=== PATIENT | female | born 1990 | race Caucasian/White ===

== ENCOUNTER 2016-10-03 11:21 | Emergency (ER) | payer MEDICAID ==
[~2016-10-03] VITALS: Ht 170.2 cm; Wt 58.5 kg
[~2016-10-03 11:21] MED LIST: AMOXICOT500 M1 PO; ATIVAN GENERIC0.5 MG PO; ETODOLAC400 MG PO; HYDROCODONE-APA1 TA1 PO; INDERAL40 MG PO; LO/OVRAL-28 301 TA1 PO; LORTAB 7.5/3251 TAB PO; PERCOCET1 TAB PO; PHENERGAN25 M3 PO; TYLENOL WITH CO1 TA1 PO; ZOFRAN4 MG PO
[2016-10-03] MEDS ORDERED: RISPERIDONE3 MG PO (11:32)
[2016-10-03] MEDS ORDERED: INDERAL 40MG. T40 MG PO (11:33)
--- OUTSIDE RECORDS SUMMARY | 2016-10-03 11:52 | External Medical Summary Rpt ---
Author Author , Organization [employer] Address Unknown Phone Unavailable Care Team Providers Care Architectural Examiner Name Role Phone [employer] Unavailable Unavailable INC, [employer] Unavailable Unavailable INC, [employer] ALEXANDRU ZACK, Unavailable Unavailable ALEXANDRU ZACK ALEXANDRU ZACK, Unavailable Unavailable ALEXANDRU ZACK JR. DECKER HENRY J, Unavailable Unavailable JR. DECKER HENRY J BEINEKE, BEINEKE Unavailable Unavailable KIZZY IIISPENCERLEONA, Unavailable Unavailable KIZZY III, LEONA NAHUM ALEXIS, NAHUM ALEXIS Unavailable Unavailable IGLESIA MCGILL Unavailable Unavailable TAMMY GONZALEZ DON, CARLOS DON Unavailable [facility]available [facility], [facility], Unavailable Unavailable [facility] Unavailable Unavailable MEDICAL C, [facility] Unavailable Unavailable [facility], [facility] Unavailable Unavailable [facility] [place] [place] [facility] Unavailable Unavailable [facility]ANS, [facility] REY LE Unavailable Unavailable REY Solares, REY Martinez Unavailable Unavailable G REY HAM, REY Unavailable Unavailable JITENDRA CATIE SWAPNA, Unavailable Unavailable CATIE SWAPNA CROWDY CRI, CROWDY Unavailable Unavailable CRI BORIS MARINA, Unavailable Unavailable BORIS MARINA COLON LAR, Unavailable Unavailable COLON LAR [facility] # [id number], Unavailable Unavailable [facility] # [id number] [id number], Unavailable Unavailable [id number] DEFOOR JR ALEXIS, DEFOOR Unavailable Unavailable JR ALEXIS MELODY CEDRIC, MELODY Unavailable Unavailable CEDRIC SANTANA HOANG, Unavailable Unavailable SANTANA HOANG DARYL L, Unavailable Unavailable GERARD, DO L [facility], [facility] BETH ODOM Unavailable Unavailable OVALLES GANANGELA JITENDRA, GANIM JITENDRA Unavailable Unavailable GANSHIRT RICARDO, Unavailable Unavailable GANSHIRT RICARDO GEERS RYA, GEERS RYA Unavailable Unavailable [facility] CLARKE MD, Unavailable Unavailable NAGI MABRY MD, Unavailable Unavailable NAGI VAZQUEZ GRAVES LES, GRAVES Unavailable Unavailable LES GRAVES LES, GRAVES Unavailable Unavailable LES GREVER MAR, GREVER Unavailable Unavailable MAR GREVER MAR, GREVER Unavailable Unavailable MAR GRUNKEMEYER MAT, Unavailable Unavailable GRUNKEMEYER MAT GRUNKEMEYER, OTILIA Unavailable Unavailable S, GRUNKEMEYER, OTILIA S GULTEKIN, REILLY K, Unavailable Unavailable GULTEKIN, REILLY K J CARLOS JUDITH, J CARLOS Unavailable Unavailable JUDITH HARPEL, HARPEL Unavailable Unavailable HARPEL JESUSITA, HARPEL Unavailable Unavailable JESUSITA [facility] Unavailable Unavailable INC, [facility] Unavailable Unavailable HOSPITAL P, [facility] P CHENCHO, NELSON P, Unavailable Unavailable CHENCHO, NELSON P ARANA AND, ARANA Unavailable Unavailable [facility], Unavailable Unavailable [facility] LACHELLE WILL, Unavailable Unavailable LACHELLE WILL JILL, JONES, Unavailable Unavailable BRENDA KEAGLE RIT, KEAGLE Unavailable Unavailable RIT KEAGLE RIT, KEAGLE Unavailable Unavailable RIT MONICA SHAVER H, Unavailable Unavailable SIVAKUMAR, MONICA H [facility] Unavailable Unavailable [facility], [facility] FRAN PINEDA, Unavailable Unavailable FRAN PINEDA H KLANKE JUS, KLANKE Unavailable Unavailable JUS CHONG RONEN, CHONG RONEN Unavailable Unavailable CHONG RONEN, CHONG RONEN Unavailable Unavailable ADRIEL RENATO, ADRIEL Unavailable Unavailable TUS NOREEN DESIR KROL, Unavailable Unavailable NOREEN J [facility] Unavailable Unavailable HOLDINGS, [facility] [email or web address] [facility], Unavailable Unavailable [facility] LAMEIER DILIA, LAMEIER Unavailable Unavailable DILIA LAMEIER DILIA, LAMEIER Unavailable Unavailable DILIA LUBBERS JASS, LUBBERS Unavailable Unavailable JASS LUKING SWAPNA, LUKING Unavailable Unavailable SWAPNA LUKING SWAPNA, LUKING Unavailable Unavailable SWAPNA BERNARDINO REYES, Unavailable Unavailable BERNARDINO LAYTON EDW, CALIN Unavailable Unavailable EDW ERIK NO, Unavailable Unavailable ERIK NO, HUBERT MUNOZ Unavailable Unavailable ARETHA HARLEY, Unavailable Unavailable ARETHA HARLEY MULBERRY LEIF, Unavailable Unavailable MULBERRY LEIF MULBERRY LEIF, Unavailable Unavailable MULBERRY LEIF NEILS, MANDA W, NEILS, Unavailable Unavailable MANDA W ALCON Grant, Unavailable Unavailable ALCON R H ALCON R H, Unavailable Unavailable ALCON R H [facility] Unavailable Unavailable INC, [facility] Un[facility] Unavailable [facility], [facility] OSTERHAGE CESAR, Unavailable Unavailable [facility] CESAR OTREMBIAK, SUSIE K, Unavailable Unavailable OTREMBIAK, SUSIE K [facility] KESHAWN LIAO Unavailable Unavailable [facility], [facility], [facility] Unavailable Unavailable CENTER, [facility] Unavailable Unavailable CENTER, [facility] HEMANT II TOLU, HEMANT Unavailable Unavailable II TOLU [facility], Unavailable Unavailable [facility], Unavailable Unavailable [facility], Unavailable Unavailable [facility] Unavailable Unavailable [facility], [facility] RATTAN AMI, RATTAN Unavailable Unavailable AMI NERI KAMI, Unavailable Unavailable NERI KAMI ROEBKER JAM, ROEBKER Unavailable Unavailable JAM ROSS CATHY, ROSS CATHY Unavailable Unavailable ROSS CATHY, ROSS CATHY Unavailable Unavailable SCALF LEI, SCALF LEI Unavailable Unavailable SCALF LEI, SCALF LEI Unavailable Unavailable YUN, YUN Unavailable Unavailable YUN RONEN, YUN Unavailable Unavailable RONEN SCHULSTAD CAM, Unavailable Unavailable SCHULSTAD CAM GIANG NADINE, GIANG NADINE Unavailable Unavailable SATISH DAWSON, SATISH Unavailable Unavailable DAWSON SOTINGEANJennifer TAMMY, Unavailable Unavailable SOTINGEANU TAMMY ALLIE SHE, Unavailable Unavailable ALLIE SHE [facility], Unavailable Unavailable [facility] Unavailable Unavailable [facility] Unavailable Unavailable [facility], [facility] Unavailable Unavailable [facility], [facility] Unavailable Unavailable PHYSICIANS, [facility] Unavailable Unavailable [facility] [place] Unavailable Unavailable [facility] TAD CHACKO Unavailable Unavailable MARKO CAMEJO ALEXIS, BASHIR ALEXIS Unavailable Unavailable [facility]available , [facility]available Unavailable [facility] Unavailable YAJAIRA LAGUERRE, [facility] VON HOENE AMA, VON Unavailable Unavailable HOENE AMA LISA DEW, LISA DEW Unavailable Unavailable [id number], Unavailable Unavailable [facility] # [id number] [facility], Unavailable Unavailable [id number], Unavailable Unavailable [id number] WALKER III DUTCH, Unavailable Unavailable WALKER III DUTCH [facility], [facility] Unavailable Unavailable MERON ALEXIS, MERON ALEXIS Unavailable Unavailable DENNY, DENNY Unavailable Unavailable ZANGRANDO JASS, Unavailable Unavailable ZANGRANDO JASS Purpose Continuity of Care Document - 10-13-2006 through 2016 Problems Code Diagnosis DOS Provider Status J069 ACUTE UPPER 08-18-2016 [facility] RESPIRATORY INFECTION UNSPECIFIED L259 UNSPECIFIED 08-18-2016 [facility]CT [facility] DERMATITIS UNSPECIFIED CAUSE B90307 PAIN IN 08-18-2016 [facility] RIGHT LEG [facility] G45964 PAIN IN 08-18-2016 [facility] LEFT LEG [facility] N946 DYSMENORRHE 08-18-2016 [facility] A [facility]ATES UNSPECIFIED R300 DYSURIA 08-18-2016 [facility] [id number] CORROSION 08-18-2016 [facility] 1ST DEGREE ASSOCIATES RT UPPER ARM INITIAL ENC J40 BRONCHITIS 04-01-2016 [facility] NOT [facility]OCIATES SPECIFIED ACUTE OR CHRONIC R05 COUGH 04-01-2016 [facility] R102 PELVIC AND 03-25-2016 [facility] PERINEAL PHYSICIANS PAIN GROUP N390 URINARY 03-21-2016 [facility] TRACT PHYSICIANS INFECTION GROUP SITE NOT SPECIFIED A99932 UNSPECIFIED 03-15-2016 [facility] OVARIAN PHYSICIANS CYST RIGHT GROUP SIDE I37493 TORSION OF 03-15-2016 [facility] RIGHT OVARY PHYSICIANS AND GROUP OVARIAN PEDICLE N761 SUBACUTE 03-08-2016 [facility] AND CHRONIC PHYSICIANS VAGINITIS GROUP P90358 ENCOUNTER 03-08-2016 [facility] FOR OTHER [facility] PREPROCEDUR INC AL EXAMINATION R1031 RIGHT LOWER 02-18-2016 [facility] Z720 TOBACCO USE 02-18-2016 [facility] INC N9489 OTH COND 02-16-2016 [facility] ASS[facility] W/FE PHYSICIANS GEN ORGN & GROUP MENSTRUAL CYCL Z309 ENCOUNTER 02-16-2016 [facility] FOR PHYSICIANS CONTRACEPTI GROUP VE MANAGEMENT UNS C83824 PAIN IN 01-12-2016 [facility] RIGHT ELBOW [facility] V65978A UNSPECIFIED 12-21-2015 [facility] RT FOREARM PHYSICIANS INITIAL ENC [id number] OTHER 11-05-2015 [facility] SPR[facility] OF H RIGHT HIP ORTHOPAEDIC INITIAL CTR ENCOUNTER A712X8Q SPRAIN 11-05-2015 [facility] OTHER SPEC H PARTS RIGHT ORTHOPAEDIC KNEE CTR INITIAL ENC T05473 EFFUSION 10-24-2015 [facility] RIGHT KNEE ASSOCIATES OF NOTH Y15454 PAIN IN 10-24-2015 [facility] RIGHT KNEE ASSOCIATES OF NOT V8946OD SPRAIN 10-24-2015 [facility] UNSPECIFIED TECHNOLOGIE SITE RT S INC KNEE INITIAL ENCNTR T1490 INJURY 10-24-2015 [facility] UNSPECIFIED ASSOCIATES OF NOT K529 NONINFECTIV 10-06-2015 [facility] E PHYSICIANS GASTROENTER GROUP ITIS & COLITIS UNS R73801 UNS ACUTE 09-18-2015 [facility] NONINFECTIV ASSOCIATES E OTITIS EXTERNA LEFT EAR H6692 OTITIS 09-18-2015 [facility] MEDIA [facility] UNSPECIFIED LEFT EAR M545 LOW BACK 09-18-2015 [facility] PAIN [facility] F32355 PAIN IN 09-18-2015 [facility] RIGHT FOOT ASSOCIATES K02933 PAIN IN 09-18-2015 [facility] LEFT FOOT ASSOCIATES Z8739 PERSONAL HX 09-18-2015 [facility] OTH DZ ASSOCIATES MUSCULOSKEL SYS&CONNECT V TISS Z021 ENCOUNTER 08-12-2015 [facility] FOR ASSOCIATES PRE-EMPLOYM ENT EXAMINATION N8320 UNSPECIFIED 07-28-2015 [facility] OVARIAN PHYSICIANS CYSTS GROUP I10 ESSENTIAL 07-17-2015 [facility] HYPERTENSIO INC N N8329 OTHER 07-17-2015 [facility] O[facility]IAN PHYSICIANS, CYSTS PLLC N739 FEMALE 07-16-2015 [facility] PELVIC EMERGENCY INFLAMMATOR PHYSICIANS Y DISEASE UNSPECIFIED N938 OTHER SPEC 07-16-2015 [facility] ABNORMAL [facility] UTERINE & OF NOTH VAGINAL BLEEDING R1030 LOWER 07-16-2015 [facility] ABDOMINAL [facility]IATES PAIN OF NOTH UNSPECIFIED N920 EXCESS & 06-18-2015 [facility] Mehta FREQUENT VINCE PALMA MENSTRUATIO N W/REGULAR CYCLE H6693 OTITIS 06-04-2015 [facility] MEDIA [facility] UNSPECIFIED BILATERAL R51 HEADACHE 03-31-2015 [facility] SAULT COLLE R109 UNSPECIFIED 02-05-2015 [facility] ABDOMINAL ASSOCIATES PAIN OF NOTH H5203 HYPERMETROP 01-24-2015 [facility] DILIA IA BILATERAL 6201 CORPUS 01-01-2015 [facility] eMhta LUTEUM CYST VINCE PALMA OR HEMATOMA 6202 OTHER AND 01-01-2015 [facility] UNSPECIFIED LLC OVARIAN CYST 6205 TORSION 01-01-2015 [facility] OVARIAN INC PEDICLE OR FALLOPIAN TUBE 6238 OTHER 01-01-2015 [place] SPECIFIED [facility]ICAL NONINFLAMMA IMAGING ASS TORY DISORDER VAGINA 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 INC 6259 UNSPEC 01-01-2015 [facility] SYMPTOM VINCE PALMA ASSOC W/FEMALE GENITAL ORGANS 6262 EXCESSIVE 01-01-2015 [facility] Mehta OR FREQUENT VINCE PALMA MENSTRUATIO N 26766 ABDOMINAL 01-01-2015 [place] PA[place], LEFT MEDICAL LOWER IMAGING ASS QUADRANT V741 SCREENING 12-25-2014 [facility]AM[facility] PULMONARY TUBERCULOSI S 3829 UNSPECIFIED 11-10-2014 [facility] OTITIS ASSOCIATES MEDIA 4659 ACUTE URIS 11-10-2014 [facility] OF ASSOCIATES UNSPECIFIED SITE 12238 OTHER 09-08-2014 [facility] SPECIFIED ASSOCIATES DISORDER OF OF [facility] PERITONEUM 75295 VOMITING 09-08-2014 [facility] ALONE ASSOCIATES [facility] 16362 ABDOMINAL 09-08-2014 [facility] PAIN, ASSOCIATES UNSPECIFIED OF [facility] SITE 9989 UNSPECIFIED 09-08-2014 [facility] COMPLICATIO PHYSICIANS N OF PROCEDURE NEC 82045 CHOLECYSTIT 09-04-2014 COMMUNITY IS, ANESTH OF UNSPECIFIED THE BLUE 25338 CHRONIC 09-04-2014 [facility], CHOLECYSTIT LLC IS 5758 OTHER 09-04-2014 [facility] SPECIFIED PHYSICIANS DISORDER OF GROUP GALLBLADDER V7283 OTHER 09-02-2014 [facility] SPECIFIED [facility] PRE-OPERATI INC VE EXAMINATION 62454 NAUSEA WITH 08-20-[facility]ICAL IMAGING ASS 60509 ABDOMINAL 08-20-2014 [facility] RIGHT [facility] UPPER INC QUADRANT 7099 UNSPECIFIED 08-05-2014 [facility] DISORDER PHYSICIANS OF GROUP SKIN&SUBCUT ANEOUS TISSUE 65574 NAUSEA 07-29-2014 [place] [facility]ONE [facility] 34227 OPEN WOUND 07-29-2014 [facility]ICAL WITHOUT IMAGING ASS MENTION COMPLICATIO N 13786 OPEN WOUND 07-29-2014 [facility] P COMPLICATED 8840 MX&UNSPEC 07-29-2014 [facility] OPEN WOUND ASSOCIATES UPPER LIMB W/O MENTION COMP V9081 RETAINED 07-29-2014 [facility] P 55803 SHEFALI 07-24-2014 [facility] MIGRAINE ASSOCIATES NEC W/INTRACT W/STATUS MIGRAINOSUS 7840 HEADACHE 07-19-2014 [facility] 50122 MIGRAINE 07-06-2014 [facility] UNSP W/O EMERGENCY INTRACT W/O PHYSICIANS STATUS MIGRAINOSUS 3688 OTHER 07-06-2014 [facility] SPECIFIED ASSOCIATES VISUAL OF NOTH DISTURBANCE S 60147 UNSPECIFIED 06-26-2014 [facility] INFECTIVE ASSOCIATES OTITIS EXTERNA 4779 ALLERGIC 06-26-2014 [facility] RHINITIS ASSOCIATES CAUSE UNSPECIFIED 64428 PAIN IN 06-17-2014 [facility] JOINT, ASSOCIATES LOWER LEG 84755 CHEST PAIN 05-13-2014 [place] [facility] U[facility]PECIF[facility] V2502 GENERAL 04-21-2014 [facility] COPPOLAL VINCE PALMA INITIATION OTH CONTRACEPT MEASURES V2509 OT GENERAL 04-21-2014 [facility] CLARKE MD CNSL&ADVICE CONTRACEPT MANAGEMENT 6159 UNSPECIFIED 04-04-2014 [facility] CLARKE MD INFLAMMATOR Y DISEASE OF UTERUS V2512 ENCOUNTER 04-04-2014 [facility] Me[facility] FOR REMOVAL VINCE PALMA IU CONTRACEPT DEVICE V7231 ROUTINE 04-04-2014 [facility] GYNECOLOGIC VINCE PALMA AL EXAMINATION 6200 FOLLICULAR 04-03-2014 [place] CYST OF MEDICAL OVARY IMAGING ASS 7881 DYSURIA 03-26-2014 [facility] 21556 ACUTE 02-22-2014 ST GASTRITIS [facility] WITHOUT MED CTR MENTION OF HEMORRHAGE 38311 ABDOMINAL 02-22-2014 ST PAIN, [facility] EPIGASTRIC MED CTR 7244 THORACIC/SAKINA 02-10-2014 [facility] MBOSACRAL ASSOCIATES NEURITIS/RA DICULITIS UNSPEC 84439 PAIN IN 02-04-2014 [facility] JOINT ASSOCIATES PELVIC OF NOTH REGION AND THIGH 7242 LUMBAGO 02-04-2014 ST [facility] MED CTR 7245 UNSPECIFIED 02-04-2014 [facility] BACKACHE ASSOCIATES OF NOTH 7243 SCIATICA 01-30-2014 [facility] SWAPNA 7391 NONALLOPATH 01-30-2014 [facility] SWAPNA IC LESION OF CERVICAL REGION NEC 7392 NONALLOPATH 01-30-2014 [place] SWAPNA IC LESION OF THORACIC REGION NEC 7396 NONALLOPATH 01-30-2014 [place] SWAPNA IC LESION OF LOWER EXTREMITIES NEC 4619 ACUTE 01-16-2014 [facility] SINUSITIS, ASSOCIATES UNSPECIFIED 5990 URINARY 12-24-2013 [facility] TRACT [facility]OCIATES INFECTION SITE NOT SPECIFIED 0549 HERPES 11-29-2013 [facility] L[facility] SIMPLEX WITHOUT MENTION OF COMPLICATIO N 6982 PRURIGO 11-29-2013 [facility] L[facility] 7061 OTHER ACNE 11-29-2013 [facility] V5869 LONG-TERM 11-29-2013 [facility] USE OF OTHER MEDICATIONS 460 ACUTE 09-25-2013 MAVIS SPENCE NASOPHARYNG ITIS 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 86193 DYSPLASIA 09-19-2013 GASPAR TAMMY OF CERVIX UNSPECIFIED 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 LES V643 PROCEDURE 09-02-2013 ST NOT CARRIED [facility] OUT FOR MED CTR VISUAL MERCHANDISING SPECIALIST OTHER ST REASONS 6953 ROSACEA 08-27-2013 [facility] LES 6989 UNSPECIFIED 08-27-2013 G[facility] LES PRURITIC DISORDER 4618 OTHER ACUTE 06-16-2013 GREVER MAR SINUSITIS 6250 DYSPAREUNIA 05-16-2013 ROSS CATHY 6253 DYSMENORRHE 05-16-2013 ROSS CATHY A 27309 UNSPEC 05-16-2013 [facility] HARDWICK CONGN ANOMALY CERV VAGINA&EXT FE GENIT V1329 PERSONAL HX 05-16-2013 CHONG HARDWICK OT GENITAL SYSTEM&OBST ETRIC D/O 0780 MOLLUSCUM 05-02-2013 SCALF LEI CONTAGIOSUM 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 7282 MUSCULAR 03-12-2013 ALEXANDRU WASTING AND ZACK DISUSE ATROPHY NEC 8471 THORACIC 03-12-2013 ALEXANDRU SPRAIN AND ZACK STRAIN V242 ROUTINE 01-20-2013 [facility] FOLLOW-UP [facility] 03572 TRANSIENT 01-16-2013 ST HYPERTENSIO [facility] N OF PHYSICIANS ANTEPARTUM 650 NORMAL 01-16-2013 DELIVERY [facility] PHYSICIANS 2859 UNSPECIFIED 01-15-2013 ST ANEMIA [facility] MED CTR VISUAL MERCHANDISING [facility] ST [address]45 TRANSIENT 01-15-2013 ST HYPERTENSIO [facility] N OF MED CTR VISUAL MERCHANDISING SPECIALIST ST W/DELIVERY 86046 MATERNAL 01-15-2013 ST ANEMIA, [facility] WITH MED CTR VISUAL MERCHANDISING SPECIALIST DELIVERY ST [address]321 OTH CURRENT 01-15-2013 MATERNAL [facility] CCE MED CTR VISUAL MERCHANDISING SPECIALIST W/DELIVERY ST V270 OUTCOME OF 01-15-2013 ST DELIVERY [facility] SINGLE MED CTR VISUAL MERCHANDISING [place] [address] UNS 01-10-2013 [facility] ABNORM MGMT MATERNAL MOTH AND ANTPRTM COND/COMP V239 UNSPECIFIED 01-10-2013 [facility] HIGH-RISK MATERNAL AND 92852 OTHER 01-07-2013 THREATENED [facility] LABOR PHYSICIANS UNSPEC EPISODE CARE 89276 OTHER 01-07-2013 SPECIFED [facility] COMPLICATIO MED CTR VISUAL MERCHANDISING SPECIALIST N ST ANTEPARTUM 7962 ELEVATED BP 01-07-2013 READING [facility] WITHOUT DX MED CTR VISUAL MERCHANDISING SPECIALIST HYPERTENSIO ST N V1582 PERS HX 01-07-2013 TOBACCO USE [facility] PRESENTING MED CTR VISUAL MERCHANDISING SPECIALIST HAZARDS ST [facility] V169 FAMILY 01-07-2013 HISTORY OF [facility] UNSPECIFIED MED CTR VISUAL MERCHANDISING SPECIALIST MALIGNANT ST NEOPLASM V220 SUPERVISION 12-31-2012 OF NORMAL [facility] 6984 DERMATITIS 12-28-2012 GRAVES LES FACTITIA 7019 UNSPECIFIED 12-28-2012 GRA[facility]ES LES HYPERTROPHI C&ATROPHIC CONDITION SKIN V6540 COUNSELING 12-28-2012 GRAVES LES NOS 57537 THREATENED 12-24-2012 PREMATURE [facility] LABOR MEDICAL ANTEPARTUM CENTER 72022 SWELLING OF 12-24-2012 [facility] 7820 DISTURBANCE 12-24-[address] SKIN [facility] 22320 OT CURRENT 12-19-2012 PADMAJA [facility] CLASSIFIABL E ELSW ANTPRTM 42075 OT 12-19-2012 KNOWN/SUSPE [facility] CTED MEDICAL ABNORMALITY CENTER -NEC-APC/C V283 ENCOUNTER 12-19-2012 ROUTINE [facility] SCREEN MEDICAL MALFORMATIO CENTER N ULTRASONIC 29722 DECR 12-15-2012 MOVMNTS [facility] MGMT MOTH MEDICAL ANTPRTM CENTER COND/COMP 44124 DECREASED 12-13-2012 CH[facility] RONEN MOVEMENTS UNSPEC EPISODE CARE 6235 LEUKORRHEA 11-09-2012 NOT [facility] MEDICAL CENTER INFECTIVE 49116 POLYDACTYLY 11-02-2012 ST. , [facility] UNSPECIFIED LANE DIGITS 63047 PAP SMER 11-02-2012 ST. CERV W/LW [facility] GRADE LANE SQUAMOUS INTRAEPITH LES 44257 LIVER 11-02-2012 ST. INJURY W/O [facility] MENTION OPN LANE WND IN CAV UNS LAC 6929 CONTACT 10-29-2012 [facility] DERMATITIS& H OTHER ECZEMA DUE UNSPEC CAUSE V222 10-29-2012 [facility] STATE, H INCIDENTAL 24464 OTHER 10-17-2012 ST SPECIFIED [facility] DISORDER OF MEDICAL KIDNEY AND CENTER URETER V141 PERSONAL 09-23-2012 ST HISTORY [facility] ALLERGY MEDICAL OTHER CENTER ANTIBIOTIC AGENT 74701 HORDEOLUM 08-24-2012 [facility] EXTERNUM LEIF 9953 ALLERGY 08-24-2012 [facility] UNSPECIFIED LEIF NOT ELSEWHERE CLASSIFIED V7242 06-12-2012 [facility] EXAM[facility] OR TEST CENTER POSITIVE RESULT 82888 SPASM OF 06-11-2009 [facility] 27835 ABDOMINAL 03-25-2009 [facility] OTHER [facility]OSPITAL SPECIFIED EAST SITE 59531 POST-TRAUMA 01-19-2009 [facility]OS[facility] MED HEADACHE CTR UNSPECIFIED 60282 CONCUSSION 01-19-2009 CHILDRENS WITH LOC OF HOSP MED 30 MINUTES CTR OR LESS 39123 INJURY OF 01-09-2009 [facility] FACE AND PEDIATRIC NECK OTHER AND UNSPECIFIED V0481 NEED 01-09-2009 [facility] PROPHYLACTI PEDIATRIC C VACCINATION &INOCULATIO N FLU V6759 OTHER 01-09-2009 [facility] FOLLOW-UP PEDIATRIC EXAMINATION OTHER 81332 OTHER CHEST 12-20-2008 [facility] 9598 INJURY 12-20-2008 [facility] OTH&UNSPEC ASSOCIATES OTH SPEC PSC SITES INCL MULTIPLE 9599 INJURY 12-20-2008 [facility] OTHER AND ASSOCIATES UNSPECIFIED PSC UNSPECIFIED SITE 98323 GENERALIZED 11-26-2008 [facility] [place] ANXIETY MH MR BD DISORDER INC 7231 CERVICALGIA 11-13-2008 [facility] V2541 SURVEILLANC 10-16-2008 ST E PREV [facility] PRESCRIBED MED CTR CONTRACEPT PILL V762 SCREENING 10-16-2008 ST FOR [facility] NEOPLASM OF ER THE CERVIX 486 PNEUMONIA, 08-22-2008 [facility] ORGANISM PEDIATRIC UNSPECIFIED 7862 COUGH 08-22-2008 [facility] PSC 53945 CHRONIC 05-06-2008 INDEPENDENT TONSILLITIS ANESTHESIOL OGIST 34780 HYPERTROPHY 05-06-2008 HEAD & NECK OF TONSIL SURGERY WITH ASSOC ADENOIDS 21558 CLOSED 05-01-2008 [facility] FRACTURE H DISTAL [facility]THOPAEDIC PHALANX OR CTR PSC PHALANGES HAND 462 ACUTE 04-22-2008 [facility] PHARYNGITIS PEDIATRIC 463 ACUTE 04-22-2008 [facility] TONSILLITIS PEDIATRIC 44470 CLOSED 04-07-2008 [facility] FRACTURE ASSOCIATES UNSPEC PSC PHALANX/PHA LANGES HAND 16312 MODERATE 03-20-2008 [facility]YSICIANS FOR WOMEN 91470 PAP SMER 03-20-2008 [facility] INC W/ATYPICAL SQUAMOUS CELLS UNDET 85656 ABNORMAL 12-28-2007 [facility] SMEAR OF FOR WOMEN CERVIX 0340 STREPTOCOCC 12-21-2007 [facility] AL SORE PEDIATRIC THROAT 68429 INSOMNIA 11-08-2007 [facility] UNSPECIFIED PEDIATRIC 7806 FEVER & OTH 08-17-2007 [facility] PEDIATRIC PHYSIOLOGIC DISTURBANCE S TEMP REG 2893 LYMPHADENIT 07-19-2007 [facility] IS PEDIATRIC UNSPECIFIED EXCEPT MESENTERIC 4871 INFLUENZA 07-06-2007 [facility] WITH OTHER PEDIATRIC RESPIRATORY MANIFESTATI ONS 59700 UNSPECIFIED 06-15-2007 [facility] VAGINITIS PEDIATRIC AND VULVOVAGINI TIS 0091 COLITIS 04-26-2007 [facility] ENTERIT&GAS PEDIATRIC TROENTERIT INF ORIGIN 38378 URINARY 10-13-2006 [facility] MEDICAL C Medications Na ND Rx Da Fi Fi Am Da Di Ph RX Ph St me C No te ll ll ou ys ag ar # ys at rm s nt no ma ic us Or Da si cy ia de te s n re d LO 00 05 06 40 13 00 TO RA 59 -1 -0 .0 00 TA ti ZE 10 - 9- 00 00 L ve PA 24 20 20 95 CA M 00 17 17 01 RE 0. 5 81 5 PH MG AR MA TA CY BL ET #5 OR 00 05 06 45 30 00 TO OP 37 -1 -0 .0 00 TA ti RA 80 1- 9- 00 00 L ve NO 18 20 20 95 CA LO 40 17 17 01 RE L 1 82 40 PH AR MG MA CY TA BL #5 ET RI 27 05 06 60 30 00 TO SP 24 -1 -0 .0 00 TA ti ER 10 1- 9- 00 00 L ve ID 00 20 20 95 CA ON 50 17 17 01 RE E 6 83 3 PH MG AR MA TA CY BL ET #5 AM 16 05 06 20 10 00 TO OX 71 -0 -0 .0 00 TA ti -C 40 4- 2- 00 00 L ve LA 47 20 20 94 CA V 80 17 17 95 RE 87 2 81 5- PH 12 AR 5 MA MG CY TA #5 BL ET ER 00 04 05 46 30 00 TO YT 78 -2 -1 .6 00 TA ti HR 17 4- 9- 00 00 L ve OM 09 20 20 94 CA YC 45 17 17 17 RE IN 9 54 -B PH EN AR ZO MA YL CY GE #5 L OR 00 04 05 45 30 00 TO OP 37 -1 -1 .0 00 TA ti RA 80 3- 2- 00 00 L ve NO 18 20 20 94 CA LO 40 17 17 17 RE L 1 50 40 PH AR MG MA CY TA BL #5 ET RI 27 04 05 60 30 00 TO SP 24 -1 -1 .0 00 TA ti ER 10 3- 2- 00 00 L ve ID 00 20 20 94 CA ON 50 17 17 17 RE E 6 53 3 PH MG AR MA TA CY BL ET #5 LO 00 04 05 40 13 00 TO RA 59 -1 -1 .0 00 TA ti ZE 10 3- 2- 00 00 L ve PA 24 20 20 94 CA M 00 17 17 17 RE 0. 5 55 5 PH MG AR MA TA CY BL ET #5 DI 00 04 05 60 30 00 TO CL 22 -1 -1 .0 00 TA ti OF 82 3- 2- 00 00 L ve EN 55 20 20 94 CA AC 19 17 17 47 RE 6 82 SO PH D AR EC MA CY 75 #5 MG TA B OR 00 03 04 45 30 00 TO OP 37 -1 -1 .0 00 TA ti RA 80 6- 4- 00 00 L ve NO 18 20 20 94 CA LO 40 17 17 17 RE L 1 50 40 PH AR MG MA CY TA BL #5 ET RI 27 03 04 60 30 00 TO SP 24 -1 -1 .0 00 TA ti ER 10 6- 4- 00 00 L ve ID 00 20 20 94 CA ON 50 17 17 17 RE E 6 53 3 PH MG AR MA TA CY BL ET #5 ER 00 03 04 46 30 00 TO YT 78 -1 -1 .6 00 TA ti HR 17 6- 4- 00 00 L ve OM 09 20 20 94 CA YC 45 17 17 17 RE IN 9 54 -B PH EN AR ZO MA YL CY GE #5 L LO 00 03 04 40 13 00 TO RA 59 -1 -1 .0 00 TA ti ZE 10 6- 4- 00 00 L ve PA 24 20 20 94 CA M 00 17 17 17 RE 0. 5 55 5 PH MG AR MA TA CY BL ET #5 DI 00 03 04 60 30 00 TO CL 22 -1 -1 .0 00 TA ti OF 82 6- 4- 00 00 L ve EN 55 20 20 94 CA AC 19 17 17 47 RE 6 82 SO PH D AR EC MA CY 75 #5 MG TA B OR 00 02 03 45 30 00 TO OP 37 -1 -1 .0 00 TA ti RA 80 6- 7- 00 00 L ve NO 18 20 20 94 CA LO 40 17 17 17 RE L 1 50 40 PH AR MG MA CY TA BL #5 ET ER 00 02 03 46 30 00 TO YT 78 -1 -1 .6 00 TA ti HR 17 6- 7- 00 00 L ve OM 09 20 20 94 CA YC 45 17 17 17 RE IN 9 54 -B PH EN AR ZO MA YL CY GE #5 L DI 00 02 03 60 30 00 TO CL 22 -1 -1 .0 00 TA ti OF 82 6- 7- 00 00 L ve EN 55 20 20 94 CA AC 19 17 17 17 RE 6 51 SO PH D AR EC MA CY 75 #5 MG TA B AM 00 02 03 22 30 00 TO MO 90 -1 -1 6. 00 TA ti NI 45 6- 7- 00 00 L ve UM 98 20 20 0 94 CA 42 17 17 17 RE LA [address] PH AT AR E MA 12 CY % LO #5 TI ON RI 27 02 03 60 30 00 TO SP 24 -1 -1 .0 00 TA ti ER 10 6- 7- 00 00 L ve ID 00 20 20 94 CA ON 50 17 17 17 RE E 6 53 3 PH MG AR MA TA CY BL ET #5 LO 00 02 03 40 13 00 TO RA 59 -1 -1 .0 00 TA ti ZE 10 6- 7- 00 00 L ve PA 24 20 20 94 CA M 00 17 17 17 RE 0. 5 55 5 PH MG AR MA TA CY BL ET #5 OR 00 12 01 24 12 00 TO OM 60 -1 -2 0. 00 TA ti ET 31 6- 0- 00 00 L ve NIETO 58 20 20 0 93 CA ZI 65 16 17 58 RE NE 8 74 -D PH M AR SY MA RU CY P #5 AZ 50 12 01 6. 5 00 TO IT 11 -1 -2 00 00 TA ti HR 10 6- 0- 0 00 L ve OM 78 20 20 93 CA YC 75 16 17 58 RE IN 1 77 PH 25 AR 0 MA MG CY TA #5 BL ET ME 00 12 01 21 6 00 TO TH 78 -1 -2 .0 00 TA ti YL 15 6- 0- 00 00 L ve OR 02 20 20 93 CA ED 20 16 17 58 RE NI 7 78 SO PH LO AR NE MA 4 CY MG #5 DO SE PK OR 00 12 01 45 30 00 TO OP 37 -0 -1 .0 00 TA ti RA 80 8- 3- 00 00 L ve NO 18 20 20 92 CA LO 40 16 17 84 RE L 1 98 40 PH AR MG MA CY TA BL #5 ET LO 00 12 01 40 13 00 TO RA 59 -0 -1 .0 00 TA ti ZE 10 8- 3- 00 00 L ve PA 24 20 20 92 CA M 00 16 17 84 RE 0. 5 97 5 PH MG AR MA TA CY BL ET #5 HY 00 12 01 30 [address] [facility] [address] 40 -0 -1 .0 00 L- ti OC 60 8- 3- 00 02 MA ve OD 12 20 20 23 RT ON 40 16 17 81 -A 1 60 PH CE AR TA MA TN CY NO PH #5 91 7. 5- 32 5 OR 00 12 01 10 3 00 TO OM 60 -0 -1 .0 00 TA ti ET 35 9- 3- 00 00 L ve NIETO 43 20 20 93 CA ZI 83 16 17 51 RE NE 2 01 PH 25 AR MA MG CY TA #5 BL ET ON 65 12 01 30 7 00 TO DA 86 -1 -1 .0 00 TA ti NS 20 3- 3- 00 00 L ve ET 18 20 20 93 CA RO 73 16 17 45 RE N 0 43 HC PH L AR 4 MA MG CY TA #5 BL ET HY 00 12 01 30 [address] [facility] [address] 40 -0 -0 .0 00 L- ti OC 60 1- 9- 00 02 MA ve OD 12 20 20 23 RT ON 40 16 17 81 -A 1 06 PH CE AR TA MA TN CY NO PH #5 91 7. 5- 32 5 NI 47 12 01 20 10 00 [facility] TR 78 -0 -0 .0 00 L- ti OF 10 5- 9- 00 07 MA ve UR 30 20 20 45 RT AN 30 16 17 64 TO 1 53 PH IN AR MA MO CY NO -M #5 CR 91 10 0 MG ON 57 12 01 30 8 00 WA Ac DA 23 -0 -0 .0 00 L- ti NS 70 6 00 07 MA ve ET 07 20 20 45 RT RO 53 16 17 64 N 0 64 PH HC AR L MA 4 CY MG #5 TA 91 BL ET FE 00 10 03 12 28 28 CV 50 CROW Ac MC 43 -0 -0 .0 S 86 NE ti ON 00 PH 43 S ve 48 20 20 AR JI FE 21 09 10 MA LL 4 CY S TA # BL ET 05 43 7 FE 00 10 02 05 28 28 CV 50 CROW Ac MC 43 -0 -2 .0 S 86 NE ti ON 00 PH 43 S ve 48 20 20 AR JI FE 21 09 10 MA LL 4 CY S TA BL #5 ET 43 7 00 12 02 01 30 15 CV 51 Ac 09 -2 -1 .0 S 64 LT ti 51 PH 55 EK ve 20 20 20 AR IN 00 09 10 MA 6 CY EB RU #5 K 43 7 CL 00 09 02 02 30 30 CV 50 Ac ON 37 -2 -1 .0 S 69 LT ti ID 80 5 PH 31 EK ve IN 18 20 20 AR IN E 60 09 10 MA HC 1 CY EB L RU 0. #5 K 2 43 MG 7 TA BL ET FE 00 10 02 04 28 28 CV 50 CROW Ac MC 43 -0 -1 .0 S 86 NE ti ON 00 PH 43 S ve 48 20 20 AR JI FE 21 09 10 MA LL 4 CY S TA BL #5 ET 43 7 RA 68 02 02 00 60 30 CV 52 Ac NI 46 -0 -1 .0 S 07 LT ti TI 20 2- 1- 00 PH 37 EK ve DI 24 20 20 AR IN NE 80 10 10 MA 5 CY EB 15 RU 0 #5 K MG 43 7 TA BL ET AC 00 02 02 00 12 3 CV 52 OT Ac ET 09 -0 -1 .0 S 04 RE ti AM 30 PH 60 MB ve IN 15 20 20 AR IA OP 01 10 10 MA K HE 0 CY JA N- ME CO #5 S D 43 J #3 7 TA BL ET FE 00 10 01 03 28 28 CV 50 CROW Ac MC 43 -0 -1 .0 S 86 NE ti ON 00 9 00 PH 43 S ve 48 20 20 AR JI FE 21 09 10 MA LL 4 CY S TA BL #5 ET 43 7 CL 59 01 01 00 28 7 CV 51 CROW Ac IN 76 -0 -1 .0 S 78 NE ti DA 25 6- 4- 00 PH 48 S ve MY 01 20 20 AR JI CI 00 10 10 MA LL N 2 CY S HC L #5 30 43 0 7 MG CA PS UL E 00 12 12 00 30 15 CV 51 Ac 09 -2 -3 .0 S 64 LT ti 51 1 PH 55 EK ve 20 20 20 AR IN 00 09 09 MA 6 CY EB RU #5 K 43 7 AM 00 12 12 00 20 10 CV 51 Ac OX 09 -2 -3 .0 S 64 LT ti -C 32 1 PH 57 EK ve LA 27 20 20 AR IN V 43 09 09 MA 50 4 CY EB 0- RU 12 #5 K 5 43 MG 7 TA BL ET CL 00 09 12 01 30 30 CV 50 Ac ON 37 -2 -1 .0 S 69 LT ti ID 80 5- 7- 00 PH 31 EK ve IN 18 20 20 AR IN E 60 09 09 MA HC 1 CY EB L RU 0. #5 K 2 43 MG 7 TA BL ET AC 00 12 12 00 12 2 WA 11 OT Ac ET 09 -0 -1 .0 LG 34 RE ti AM 30 7- 00 RE 27 MB ve IN 15 20 20 EN IA OP 01 09 09 S K HE 0 #1 JA N- 14 ME CO 95 S D J #3 TA BL ET AZ 00 12 12 00 2. 1 WA 11 OT Ac IT 09 -0 -1 00 LG 34 RE ti HR 37 9- 7- 0 RE 28 MB ve OM 16 20 20 EN IA YC 95 09 09 S K IN 6 #1 JA 14 ME 50 95 S 0 J MG TA BL ET CI 16 12 12 00 1. 1 WA 11 OT Ac OR 25 -0 -1 00 LG 34 RE ti OF 20 9- 7- 0 RE 29 MB ve LO 51 20 20 EN IA XA 50 09 09 S K CI 1 #1 JA N 14 ME HC 95 S L J 50 0 MG TA B FE 00 10 12 02 28 28 CV 50 CROW Ac MC 43 -0 -1 .0 S 86 NE ti ON 00 00 PH 43 S ve 48 20 20 AR JI FE 21 09 09 MA LL 4 CY S TA BL #5 ET 43 7 RA 68 09 12 01 60 28 CV 50 Ac NI 46 -2 -1 .0 S 69 LT ti TI 20 5- 7- 00 PH 32 EK ve DI 24 20 20 AR IN NE 80 09 09 MA 5 CY EB 15 RU 0 #5 K MG 43 7 TA BL ET ON 68 12 12 00 6. 15 WA 11 OT Ac DA 46 -0 -1 00 LG 34 RE ti NS 20 9- 7- 0 RE 33 MB ve ET 15 20 20 EN IA RO 71 09 09 S K N 3 #1 JA OD 14 ME T 95 S 4 J MG TA BL ET FL 00 12 12 00 1. 1 WA 11 OT Ac UC 17 -0 -1 00 LG 34 RE ti ON 25 9- 7- 0 RE 32 MB ve AZ 41 20 20 EN IA OL 21 09 09 S K E 1 #1 JA 15 14 ME 0 95 S MG J TA BL ET 00 12 12 00 4. 1 WA 11 OT Ac 59 -0 -1 00 LG 34 RE ti 13 9- 7- 0 RE 30 MB ve 97 20 20 EN IA 00 09 09 S K 5 #1 JA 14 ME 95 S J FE 00 10 11 01 28 28 CV 50 CROW Ac MC 43 -0 -1 .0 S 86 NE ti ON 00 PH 43 S ve 48 20 20 AR JI FE 21 09 09 MA LL 4 CY S TA BL #5 ET 43 7 FE 00 10 10 00 28 28 CV 50 No Ac MC 43 -1 -2 .0 S 91 t ti ON 00 00 PH 90 Av ve 48 20 20 AR ai FE 21 09 09 MA la 4 CY bl TA e BL #5 ET 43 7 AZ 59 10 10 00 4. 1 CV 50 WA Ac IT 76 -1 -2 00 S 93 LK ti HR 23 6- 2- 0 PH 40 ER ve OM 06 20 20 AR YC 00 09 09 MA II IN 2 CY I RO 25 #5 OS 0 43 EV MG 7 EL T TA BL ET PH 65 09 10 00 14 7 WA 10 Ac EN 16 -2 -0 .0 LG 35 LT ti AZ 20 9- 8- 00 RE 66 EK ve OP 51 20 20 EN IN YR 71 09 09 S ID 0 #1 EB IN 14 RU E 95 K 10 0 MG TA B PAUL 53 09 10 00 20 10 WA 10 Ac LF 74 -2 -0 .0 LG 35 LT ti AM 60 9- 8- 00 RE 65 EK ve ET 27 20 20 EN IN HO 20 09 09 S XA 5 #1 EB ZO 14 RU LE 95 K -T MP DS TA BL ET CL 00 09 10 00 30 30 CV 50 Ac ON 37 -2 -0 .0 S 69 LT ti ID 80 5- 8- 00 PH 31 EK ve IN 18 20 20 AR IN E 60 09 09 MA HC 1 CY EB L RU 0. #5 K 2 43 MG 7 TA BL ET CL 00 09 10 00 80 30 CV 50 No Ac ON 09 -2 -0 .0 S 62 t ti AZ 30 0- 8- 00 PH 96 Av ve EP 83 20 20 AR ai AM 30 09 09 MA la 1 1 CY bl e MG #5 43 TA 7 BL ET RA 68 09 10 00 60 28 CV 50 Ac NI 46 -2 -0 .0 S 69 LT ti TI 20 5- 8- 00 PH 32 EK ve DI 24 20 20 AR IN NE 80 09 09 MA 5 CY EB 15 RU 0 #5 K MG 43 7 TA BL ET DI 00 09 09 00 20 7 CV 50 OT Ac CY 37 -1 -2 .0 S 60 RE ti CL 81 6- 4- 00 PH 13 MB ve OM 62 20 20 AR IA IN 00 09 09 MA K E 1 CY JA 20 ME #5 S MG 43 J 7 TA BL ET FE 00 07 09 03 28 28 CV 49 No Ac MC 43 -0 -2 .0 S 91 t ti ON 00 2- 4- 00 PH 89 Av ve 48 20 20 AR ai FE 21 09 09 MA la 4 CY bl TA e BL #5 ET 43 7 AM 00 09 09 00 20 10 WA 10 OT Ac OX 78 -1 -2 .0 LG 05 RE ti -C 11 0- 4- 00 RE 81 MB ve LA 83 20 20 EN IA V 12 09 09 S K 50 0 #1 JA 0- 14 ME 12 95 S 5 J MG TA BL ET AC 00 09 09 00 20 3 WA 10 OT Ac ET 09 -1 -2 .0 LG 05 RE ti AM 30 0- 4- 00 RE 82 MB ve IN 15 20 20 EN IA OP 01 09 09 S K HE 0 #1 JA N- 14 ME CO 95 S D J #3 TA BL ET 00 09 09 00 12 1 WA 28 EM Ac 60 -0 -2 .0 LG 87 ER ti 35 5- 4- 00 RE 78 Y ve 46 20 20 EN 0 DA 72 09 09 # RY 8 L 07 L 34 6 PE 00 09 09 00 21 7 WA 28 EM Ac NI 09 -0 -2 .0 LG 87 ER ti CI 31 5- 4- 00 RE 78 Y ve LL 17 20 20 EN 6 DA IN 41 09 09 # RY 0 L VK 07 L 34 50 6 0 MG TA BL ET FE 00 07 09 02 28 28 CV 49 No Ac MC 43 -0 -1 .0 S 91 t ti ON 00 2- 0- 00 PH 89 Av ve 48 20 20 AR ai FE 21 09 09 MA la 4 CY bl TA e BL #5 ET 43 7 CL 00 07 09 01 80 30 CV 50 No Ac ON -2 -1 .0 S 14 t ti AZ 30 0- 0- 00 PH 32 Av ve EP 83 20 20 AR ai AM 30 09 09 MA la 1 1 CY bl e MG #5 43 TA 7 BL ET OR 00 08 08 00 20 3 WA 97 No Ac OM 78 -1 -2 .0 LG 23 t ti ET 11 8- 7- 00 RE 0 Av ve NIETO 83 20 20 EN ai ZI 00 09 09 S la NE 1 #1 bl 14 e 25 95 MG TA BL ET FE 00 07 08 01 28 28 CV 49 No Ac MC 43 -0 -1 .0 S 91 t ti ON 00 2- 3- 00 PH 89 Av ve 48 20 20 AR ai FE 21 09 09 MA la 4 CY bl TA e BL #5 ET 43 7 CL 00 07 08 00 80 30 CV 50 No Ac ON 09 -2 -1 .0 S 14 t ti AZ 30 0- 3- 00 PH 32 Av ve EP 83 20 20 AR ai AM 30 09 09 MA la 1 1 CY bl e MG #5 43 TA 7 BL ET OR 00 07 07 00 15 5 CV 50 Ac OM 78 -2 -3 .0 S 02 LT ti ET 11 0- 0- 00 PH 50 EK ve NIETO 83 20 20 AR IN ZI 00 09 09 MA NE 1 CY EB RU 25 #5 K 43 MG 7 TA BL ET SE 00 03 07 01 60 30 CV 48 No Ac RO 31 -1 -1 .0 S 96 t ti QU 00 6- 6- 00 PH 01 Av ve EL 27 20 20 AR ai 21 09 09 MA la 20 0 CY bl 0 e MG #5 43 TA 7 BL ET CL 00 06 07 01 80 28 CV 49 No Ac ON 09 -1 -1 .0 S 69 t ti AZ 30 4- 6- 00 PH 27 Av ve EP 83 20 20 AR ai AM 30 09 09 MA la 1 1 CY bl e MG #5 43 TA 7 BL ET FE 00 07 07 00 28 28 CV 49 SHANIQUE Ac MC 43 -0 -1 .0 S 91 HM ti ON 00 6 PH 89 E ve 48 20 20 AR CA FE 21 09 09 MA RO 4 CY LI TA NE BL #5 J ET 43 7 CL 00 06 07 00 80 27 CV 49 No Ac ON 09 -1 -0 .0 S 69 t ti AZ 30 4- 2- 00 PH 27 Av ve EP 83 20 20 AR ai AM 30 09 09 MA la 1 1 CY bl e MG #5 43 TA 7 BL ET OR 00 07 00 12 3 CV 49 EM Ac OM 78 -1 -0 .0 S 69 ER ti ET 11 4- 2- 00 PH 28 Y ve NIETO 83 20 20 AR DA ZI 00 09 09 MA RY NE 1 CY L L 25 #5 43 MG 7 TA BL ET FE 00 09 20 00 28 28 CV 49 SHANIQUE Ac MC 43 -0 -1 .0 S 64 HM ti ON 00 PH 53 E ve 48 20 20 AR CA FE 21 09 09 MA RO 4 CY LI TA NE BL #5 J ET 43 7 00 05 06 00 12 3 CV 49 SH Ac 59 -2 -0 .0 S 47 AR ti 10 4- 4- 00 PH 61 P ve 34 20 20 AR DA 90 09 09 MA 5 CY D P #5 43 7 PH 65 05 06 00 6. 2 CV 49 SH Ac EN 16 -2 -0 00 S 47 AR ti AZ 20 4- 4- 0 PH 62 P ve OP 52 20 20 AR DA YR 01 09 09 MA ID 0 CY D IN P E #5 20 43 0 7 MG TA B AZ 59 05 05 00 6. 5 CV 49 Ac IT 76 -0 -2 00 S 32 LT ti HR 23 8- 1- 0 PH 11 EK ve OM 06 20 20 AR IN YC 00 09 09 MA IN 1 CY EB RU 25 #5 K 0 43 MG 7 TA BL ET 00 05 05 00 18 5 CV 49 Ac 47 -0 -2 0. S 32 LT ti 21 8- 1- 00 PH 12 EK ve 62 20 20 0 AR IN 81 09 09 MA 6 CY EB RU #5 K 43 7 OR 00 05 05 00 10 3 CV 49 OT Ac OM 78 -0 -2 .0 S 25 RE ti ET 11 2- 1- 00 PH 62 MB ve NIETO 83 20 20 AR IA ZI 00 09 09 MA K NE 1 CY JA ME 25 #5 S 43 J MG 7 TA BL ET FE 00 12 05 02 28 28 CV 48 CROW Ac MC 43 -0 -2 .0 S 37 NE ti ON 00 4- 1- 00 PH 46 S ve 48 20 20 AR JI FE 21 08 09 MA LL 4 CY S TA BL #5 ET 43 7 CL 00 04 05 01 80 27 CV 49 No Ac ON 09 -2 -2 .0 S 13 t ti AZ 30 0- 1- 00 PH 03 Av ve EP 83 20 20 AR ai AM 20 09 09 MA la 1 CY bl 0. e 5 #5 MG 43 7 TA BL ET CL 00 04 05 00 80 27 CV 49 No Ac ON 09 -2 -0 .0 S 13 t ti AZ 30 0- 7- 00 PH 03 Av ve EP 83 20 20 AR ai AM 20 09 09 MA la 1 CY bl 0. e 5 #5 MG 43 7 TA BL ET FE 00 12 04 01 28 28 CV 48 CROW Ac MC 43 -0 -2 .0 S 37 NE ti ON 00 4- 3 PH 46 S ve 48 20 20 AR JI FE 21 08 09 MA LL 4 CY S TA BL #5 ET 43 7 SE 00 03 04 00 60 30 CV 48 No Ac RO 31 -1 -2 .0 S 96 t ti QU 00 6- 3- 00 PH 01 Av ve EL 27 20 20 AR ai 21 09 09 MA la 20 0 CY bl 0 e MG #5 43 TA 7 BL ET CL 00 04 04 00 30 15 CV 48 No Ac ON 09 -0 -0 .0 S 93 t ti AZ 30 2- 9- 00 PH 52 Av ve EP 83 20 20 AR ai AM 20 09 09 MA la 1 CY bl 0. e 5 #5 MG 43 7 TA BL ET CI 13 01 03 01 15 30 CV 48 No Ac TA 66 -1 -1 .0 S 15 t ti LO 80 9- 2- 00 PH 73 Av ve OR 01 20 20 AR ai AM 00 09 09 MA la 5 CY bl HB e R #5 20 43 7 MG TA BL ET AC 00 03 03 00 12 3 CV 48 OT Ac ET 09 -0 -1 .0 S 62 RE ti AM 30 5- 2- 00 PH 43 MB ve IN 15 20 20 AR IA OP 01 09 09 MA K HE 0 CY JA N- ME CO #5 S D 43 J #3 7 TA BL ET AM 00 03 03 00 20 10 CV 48 OT Ac OX 09 -0 -1 .0 S 62 RE ti -C 32 5- 2- 00 PH 42 MB ve LA 27 20 20 AR IA V 43 09 09 MA K 50 4 CY JA 0- ME 12 #5 S 5 43 J MG 7 TA BL ET OR 00 03 03 00 21 7 CV 48 OT Ac OM 78 -0 -1 .0 S 61 RE ti ET 11 5- 2- 00 PH 45 MB ve NIETO 83 20 20 AR IA ZI 00 09 09 MA K NE 1 CY JA ME 25 #5 S 43 J MG 7 TA BL ET SE 00 01 03 01 30 30 CV 48 No Ac RO 31 -1 -1 .0 S 15 t ti QU 00 9- 2- 00 PH 72 Av ve EL 27 20 20 AR ai 11 09 09 MA la 10 0 CY bl 0 e MG #5 43 TA 7 BL ET 00 02 02 00 18 6 CV 48 Ac 47 -2 -2 0. S 46 LT ti 21 0- 6- 00 PH 50 EK ve 62 20 20 0 AR IN 81 09 09 MA 6 CY EB RU #5 K 43 7 FE 00 12 02 00 28 28 CV 48 CROW Ac MC 43 -0 -2 .0 S 37 NE ti ON 00 4- 6- 00 PH 46 S ve 48 20 20 AR JI FE 21 08 09 MA LL 4 CY S TA BL #5 ET 43 7 AZ 59 02 02 00 6. 5 CV 48 Ac IT 76 -2 -2 00 S 46 LT ti HR 23 0- 6- 0 PH 51 EK ve OM 06 20 20 AR IN YC 00 09 09 MA IN 1 CY EB RU 25 #5 K 0 43 MG 7 TA BL ET OR 45 01 02 00 8. 2 CV 48 TN Ac OM 80 -2 -1 00 S 21 LL ti ET 20 5- 2- 0 PH 28 ER ve NIETO 75 20 20 AR ZI 93 09 09 MA TH NE 0 CY EO DO 25 #5 RE 43 H MG 7 PAUL PP OS IT OR Y 00 01 02 01 48 7 CV 48 KR Ac 60 -2 -1 0. S 16 OL ti 31 0- 2- 00 PH 84 ve 29 20 20 0 AR BR 55 09 09 MA YA 8 CY N J #5 43 7 CI 13 01 01 00 15 30 CV 48 No Ac TA 66 -1 -3 .0 S 15 t ti LO 80 9- 0- 00 PH 73 Av ve OR 01 20 20 AR ai AM 00 09 09 MA la 5 CY bl HB e R #5 20 43 7 MG TA BL ET OR 45 01 01 00 4. 2 CV 48 KR Ac OM 80 -2 -3 00 S 16 OL ti ET 20 0- 0- 0 PH 81 ve NIETO 75 20 20 AR BR ZI 93 09 09 MA YA NE 0 CY N J 25 #5 43 MG 7 PAUL PP OS IT OR Y AZ 59 01 01 00 45 6 CV 48 KR Ac IT 76 -2 -3 .0 S 16 OL ti HR 23 0- 0- 00 PH 86 ve OM 13 20 20 AR BR YC 00 09 09 MA YA IN 1 CY N J 20 #5 0 43 MG 7 /5 ML PAUL SP 00 01 01 00 48 15 CV 48 KR Ac 60 -2 -3 0. S 16 OL ti 31 0- 0- 00 PH 84 ve 29 20 20 0 AR BR 55 09 09 MA YA 8 CY N J #5 43 7 SE 00 01 01 00 30 30 CV 48 No Ac RO 31 -1 -3 .0 S 15 t ti QU 00 9- 0- 00 PH 72 Av ve EL 27 20 20 AR ai 11 09 09 MA la 10 0 CY bl 0 e MG #5 43 TA 7 BL ET 50 01 01 00 18 8 CV 48 Ac 38 -0 -1 0. S 02 LT ti 30 6- 5- 00 PH 23 EK ve 87 20 20 0 AR IN 21 09 09 MA 6 CY EB RU #5 K 43 7 AZ 59 01 01 00 6. 5 CV 48 Ac IT 76 -0 -1 00 S 02 LT ti HR 23 6- 5- 0 PH 22 EK ve OM 06 20 20 AR IN YC 00 09 09 MA IN 1 CY EB RU 25 #5 K 0 43 MG 7 TA BL ET SE 00 11 01 01 30 30 CV 47 No Ac RO 31 -1 -0 .0 S 53 t ti QU 00 7- 1- 00 PH 95 Av ve EL 27 20 20 AR ai 11 08 09 MA la 10 0 CY bl 0 e MG #5 43 TA 7 BL ET CI 13 11 01 01 15 30 CV 47 No Ac TA 66 -1 -0 .0 S 53 t ti LO 80 7- 1- 00 PH 93 Av ve OR 01 20 20 AR ai AM 00 08 09 MA la 5 CY bl HB e R #5 20 43 7 MG TA BL ET 00 12 01 00 15 3 WA 27 No Ac 59 -2 -0 .0 LG 65 t ti 10 2- 1- 00 RE 67 Av ve 38 20 20 EN 1 ai 70 08 09 # la 5 bl 07 e 34 6 00 12 12 00 30 30 CV 47 OT Ac 09 -0 -1 .0 S 69 RE ti 51 3- 8- 00 PH 60 MB ve 29 20 20 AR IA 00 08 08 MA K 6 CY JA ME #5 S 43 J 7 AZ 59 11 12 00 6. 5 CV 47 OT Ac IT 76 -2 -1 00 S 65 RE ti HR 23 9- 8- 0 PH 64 MB ve OM 06 20 20 AR IA YC 00 08 08 MA K IN 1 CY JA ME 25 #5 S 0 43 J MG 7 TA BL ET AM 00 12 12 00 20 10 CV 47 OT Ac OX 09 -0 -1 .0 S 69 RE ti -C 32 3- 8- 00 PH 61 MB ve LA 27 20 20 AR IA V 43 08 08 MA K 50 4 CY JA 0- ME 12 #5 S 5 43 J MG 7 TA BL ET CI 13 11 12 00 15 30 CV 47 No Ac TA 66 -1 -0 .0 S 53 t ti LO 80 7- 4- 00 PH 93 Av ve OR 01 20 20 AR ai AM 00 08 08 MA la 5 CY bl HB e R #5 20 43 7 MG TA BL ET SE 00 11 12 00 30 30 CV 47 No Ac RO 31 -1 -0 .0 S 53 t ti QU 00 7- 4- 00 PH 95 Av ve EL 27 20 20 AR ai 11 08 08 MA la 10 0 CY bl 0 e MG #5 43 TA 7 BL ET SE 00 10 11 00 60 30 CV 47 No Ac RO 31 -2 -0 .0 S 25 t ti QU 00 0- 7- 00 PH 10 Av ve EL 27 20 20 AR ai 81 08 08 MA la 50 0 CY bl e MG #5 43 TA 7 BL ET CI 13 10 11 00 15 30 CV 47 No Ac TA 66 -2 -0 .0 S 25 t ti LO 80 0- 7- 00 PH 09 Av ve OR 01 20 20 AR ai AM 10 08 08 MA la 5 CY bl HB e R #5 40 43 7 MG TA BL ET CL 64 07 08 00 5. 1 CV 46 CROW Ac IN 01 -3 -1 79 S 45 NE ti DE 10 0- 4- 9 PH 70 S ve SS 12 20 20 AR JI E 40 08 08 MA LL 2% 8 CY S VA #5 GI 43 NA 7 L CR EA M 00 12 08 06 28 28 CV 44 CROW Ac 43 -2 -0 .0 S 57 NE ti 00 0- 1- 00 PH 51 S ve 53 20 20 AR JI 01 07 08 MA LL 4 CY S #5 43 7 00 12 07 05 28 28 CV 44 CROW Ac 43 -2 -0 .0 S 57 NE ti 00 0- 3- 00 PH 51 S ve 53 20 20 AR JI 01 07 08 MA LL 4 CY S #5 43 7 AM 00 05 06 00 20 10 CV 45 Ac OX 09 -2 -0 0. S 86 LT ti IC 34 3- 5- 00 PH 39 EK ve IL 16 20 20 0 AR IN LI 17 08 08 MA N 3 CY EB 40 RU 0 #5 K MG 43 /5 7 ML PAUL SP 00 12 05 04 28 28 CV 44 CROW Ac 43 -2 -2 .0 S 57 NE ti 00 0- 2- 00 PH 51 S ve 53 20 20 AR JI 01 07 08 MA LL 4 CY S #5 43 7 OR 37 08 05 03 28 28 CV 43 Ac IL 00 -1 -2 .0 S 01 LT ti OS 00 1- 2- 00 PH 62 EK ve EC 35 20 20 AR IN 90 07 08 MA OT 6 CY EB C RU 20 #5 K .6 43 7 MG TA BL ET AM 00 05 05 00 20 10 CV 45 No Ac OX 09 -0 -0 0. S 66 t ti IC 34 2- 8- 00 PH 11 Av ve IL 16 20 20 0 AR ai LI 17 08 08 MA la N 3 CY bl 40 e 0 #5 MG 43 /5 7 ML PAUL SP 00 05 05 00 18 6 CV 45 No Ac 47 -0 -0 0. S 66 t ti 21 2- 8- 00 PH 12 Av ve 62 20 20 0 AR ai 91 08 08 MA la 6 CY bl e #5 43 7 00 12 04 03 28 28 CV 44 No Ac 43 -2 -2 .0 S 57 t ti 00 0- 4- 00 PH 51 Av ve 53 20 20 AR ai 01 07 08 MA la 4 CY bl e #5 43 7 50 04 04 00 2. 1 WA 13 No Ac 11 -0 -2 00 LG 12 t ti 10 7- 4- 0 RE 55 Av ve 94 20 20 EN 7 ai 64 08 08 la 3 #4 bl 28 e 4 00 03 04 00 12 5 CV 45 No Ac 47 -2 -1 0. S 23 t ti 21 1- 7- 00 PH 39 Av ve 62 20 20 0 AR ai 91 08 08 MA la 6 CY bl e #5 43 7 00 12 04 02 28 28 CV 44 No Ac 43 -2 -1 .0 S 57 t ti 00 0- 7- 00 PH 51 Av ve 53 20 20 AR ai 01 07 08 MA la 4 CY bl e #5 43 7 TA 00 03 04 00 10 5 CV 45 No Ac TN 00 -2 -1 .0 S 23 t ti FL 40 1- 7- 00 PH 38 Av ve U 80 20 20 AR ai 75 08 08 08 MA la 5 CY bl MG e #5 CA 43 PS 7 UL E OR 50 04 04 00 90 18 CV 45 No Ac OM 38 -0 -1 .0 S 37 t ti ET 30 3- 0- 00 PH 51 Av ve NIETO 80 20 20 AR ai ZI 41 08 08 MA la NE 6 CY bl -C e OD #5 EI 43 NE 7 SY RU P CE 00 04 04 00 20 10 CV 45 No Ac PH 09 -0 -1 .0 S 37 t ti AL 33 3- 0- 00 PH 52 Av ve EX 14 20 20 AR ai IN 70 08 08 MA la 1 CY bl 50 e 0 #5 MG 43 7 CA PS UL E 50 04 04 00 18 3 CV 45 No Ac 38 -0 -1 0. S 37 t ti 30 3- 0- 00 PH 53 Av ve 59 20 20 0 AR ai 31 08 08 MA la 6 CY bl e #5 43 7 PAUL 53 02 04 00 20 10 CV 45 No Ac LF 74 -2 -0 .0 S 01 t ti AM 60 9- 7- 00 PH 91 Av ve ET 27 20 20 AR ai HO 20 08 08 MA la XA 5 CY bl ZO e LE #5 -T 43 MP 7 DS TA BL ET NY 00 02 04 00 30 7 CV [address] 47 -2 -0 .0 S 01 t ti AT 20 9- 7- 00 PH 90 Av ve IN 16 20 20 AR ai 33 08 08 MA la 10 0 CY bl 0, e 00 #5 0 43 UN 7 IT /G M CR EA M 00 12 03 01 28 28 CV 44 No Ac 43 -2 -2 .0 S 57 t ti 00 0- 6- 00 PH 51 Av ve 53 20 20 AR ai 01 07 08 MA la 4 CY bl e #5 43 7 OR 37 08 03 02 28 28 CV 43 No Ac IL 00 -1 -2 .0 S 01 t ti OS 00 1- 5- 00 PH 62 Av ve EC 35 20 20 AR ai 90 07 08 MA la OT 6 CY bl C e 20 #5 .6 43 7 MG TA BL ET DE 00 06 03 06 30 30 CV 42 No Ac TR 00 -2 -2 .0 S 63 t ti OL 95 9- 5- 00 PH 40 Av ve 19 20 20 AR ai LA 10 07 08 MA la 4 1 CY bl e MG #5 43 CA 7 PS UL E 00 12 03 00 28 28 CV 44 No Ac 43 -2 -2 .0 S 57 t ti 00 0- 5- 00 PH 51 Av ve 53 20 20 AR ai 01 07 08 MA la 4 CY bl e #5 43 7 00 01 03 00 20 10 PH 63 No Ac 52 -0 -2 .0 AR 52 t ti 71 7- 4- 00 MC 08 Av ve 44 20 20 AR ai 30 08 08 E la 5 PH bl AR e MA CY OR 50 01 03 00 12 6 CV 44 No Ac OM 38 -1 -2 0. S 49 t ti ET 30 0- 4- 00 PH 67 Av ve NIETO 80 20 20 0 AR ai ZI 41 08 08 MA la NE 6 CY bl -C e OD #5 EI 43 NE 7 SY RU P OR 10 01 03 00 8. 3 PH 63 No Ac OM 70 -0 -2 00 AR 52 t ti ET 20 7- 4- 0 MC 04 Av ve NIETO 00 20 20 AR ai ZI 31 08 08 E la NE 0 PH bl AR e 25 MA CY MG TA BL ET Procedures Procedure DOS Code Location Performer Comment [facility] DIP 32438 [facility]ILY [place] 7 CARE STICK/TAB ASSOCIATE LET RGNT S NON-AUTO W/O MICRSCP BLOOD 99026 [facility]ILY FAMILY COUNT 7 CARE CARE COMPLETE ASSOCIATE ASSOCIATE AUTO&AUTO S S DIFRNTL WBC BLOOD 00190 FAMILY REY COUNT 6 CARE COMPLETE ASSOCIATE AUTO&AUTO S DIFRNTL WBC COLLECTIO 57242 FAMILY REY N 6 CARE CAPILLARY ASSOCIATE BLOOD S SPECIMEN URINLS 59832 [facility] DIP 6 PHYSICIAN STICK/TAB S GROUP LET REAGNT NON-AUTO MICRSCPY URINLS 43630 [facility] DIP 6 PHYSICIAN JESUSITA STICK/TAB S GROUP LET REAGNT NON-AUTO MICRSCPY ANESTHESI 25536 [facility] 6 ANESTH INTRAPERI OF THE TONEAL BLUE LOWER ABD W/LAPS NOS REPOSITIO [id number] [facility] N RIGHT 6 [facility] INC OPEN REPAIR [id number] [facility] RIGHT 6 [facility] OV[facility] INC OPEN OVARIAN 91482 [facility] CYSTECTOM 6 PHYSICIAN Y UNI/BI S GROUP URNLS DIP 29891 [facility] STICK/TAB INC INC LET REAGENT AUTO MICROSCOP Y GONADOTRO 87352 [facility] PIN 6 [facility] CHORIONIC INC INC QUALITATI VE BLOOD 29065 [facility] COUNT 6 [facility] COMPLETE INC INC AUTO&AUTO DIFRNTL WBC SMR PRIM 13486 [facility] SRC WET 6 PHYSICIAN JESUSITA MOUNT S GROUP NFCT AGT COLLECTIO 78890 [facility] N VENOUS 6 [facility] BLOOD INC INC VENIPUNCT URE CULTURE 27633 [facility] BACTERIAL 6 [facility] INC INC QUANTTATI VE COLONY COUNT URINE URNLS DIP 35401 [facility] STICK/TAB INC [place] [address] [facility] TRANSVAGI 6 [place] [address] [facility] [place] TRAN[facility] 6 MEDICAL NAL IMAGING [place] ANY 53417 RADIOLOGY PAULETTE SCO JT UPPER 6 EXTREMITY ASSOCIATE W/O S OF NOT CONTRAST MATRL KNEE [id number] [facility] OR[facility]OSIS 6 LTH ER MAT ELASTIC ORTHOPAED JOINTS IC CTR PREFAB CUSTOM FIT RADEX HIP 84941 [facility] 6 LTH ER MAT UNILATERA ORTHOPAED L WITH IC CTR PELVIS 2-3 VIEWS CRTCHS E0114 [facility]ED UNDARM 6 TECHNOLOG TECHNOLOG OTH THAN IES INC IES INC WOOD PAIR PAD TIP&HNDGR IP RADIOLOGI 44129 RADIOLOGY RATTAN C EXAM 6 AMI KNEE ASSOCIATE COMPLETE S OF NOTH 4/MORE VIEWS COLLECTIO 06711 FAMILY REY N 6 CARE JITENDRA CAPILLARY ASSOCIATE BLOOD S SPECIMEN BLOOD 39279 FAMILY REY COUNT 6 CARE JITENDRA COMPLETE ASSOCIATE AUTO&AUTO S DIFRNTL WBC BLOOD 38556 [facility] COUNT 6 [facility] HEMOGLOBI INC INC N ANESTHESI 86749 COMMUNITY TAD A 6 ANESTH MARKO INTRAPERI OF THE TONEAL BLUE LOWER ABD W/LAPS NOS INJECTION J2405 [facility] ONDANSETR INC INC ON HCL PER 1 MG COLLECTIO 37614 [facility] N VENOUS 6 [facility] BLOOD INC INC VENIPUNCT URE BLOOD 29195 [facility] COUNT 6 [facility] HEMATOCRI INC INC T LAPS SURG 32628 [facility] W/ASPIR 6 PHYSICIAN JESUSITA CAVITY/CY S GROUP ST SINGLE/MU LTIPLE INJECTION J2710 [facility] NEOSTIGMI INC INC NE METHYLSUL FATE UP TO 0.5 MG UNCLASSIF J3490 [facility] IED DRUGS 6 [facility] INC INC SMR PRIM 77187 [facility] WET 6 VINCE PALMA JESUSITA MOUNT NFCT AGT COLLECTIO 60463 [facility] N VENOUS 6 [facility] BLOOD INC INC VENIPUNCT URE IMMUNOASS 78062 [facility] AY TUMOR 6 [facility] ANTIGEN INC INC QUANTITAT SARA URNLS DIP 42444 [facility] STICK/TAB INC INC LET REAGENT AUTO MICROSCOP Y GONADOTRO 78471 [facility] PIN 6 [facility] CHORIONIC INC INC QUALITATI VE BLOOD 99443 [facility] COUNT 6 [facility] COMPLETE INC INC AUTO&[place] [address] YAJAIRA ESCALANTE TRANSVAGI 6 MEDICAL MARINA NAL IMAGING ASS URINE 15764 [facility] [facility] TEST INC INC VISUAL COLOR CMPRSN METHS URNLS DIP 30027 [facility] 6 [facility] STICK/TAB INC [place] [address] RADIOLOGY NERI TRANSVAGI 6 KAMI NAL ASSOCIATE S OF [facility] US PELVIC 34321 RADIOLOGY NERI 6 KAMI NONOBSTET ASSOCIATE OSCAR S OF [facility] [place] [address] ARMOND LEAHY TRANSVAGI 6 [facility] NAL INC INC THERAPEUT 37626 [facility] IC 6 VINCE MC PROPHYLAC TIC/DX INJECTION SUBQ/IM INJECTION J2675 [facility]KE 6 VINCE MC PROGESTER ONE [place] 50 [place] [address] ARMOND LEAHY TRANSVAGI 6 [place] [address] RADIOLOGY LUBBERS ABDOMEN & 5 JASS PELVIS ASSOCIATE W/CONTRAS S OF [facility] T MATERIAL OPHTH 37163 [facility] 5 DILIA DILIA XM&EVAL COMPRE NEW PT 1/> [facility] G0378 ARMOND LEAHY OBSERVATI 5 [facility] ON INC INC SERVICE PER HOUR ANESTHESI 44292 COMMUNITY TAD A 5 ANESTH MARKO INTRAPERI OF THE TONEAL BLUE LOWER ABD W/LAPS NOS COLLECTIO 15863 ARMOND LEAHY N VENOUS 5 [facility] BLOOD INC INC VENIPUNCT URE BLOOD 68470 ARMOND LEAHY COUNT 5 [facility] HEMATOCRI INC INC T LAPAROSCO 58291 ARMOND LEAHY PY W/RMVL 5 [facility] ADNEXAL INC INC STRUCTURE S [facility] G0378 ARMOND LEAHY OBSERVATI 5 [facility] [place] [address] [facility] ERIC PATHOLOGY GROSS&CATHY ROSCOPIC EXAM BLOOD 74999 ARMOND LEAHY COUNT 5 [facility] HEMOGLOBI INC INC N BLOOD 53387 AR[facility] LEAHY COUNT 5 [facility] COMPLETE INC INC AUTO&AUTO DIFRNTL WBC GONADOTRO 89225 AR[facility] LEAH[facility] PIN 5 [facility] [place] [address] ARMON[facility] LEAHY TRANSVAGI 5 [facility] NAL INC INC HGB 40810 PARISH LUGO R QUANTITAT 5 VINCE CLARKE MD SARA TRANSCUTA NEOUS INJECTION J2710 [facility] 5 [facility] NEOSTIGMI INC INC NE METHYLSUL FATE UP TO 0.5 MG SKIN TEST 20610 PENDELETO PENDELETO 5 N CO N CO [facility] CENTER INTRADERM AL RADIOLOGI 36842 RADIOLOGY ROEBKER C EXAM 5 JAM CHEST 2 ASSOCIATE VIEWS S OF [facility] FRONTAL&[place] [address] RADIOLOGY ROEBKER ABDOMEN & 5 JAM PELVIS ASSOCIATE W/CONTRAS S OF [facility] T MATERIAL LAPAROSCO 70185 [facility] PY SURG 5 PHYSICIAN CAM CHOLECYST S GROUP ECTOMY ANES 75166 [facility] INTRAPERI 5 ANESTH SHE TONEAL OF THE UPPER BLUE ABDOMEN W/LAPS NOS LEVEL III 66714 [facility] ERIC PATHOLOGY GROSS&CATHY ROSCOPIC EXAM INJECTION J2710 [facility] NEOSTIGMI INC INC NE METHYLSUL FATE UP TO 0.5 MG BASIC 17659 ARMOND LEAHY METABOLIC 5 [facility] PANEL INC INC CALCIUM TOTAL GONADOTRO 66841 ARMOND LEAHY PIN 5 [facility] CHORIONIC INC INC QUALITATI VE BLOOD 40714 [facility] COUNT 5 [facility] COMPLETE INC INC AUTO&AUTO DIFRNTL WBC COLLECTIO 55841 [facility] LEAH[facility] N VENOUS 5 [facility] BLOOD INC INC VENIPUNCT URE HEPATOBIL 18261 [place] ALEXIS SYST 5 MEDICAL IMAG INC IMAGING GB ASS W/PHARMA INTERVENJ TECHNETIU A9537 ARMOND LEAHY M TC-99M 5 [facility] MEBROFENI INC INC N DX UP TO 15 MCI INJECTION J2805 [facility] 5 [facility] SINCALIDE INC INC 5 MICROGRAM S RADEX 88346 ARMOND LEAHY FOREARM 2 5 [facility] [place] [place] [address] ARMOND LEAHY ABDOMINAL 5 [facility] REAL INC INC TIME W/IMAGE LIMITED SMPL 77981 FAMILY REY REPAIR 5 CARE JITENDRA SCALP/NEC ASSOCIATE K/AX/NIRU S T/TRUNK 2.6-7.5CM BLOOD 63446 FAMILY FAMILY COUNT 5 CARE CARE COMPLETE ASSOCIATE ASSOCIATE AUTO&[place] [address] RADIOLOGY [facility] HEAD/BRAI 5 N W/O ASSOCIATE CONTRAST S OF NOTH MATERIAL ECHO 30724 [place] SATISH TTHRC R-T 5 MEDICAL DAWSON 2D SERV W/WOM-MOD FOUNDATIO E COMPL N SPEC&COLR D ETONOGEST J7307 [facility] REL 5 VINCE MC CNTRACPT IMPL SYS INCL IMPL & SPL INSJ 45184 [facility] NON-BIODE 5 VINCE MC GRADABLE DRUG DELIVERY IMPLANT URINE 29429 [facility]KE 5 VINCE MC TEST VISUAL COLOR CMPRSN METHS IADNA 68449 [facility] HERPES 4 VINCE MC SIMPLX VIRUS DIRECT PROBE TQ CULTURE 51365 [facility]KE CHLAMYDIA 4 VINCE MC ANY SOURCE REMOVAL 55372 [facility] INTRAUTER 4 VINCE MC INE DEVICE IUD IAADIADOO 22002 [facility] MD TRICHOMON VAGINALIS IADNA 66345 [facility] NEISSERIA 4 VINCE PALMA JESUSITA GONORRHOE AE DIRECT PROBE TQ URINE 98128 [facility] CLARKE 4 VINCE PALMA JESUSITA TEST VISUAL COLOR CMPRSN METHS URINLS 60576 PARISH MOTTL DIP 4 VINCE PALMA JESUSITA STICK/TAB [place] [address] [place] TRANSVAGI 4 MEDICAL MARINA NAL IMAGING ASS RADEX HIP 37178 RADIOLOGY CATIE 4 SWAPNA UNILATERA ASSOCIATE L S OF NOTH COMPLETE MINIMUM 2 VIEWS CHIROPRAC 39773 LUKING LUKING TIC 4 SWAPNA SWAPNA MANIPLTV TX EXTRASPIN AL 1/> REGION RADEX 37255 RADIOLOGY ADRIEL SPINE 4 TUS LUMBOSACR ASSOCIATE AL 2/3 S OF NOTH VIEWS CHIROPRAC 46067 LUKING LUKING TIC 4 SWAPNA SWAPNA MANIPULAT [place] SPINAL 3-4 [place] [address] LUKING LUKING 1/> AREAS 4 SWAPNA SWAPNA EACH 15 MINUTES MASSAGE CHIROPRAC 02507 LUKING LUKING TIC 4 SWAPNA SWAPNA MANIPULAT [place] SPINAL 3-4 [place] [address] LUKING LUKING 1/> AREAS 4 SWAPNA SWAPNA EACH 15 MINUTES MASSAGE THERAPEUT 73242 LUKING LUKING IC PX 1/> 4 SWAPNA SWAPNA AREAS EACH 15 MIN EXERCISES APPL 71991 LUKING LUKING MODALITY 4 SWAPNA SWAPNA 1/> AREAS ELEC STIMJ UNATTENDE D THERAPEUT 95066 LUKING LUKING IC PX 1/> 4 SWAPNA SWAPNA AREAS EACH 15 MIN EXERCISES CHIROPRAC 74293 LUKING LUKING TIC 4 SWAPNA SWAPNA MANIPULAT [place] SPINAL 3-[place] [address] LUKING LUKING 1/> AREAS 4 SWAPNA SWAPNA EACH 15 MINUTES MASSAGE CHIROPRAC 20382 LUKING LUKING TIC 4 SWAPNA SWAPNA MANIPLTV TX EXTRASPIN AL 1/> REGION SELF-CARE 62278 LUKING LUKING /HOME 4 SWAPNA SWAPNA MGMT TRAINING EACH 15 MINUTES CHIROPRAC 22250 LUKING LUKING TIC 4 SWAPNA SWAPNA MANIPULAT [place] SPINAL 3-4 [place] [address] LUKING LUKING 1/> AREAS 4 SWAPNA SWAPNA EACH 15 MINUTES MASSAGE THERAPEUT 77651 LUKING LUKING IC PX 1/> 4 SWAPNA SWAPNA AREAS EACH 15 MIN EXERCISES CHIROPRAC 61655 LUKING LUKING TIC 4 SWAPNA SWAPNA MANIPLTV TX EXTRASPIN AL 1/> REGION BLOOD 36248 FAMILY FAMILY COUNT 4 CARE CARE COMPLETE ASSOCIATE ASSOCIATE AUTO&AUTO S S DIFRNTL WBC CREATININ 78737 QUEST QUEST E BLOOD 4 [place] [address] QUEST QUEST UREA 4 DIAGNOSTI DIAGNOSTI NITROGEN CS CS QUANTITAT SARA BLOOD 39653 [place] COUNT 4 RIT RIT COMPLETE AUTO&AUTO DIFRNTL WBC CONIZATIO 32162 CHONG HARDWICK N CERVIX 4 W/WO D&C RPR ELTRD EXC ANESTHESI 02557 NURYS NUNO A VAGINAL 4 JUS JUS PROCEDURE W/[place] [address] SURG 4 [facility] PATHOLOGY MED CTR MED CTR VISUAL MERCHANDISING SPECIALIST ST VISUAL MERCHANDISING SPECIALIST ST GROSS&C[place] 218[address] OSTERHAGE OSTERHAGE SURG 4 CESAR CESAR PATHOLOGY GROSS EXAMINATI ON ONLY COLPOSCOP 18224 CHONG HARDWICK Y CERVIX 4 BX CERVIX & ENDOCRV CURRETAGE URINE 68950 CHONG HARDWICK 4 TEST VISUAL COLOR CMPRSN METHS CYTP 09244 GONZALEZ DON GONZALEZ DON CERVICAL/ 4 VAGINAL REQ INTERP PHYSICIAN CYTP C/V [address] AUTO THIN 4 [facility] LYR MED CTR MED CTR PREPJ SCR VISUAL MERCHANDISING SPECIALIST ST VISUAL MERCHANDISING SPECIALIST ST MNL RESCR PHYS IADNA [address] NEISSERIA 4 [facility] CTR MED CTR GONORRHOE VISUAL MERCHANDISING SPECIALIST ST VISUAL MERCHANDISING SPECIALIST ST AE AMPLIFIED PROBE TQ IADNA [address] [facility]IA 4 [facility] TRACHOMAT VISUAL MERCHANDISING SPECIALIST ST VISUAL MERCHANDISING SPECIALIST ST IS AMPLIFIED PROBE TQ BLOOD 40537 KE[place] KEAGLE COUNT 4 RIT RIT COMPLETE AUTO&AUTO DIFRNTL WBC LEVONORGE J7302 CHONG HARDWICK STREL-RLS 4 E INTRAUTER N CNTRACPT 52 MG INSERTION 15153 CHONG RONEN MARIAN 4 INTRAUTER INE DEVICE IUD PRTL 45777 CHONG HARDWICK HYMENECTO 4 MY/REVJ HYMENAL RING ANESTHESI 13269 ZANGRANDO ZANGRANDO A VAGINAL 4 JASS JASS PROCEDURE W/BIOPSY NOS LEVEL III 80224 [facility] ROSS CATHY SURG 4 PATHOLOGY GROSS&[place] [address] SCALF LEI SCALF LEI SURG 4 PATHOLOGY GROSS&CATHY ROSCOPIC EXAM BX SKIN 78420 GRAVES GRAVES SUBCUTANE 4 LES LES OUS&/MUCO US MEMBRANE 1 LESION APPL 14874 ALEXANDRU HORVATH MODALITY 3 ZACK ZACK 1/> AREAS ELEC STIMJ UNATTENDE D APPLICATI 52547 ALEXANDRU HORVATH ON 3 ZACK ZACK MODALITY 1/> AREAS HOT/COLD PACKS APPL 00367 ALEXANDRU HORVATH MODALITY 3 AZCK ZACK 1/> AREAS ULTRASOUN D [place] 15 [place] [address] ALEXANDRU HORVATH 1/> AREAS 3 ZACK ZACK EACH 15 MINUTES MASSAGE CHIROPRAC 99111 ALEXANDRU HORVATH TIC 3 ZACK ZACK MANIPULAT [place] SPINAL 3-4 REGIONS THERAPEUT 85830 ALEXANDRU HORVATH IC PX 1/> 3 ZACK ZACK AREAS EACH 15 MIN EXERCISES THERAPEUT 42057 ALEXANDRU HORVATH IC PX 1/> 3 ZACK ZACK AREAS EACH 15 MIN EXERCISES APPLICATI 10722 ALEXANDRU HORVATH ON 3 ZACK ZACK MODALITY 1/> AREAS HOT/[place] [address] ALEXANDRU HORVATH 1/> AREAS 3 ZACK ZACK EACH 15 MINUTES MASSAGE CHIROPRAC 67599 ALEXANDRU HORVATH TIC 3 ZACK ZACK MANIPULAT [place] SPINAL 3-4 REGIONS APPL 75042 ALEXANDRU HORVATH MODALITY 3 ZACK ZACK 1/> AREAS ELEC STIMJ UNATTENDE D APPL 51834 ALEXANDRU HORVATH MODALITY 3 ZACK ZACK 1/> AREAS TRACTION MECHANICA L BLOOD 37568 FAMILY FAMILY COUNT 3 CARE CARE COMPLETE ASSOCIATE ASSOCIATE AUTO&AUTO S S DIFRNTL WBC APPL 58989 ALEXANDRU HORVATH MODALITY 3 ZACK ZACK 1/> AREAS ELEC STIMJ UNATTENDE D APPL 40494 ALEXANDRU HORVATH MODALITY 3 ZACK ZACK 1/> [place] [address] ALEXANDRU HORVATH 1/> AREAS 3 ZACK ZACK EACH 15 MINUTES MASSAGE APPLICATI 51155 ALEXANDRU ALEXANDRU ON 3 ZACK ZACK MODALITY 1/> AREAS HOT/COLD PACKS CHIROPRAC 95175 ALEXANDRU HORVATH TIC 3 ZACK ZACK MANIPULAT SARA TX SPINAL 3-4 REGIONS THERAPEUT 97136 ALEXANDRU ALEXANDRU IC PX 1/> 3 ZACK ZACK AREAS EACH 15 MIN EXERCISES CULTURE 60035 LAB RUPESH LAB RUPESH BACTERIAL 3 [facility] [employer] QUANTTATI VE COLONY COUNT URINE URNLS DIP 45479 FAMILY ALCON 3 CARE R H STICK/TAB ASSOCIATE LET RGNT S NON-AUTO W/O MICRSCP VAGINAL 26476 ST GANSHIRT DELIVERY 3 ILANA LOW W/POSTPAR PHYSICIAN RICA CARE S OTHER [address] MANUALLY 3 ILANA PRECIADO ASSISTED MED CTR MED CTR DELIVERY VISUAL MERCHANDISING SPECIALIST ST VISUAL MERCHANDISING SPECIALIST ST EPISIOTOM [address] Y 3 ILANA PRECIADO MED CTR MED CTR VISUAL MERCHANDISING SPECIALIST ST VISUAL MERCHANDISING SPECIALIST ST NEURAXIAL 33349 J CARLOS J CARLOS LABOR 3 JUDITH JUDITH ANALG/ANE S PLND VAGINAL DELIVERY OTHER [address] GENITOURI 3 ILANA PRECIADO NARY MED CTR MED CTR INSTILLAT VISUAL MERCHANDISING SPECIALIST ST VISUAL [place] [address] [facility] ALEX[facility] UTERUS 3 MATERNAL REAL TIME AND F/U TRNSABDL PER FETUS BASIC [address] METABOLIC 3 ILANA ILANA PANEL MED CTR MED CTR CALCIUM VISUAL MERCHANDISING SPECIALIST ST VISUAL MERCHANDISING SPECIALIST ST TOTAL PROTEIN [address] TOTAL 3 ILANA ILANA XCPT MED CTR MED CTR REFRACTOM VISUAL MERCHANDISING SPECIALIST ST VISUAL MERCHANDISING [place] [address] BLOOD/URI 3 ILANA ILANA C ACID MED CTR MED CTR VISUAL MERCHANDISING SPECIALIST ST VISUAL MERCHANDISING SPECIALIST ST BLOOD [address] COUNT 3 ILANA ILANA PLATELET MED CTR MED CTR AUTOMATED VISUAL MERCHANDISING SPECIALIST ST VISUAL MERCHANDISING SPECIALIST ST PROTHROMB [address] IN TIME 3 ILANA ILANA MED CTR MED CTR VISUAL MERCHANDISING SPECIALIST ST VISUAL MERCHANDISING SPECIALIST ST HEPATIC [address] FUNCTION 3 ILANA ILANA PANEL MED CTR MED CTR VISUAL MERCHANDISING SPECIALIST ST VISUAL MERCHANDISING SPECIALIST ST BLOOD [address] COUNT 3 ILANA ILANA COMPLETE MED CTR MED CTR AUTO&AUTO VISUAL MERCHANDISING SPECIALIST ST VISUAL MERCHANDISING SPECIALIST ST DIFRNTL WBC THROMBOPL [address] ASTIN 3 ILANA ILANA TIME MED CTR MED CTR PARTIAL VISUAL MERCHANDISING SPECIALIST ST VISUAL MERCHANDISING SPECIALIST ST PLASMA/WH OLE BLOOD 18058 HEMANT II HEMANT II NONSTRESS 3 TOLU TOLU TEST HEPATIC [address] FUNCTION 3 ILANA ILANA PANEL MED CTR MED CTR VISUAL MERCHANDISING SPECIALIST ST VISUAL MERCHANDISING SPECIALIST [facility] G[address] [facility] OBSERVATI 3 ILANA ILANA ON MED CTR MED CTR SERVICE VISUAL MERCHANDISING SPECIALIST ST VISUAL MERCHANDISING SPECIALIST ST PER HOUR 44318 VON ELENA VON [place]INA[place] NONSTRESS 3 AMA AMA TEST INITIAL 99914 [facility] 3 AMA AMA CARE/DAY [address] [place] [address] INFUSION 3 ILANA ILANA HYDRATION MED CTR MED CTR EACH VISUAL MERCHANDISING SPECIALIST ST VISUAL MERCHANDISING SPECIALIST ST ADDITIONA L HOUR INJECTION J2405 ST ST 3 ILANA ILANA ONDANSETR MED CTR MED CTR ON HCL VISUAL MERCHANDISING SPECIALIST ST VISUAL MERCHANDISING SPECIALIST ST PER [address] D[address] 3 ILANA ILANA STICK/TAB MED CTR MED CTR LET RGNT VISUAL MERCHANDISING SPECIALIST ST VISUAL MERCHANDISING SPECIALIST ST AUTO W/O MICROSCOP Y THROMBOPL [address] ASTIN 3 ILANA ILANA TIME MED CTR MED CTR PARTIAL VISUAL MERCHANDISING SPECIALIST ST VISUAL MERCHANDISING SPECIALIST ST PLASMA/WH OLE BLOOD BLOOD [address] COUNT 3 ILANA ILANA COMPLETE MED CTR MED CTR AUTOMATED VISUAL MERCHANDISING SPECIALIST ST VISUAL MERCHANDISING SPECIALIST ST THER [address] PROPH/DX 3 ILANA ILANA NJX IV MED CTR MED CTR PUSH VISUAL MERCHANDISING SPECIALIST ST VISUAL MERCHANDISING SPECIALIST ST SINGLE/1S T SBST/DRUG PROTHROMB [address] IN TIME 3 ILANA ILANA MED CTR MED CTR VISUAL MERCHANDISING SPECIALIST ST VISUAL [place] [address] BLOOD/URI 3 ILANA ILANA C ACID MED CTR MED CTR VISUAL MERCHANDISING SPECIALIST ST VISUAL MERCHANDISING SPECIALIST ST BASIC [address] METABOLIC 3 ILANA ILANA PANEL MED CTR MED CTR CALCIUM VISUAL MERCHANDISING SPECIALIST ST VISUAL MERCHANDISING SPECIALIST ST TOTAL THER [address] PROPH/DX 3 ILANA ILANA NJX EA MED CTR MED CTR SEQL IV VISUAL MERCHANDISING SPECIALIST ST VISUAL MERCHANDISING SPECIALIST ST PUSH SBST/DRUG FAC URNLS DIP [address] 3 ILANA ILANA STICK/TAB MED CTR MED CTR LET RGNT VISUAL MERCHANDISING SPECIALIST ST VISUAL MERCHANDISING SPECIALIST ST AUTO W/O MICROSCOP Y [address] NONSTRESS 3 ILANA ILANA TEST PHYSICIAN PHYSICIAN S S IADNA [address] CHLAMYDIA 3 [facility] TRACHOMAT CENTER CENTER IS AMPLIFIED PROBE TQ IADNA [address] NEISSERIA 3 [facility] GONORRHOE CENTER CENTER AE AMPLIFIED PROBE TQ IADNA [address] STREPTOCO 3 [facility] B C[facility] CENTER AMPLIFIED PROBE TQ INITIAL 78915 BASHIR ALEXIS BASHIR ALEXIS OBSERVATI 3 ON CARE/DAY 30 MINUTES 46896 BASHIR ALEXIS BASHIR ALEXIS NONSTRESS 3 [address] URNLS DIP [address] 3 [facility] STICK/TAB MEDICAL MEDICAL [facility] REAGENT AUTO MICROSCOP Y INJECTION J3105 ST ST 3 [facility] SULFATE UP TO 1 [place] [address] UTERUS 3 [facility] REAL TIME MEDICAL MEDICAL F/U [facility] TRNSABDL PER FETUS 19143 [facility] NONSTRESS 3 [facility] MEDICAL MEDICAL [facility] 91678 CHONG RONEN CHONG RONEN NONSTRESS 3 TEST OBSERVATI 53973 HEMANT II HEMANT II ON/INPATI 3 [facility] 40 MINUTES URNLS DIP 01663 HEMANT II HEMANT II 3 TOLU TOLU STICK/TAB LET RGNT NON-AUTO W/O MICRSCP COLLECTIO [address] N VENOUS 3 [facility] BLOOD L[address] LANE VENIPUNCT URE BLOOD [address] COUNT [address] [place] L[address] LANE AUTO&AUTO DIFRNTL WBC GLUCOSE [address] [facility] [facility] [address] [facility] [place] [address] ARANA ARANA UTERUS 3 AND AND REAL TIME F/U TRNSABDL PER FETUS URNLS DIP 93932 HEMANT II HEMANT II 3 [facility] STICK/TAB LET RGNT NON-[place] [address] [place] ABDOMINAL 3 [facility] REAL [facility] MEDICAL TIME [facility] W/IMAGE LIMITED URNLS DIP 31294 BASHIR ALEXIS BASHIR ALEXIS 3 STICK/TAB LET RGNT NON-AUTO W/O MICRSCP OBSERVATI 73609 WALKER WALKER ON/INPATI 3 III DUTCH III [facility] C[facility] 40 [address] URNLS DIP [address] 3 [facility] STICK/TAB MEDICAL [facility] REAGENT AUTO MICROSCOP Y CULTURE [address] TYPING 3 [facility] IMMUNOLOG [facility] MEDICAL IC CENTER CENTER OTH/THN IMMUNOFLU ORES CULTURE [address] BCT 3 [facility] ISOL&[facility] PTV ID CENTER CENTER ISOLATE EA URINE CULTURE [address] BACTERIAL 3 [facility] QUANTTATI [facility] [place] 44078 LISA DEW LISA DEW UTERUS 3 W/DETAIL [place] 1ST [place] [address] ESTRIOL 3 [facility] [place] [address] [facility] G[facility]OT[facility] [address] PIN 3 ILANA ILANA [facility] QUANTITAT SARA ALPHA-FET [address] OPROTEIN 3 ONAGA ILANA SERUM [facility] COLLECTIO [address] N VENOUS 3 ILANA ILANA BLOOD [facility] VENIPUNCT URE BLOOD 87992 MULBERRY MULBERRY COUNT 3 LEIF LEIF COMPLETE AUTO&AUTO DIFRNTL WBC URNLS DIP 28296 ST BASHIR ALEXIS 3 ILANA STICK/TAB LET RGNT PHYSICIAN NON-AUTO S W/O MICRSCP COLPOSCOP 63169 ST BASHIR ALEXIS Y CERVIX 3 ILANA UPPER/ADJ ACENT PHYSICIAN VAGINA S COLPOSCOP [address]8847 ST BASHIR ALEXIS Y VULVA 3 ILANA PHYSICIAN S INSJ 74066 ST BASHIR ALEXIS NON-NDWEL 3 ILANA LG BLADDER PHYSICIAN CATHETER S CULTURE [address] BACTERIAL 3 [facility] QUANTTATI [facility] VE COLONY COUNT URINE IADNA [address] CHLAMYDIA 3 [facility] TRACHOMAT CENTER CENTER IS AMPLIFIED PROBE TQ CULTURE [address] BCT 3 [facility] ISOL&[facility] PTV ID CENTER CENTER ISOLATE EA URINE CULTURE [address] ST ST BACTERIAL 3 [facility] QUANTTATI CENTER CENTER VE COLONY COUNT URINE URINE 77110 BASHIR ALEXIS 3 ONAGA TEST VISUAL PHYSICIAN COLOR S CMPRSN METHS IADNA [address] NEISSERIA 3 [facility] GONORRHOE CENTER CENTER AE AMPLIFIED PROBE TQ CYTP C/V [address] AUTO THIN 3 [facility] LYR [facility] PREPJ SCR CENTER CENTER MNL RESCR PHYS CYTP 82651 [facility] CATHY CERVICAL/ 3 ONAGA VAGINAL REQ PHYSICIAN INTERP S PHYSICIAN BLOOD 14592 ALCON ALCON COUNT 3 R H R H COMPLETE AUTO&AUTO DIFRNTL WBC BLOOD 31935 ALCON ALCON COUNT 3 R H R H COMPLETE AUTO&AUTO DIFRNTL WBC URINE 56913 PENDELETO PENDELETO 3 N CO N CO TEST [facility] VISUAL CENTER CENTER COLOR CMPRSN METHS APPL 08231 SMITHA PAIZ, MODALITY 0 CHIROPRAC NELSON P 1/> AREAS TIC CENTER ULTRASOUN D [place] 15 [place] [address] SMITHA PAIZ, 1/> AREAS 0 CHIROPRAC NELSON P EACH 15 TIC MINUTES CENTER MASSAGE THERAPEUT 17891 SMITHA PAIZ, IC PX 1/> 0 CHIROPRAC NELSON P AREAS TIC EACH 15 CENTER MIN EXERCISES APPLICATI 20597 SMITHA PAIZ, ON 0 CHIROPRAC NELSON P MODALITY TIC 1/> AREAS CENTER HOT/COLD PACKS CHIROPRAC 03359 SMITHA PAIZ, TIC 0 CHIROPRAC NELSON P MANIPULAT TIC [place] CENTER SPINAL 3-4 REGIONS APPL 54524 SMITHA PAIZ, MODALITY 0 CHIROPRAC NELSON P 1/> AREAS TIC TRACTION CENTER MECHANICA L APPL 35716 SMITHA PAIZ, MODALITY 0 CHIROPRAC NELSON P 1/> AREAS TIC ELEC CENTER STIMJ UNATTENDE D APPL 07744 SMITHA PAIZ, MODALITY 0 CHIROPRAC NELSON P 1/> AREAS TIC TRACTION CENTER MECHANICA L APPL 00071 SMITHA PAIZ, MODALITY 0 CHIROPRAC NELSON P 1/> AREAS TIC CENTER ULTRASOUN D EA 15 MIN APPLICATI 19965 SMITHA PAIZ, ON 0 CHIROPRAC NELSON P MODALITY TIC 1/> AREAS CENTER HOT/COLD PACKS CHIROPRAC 05913 SMITHA PAIZ, TIC 0 CHIROPRAC NELSON P MANIPULAT TIC [place] CENTER SPINAL 3-[place] [address] SMITHA PAIZ, 1/> AREAS 0 CHIROPRAC NELSON P EACH 15 TIC MINUTES CENTER MASSAGE THERAPEUT 01262 SMITHA PAIZ, IC PX 1/> 0 CHIROPRAC NELSON P AREAS TIC EACH 15 CENTER MIN EXERCISES APPL 36348 SMITHA PAIZ, MODALITY 0 CHIROPRAC NELSON P 1/> AREAS TIC ELEC [place] [address] SMITHA PAIZ, 1/> AREAS 0 CHIROPRAC NELSON P EACH 15 TIC MINUTES CENTER MASSAGE APPL 20368 SMITHA PAIZ, MODALITY 0 CHIROPRAC NELSON P 1/> AREAS TIC CENTER ULTRASOUN D EA 15 MIN CHIROPRAC 03563 SMITHA PAIZ, TIC 0 CHIROPRAC NELSON P MANIPULAT TIC [place] CENTER SPINAL 3-4 REGIONS APPLICATI 15633 SMITHA PAIZ, ON 0 CHIROPRAC NELSON P MODALITY TIC 1/> AREAS CENTER HOT/COLD PACKS THERAPEUT 43403 SMITHA PAIZ, IC PX 1/> 0 CHIROPRAC NELSON P AREAS TIC EACH 15 CENTER MIN EXERCISES APPL 95662 SMITHA PAIZ, MODALITY 0 CHIROPRAC NELSON P 1/> AREAS TIC ELEC CENTER STIMJ UNATTENDE D IADNA [address] BILLIE 9 ILANA ILANA SPECIES DIRECT MEDICALCE MEDICALCE PROBE TQ NTER NTER IADNA 21749 [facility] NEISSERIA 9 ILANA ILANA GONORRHOE MEDICALCE MEDICALCE AE NTER NTER AMPLIFIED PROBE TQ IADNA 64658 [facility] TRICHOMON 9 ILANA ILANA VAGINALIS MEDICALCE MEDICALCE DIRECT NTER NTER PROBE TQ IADNA 88390 [facility]LAMYDIA [facility] IS NTER NTER AMPLIFIED PROBE TQ IADNA 51863 [facility] STREPTOCO 9 [facility] B MEDICALCE MEDICALCE AMPLIFIED NTER NTER PROBE TQ IADNA 71868 [facility] GARDNEREL 9 ILANA ILANA LA VAGINALIS MEDICALCE MEDICALCE DIRECT NTER NTER PROBE TQ SMR PRIM 04040 [facility] SRC 9 ILANA ILANA GRAM/GIEM SA STAIN MEDICALCE MEDICALCE BCT NTER NTER FUNGI/CUATE L RENAL 32563 [facility] FUNCTION 9 [facility] NTER NTER CUL BACT 83554 [facility] XCPT 9 [facility] URINE BLOOD/STO MEDICALCE MEDICALCE OL NTER NTER AEROBIC ISOL RADEX 08983 RADIOLOGY EISEMAN, ABDOMEN 9 [facility] ASSOCIATE W/DCBTS&/ S PSC ERC VIEWS URINE 66045 RIVER OTREMBIAK 9 SUSIE BARRERA K TEST PEDIATRIC VISUAL COLOR CMPRSN METHS CYTP C/V 22087 [facility] AUTO THIN 9 [facility] LYR PREPJ SCR MEDICALCE MEDICALCE MNL NTER NTER RESCR PHYS IADNA 82573 [facility] CHLAMYDIA 9 [facility] TR[facility] MEDICALCE MEDICALCE IS NTER NTER AMPLIFIED PROBE TQ IADNA 16631 [facility] NEISSERIA 9 [facility] GONORRHOE [facility]ICALCE MEDICALCE AE NTER NTER AMPLIFIED PROBE TQ URNLS DIP 31858 [facility] GULTEK[place], 9 AMLIN REILLY K STICK/TAB PEDIATRIC LET RGNT NON-AUTO W/O MICRSCP CT PELVIS 80494 RADI[facility] KIZZY 9 III, W/CONTRAS [place] [address] [facility] CERVICAL 9 III, SPINE W/O [place]OCI[place] [address] [facility] ABDOMEN 9 III, W/CONTRAS [place] [address] [facility] HEAD/BRAI 9 III, N W/O ASSOCIATE [place]ONA CONTRAST S PSC MATERIAL AMBULANCE A0429 [facility] SERVICE 9 KAILASH KAILASH BLS [facility] TRANSPORT RADIOLOGI 08560 RADIOLOGY NEILS, C EXAM 9 MANDA W CHEST 2 ASSOCIATE VIEWS S PSC FRONTAL&L ATERAL GROUND A0425 [facility] MILEAGE 9 KAILASH KAILASH PER FIRE [facility] MILE PHARMACOL 97286 [facility] OGIC MGMT 9 [place] MIN BD INC BD INC MEDICAL PSYCHOTHE RAPY INDIV 68283 [facility] PSYCTX 9 [place] OFFICE/OU BD INC BD INC TPATIENT 20-30 MIN INDIV 39406 [facility] PSYCTX 9 [place] OFFICE/OU BD INC BD INC TPATIENT 20-[place] [address] SMITHA PAIZ, 1/> AREAS 9 [facility]EL[facility] P EACH 15 TIC MINUTES CENTER MASSAGE THERAPEUT 47219 [place]UTH CHENCHO, IC PX 1/> 9 [facility] NELSON P AREAS TIC EACH 15 CENTER MIN EXERCISES CHIROPRAC 75520 [place], TIC 9 [facility] N[place] P MANIPULAT TIC [place] [facility] SPINAL 3-4 REGIONS THERAPEUT 84925 GAELUTH CHENCHO, IC PX 1/> 9 [facility] NELSON P AREAS TIC EACH 15 CENTER MIN EXERCISES CHIROPRAC 01154 [facility] CHENCHO, TIC 9 [facility]IR[facility] NELSON P MANIPULAT TIC [facility] [place] [facility] SPINAL 3-[place] [address] SMITHA PAIZ, 1/> AREAS 9 CHIROPRAC NELSON P EACH 15 TIC MINUTES CENTER [facility] 71739 [facility]GIC MGMT 9 [place] MH MR BUCK MH MR MIN BD INC BD INC MEDICAL PSYCHOTHE RAPY INDIV 56581 [facility] PSYCTX 9 [place] MH MR BUCK MH MR OFFICE/OU BD INC BD INC TPATIENT 20-30 MIN INDIV 35483 [facility] PS[facility]CTX 9 [place] MH MR BUCK MH MR OFFICE/OU BD INC BD INC TPATIENT 20-30 MIN CYTP C/V [address] AUTO THIN 9 ILANA ILANA LYR PREPJ SCR MEDICALCE MEDICALCE MNL NTER NTER RESCR STRUCTURES ENGINEER 23082 [facility] PROPH/DX [address] [place] [address] NJX IV [facility] PUSH SINGLE/1S T SBST/DRUG PHARMACOL 13090 [facility] MGMT 9 [place] MH MR BUCK MH MR MIN BD INC BD INC MEDICAL PSYCHOTHE RAPY URNLS DIP [address] [facility] [address] STICK/TAB [facility] LET RGNT AUTO W/O MICROSCOP Y BILIRUBIN 36977 [facility] DIRECT [address] [place] [address] [place] [address] [facility] LIPASE [address] [place] [address] COMPREHEN 86070 [facility] SIVE [address] [place] [address] METABOLIC [facility] PANEL GONADOTRO 95328 [facility] PIN [address] [place] [address] CHORIONIC [facility] QUALITATI VE BLOOD 78959 [facility] COUNT [address] [place] [address] COMPLETE [facility] AUTO&[place] [address] [facility] INFUSION [address] [place] [address] HYDRATION [facility] [place] [address] [facility] AMYLASE [address] [place] [address] INDIV 03314 [facility] PSYCTX 9 [place] MH MR BUCK LIZ MR OFFICE/OU BD INC BD INC TPATIENT 20-30 MIN RADIOLOGI 12027 [facility] C EXAM 9 HOSPITAL HOSPITAL CHEST 2 EAST EAST VIEWS FRONTAL&L ATERAL PHARMACOL 09682 [facility] MGMT 9 [place] MH MR BUCK LIZ MR MIN BD INC BD INC MEDICAL PSYCHOTHE RAPY INTERPJ/E 07682 [facility] XPLNAJ 9 [place] MH MR BUCK LIZ MR RESULTS BD INC BD INC PSYCHIATR IC EXAM FAMILY FAMILY 28853 [facility] PSYCHOTHE 9 [place] MH MR BUCK MH MR WELLS BD INC BD INC W/PATIENT PRESENT 50 MINS INTERPJ/E 83389 [facility] XPLNAJ 9 [place] MH MR JANE MH MR RESULTS BD INC BD INC PSYCHIATR IC EXAM FAMILY PHARMACOL 15463 [facility] MGMT 9 [place] MH MR BUCK LIZ MR MIN BD INC BD INC MEDICAL PSYCHOTHE RAPY INDIV 02721 [facility] PS[facility]CTX 9 [place] MH MR BUCK LIZ MR OFFICE/OU BD INC BD INC TPATIENT 20-30 MIN URINLS 23068 [place], DIP 9 [place] REILLY K STICK/TAB PEDIATRIC LET REAGNT NON-AUTO MICRSCPY INDIV 04175 [facility] 9 [place] MH MR BUCK LIZ MR OFFICE/OU BD INC BD INC TPATIENT 20-30 MIN FAMILY 29216 [facility] PSYCHOTHE 9 [place] MH MR BUCK WELLS BD INC BD INC W/PATIENT PRESENT 50 MINS ANESTHESI 25436 Marjan FERRIS 9 NT ARETHA M INTRAORAL ANESTHESI WITH OLOGIST BIOPSY NOS ADENOIDEC 17829 HEAD & THANG, YESY 9 NECK NOREEN J PRIMARY SURGERY AGE 12/> ASSOC TONS[place]C 30800 CENTER CENTER YESY & 9 FOR FOR ADENOIDEC SURGICAL SURGICAL YESY AGE CARE CARE 12/> PHARMACOL 34088 [facility] MGMT 9 [place] MH MR BUCK LIZ MR MIN BD INC BD INC MEDICAL PSYCHOTHE RAPY RADEX 23983 [facility] GRUNKEMEY FINGR 9 LTH ER, MINIMUM 2 ORTHOPAED OTILIA S VIEWS IC CTR PSC IAADIADOO 67973 [place], 9 [place] REILLY K [facility] A CLTX DSTL 12-26-200 29676 MANUEL DASH PHLNGL 8 LTH ER, FX ORTHOPAED OTILIA S FNGR/THMB IC CTR W/O MANJ PSC EA RADEX 77293 RADIOLOGY MIRIAMAMANDAR 8 FRAN H MINIMUM 2 ASSOCIATE VIEWS S PSC APPLICATI 9354 [facility] ON OF [address] [place] [address] CYTP C/V 21912 [facility] AUTO THIN 8 [place] INC [facility]IO INC LYR PREPJ SCR MNL RESCR PHYS IMMUNOASS 47066 [facility] AY NFCT 8 HOLLY SUSIE Bellamy AGT ANTB PEDIATRIC QUAL/SEMI DEISY 1 STEP PHARMACOL 11370 [facility] MGMT 8 [place] MR BUCK LIZ MR MIN BD INC BD INC MEDICAL PSYCHOTHE RAPY INDIV 85893 [facility] PSYCTX 8 [place] MR BUCK LIZ MR OFFICE/OU BD INC BD INC TPATIENT 20-30 MIN INDIV 53635 [facility] 8 [place] MH MR BUCK MH MR OFFICE/OU BD INC BD INC TPATIENT 20-30 MIN INDIV 54320 [facility] PS[facility] 8 [place] MH MR BUCK MH MR OFFICE/OU BD INC BD INC TPATIENT 20-30 MIN PHARMACOL 89614 [facility] MGMT 8 [place] MH MR BUCK MH MR MIN BD INC BD INC MEDICAL PSYCHOTHE RAPY FAMILY 13656 [facility] PSYCHOTHE 8 [place] MH MR BUCK MH MR RAPY BD INC BD INC W/PATIENT PRESENT 50 MINS PSYCHIATR 45272 [facility] IC 8 [place] MH MR BUCK MH MR DIAGNOSTI BD INC BD INC C INTERVIEW EXAMINATI ON INDIV 96702 [facility] 8 [place] MH MR BUCK MH MR OFFICE/OU BD INC BD INC TPATIENT 20-30 MIN FAMILY 22008 [facility] PSYCHOTHE 8 [place] MR BUCK MH MR WELLS BD INC BD INC W/PATIENT PRESENT 50 MINS COLPOSCOP 97752 [facility] DUMONT, Y CERVIX 8 [facility] BX CERVIX & PHYSICIAN ENDOCRV S FOR CURRETAGE WOMEN IAADIADOO 18594 [place], 8 AMLIN REILLY K [facility] A BUPRENORP J0570 [place], MUSA [address] [place] [address] REILLY K IMPLANT [place]ATR[place] 74.[address] [place] [address] [place] [address] RADIOLOGY Keagan SHAVER NONOBSTET ASSOCIATE H OSCAR S PSC REAL-TIME IMAGE COMPLETE CYTP C/V 90694 [facility] AUTO THIN 8 [facility] LYR PREPJ SCR MNL RESCR PHYS IADNA 63059 [facility] PAPILLOMA 8 [facility] VIRUS HUMAN AMPLIFIED PROBE TQ IADNA 04078 [facility] BILLIE 8 [facility] SPECIES DIRECT PROBE TQ IADNA 77162 [facility] TRICHOMON 8 [facility] VAGINALIS DIRECT PROBE TQ CYTP 36659 NO, NO, CERVICAL/ 8 ERIK Sundeep Urbano VAGINAL REQ INTERP PHYSICIAN IADNA 70229 [facility] NEISSERIA 8 [facility] GONORRHOE AE AMPLIFIED PROBE TQ IADNA 52208 [facility] GARDNEREL 8 [facility] LA VAGINALIS DIRECT PROBE TQ CUL BACT 40596 [facility] XCPT 8 [facility] URINE BLOOD/STO OL AEROBIC ISOL IADNA 69011 [facility] CHLAMYDIA 8 [facility] TRACHOMAT IS AMPLIFIED PROBE TQ CULTURE 91654 [facility] TYPING 8 [facility] IMMUNOLOG IC OTH/THN IMMUNOFLU ORES IAADIADOO 14046 [place], 8 AMLIN REILLY K [facility] A BUPRENORP J0570 [place], MUSA 8 AMLIN REILLY K IMPLANT PEDIATRIC 74.[address] [place] [address] [facility] [address] [place] [address] CUL BACT 19583 [facility] XCPT [address] [place] [address] URINE BLOOD/STO OL AEROBIC ISOL BLOOD 63447 [facility] COUNT [address] [place] [address] COMPLETE AUTO&AUTO DIFRNTL WBC IAADIADOO 99748 [place] [facility] SUSIE BARRERA [facility] RADIOLOGI 17665 [facility] JERONIMO, C EXAM 8 HOSP MED JR., CHEST 2 CTR BRISA J VIEWS FRONTAL&L ATERAL FLUORESCE 58467 [facility] NT [address] [place] [address] NONNFCT AGT ANTB TITER EA ANTIBODY COMPREHEN 54767 [facility] SIVE [address] [place] [address] METABOLIC PANEL COLLECTIO 50527 [facility] N VENOUS [address] [place] [address] BLOOD VENIPUNCT URE ANTIBODY 61811 [facility] RICHARD-B [address] [place] [address] ARR EB VIRUS NUCLEAR AG EBNA ANTIBODY 83288 [facility] RICHARD-B [address] [place] [address] ARR [place] [address] [facility] GLUTAMYLT [address] [place] [address] RASE GAMMA BILIRUBIN 22030 [facility] DIRECT [address] [place] [address] [place] [address] [facility] PHOSPHORU [address] [place] [address] S INORGANIC IAADIADOO 66573 [facility] [address] [place] [address] REILLY K [facility] A GONADOTRO 85672 [facility] PIN [address] [place] [address] SUSIE CHORIONIC PEDIATRIC QUALITATI VE RADEX 19441 [facility] DEFOOR JR ABDOMEN [address] [place] [address] ANTEROPOS C TERIOR VIEW Encounters Encounter Start End Date Code Location Performer Type Date OFFICE 53572 FAMILY DENNY OUTPATIEN 7 7 CARE T VISIT ASSOCIATE 25 S MINUTES OFFICE 88944 FAMILY REY OUTPATIEN 6 6 CARE T VISIT ASSOCIATE 15 S MINUTES OFFICE 72070 [facility] OUTPATI[facility] 6 6 PHYSICIAN T VISIT S GROUP 25 MINUTES OFFICE 91452 [facility] OUTPATIEN 6 6 PHYSICIAN JESUSITA T VISIT S GROUP 15 MINUTES [facility] INPATIENT [facility] 6 6 [facility] OUTPATIEN INC T OFFICE 98757 [facility] OUTPATI[facility] 6 6 PHYSICIAN JESUSITA T VISIT S GROUP 15 MINUTES OFFICE 19715 [facility] OUTPATIEN 6 6 PHYSICIAN JESUSITA T VISIT S GROUP 10 MINUTES EMERGENCY 40561 [facility] 6 6 [facility] DEPARTMEN INC T VISIT HIGH/URGE NT SEVERITY [facility] - 6 6 [facility] OUTPATIEN [facility] T OFFICE 18795 [facility] OUTPATIEN 6 6 PHYSICIAN JESUSITA T VISIT S GROUP 15 MINUTES [facility]OSP[facility] - 6 6 [facility] OUTPATIEN [facility] T EMERGENCY 10190 [facility] YUN 6 6 EMERGENCY DEPARTMEN T VISIT PHYSICIAN MODERATE S SEVERITY OFFICE 66935 [facility] OUTPATIEN 6 6 [facility] ER MAT T NEW 30 ORTHOPAED MINUTES [facility] EMERGENCY 95632 [facility] GEERS RYA 6 6 EMERGENCY DEPARTMEN T VISIT PHYSICIAN HIGH/URGE S NT SEVERITY OFFICE 62413 [facility] OUTPATIEN 6 6 PHYSICIAN JESUSITA T VISIT S GROUP 15 MINUTES OFFICE 99135 FAMILY REY OUTPATIEN 6 6 CARE JITENDRA T VISIT ASSOCIATE 25 S MINUTES PERIODIC 42085 FAMILY REY PREVENTIV 6 6 CARE JITENDRA E MED EST ASSOCIATE PATIENT S 18-39 YRS HOSPITAL [facility] - 6 6 [facility]PATIEN [facility] - 6 6 [facility] OUTPATIEN [facility] T OFFICE 94463 [facility] OUTPATIEN 6 6 VINCE PALMA JESUSITA T VISIT 15 MINUTES [facility]OSP[facility] - 6 6 [facility] OUTPATIEN INC T EMERGENCY 43373 MEVLIN BONNER 6 6 PHYSICIAN U TAMMY [facility]MEN [facility], [facility] MODERATE SEVERITY EMERGENCY 54880 [facility] 6 6 [facility] DEPARTMEN INC T VISIT LOW/MODER SEVERITY EMERGENCY 59380 [facility] GANIM JITENDRA 6 6 EMERGENCY DEPARTMEN T VISIT PHYSICIAN HIGH/URGE S NT SEVERITY [facility]OS[facility] 6 6 [facility] OUTPATIEN INC T OFFICE 73898 [facility] VINCE OUTPATIEN 6 6 PHYSICIAN JESUSITA T VISIT S GROUP 15 MINUTES OFFICE 01457 [facility] MCGOVERNPATIEN 6 6 VINCE MC T VISIT 25 MINUTES [facility] - 6 6 [facility] OUTPATIEN INC T OFFICE 54683 [facility] OUTPATIEN 6 6 VINCE MC T VISIT 25 MINUTES OFFICE 62542 FAMILY CROWDY OUTPATIEN 6 6 CARE CRI T VISIT ASSOCIATE 15 S MINUTES OFFICE 34123 [facility] OUTPATIEN 5 5 Y OF M LAR T [address] EMERGENCY [address] GÓMEZ YUN 5 5 EMERGENCY RONEN DEPARTMEN T VISIT PHYSICIAN HIGH/URGE S NT SEVERITY [facility] - 5 5 [facility] OUTPATIEN INC T OFFICE 71312 [facility] PENDELETO OUTPATIEN 5 5 N CO N CO T VISIT 5 [facility] OFFICE 02914 [facility] PENDE[facility]TO OUTPATIEN 5 5 [place] T VISIT [address] MINUTES OFFICE 55993 FAMILY KEAGLE OUTPATIEN 5 5 CARE RIT T VISIT ASSOCIATE 15 S MINUTES EMERGENCY 16370 [facility] GREVER DEPT 5 5 EMERGENCY MAR VISIT HIGH PHYSICIAN SEVERITY& S THREAT [facility] - 5 5 [facility] OUTPATIEN INC [facility] 5 5 [facility] OUTPATIEN INC [facility] 5 5 [facility] OUTPATIEN INC T OFFICE 34704 [facility] SCHULSTAD OUTPATIEN 5 5 PHYSICIAN CAM T NEW 30 S GROUP MINUTES EMERGENCY 29889 [facility] 5 5 [facility] T VISIT MODERATE SEVERITY EMERGENCY 46696 [facility] CAMPOS 5 5 [facility] T VISIT P LOW/MODER SEVERITY [facility]OSPITAL [facility] - 5 5 [facility] OUTPATIEN [facility] OFFICE 41800 FAMILY KEAGLE OUTPATIEN 5 5 CARE RIT T VISIT ASSOCIATE 15 S MINUTES EMERGENCY 12973 [facility] YUN 5 5 EMERGENCY RONEN [facility] T VISIT PHYSICIAN HIGH/URGE S NT SEVERITY EMERGENCY 54633 [facility] CALIN DEPT 5 5 EMERGENCY EDW VISIT HIGH PHYSICIAN SEVERITY& S THREAT [facility] OFFICE 95466 FAMILY KEAGLE OUTPATIEN 5 5 CARE RIT T VISIT ASSOCIATE 15 S MINUTES OFFICE 29950 [facility] OUTPATIEN 5 5 CARE RIT T VISIT ASSOCIATE 15 S MINUTES [facility]OSP[facility] - 5 5 [facility] OUTPATIEN INC T INITIAL 11476 [facility] PREVENTIV 4 4 VINCE [facility] NEW PT AGE 18-39YRS [facility] - 4 4 [facility] OUTPATIEN INC T OFFICE 07391 FAMILY KEAGLE OUTPATIEN 4 4 CARE RIT T VISIT ASSOCIATE 25 S MINUTES EMERGENCY 61663 [facility] 4 4 ILANA TAMMY [facility] MED CTR T VISIT HIGH/URGE NT SEVERITY OFFICE 54763 FAMILY ALCON OUTPATIEN 4 4 CARE R H T VISIT ASSOCIATE 15 S MINUTES EMERGENCY 25249 [facility] RY 4 4 ILANA [facility] MED CTR T VISIT HIGH/URGE NT SEVERITY OFFICE 45656 [facility] OUT[facility]IEN 4 4 SWAPNA SWAPNA T VISIT 10 MINUTES OFFICE 56915 FAMILY KE[facility] OUTPATIEN 4 4 CARE RIT T VISIT ASSOCIATE 15 S MINUTES OFFICE 12786 FAMILY OUTPATIEN 4 4 CARE T VISIT ASSOCIATE 15 S MINUTES OFFICE 41820 [facility] OUTPATIEN 4 4 LES LES T VISIT 25 MINUTES OFFICE 91653 [facility] KE[facility]LE OUTPATIEN 4 4 RIT RIT T VISIT [address] - 4 4 ILANA OUTPATIEN MED CTR T VISUAL [facility]CHAND[facility] SPECIALIST ST OFFICE 34163 [facility] OUTPATIEN 4 4 LES LES T VISIT [address] - 4 4 ILANA OUTPATIEN MED CTR T VISUAL MERCHAND[facility] SPECIAL[facility] ST OFFICE 48037 [facility] KEAGLE OUTPATIEN 4 4 RIT RIT T VISIT 15 MINUTES EMERGENCY 71072 CARLO MATOS 4 4 MAR MAR DEPARTMEN T VISIT MODERATE SEVERITY OFFICE 53422 REY LE J OUTPATIEN 4 4 G G T VISIT 15 MINUTES OFFICE 09054 GRAVES GRAVES OUTPATIEN 4 4 LES LES T VISIT 25 MINUTES OFFICE 28915 [facility] H[facility]WICK OUTPATIEN 3 3 T VISIT 15 MINUTES OFFICE 76963 FAMILY ALCON OUTPATIEN 3 3 CARE R H T VISIT ASSOCIATE 15 S MINUTES OFFICE 71425 ALEXANDRU HORVATH OUTPATIEN 3 3 ZACK ZACK T NEW 30 MINUTES OFFICE 71074 FAMILY ALCON OUTPATIEN 3 3 CARE R H T VISIT ASSOCIATE 15 S MINUTES OFFICE 59774 FAMILY ALCON OUTPATIEN 3 3 CARE R H T VISIT ASSOCIATE [address] OUTPATIEN 3 3 ILANA T VISIT [address] [facility] [address] - 3 [facility] ILANA INPATIENT MED CTR VISUAL MERCHANDISING SPECIALIST OFFICE 76185 ST OUTPATIEN 3 3 ILANA T VISIT MED CTR [address] [facility] [address] - 3 3 [facility] - 3 3 [facility] 40907 MELODY MELODY OUTPATIEN 3 3 CEDRIC CEDRIC T VISIT 15 MINUTES OFFICE 88685 GRAVES GRAVES CONSULTAT 3 3 LES LES ION NEW/ESTAB PATIENT [address] OUTPATIEN 3 3 ILANA T VISIT MEDICAL [address] [place] [address] ST - 3 3 [facility] ST - 3 [facility] 3 [facility] OFFICE 26118 CHONG HARDWICK OUTPATIEN 3 3 T VISIT 15 MINUTES OFFICE 64838 HEMANT II HEMANT II OUTPATIEN 3 3 [place] T VISIT [address] - 3 3 [facility] T CENTER OFFICE [address] ST OUTPATIEN 3 3 ILANA T VISIT MEDICAL [address] [place] [address] MINUTES OFFICE 20000 HEMANT II HEMANT II OUTPATIEN 3 3 [place] [place] T VISIT [address] - 3 3 [facility] 84981 ALCON ALCON OUTPATIEN 3 3 R H R H T VISIT 15 MINUTES OFFICE 20783 ARANA ARANA CONSULTAT 3 3 AND AND ION NEW/ESTAB PATIENT [address] - 3 3 [facility] OFFICE 38317 HEMANT II HEMANT II OUTPATIEN 3 3 [place] T VISIT [address] - 3 [facility] 27254 [facility] 3 3 T VISIT [address] - 3 3 [facility] ST - 3 3 [facility] ST. - 3 3 [facility] OFF[facility] 17193 MULBERRY MULBERRY [facility] 3 3 LEIF LEIF T VISIT [address] - 3 3 [facility] ST - 3 3 [facility] OFFICE [address] [facility] OUTPATIEN 3 3 ILANA T VISIT 15 PHYSICIAN MINUTES S OFFICE [address] [facility] 3 3 ILANA T NEW 45 MINUTES PHYSICIAN S OFFICE 40897 ALCON ALCON OUTPATIEN 3 3 R H R H T VISIT 15 MINUTES OFFICE 31061 ALCON ALCON OUTPATIEN 3 3 R H R H T VISIT 15 MINUTES OFFICE 23878 PENDELETO PENDELETO OUTPATIEN 3 3 N CO N CO T VISIT [facility] CENTER CENTER MINUTES OFFICE 30474 [facility] 0 0 [facility] NELSON P T VISIT TIC 15 CENTER MINUTES PERIODIC 48017 [place], PREVENTIV 9 9 AMLIN REILLY Bellamy E MED EST PEDIATRIC PATIENT 18-[address] 9 9 [facility] OFFICE 11341 [facility] 9 9 SUSIE BARRERA VISIT PEDIATRIC 25 MINUTES HOSPITAL [facility] - 9 9 [facility] PERIODIC 12902 [facility] PREVENTIV 9 9 SUSIE BARRERA E MED EST PEDIATRIC PATIENT 18-39 YRS HOSPITAL [facility] 9 9 [facility] CHILDRENS 9 9 [facility] OFFICE 59926 CHILDRENS [facility] 9 9 [facility] NEW 20 CTR MINUTES PERIODIC 04361 [facility] PREVENTIV 9 9 SUSIE BARRERA E MED EST PEDIATRIC PATIENT 18-39 YRS PERIODIC 93228 [facility] PREVENTIV 9 9 SUSIE BARRERA E MED EST PEDIATRIC PATIENT 18-39 YRS OFFICE 04979 [facility] 9 [facility]OP[facility] NELSON P T NEW 30 TIC MINUTES CENTER OFFICE 52673 [facility] 9 9 [facility] VISIT MED CTR 15 MINUTES HOSPITAL - 9 9 [facility] [place] [address] 9 [facility] EMERGENCY 95637 EMERGENCY EMERY, 9 9 [facility] VISIT [facility] HIGH/URGE [place] NT [facility] [place] [address] 9 [facility] PERIODIC 56644 [place], PREVENTIV 9 9 AMLIN REILLY K E MED EST PEDIATRIC PATIENT 12-17YRS PERIODIC 07578 [facility] PREVENTIV 9 9 SUSIE BARRERA E MED EST PEDIATRIC PATIENT 12-17YRS PERIODIC 13669 [place], PREVENTIV 9 9 AMLIN REILLY K E MED EST PEDIATRIC PATIENT 12-17YRS OFFICE 00922 HEAD & THANG, CONSULTAT 9 9 NECK NOREEN J ION SURGERY NEW/ESTAB ASSOC PATIENT 60 MIN PERIODIC 70982 [place], PREVENTIV 9 9 AMLIN REILLY K E MED EST PEDIATRIC PATIENT 12-17YRS EMERGENCY [address] VISIT MODERATE SEVERITY [facility] 8 8 [facility] OFFICE [address] VISIT 10 PHYSICIAN MINUTES S FOR WOMEN PERIODIC 30249 [facility] PREVENTIV 8 8 SUSIE BARRERA E MED EST PEDIATRIC PATIENT 12-17YRS PERIODIC 72366 [facility] PREVENTIV 8 8 SUSIE BARRERA E MED EST PEDIATRIC PATIENT 12-17YRS PERIODIC 24098 [place], PREVENTIV 8 8 AMLIN REILLY K E MED EST PEDIATRIC PATIENT 12-17YRS OFFICE 71051 [facility] 8 8 [facility] VISIT 15 PHYSICIAN MINUTES S [facility] 8 8 [facility] OFF[facility] 85306 [facility] 8 8 [facility] VISIT 15 PHYSICIAN MINUTES S FOR WOMEN PERIODIC 12735 [facility] PREVENTIV 8 8 AMLIN SUSIE E MED EST PEDIATRIC PATIENT 12-17YRS PERIODIC 88631 [facility], PREVENTIV 8 8 AMLIN REILLY Bellamy E MED EST PEDIATRIC PATIENT 12-17YRS HOSPITAL [place] [address] 8 [facility] OFFICE 89331 [facility] 8 8 SUSIE BARRERA VISIT PEDIATRIC 15 MINUTES PERIODIC 37138 [facility] PREVENTIV 8 8 SUSIE [place] MED EST PEDIATRIC PATIENT 12-17YRS PERIODIC 74266 [facility] [place], PREVENTIV 8 8 AMLIN REILLY Bellamy E MED EST PEDIATRIC PATIENT 12-17YRS PERIODIC 02760 [facility] [place], PREVENTIV 8 8 AMLIN REILLY Bellamy E MED EST PEDIATRIC PATIENT 12-17YRS OFFICE 90318 [facility] 8 8 SUSIE [place] VISIT PEDIATRIC 15 MINUTES PERIODIC [id number] [facility] PREVENTIV 8 8 SUSIE [place]ERA E MED EST PEDIATRIC PATIENT 12-17YRS OFFICE [id number] [facility] 7 7 [facility] VISIT MEDICAL 15 C MINUTES
--- OUTSIDE RECORDS SUMMARY | 2016-10-03 11:52 | External Medical Summary Rpt ---
Author Author , Organization [employer] Address Unknown Phone Unavailable Care Team Providers Care Mainframe Software Developer Name Role Phone [employer] Unavailable Unavailable [...] Unavailable Unavailable CARE, [facility], Unavailable Unavailable [facility] Unavailable Unavailable MEDICAL C, [facility] Unavailable Unavailable [facility], [facility] OF Unavailable Unavailable [facility], [facility] Unavailable Unavailable PHYSICIANS, [facility] REY LE Unavailable Unavailable REY Solares, REY Martinez Unavailable Unavailable G REY HAM, REY Unavailable Unavailable JITENDRA CATIE SWAPNA, Unavailable Unavailable CATIE SWAPNA CROWDY CRI, CROWDY Unavailable Unavailable CRI BORIS MARINA, Unavailable Unavailable BORIS MARINA COLON LAR, Unavailable Unavailable COLON LAR [facility] # [id number], Unavailable Unavailable [facility] # [id number] [id number], Unavailable Unavailable [facility][id number] DEFOOR JR ALEXIS, DEFOOR Unavailable [...] Unavailable HARPEL JESUSITA, HARPEL Unavailable Unavailable JESUSITA [facility] Unavailable Unavailable INC, [facility] Unavailable Unavailable HOSPITAL P, [facility] CHENCHO, NELSON P, Unavailable Unavailable CHENCHO, NELSON P ARANA AND, ARANA Unavailable Unavailable [facility], Unavailable Unavailable [facility] LACHELLE WILL, Unavailable Unavailable LACHELLE WILL JILL, JONES, Unavailable Unavailable BRENDA KEAGLE RIT, KEAGLE Unavailable Unavailable RIT KEAGLE RIT, KEAGLE Unavailable Unavailable RIT MONICA SHAVER H, Unavailable Unavailable SIVAKUMAR, MONICA H [facility] Unavailable Unavailable [facility], [facility] FRAN PINEDA, Unavailable Unavailable FRAN PINEDA H KLANKE JUS, KLANKE Unavailable Unavailable JUS CHONG RONEN, CHONG RONEN Unavailable Unavailable CHONG RONEN, CHONG RONEN Unavailable Unavailable ADRIEL RENATO, ADRIEL Unavailable Unavailable TUS NOREEN DESIR KROL, Unavailable Unavailable NOREEN J [facility] Un[facility], [facility] Unavailable Unavailable HOLDINGS, [facility], Unavailable Unavailable [facility] LAMEIER DILIA, LAMEIER Unavailable Unavailable DILIA [...] R H, Unavailable Unavailable ALCON R H [facility] MH MR BD Unavailable Unavailable INC, [facility] MH MR BD INC [facility] KAILASH Unavailable [facility]available [facility] OSTERHAGE CESAR, Unavailable Unavailable [facility] [...] [facility] Unavailable Unavailable OF [facility], [facility] RATTAN AMI, RATTAN Unavailable Unavailable AMI [...] TAMMY ALLIE SHE, Unavailable Unavailable ALLIE SHE [facility], Unavailable Unavailable [facility]available Unavailable [facility] Unavailable Unavailable MONUMENT, [facility] Unavailable [facility]available [facility], [facility] Unavailable Unavailable PHYSICIANS, [facility] Unavailable Unavailable [facility] Unavailable Unavailable [facility] Unavailable Unavailable MARKO CAMEJO LAEXIS, BASHIR ALEXIS Unavailable Unavailable [facility] Un[facility] Unavailable , [facility] Unavailable Unavailable [facility] Unavailable YAJAIRA LAGUERRE, [facility] CARLOTTA VON HOENE AMA, VON Unavailable Unavailable HOENE AMA LISA DEW, LISA DEW Unavailable [facility]available [facility] [id number], Unavailable Unavailable [facility] # [id number] [id number], Unavailable Unavailable [id number], Unavailable Unavailable [facility][id number] WALKER III DUTCH, Unavailable Unavailable WALKER III [...] [facility] CONTACT [facility] DERMATITIS UNSPECIFIED CAUSE [id number] PAIN IN 08-18-2016 [facility] RIGHT LEG ASSOCIATES Q23279 PAIN IN 08-18-2016 [facility] LEFT LEG [facility] N946 DYSMENORRHE 08-18-2016 [facility] A ASSOCIATES UNSPECIFIED R300 DYSURIA 08-18-2016 [facility] [id number] CORROSION 08-18-2016 [facility] 1ST DEGREE ASSOCIATES RT UPPER ARM INITIAL ENC J40 BRONCHITIS 04-01-2016 [facility] NOT ASSOCIATES SPECIFIED ACUTE OR CHRONIC R05 COUGH 04-01-2016 [facility] R102 PELVIC AND 03-25-2016 [facility] PERINEAL PHYSICIANS PAIN GROUP N390 URINARY 03-21-2016 [facility] TRACT PHYSICIANS INFECTION GROUP SITE NOT SPECIFIED H74695 UNSPECIFIED 03-15-2016 [facility] OVARIAN PHYSICIANS CYST RIGHT GROUP SIDE E31826 TORSION OF 03-15-2016 [facility] RIGHT OVARY PHYSICIANS AND GROUP OVARIAN PEDICLE N761 SUBACUTE 03-08-2016 [facility] AND CHRONIC PHYSICIANS VAGINITIS GROUP Y16779 ENCOUNTER 03-08-2016 [facility] FOR OTHER [facility] PREPROCEDUR INC AL EXAMINATION R1031 RIGHT LOWER 02-18-2016 [place] [facility] Z720 TOBACCO USE 02-18-2016 [facility] INC N9489 OTH COND 02-16-2016 [facility] ASSOC W/FE PHYSICIANS GEN ORGN & GROUP MENSTRUAL CYCL Z309 ENCOUNTER 02-16-2016 [facility] FOR PHYSICIANS CONTRACEPTI GROUP VE MANAGEMENT UNS R58672 PAIN IN 01-12-2016 [facility] RIGHT ELBOW ASSOCIATES OF [facility] [id number] UNSPECIFIED 12-21-2015 [facility] RT FOREARM PHYSICIANS INITIAL ENC P09755P OTHER 11-05-2015 [facility] SPR[facility] OF H RIGHT HIP ORTHOPAEDIC INITIAL CTR ENCOUNTER [id number] SPRAIN 11-05-2015 [facility] OTHER SPEC H PARTS RIGHT ORTHOPAEDIC KNEE CTR INITIAL ENC T52994 EFFUSION 10-24-2015 [facility] RIGHT KNEE ASSOCIATES OF NOTH T11640 PAIN IN 10-24-2015 [facility] RIGHT KNEE ASSOCIATES OF NOT I0385SH SPRAIN 10-24-2015 [facility] UNSPECIFIED TECHNOLOGIE SITE RT S INC KNEE INITIAL ENCNTR T1490 INJURY 10-24-2015 [facility] UNSPECIFIED ASSOCIATES OF NOT K529 NONINFECTIV 10-06-2015 [facility] E PHYSICIANS GASTROENTER GROUP ITIS & COLITIS UNS R08713 UNS ACUTE 09-18-2015 [facility] NONINFECTIV ASSOCIATES E OTITIS EXTERNA LEFT EAR H6692 OTITIS 09-18-2015 [facility] MEDIA ASSOCIATES UNSPECIFIED LEFT EAR M545 LOW BACK 09-18-2015 [facility] PAIN ASSOCIATES X28232 PAIN IN 09-18-2015 [facility] RIGHT FOOT ASSOCIATES E48264 PAIN IN 09-18-2015 [facility] LEFT FOOT ASSOCIATES Z8739 PERSONAL HX 09-18-2015 [facility] OTH DZ ASSOCIATES MUSCULOSKEL SYS&CONNECT V TISS Z021 ENCOUNTER 08-12-2015 [facility] FOR ASSOCIATES PRE-EMPLOYM ENT EXAMINATION N8320 UNSPECIFIED 07-28-2015 [facility] OVARIAN PHYSICIANS CYSTS GROUP I10 ESSENTIAL 07-17-2015 [facility] HYPERTENSIO INC N N8329 [...] ASSOCIATES UNSPECIFIED BILATERAL R51 HEADACHE 03-31-2015 [facility] COLLE R109 UNSPECIFIED 02-05-2015 [facility] ABDOMINAL ASSOCIATES PAIN OF NOTH H5203 HYPERMETROP 01-24-2015 [facility] DILIA IA BILATERAL 6201 CORPUS 01-01-2015 [facility] LUTEUM CYST VINCE [facility] OR HEMATOMA 6202 OTHER AND 01-01-2015 [facility] UNSPECIFIED LLC OVARIAN CYST 6205 TORSION 01-01-2015 [facility] OVARY [facility] OVARIAN INC PEDICLE OR FALLOPIAN TUBE 6238 OTHER 01-01-2015 [place] SPECIFIED MEDICAL NONINFLAMMA IMAGING ASS TORY DISORDER VAGINA 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 INC 6259 UNSPEC 01-01-2015 [facility] SYMPTOM VINCE [facility] ASSOC W/FEMALE GENITAL ORGANS 6262 EXCESSIVE 01-01-2015 [facility] OR FREQUENT VINCE PALMA MENSTRUATIO N 67220 ABDOMINAL 01-01-2015 [place] PA[place], LEFT MEDICAL LOWER IMAGING ASS QUADRANT V741 SCREENING 12-25-2014 [facility] EXAM[facility] PULMONARY TUBERCULOSI S 3829 UNSPECIFIED 11-10-2014 [facility] OTITIS ASSOCIATES MEDIA 4659 ACUTE URIS 11-10-2014 [facility] OF ASSOCIATES UNSPECIFIED SITE 85834 OTHER 09-08-2014 [facility] SPECIFIED ASSOCIATES DISORDER OF OF [facility] PERITONEUM 61143 VOMITING 09-08-2014 [facility] ALONE ASSOCIATES OF [facility] 70814 ABDOMINAL 09-08-2014 [facility] PAIN, ASSOCIATES UNSPECIFIED OF [facility] SITE 9989 UNSPECIFIED 09-08-2014 [facility] COMPLICATIO PHYSICIANS N OF PROCEDURE NEC 49305 CHOLECYSTIT 09-04-2014 COMMUNITY IS, ANESTH OF UNSPECIFIED THE BLUE 26129 CHRONIC 09-04-2014 [facility], CHOLECYSTIT LLC IS 5758 OTHER 09-04-2014 [facility] SPECIFIED PHYSICIANS DISORDER OF GROUP GALLBLADDER V7283 OTHER 09-02-2014 [facility] SPECIFIED [facility] PRE-OPERATI INC VE EXAMINATION 73783 NAUSEA WITH 08-20-2014[facility] VOMITING MEDICAL IMAGING ASS 70590 ABDOMINAL 08-20-2014 [facility] PAIN RIGHT [facility] UPPER INC QUADRANT 7099 UNSPECIFIED 08-05-2014 [facility] DISORDER PHYSICIANS OF GROUP SKIN&SUBCUT ANEOUS TISSUE 26221 NAUSEA 07-29-2014 [place] [facility]ONE [facility] 74408 OPEN WOUND 07-29-2014 [place] [facility]ICAL WITHOUT IMAGING ASS MENTION COMPLICATIO N 73572 OPEN WOUND 07-29-2014 [facility] P COMPLICATED 8840 MX&UNSPEC 07-29-2014 [facility] OPEN WOUND ASSOCIATES UPPER LIMB W/O MENTION COMP V9081 RETAINED 07-29-2014 [facility] P 28206 SHEFALI 07-24-2014 [facility] MIGRAINE ASSOCIATES NEC W/INTRACT W/STATUS MIGRAINOSUS 7840 HEADACHE 07-19-2014 [facility] 70086 MIGRAINE 07-06-2014 [facility] UNSP W/O EMERGENCY INTRACT W/O PHYSICIANS STATUS MIGRAINOSUS 3688 OTHER 07-06-2014 [facility] SPECIFIED ASSOCIATES VISUAL OF NOTH DISTURBANCE S 06523 UNSPECIFIED 06-26-2014 [facility] INFECTIVE ASSOCIATES OTITIS EXTERNA 4779 ALLERGIC 06-26-2014 [facility] RHINITIS ASSOCIATES CAUSE UNSPECIFIED 70360 PAIN IN 06-17-2014 [facility] JOINT, ASSOCIATES LOWER LEG 03467 CHEST PAIN 05-13-2014 [place] [facility] UNSPECIFIED SERV [...] VINCE PAL[place] AL EXAMINATION 6200 FOLLICULAR 04-03-2014 [place] CYST OF MEDICAL OVARY IMAGING ASS 7881 DYSURIA 03-26-2014 [facility] 36092 ACUTE 02-22-2014 ST GASTRITIS [facility] WITHOUT MED CTR MENTION OF HEMORRHAGE 07119 ABDOMINAL 02-22-2014 ST PAIN, [facility] EPIGASTRIC MED CTR 7244 THORACIC/SAKINA 02-10-2014 [facility] MBOSACRAL ASSOCIATES NEURITIS/RA DICULITIS UNSPEC 84010 PAIN IN 02-04-2014 [facility] JOINT ASSOCIATES PELVIC [...] CHONG HARDWICK IN SITU OF CERVIX UTERI 78941 DYSPLASIA 09-19-2013 GASPAR TAMMY OF CERVIX UNSPECIFIED 02391 PAP SMER 09-02-2013 [facility]ONG HARDWICK CERV W/HI GRADE SQUAMOUS INTRAEPITH LES V643 PROCEDURE 09-02-2013 ST NOT CARRIED [facility] OUT FOR MED CTR HEATER INSTALLER OTHER ST REASONS 6953 ROSACEA 08-27-2013 [facility] 6989 UNSPECIFIED 08-27-2013 [facility] PRURITIC DISORDER 4618 OTHER ACUTE 06-16-2013 [facility] MAR SINUSITIS 6250 DYSPAREUNIA 05-16-2013 ROSS CATHY 6253 DYSMENORRHE 05-16-2013 ROS[place] CATH[place] A 81845 UNSPEC 05-16-2013 HCONG HARDWICK CONGN ANOMALY CERV VAGINA&EXT FE GENIT V1329 PERSONAL HX 05-16-2013 CHONG HARDWICK OT GENITAL SYSTEM&OBST ETRIC D/O 0780 MOLLUSCUM 05-02-2013 SCALF LEI CONTAGIOSUM 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 7282 MUSCULAR 03-12-2013 A[facility] WASTING AND ZACK DISUSE ATROPHY NEC 8471 THORACIC 03-12-2013 ALEX[facility]U SPRAIN AND ZACK STRAIN V242 ROUTINE 01-20-2013 [place] FOLLOW-UP [facility] 08591 TRANSIENT 01-16-2013 ST HYPERTENSIO [facility] N OF PHYSICIANS ANTEPARTUM 650 NORMAL 01-16-2013 DELIVERY [facility] PHYSICIANS 2859 UNSPECIFIED 01-15-2013 ST ANEMIA [facility] MED CTR HEATER [facility] 64098 TRANSIENT 01-15-2013 ST HYPERTENSIO [facility] N OF MED CTR HEATER INSTALLER ST W/DELIVERY 76621 MATERNAL 01-15-2013 ST ANEMIA, [facility] WITH MED CTR HEATER INSTALLER DELIVERY [address] [address] OTH CURRENT 01-15-2013 MATERNAL [facility] CCE MED CTR HEATER INSTALLER W/DELIVERY ST V270 OUTCOME OF 01-15-2013 ST DELIVERY [facility] SINGLE MED CTR HEATER INSTALLER [place] [address] [address]269 UNS 01-10-2013 [facility] ABNORM MGMT MATERNAL MOTH AND ANTPRTM COND/COMP V239 UNSPECIFIED 01-10-2013 [facility] HIGH-RISK MATERNAL AND 69929 OTHER 01-07-2013 THREATENED [place] LABOR PHYSICIANS UNSPEC EPISODE CARE 34053 OTHER 01-07-2013 SPECIFED [facility] COMPLICATIO MED CTR HEATER INSTALLER N ST ANTEPARTUM 7962 ELEVATED BP 01-07-2013 READING [facility] WITHOUT DX MED CTR HEATER INSTALLER HYPERTENSIO ST N V1582 PERS HX 01-07-2013 TOBACCO USE [place] PRESENTING MED CTR HEATER INSTALLER HAZARDS ST [facility] V169 FAMILY 01-07-2013 HISTORY OF [facility] UNSPECIFIED MED CTR HEATER INSTALLER MALIGNANT ST NEOPLASM V220 SUPERVISION 12-31-2012 OF NORMAL [facility] CENTER 6984 DERMATITIS 12-28-2012 [facility] FACTITIA 7019 UNSPECIFIED 12-28-2012 [facility] HYPERTROPHI C&ATROPHIC CONDITION SKIN V6540 COUNSELING 12-28-2012 [facility] [place] NOS 51254 THREATENED 12-24-2012 PREMATURE [place] LABOR MEDICAL ANTEPARTUM CENTER 81529 SWELLING OF 12-24-2012 [facility] 7820 DISTURBANCE 12-24-2012 [facility] SKIN [facility] 70004 OT CURRENT 12-19-2012 P[facility] [place] CLASSIFIABL E ELSW ANTPRTM 17154 OT 12-19-2012 KNOWN/SUSPE [facility] CTED MEDICAL ABNORMALITY CENTER -NEC-APC/C V283 ENCOUNTER 12-19-2012 ROUTINE [place] SCREEN MEDICAL MALFORMATIO CENTER N ULTRASONIC 75511 DECR 12-15-2012 MOVMNTS [facility] MGMT MOTH MEDICAL ANTPRTM CENTER COND/COMP 56971 DECREASED 12-13-2012 [facility] RONEN MOVEMENTS UNSPEC EPISODE CARE 6235 LEUKORRHEA 11-09-2012 NOT [facility] MED[facility] CENTER INFECTIVE 17301 POLYDACTYLY 11-02-2012 ST. , [facility] UNSPECIFIED LANE DIGITS 56527 PAP SMER 11-02-2012 ST. CERV W/LW [facility] GRADE LANE SQUAMOUS INTRAEPITH LES 06377 LIVER 11-02-2012 ST. INJURY W/O [facility] MENTION OPN LANE WND IN CAV UNS LAC 6929 CONTACT 10-29-2012 [facility] DERMATITIS& H OTHER ECZEMA DUE UNSPEC CAUSE V222 10-29-2012 [facility] STATE, H INCIDENTAL 41290 OTHER 10-17-2012 ST SPECIFIED [facility] DISORDER OF MEDICAL KIDNEY AND CENTER URETER V141 PERSONAL 09-23-2012 ST HISTORY [facility] ALLERGY MEDICAL OTHER CENTER ANTIBIOTIC AGENT 90442 HORDEOLUM 08-24-2012 [facility] EXTERNUM LEIF 9953 ALLERGY 08-24-2012 [place] UNSPECIFIED LEIF NOT ELSEWHERE CLASSIFIED V7242 06-12-2012 [facility] EXAMIN[facility] OR TEST CENTER POSITIVE RESULT 99509 SPASM OF 06-11-2009 [facility] 65403 ABDOMINAL 03-25-2009 [facility] OTHER HOSPITAL SPECIFIED EAST SITE 17997 POST-TRAUMA 01-19-2009 [facility] MED HEADACHE CTR UNSPECIFIED 06606 CONCUSSION 01-19-2009 [facility] WITH LOC OF HOSP MED 30 MINUTES CTR OR LESS 50276 INJURY OF 01-09-2009 [facility] FACE AND PEDIATRIC NECK OTHER AND UNSPECIFIED V0481 NEED 01-09-2009 [facility] PROPHYLACTI PEDIATRIC C VACCINATION &INOCULATIO N FLU V6759 OTHER 01-09-2009 [facility] FOLLOW-UP PEDIATRIC EXAMINATION OTHER 96531 OTHER CHEST 12-20-2008 [facility] 9598 INJURY 12-20-2008 [facility] OTH&UNSPEC ASSOCIATES OTH SPEC PSC SITES INCL MULTIPLE 9599 INJURY 12-20-2008 [facility] OTHER AND ASSOCIATES UNSPECIFIED PSC UNSPECIFIED SITE 78692 GENERALIZED 11-26-2008 [facility] [place] ANXIETY MH MR BD DISORDER INC 7231 CERVICALGIA 11-13-2008 [facility] V2541 SURVEILLANC 10-16-2008 ST E PREV [facility] PRESCRIBED MED CTR CONTRACEPT PILL V762 SCREENING 10-16-2008 ST FOR [facility] MALIGNANT MEDICALCENT NEOPLASM OF ER THE CERVIX 486 PNEUMONIA, 08-22-2008 [facility] ORGANISM PEDIATRIC UNSPECIFIED 7862 COUGH 08-22-2008 [facility] PSC 07122 CHRONIC 05-06-2008 INDEPENDENT TONSILLITIS ANESTHESIOL OGIST 97600 HYPERTROPHY 05-06-2008 HEAD & NECK OF TONSIL SURGERY WITH ASSOC ADENOIDS 16797 CLOSED 05-01-2008 [facility] FRACTURE H DISTAL ORTHOPAEDIC PHALANX OR CTR PSC PHALANGES HAND 462 ACUTE 04-22-2008 [facility] PHARYNGITIS PEDIATRIC 463 ACUTE 04-22-2008 [facility] TONSILLITIS PEDIATRIC 60437 CLOSED 04-07-2008 [facility] FRACTURE ASSOCIATES UNSPEC PSC PHALANX/PHA LANGES HAND 24877 MODERATE 03-20-2008 [facility] PHYSICIANS FOR WOMEN 29356 PAP SMER 03-20-2008 [facility] INC W/ATYPICAL SQUAMOUS CELLS UNDET 98127 ABNORMAL 12-28-2007 [facility]IC[facility] U SMEAR OF FOR WOMEN CERVIX 0340 STREPTOCOCC 12-21-2007 [facility] AL SORE PEDIATRIC THROAT 33749 INSOMNIA 11-08-2007 [facility] UNSPECIFIED PEDIATRIC 7806 FEVER & OTH 08-17-2007 [facility] PEDIATRIC PHYSIOLOGIC DISTURBANCE S TEMP REG 2893 LYMPHADENIT 07-19-2007 [facility] IS PEDIATRIC UNSPECIFIED EXCEPT MESENTERIC 4871 INFLUENZA 07-06-2007 [facility] WITH OTHER PEDIATRIC RESPIRATORY MANIFESTATI ONS 07041 UNSPECIFIED 06-15-2007 [facility] VAGINITIS PEDIATRIC AND VULVOVAGINI TIS 0091 COLITIS 04-26-2007 [facility] ENTERIT&GAS PEDIATRIC TROENTERIT INF ORIGIN 55775 URINARY 10-13-2006 [facility] MEDICAL C Medications Na ND Rx Da [...] AR MA TA CY BL ET #5 WI 00 05 06 45 30 00 TO [...] ZO MA YL CY GE #5 L WI 00 04 05 45 30 00 TO [...] MA CY 75 #5 MG TA B WI 00 03 04 45 30 00 TO [...] MA CY 75 #5 MG TA B WI 00 02 03 45 30 00 TO [...] AR MA TA CY BL ET #5 WI 00 12 01 24 12 00 TO [...] 15 6- 0- 00 00 L ve WI 02 20 20 93 CA ED 20 16 17 58 RE NI 7 78 SO PH LO AR NE MA 4 CY MG #5 DO SE PK WI 00 12 01 45 30 00 TO [...] HY 00 12 01 [address] 40 -0 -1 .0 00 L- ti OC 60 8- 3- 00 02 MA ve OD 12 20 20 23 RT ON 40 16 17 81 -A 1 60 PH CE AR TA MA ND CY NO PH #5 91 7. 5- 32 5 WI 00 12 01 10 3 00 TO [...] HY 00 12 01 [address] 40 -0 -0 .0 00 L- ti OC 60 1- 9- 00 02 MA ve OD 12 20 20 23 RT ON 40 16 17 81 -A 1 06 PH CE AR TA MA ND CY NO PH #5 91 7. 5- 32 5 NI 47 12 01 20 10 00 [employer] TR 78 -0 -0 .0 00 L- [...] 00 1. 1 WA 11 OT Ac WI 25 -0 -1 00 LG 34 RE [...] MG #5 43 TA 7 BL ET WI 00 08 08 00 20 3 WA [...] MG #5 43 TA 7 BL ET WI 00 07 07 00 15 5 CV [...] MG #5 43 TA 7 BL ET WI 00 07 00 12 3 CV 49 [...] CY EB RU #5 K 43 7 WI 00 05 05 00 10 3 CV [...] 9- 2- 00 PH 73 Av ve WI 01 20 20 AR ai AM 00 [...] 43 J MG 7 TA BL ET WI 00 03 03 00 21 7 CV [...] 0 43 MG 7 TA BL ET WI 45 01 02 00 8. 2 CV 48 ND Ac OM 80 -2 -1 00 S [...] 9- 0- 00 PH 73 Av ve WI 01 20 20 AR ai AM 00 09 09 MA la 5 CY bl HB e R #5 20 43 7 MG TA BL ET WI 45 01 01 00 4. 2 CV [...] 7- 1- 00 PH 93 Av ve WI 01 20 20 AR ai AM 00 [...] 7- 4- 00 PH 93 Av ve WI 01 20 20 AR ai AM 00 [...] 0- 7- 00 PH 09 Av ve WI 01 20 20 AR ai AM 10 [...] LL 4 CY S #5 43 7 WI 37 08 05 03 28 28 CV [...] 00 10 5 CV 45 No Ac ND 00 -2 -1 .0 S 23 t ti FL 40 1- 7- 00 PH 38 Av ve U 80 20 20 AR ai 75 08 08 08 MA la 5 CY bl MG e #5 CA 43 PS 7 UL E WI 50 04 04 00 90 18 CV [...] 4 CY bl e #5 43 7 WI 37 08 03 02 28 28 CV [...] 5 PH bl AR e MA CY WI 50 01 03 00 12 6 CV 44 No Ac OM 38 -1 -2 0. S 49 t ti ET 30 0- 4- 00 PH 67 Av ve NIETO 80 20 20 0 AR ai ZI 41 08 08 MA la NE 6 CY bl -C e OD #5 EI 43 NE 7 SY RU P WI 10 01 03 00 8. 3 PH 63 No Ac OM 70 -0 -2 00 AR 52 t ti ET 20 7- 4- 0 MC 04 Av ve NIETO 00 20 20 AR ai ZI 31 08 08 E la NE 0 PH bl AR e 25 MA CY MG TA BL ET Procedures Procedure DOS Code Location Performer Comment [facility] DIP 74107 FAMILY [place] 7 CARE STICK/TAB ASSOCIATE LET RGNT S NON-AUTO W/O MICRSCP BLOOD 03808 FAMILY FAMILY COUNT 7 CARE CARE COMPLETE ASSOCIATE ASSOCIATE AUTO&AUTO S S DIFRNTL WBC BLOOD 06723 FAMILY REY COUNT 6 CARE COMPLETE ASSOCIATE AUTO&AUTO S DIFRNTL WBC COLLECTIO 07161 FAMILY REY N 6 CARE CAPILLARY ASSOCIATE BLOOD S SPECIMEN URINLS 68481 [facility] DIP 6 PHYSICIAN STICK/TAB S GROUP LET REAGNT NON-AUTO MICRSCPY URINLS 13862 [facility] DIP 6 PHYSICIAN JESUSITA STICK/TAB S GROUP LET REAGNT NON-AUTO MICRSCPY ANESTHESI 87530 [facility] 6 ANESTH INTRAPERI OF THE TONEAL BLUE LOWER ABD W/LAPS NOS REPOSITIO [id number] [facility] N RIGHT 6 MEM HOS[facility]OS[facility] OVARY INC INC OPEN REPAIR [id number] [facility] RIGHT 6 [facility]OS[facility] OVARY INC INC OPEN OVARIAN 98379 [facility] CYSTECTOM 6 PHYSICIAN Y UNI/BI S GROUP URNLS DIP 13567 [facility]Y 6 [facility]OS[facility]OS[facility] STICK/TAB INC INC LET REAGENT AUTO MICROSCOP Y GONADOTRO 20518 [facility] PIN 6 [facility]OS[facility] CHORIONIC INC INC QUALITATI VE BLOOD 58133 [facility] COUNT 6 [facility] MEM [facility]OS[facility] COMPLETE INC INC AUTO&AUTO DIFRNTL WBC SMR PRIM 48714 [facility] SRC WET 6 PHYSICIAN JESUSITA [place] S GROUP NFCT AGT COLLECTIO 20569 [facility] N VENOUS 6 MEM HOSP MEM [facility]OS[facility] BLOOD INC INC VENIPUNCT URE CULTURE 23298 [facility] BACTERIAL 6 [facility]OS[facility]OS[facility] INC INC QUANTTATI VE COLONY COUNT URINE URNLS DIP 59680 [facility] 6 [facility] STICK/TAB INC [place] [address] [facility] TRANSVAGI 6 [place] [address] Y[facility]JA[facility] TRANSVAGI 6 MEDICAL NAL IMAGING [place] ANY [address] RADIOLOGY PAULETTE SCO JT UPPER 6 EXTREMITY ASSOCIATE W/O S OF NOT CONTRAST MATRL KNEE L1810 [facility] ORTHOSIS 6 LTH ER MAT ELASTIC ORTHOPAED JOINTS IC CTR PREFAB CUSTOM FIT RADEX HIP 70217 [facility] 6 LTH ER MAT UNILATERA ORTHOPAED L WITH IC CTR PELVIS 2-3 VIEWS CRTCHS E0114 ADV[facility]ED ADVANCED UNDARM 6 TECHNOLOG TECHNOLOG OTH THAN IES INC IES INC WOOD PAIR PAD TIP&HNDGR IP RADIOLOGI 78495 RADIOLOGY RATTAN C EXAM 6 AMI KNEE ASSOCIATE COMPLETE S OF NOTH 4/MORE VIEWS COLLECTIO 47464 FAMILY REY N 6 CARE JITENDRA CAPILLARY ASSOCIATE BLOOD S SPECIMEN BLOOD 73869 FAMILY REY COUNT 6 CARE JITENDRA COMPLETE ASSOCIATE AUTO&AUTO S DIFRNTL WBC BLOOD 06426 [facility] COUNT 6 [facility] HEMOGLOBI INC INC N ANESTHESI 25628 COMMUNITY TAD A 6 ANESTH MARKO INTRAPERI OF THE TONEAL BLUE LOWER ABD W/LAPS NOS INJECTION J2405 [facility] ONDANSETR INC INC ON HCL PER 1 MG COLLECTIO 18104 [facility] N VENOUS 6 [facility] BLOOD INC INC VENIPUNCT URE BLOOD 98315 [facility] COUNT 6 [facility] HEMATOCRI INC INC T LAPS SURG 97032 [facility] W/ASPIR 6 PHYSICIAN JESUSITA CAVITY/CY S GROUP ST SINGLE/MU LTIPLE INJECTION J2710 [facility] NEOSTIGMI INC INC NE METHYLSUL FATE UP TO 0.5 MG UNCLASSIF J3490 [facility] IED DRUGS 6 [facility] INC INC SMR PRIM 74805 [facility] WET 6 VINCE PALMA JESUSITA MOUNT NFCT AGT COLLECTIO 99613 [facility] N VENOUS 6 [facility] BLOOD INC INC VENIPUNCT URE IMMUNOASS 66542 [facility] AY TUMOR 6 [facility] ANTIGEN INC INC QUANTITAT SARA URNLS DIP 31082 [facility] STICK/TAB INC INC LET REAGENT AUTO MICROSCOP Y GONADOTRO 52310 [facility] PIN 6 [facility] CHORIONIC INC INC QUALITATI VE BLOOD 74570 [facility] COUNT 6 [facility] COMPLETE INC INC AUTO&[place] [address] YAJAIRA ESCALANTE TRANSVAGI 6 MEDICAL MARINA NAL IMAGING ASS URINE 99707 [facility] TEST INC INC VISUAL COLOR CMPRSN METHS URNLS DIP 23223 [facility] STICK/TAB INC [place] [address] RADIOLOGY NERI TRANSVAGI 6 KAMI NAL ASSOCIATE S OF [facility] US PELVIC 36498 RADIOLOGY NERI 6 KAMI NONOBSTET ASSOCIATE OSCAR S OF [facility] [place] [address] [facility] TRANSVAGI 6 [facility] NAL INC INC THERAPEUT 45229 [facility] IC 6 VINCE MC PROPHYLAC TIC/DX INJECTION SUBQ/IM INJECTION J2675 [facility] 6 VINCE MC PROGESTER ONE [place] 50 [place] [address] [facility] TRANSVAGI 6 [place] [address] RADIOLOGY LUBBERS ABDOMEN & 5 JASS PELVIS ASSOCIATE W/CONTRAS S OF [facility] T MATERIAL OPHTH 12935 [facility] 5 DILIA DILIA XM&EVAL COMPRE NEW PT 1/> [facility] G0378 [facility] OBSERVATI 5 [facility] ON INC INC SERVICE PER HOUR ANESTHESI 28373 COMMUNITY TAD A 5 ANESTH MARKO INTRAPERI OF THE TONEAL BLUE LOWER ABD W/LAPS NOS COLLECTIO 40049 [facility] N VENOUS 5 [facility] BLOOD INC INC VENIPUNCT URE BLOOD 89959 [facility] COUNT 5 [facility] HEMATOCRI INC INC T LAPAROSCO 62129 [facility] PY W/RMVL 5 [facility] ADNEXAL INC INC STRUCTURE S [facility] G0378 [facility] OBSERVATI 5 [facility] [place] [address] [facility] ERIC PATHOLOGY GROSS&CATHY ROSCOPIC EXAM BLOOD 46923 [facility] COUNT 5 [facility] HEMOGLOBI INC INC N BLOOD 06579 [facility] COUNT 5 [facility] COMPLETE INC INC AUTO&AUTO DIFRNTL WBC GONADOTRO 89524 [facility] PIN 5 [facility] [place] [address] [facility] TRANSVAGI 5 [facility] NAL INC INC HGB 07772 PARISH LUGO R QUANTITAT 5 VINCE CLARKE MD SARA TRANSCUTA NEOUS INJECTION J2710 [facility] 5 [facility] NEOSTIGMI INC INC NE METHYLSUL FATE UP TO 0.5 MG SKIN TEST 48568 PENDELETO PENDELETO 5 N CO N CO [facility] SIS CENTER CENTER INTRADERM AL RADIOLOGI 77268 RADIOLOGY ROEBKER C EXAM 5 JAM CHEST 2 ASSOCIATE VIEWS S OF [facility] FRONTAL&[place] [address] RADIOLOGY ROEBKER ABDOMEN & 5 JAM PELVIS ASSOCIATE W/CONTRAS S OF [facility] T MATERIAL LAPAROSCO 30296 [facility] 5 PHYSICIAN CAM CHOLECYST S GROUP ECTOMY ANES 75236 [facility] INTRAPERI 5 ANESTH SHE TONEAL OF THE UPPER BLUE ABDOMEN W/LAPS NOS LEVEL III 72569 [facility] EIRC PATHOLOGY GROSS&CATHY ROSCOPIC EXAM INJECTION J2710 [facility] 5 [facility] NEOSTIGMI INC INC NE METHYLSUL FATE UP TO 0.5 MG BASIC 13473 [facility] METABOLIC 5 [facility] PANEL INC INC CALCIUM TOTAL GONADOTRO 67377 [facility] PIN 5 [facility] CHORIONIC INC INC QUALITATI VE BLOOD 98882 [facility] COUNT 5 [facility] COMPLETE INC INC AUTO&AUTO DIFRNTL WBC COLLECTIO 35919 [facility] N VENOUS 5 [facility] BLOOD INC INC VENIPUNCT URE HEPATOBIL 41170 [place] ALEXIS SYST 5 MEDICAL IMAG INC IMAGING GB ASS W/PHARMA INTERVENJ TECHNETIU A9537 [facility] M TC-99M 5 [facility] MEBROFENI INC INC N DX UP TO 15 MCI INJECTION J2805 [facility] 5 [facility] SINCALIDE INC INC 5 MICROGRAM S RADEX 96793 [facility] FOREARM 2 5 [place] [address] [facility] ABDOMINAL 5 [facility] REAL INC INC TIME W/IMAGE LIMITED SMPL 87400 FAMILY REY REPAIR 5 CARE JITENDRA SCALP/NEC ASSOCIATE K/AX/NIRU S T/TRUNK 2.6-7.5CM BLOOD 95408 FAMILY FAMILY COUNT 5 CARE CARE COMPLETE ASSOCIATE ASSOCIATE AUTO&[place] [address] RADIOLOGY [facility] HEAD/BRAI 5 N W/O ASSOCIATE CONTRAST S OF NOTH MATERIAL ECHO 97229 [place] TTHRC R-T 5 MEDICAL DAWSON 2D SERV W/WOM-MOD FOUNDATIO E COMPL N SPEC&COLR D ETONOGEST J7307 [facility] REL 5 VINCE MC CNTRACPT IMPL SYS INCL IMPL & SPL INSJ 95063 [facility] NON-BIODE 5 VINCE MC GRADABLE DRUG DELIVERY IMPLANT URINE 01207 [facility] 5 VINCE MC TEST VISUAL COLOR CMPRSN METHS IADNA 75513 [facility] HERPES 4 VINCE MC SIMPLX VIRUS DIRECT PROBE TQ CULTURE 12248 [facility]KE CHLAMYDIA 4 VINCE MC ANY SOURCE REMOVAL 59958 [facility] INTRAUTER 4 VINCE MC INE DEVICE IUD IAADIADOO 40869 [facility] MD TRICHOMON VAGINALIS IADNA 17985 [facility] NEISSERIA 4 VINCE PALMA JESUSITA GONORRHOE AE DIRECT PROBE TQ URINE 40459 [facility] CL[facility]KE 4 VINCE PALMA JESUSITA TEST VISUAL COLOR CMPRSN METHS URINLS 90726 PARISH MOTTL DIP 4 VINCE PALMA JESUSITA STICK/TAB [place] [address] [place] TRANSVAGI 4 MEDICAL MARINA NAL IMAGING ASS RADEX HIP 99956 RADIOLOGY CATIE 4 SWAPNA UNILATERA ASSOCIATE L S OF NOTH COMPLETE MINIMUM 2 VIEWS CHIROPRAC 35624 LUKING LUKING TIC 4 SWAPNA SWAPNA MANIPLTV TX EXTRASPIN AL 1/> REGION RADEX 99469 RADIOLOGY ADRIEL SPINE 4 TUS LUMBOSACR ASSOCIATE AL 2/3 S OF NOTH VIEWS CHIROPRAC 34516 LUKING LUKING TIC 4 SWAPNA SWAPNA MANIPULAT [place] SPINAL 3-4 [place] [address] LUKING LUKING 1/> AREAS 4 SWAPNA SWAPNA EACH 15 MINUTES MASSAGE CHIROPRAC 42697 LUKING LUKING TIC 4 SWAPNA SWAPNA MANIPULAT [place] SPINAL 3-4 [place] [address] LUKING LUKING 1/> AREAS 4 SWAPNA SWAPNA EACH 15 MINUTES MASSAGE THERAPEUT 04042 LUKING LUKING IC PX 1/> 4 SWAPNA SWAPNA AREAS EACH 15 MIN EXERCISES APPL 48012 LUKING LUKING MODALITY 4 SWAPNA SWAPNA 1/> AREAS ELEC STIMJ UNATTENDE D THERAPEUT 14923 LUKING LUKING IC PX 1/> 4 SWAPNA SWAPNA AREAS EACH 15 MIN EXERCISES CHIROPRAC 83961 LUKING LUKING TIC 4 SWAPNA SWAPNA MANIPULAT [place] SPINAL 3-[place] [address] LUKING LUKING 1/> AREAS 4 SWAPNA SWAPNA EACH 15 MINUTES MASSAGE CHIROPRAC 43271 LUKING LUKING TIC 4 SWAPNA SWAPNA MANIPLTV TX EXTRASPIN AL 1/> REGION SELF-CARE 05119 LUKING LUKING /HOME 4 SWAPNA SWAPNA MGMT TRAINING EACH 15 MINUTES CHIROPRAC 84886 LUKING LUKING TIC 4 SWAPNA SWAPNA MANIPULAT [place] SPINAL 3-4 [place] [address] LUKING LUKING 1/> AREAS 4 SWAPNA SWAPNA EACH 15 MINUTES MASSAGE THERAPEUT 79355 LUKING LUKING IC PX 1/> 4 SWAPNA SWAPNA AREAS EACH 15 MIN EXERCISES CHIROPRAC 70775 LUKING LUKING TIC 4 SWAPNA SWAPNA MANIPLTV TX EXTRASPIN AL 1/> REGION BLOOD 91346 FAMILY FAMILY COUNT 4 CARE CARE COMPLETE ASSOCIATE ASSOCIATE AUTO&AUTO S S DIFRNTL WBC CREATININ 54758 [facility] QUEST E BLOOD 4 [place] [address] QUEST QUEST UREA 4 DIAGNOSTI DIAGNOSTI NITROGEN CS CS QUANTITAT SARA BLOOD 92721 [place] COUNT 4 RIT RIT COMPLETE AUTO&AUTO DIFRNTL WBC CONIZATIO 99324 CHONG HARDWICK N CERVIX 4 W/WO D&C RPR ELTRD EXC ANESTHESI 64459 NURYS NUNO A VAGINAL 4 JUS JUS PROCEDURE W/[place] [address] SURG 4 [facility] PATHOLOGY MED CTR MED CTR HEATER INSTALLER ST HEATER INSTALLER ST GROSS&[place] L[place] [address] OSTERHAGE OSTERHAGE SURG 4 CESAR CESAR PATHOLOGY GROSS EXAMINATI ON ONLY COLPOSCOP 67499 CHONG HARDWICK Y CERVIX 4 BX CERVIX & ENDOCRV CURRETAGE URINE 25600 CHONG HARDWICK 4 TEST VISUAL COLOR CMPRSN METHS CYTP 24931 GONZALEZ DON GONZALEZ DON CERVICAL/ 4 VAGINAL REQ INTERP PHYSICIAN CYTP C/V [address] AUTO THIN 4 [facility] LYR MED CTR MED CTR PREPJ SCR HEATER INSTALLER ST HEATER INSTALLER ST MNL RESCR PHYS IADNA [address] NEISSERIA 4 [facility] CTR MED CTR GONORRHOE HEATER INSTALLER ST HEATER INSTALLER ST AE AMPLIFIED PROBE TQ IADNA [address] [facility] [address] [facility] 4 [facility] TRACHOMAT HEATER INSTALLER ST HEATER INSTALLER ST IS AMPLIFIED PROBE TQ BLOOD 34161 KEAGLE KEAGLE COUNT 4 RIT RIT COMPLETE AUTO&AUTO DIFRNTL WBC LEVONORGE J7302 CHONG HARDWICK STREL-RLS 4 E INTRAUTER N CNTRACPT 52 MG INSERTION 44926 CHONG RONEN MARIAN 4 INTRAUTER INE DEVICE IUD PRTL 60582 CHONG HARDWICK HYMENECTO 4 MY/REVJ HYMENAL RING ANESTHESI 62515 ZANGRANDO ZANGRANDO A VAGINAL 4 JASS JASS PROCEDURE W/BIOPSY NOS LEVEL III 90673 [facility] ROSS CATHY SURG 4 PATHOLOGY GROSS&[place] [address] SCALF LEI SCALF LEI SURG 4 PATHOLOGY GROSS&CATHY ROSCOPIC EXAM BX SKIN 98204 GRAVES GRAVES SUBCUTANE 4 LES LES OUS&/MUCO US MEMBRANE 1 LESION APPL 95908 ALEXANDRU HORVATH MODALITY 3 ZACK ZACK 1/> AREAS ELEC STIMJ UNATTENDE D APPLICATI 91734 ALEXANDRU HORVATH ON 3 ZACK ZACK MODALITY 1/> AREAS HOT/COLD PACKS APPL 78694 ALEXANDRU HORVATH MODALITY 3 ZACK ZACK 1/> AREAS ULTRASOUN D [place] 15 [place] [address] ALEXANDRU HORVATH 1/> AREAS 3 ZACK ZACK EACH 15 MINUTES MASSAGE CHIROPRAC 29760 ALEXANDRU HORVATH TIC 3 ZACK ZACK MANIPULAT [place] SPINAL 3-4 REGIONS THERAPEUT 18565 ALEXANDRU HORVATH IC PX 1/> 3 ZACK ZACK AREAS EACH 15 MIN EXERCISES THERAPEUT 02682 ALEXANDRU HORVATH IC PX 1/> 3 AZCK ZACK AREAS EACH 15 MIN EXERCISES APPLICATI 68804 ALEXANDRU HORVATH ON 3 ZACK ZACK MODALITY 1/> AREAS HOT/[place] [address] ALEXANDRU HORVATH 1/> AREAS 3 ZACK AZCK EACH 15 MINUTES MASSAGE CHIROPRAC 29343 ALEXANDRU HORVATH TIC 3 ZACK ZACK MANIPULAT [place]ARA [place] SPINAL 3-4 REGIONS APPL 82409 ALEXANDRU HORVATH MODALITY 3 ZACK ZACK 1/> AREAS ELEC STIMJ UNATTENDE D APPL 51922 ALEXANDRU HORVATH MODALITY 3 ZACK ZACK 1/> AREAS TRACTION MECHANICA L BLOOD 76412 FAMILY FAMILY COUNT 3 CARE CARE COMPLETE ASSOCIATE ASSOCIATE AUTO&AUTO S S DIFRNTL WBC APPL 89341 ALEXANDRU HORVATH MODALITY 3 ZACK ZACK 1/> AREAS ELEC STIMJ UNATTENDE D APPL 62317 ALEXANDRU HORVATH MODALITY 3 ZACK ZACK 1/> [place] [address] ALEXANDRU HORVATH 1/> AREAS 3 ZACK ZACK EACH 15 MINUTES MASSAGE APPLICATI 48621 ALEXANDRU ALEXANDRU ON 3 ZACK ZACK MODALITY 1/> AREAS HOT/COLD PACKS CHIROPRAC 61625 ALEXANDRU HORVATH TIC 3 ZACK ZACK MANIPULAT [place] SPINAL 3-4 REGIONS THERAPEUT 95739 ALEXANDRU ALEXANDRU IC PX 1/> 3 ZACK ZACK AREAS EACH 15 MIN EXERCISES CULTURE 29787 LAB RUPESH LAB RUPESH BACTERIAL 3 MARTHA [facility] [employer] QUANTTATI VE COLONY COUNT URINE URNLS DIP 98202 FAMILY ALCON 3 CARE R H STICK/TAB ASSOCIATE LET RGNT S NON-AUTO W/O MICRSCP VAGINAL 19581 ST GANSHIRT DELIVERY 3 ILANA LOW W/POSTPAR PHYSICIAN RICA CARE S OTHER [address] MANUALLY 3 ILANA PRECIADO ASSISTED MED CTR MED CTR DELIVERY HEATER INSTALLER ST HEATER INSTALLER ST EPISIOTOM [address] Y 3 ILANA PRECIADO MED CTR MED CTR HEATER INSTALLER ST HEATER INSTALLER ST NEURAXIAL 48090 J CARLOS J CARLOS LABOR 3 JUDITH JUDITH ANALG/ANE S PLND VAGINAL DELIVERY OTHER [address] GENITOURI 3 ILANA PRECIADO NARY MED CTR MED CTR INSTILLAT HEATER INSTALLER ST HEATER INSTALLER ST ION US PREG 15425 [facility] ALEXIS UTERUS 3 MATERNAL REAL TIME AND F/U TRNSABDL PER FETUS BASIC [address] METABOLIC 3 ILANA ILANA PANEL MED CTR MED CTR CALCIUM HEATER INSTALLER ST HEATER INSTALLER ST TOTAL PROTEIN [address] TOTAL 3 ILANA ILANA XCPT MED CTR MED CTR REFRACTOM HEATER INSTALLER ST HE[place] [address] BLOOD/URI 3 ILANA ILANA C ACID MED CTR MED CTR HEATER INSTALLER ST HEATER INSTALLER ST BLO[address] COUNT 3 ILANA ILANA PLATELET MED CTR MED CTR AUTOMATED HEATER INSTALLER ST HEATER INSTALLER ST PROTHROMB [address] IN TIME 3 ILANA ILANA MED CTR MED CTR HEATER INSTALLER ST HEATER INSTALLER ST HEPATIC [address] FUNCTION 3 ILANA ILANA PANEL MED CTR MED CTR HEATER INSTALLER ST HEATER INSTALLER ST BLOOD [address] COUNT 3 ILANA ILANA COMPLETE MED CTR MED CTR AUTO&AUTO HEATER INSTALLER ST HEATER INSTALLER ST DIFRNTL WBC THROMBOPL [address] ASTIN 3 ILANA ILANA TIME MED CTR MED CTR PARTIAL HEATER INSTALLER ST HEATER INSTALLER ST PLASMA/WH OLE BLOOD 98592 HEMANT II HEMANT II NONSTRESS 3 TOLU TOLU TEST HEPATIC [address] FUNCTION 3 ILANA ILANA PANEL MED CTR MED CTR HEATER INSTALLER ST [facility] G[facility] ST ST OBSERVATI 3 ILANA ILANA ON MED CTR MED CTR SERVICE HEATER INSTALLER ST HEATER INSTALLER ST PER HOUR 63743 VON ELENA VON BINAENE NONSTRESS 3 AMA AMA TEST INITIAL 85940 [facility] 3 AMA AMA CARE/DAY [address] [place] [address] INFUSION 3 ILANA ILANA HYDRATION MED CTR MED CTR EACH HEATER INSTALLER ST HEATER INSTALLER ST ADDITIONA L HOUR INJECTION J2405 ST ST 3 ILANA ILANA ONDANSETR MED CTR MED CTR ON HCL HEATER INSTALLER ST HEATER INSTALLER ST PER [address] D[address] 3 ILANA ILANA STICK/TAB MED CTR MED CTR LET RGNT HEATER INSTALLER ST HEATER INSTALLER ST AUTO W/O MICROSCOP Y THROMBOPL [address] ASTIN 3 ILANA ILANA TIME MED CTR MED CTR PARTIAL HEATER INSTALLER ST HEATER INSTALLER ST PLASMA/WH OLE BLOOD BLOOD [address] COUNT 3 ILANA ILANA COMPLETE MED CTR MED CTR AUTOMATED HEATER INSTALLER ST HEATER INSTALLER ST THER [address] PROPH/DX 3 ILANA ILANA NJX IV MED CTR MED CTR PUSH HEATER INSTALLER ST HEATER INSTALLER ST SINGLE/1S T SBST/DRUG PROTHROMB [address] IN TIME 3 ILANA ILANA MED CTR MED CTR HEATER INSTALLER [place] [address] BLOOD/URI 3 ILANA ILANA C ACID MED CTR MED CTR HEATER INSTALLER ST HEATER INSTALLER ST BASIC [address] METABOLIC 3 ILANA ILANA PANEL MED CTR MED CTR CALCIUM HEATER INSTALLER ST HEATER INSTALLER ST TOTAL THER [address] PROPH/DX 3 ILANA ILANA NJX EA MED CTR MED CTR SEQL IV HEATER INSTALLER ST HEATER INSTALLER ST PUSH SBST/DRUG FAC URNLS DIP [address] 3 ILANA ILANA STICK/TAB MED CTR MED CTR LET RGNT HEATER INSTALLER ST HEATER INSTALLER ST AUTO W/O MICROSCOP Y [address] NONSTRESS 3 ILANA ILANA TEST PHYSICIAN PHYSICIAN S S IADNA [address] CHLAMYDIA 3 [facility] TRACHOMAT CENTER CENTER IS AMPLIFIED PROBE TQ IADNA [address] NEISSERIA 3 [facility] GONORRHOE CENTER CENTER AE AMPLIFIED PROBE TQ IADNA [address] STREPTOCO 3 [facility] B CENTER CENTER AMPLIFIED PROBE TQ INITIAL 86038 BASHIR ALEXIS BASHIR ALEXIS OBSERVATI 3 ON CARE/DAY 30 MINUTES 13545 BASHIR ALEXIS BASHIR ALEXIS NONSTRESS [address] URNLS DIP [address] 3 [facility] STICK/TAB MEDICAL [facility] REAGENT AUTO MICROSCOP Y INJECTION J3105 ST ST [address] [facility] NE MONUMENT CENTER SULFATE UP TO 1 [place] [address] UTERUS 3 [facility] REAL TIME MEDICAL MEDICAL F/U [facility] TRNSABDL PER FETUS 37589 [facility] NONSTRESS [address] [facility] MEDICAL MEDICAL MONUMENT CENTER 85030 CHONG RONEN CHONG RONEN NONSTRESS 3 TEST OBSERVATI 51082 HEMANT II HEMANT II ON/INPATI 3 [facility] 40 MINUTES URNLS DIP 53126 HEMANT II HEMANT II 3 [facility] STICK/TAB LET RGNT NON-AUTO W/O MICRSCP COLLECTIO [address] N VENOUS [address] [facility] BLOOD L[address] LANE VENIPUNCT URE BLOOD [address] COUNT [address] [place] [address]PLETE L[address] LANE AUTO&AUTO DIFRNTL WBC GLUCOSE [address] [facility] [place] 96787 ARANA ARANA UTERUS 3 AND AND REAL TIME F/U TRNSABDL PER FETUS URNLS DIP 08429 HEMANT II HEMANT II 3 [facility] STICK/TAB LET RG[place] [address] ABDOMINAL 3 [facility] REAL [facility] MEDICAL TIME MONUMENT CENTER W/IMAGE LIMITED URNLS DIP 67701 BASHIR ALEXIS BASHIR ALEXIS 3 STICK/TAB LET RGNT NON-AUTO W/O MICRSCP OBSERVATI 43494 WALKER WALKER ON/INPATI 3 III DUTCH III [facility] C[facility] 40 [address]RNLS DIP [address]354 [address] 3 [facility] STICK/TAB MEDICAL [facility] REAGENT AUTO MICROSCOP Y CULTURE [address] TYPING 3 [facility] IMMUNOLOG [facility] MEDICAL IC CENTER CENTER OTH/THN IMMUNOFLU ORES CULTURE [address] BCT 3 [facility] ISOL&[facility] PTV ID CENTER CENTER ISOLATE EA URINE CULTURE [address] BACTERIAL 3 [facility] QUANTTATI [facility] VE COLONY [place]INE [place] PREG 98793 LISA DEW LISA DEW UTERUS 3 W/DETAIL [place] 1ST [place] [address] ESTRI[place] 3 [facility] [place] [place] [address] 3 [facility] GONADOTRO [address] PIN 3 ILANA ILANA CHORIONIC [facility] QUANTITAT SARA ALPHA-FET [address] OPROTEIN 3 [place] ILANA SERUM [facility] COLLECTIO [address] N VENOUS 3 ILANA ILANA BLOOD [facility] VENIPUNCT URE BLOOD 33221 MULBERRY MULBERRY COUNT 3 LEIF LEIF COMPLETE AUTO&AUTO DIFRNTL WBC URNLS DIP 52523 ST BASHIR ALEXIS 3 ILANA STICK/TAB LET RGNT PHYSICIAN NON-AUTO S W/O MICRSCP COLPOSCOP 84721 ST BASHIR ALEXIS Y CERVIX 3 ILANA UPPER/ADJ ACENT PHYSICIAN VAGINA S COLPOSCOP [address]8731 ST BASHIR ALEXIS Y VULVA 3 ILANA PHYSICIAN S INSJ [address]8876 ST BASHIR ALEXIS NON-NDWEL 3 ILANA LG BLADDER PHYSICIAN CATHETER S CULTURE [address] BACTERIAL 3 [facility] QUANTTATI [facility] VE COLONY COUNT URINE IADNA [address] CHLAMYDIA 3 [facility] TRACHOMAT CENTER CENTER IS AMPLIFIED PROBE TQ CULTURE [address] BCT 3 [facility] ISOL&[facility] PTV ID CENTER CENTER ISOLATE EA URINE CULTURE [address] BACTERIAL 3 [facility] QUANTTATI CENTER CENTER VE COLONY COUNT URINE URINE 80149 BASHIR ALEXIS 3 [place] TEST VISUAL PHYSICIAN COLOR S CMPRSN METHS IADNA [address] NEISSERIA 3 [facility] GONORRHOE CENTER CENTER AE AMPLIFIED PROBE TQ CYTP C/V [address] AUTO THIN 3 [facility] LYR [facility] PREPJ SCR CENTER CENTER MNL RESCR PHYS CYTP [address] [facility] CATHY CERVICAL/ 3 [place] VAGINAL REQ PHYSICIAN INTERP S PHYSICIAN BLOOD 35466 ALCON ALCON COUNT 3 R H R H COMPLETE AUTO&AUTO DIFRNTL WBC BLOOD 77663 ALCON ALCON COUNT 3 R H R H COMPLETE AUTO&AUTO DIFRNTL WBC URINE 62206 PENDELETO PENDELETO 3 N CO N CO TEST [facility]UAL CENTER CENTER COLOR CMPRSN METHS APPL 07923 SMITHA PAIZ, MODALITY 0 CHIROPRAC NELSON P 1/> AREAS TIC CENTER ULTRASOUN D [place] 15 [place] [address] SMITHA PAIZ, 1/> AREAS 0 CHIROPRAC NELSON P EACH 15 TIC MINUTES CENTER MASSAGE THERAPEUT 60110 SMITHA PAIZ, IC PX 1/> 0 CHIROPRAC NELSON P AREAS TIC EACH 15 CENTER MIN EXERCISES APPLICATI 89360 SMITHA PAIZ, ON 0 CHIROPRAC NELSON P MODALITY TIC 1/> AREAS CENTER HOT/COLD PACKS CHIROPRAC 94478 SMITHA PAIZ, TIC 0 CHIROPRAC NELSON P MANIPULAT TIC [place] CENTER SPINAL 3-4 REGIONS APPL 36014 SMITHA PAIZ, MODALITY 0 CHIROPRAC NELSON P 1/> AREAS TIC TRACTION CENTER MECHANICA L APPL 43482 SMITHA PAIZ, MODALITY 0 CHIROPRAC NELSON P 1/> AREAS TIC ELEC CENTER STIMJ UNATTENDE D APPL 44674 SMITHA PAIZ, MODALITY 0 CHIROPRAC NELSON P 1/> AREAS TIC TRACTION CENTER MECHANICA L APPL 14626 SMITHA PAIZ, MODALITY 0 CHIROPRAC NELSON P 1/> AREAS TIC CENTER ULTRASOUN D EA 15 MIN APPLICATI 73950 SMITHA PAIZ, ON 0 CHIROPRAC NELSON P MODALITY TIC 1/> AREAS CENTER HOT/COLD PACKS CHIROPRAC 10251 SMITHA PAIZ, TIC 0 CHIROPRAC NELSON P MANIPULAT TIC [place] CENTER SPINAL 3-4 [place] [address] SMITHA PAIZ, 1/> AREAS 0 CHIROPRAC NELSON P EACH 15 TIC MINUTES CENTER MASSAGE THERAPEUT 50166 SMITHA PAIZ, IC PX 1/> 0 CHIROPRAC NELSON P AREAS TIC EACH 15 CENTER MIN EXERCISES APPL 37468 SMITHA PAIZ, MODALITY 0 CHIROPRAC NELSON P 1/> AREAS TIC ELEC [place] [address] SMITHA PAIZ, 1/> AREAS 0 CHIROPRAC NELSON P EACH 15 TIC MINUTES CENTER MASSAGE APPL 04760 SMITHA PAIZ, MODALITY 0 CHIROPRAC NELSON P 1/> AREAS TIC CENTER ULTRASOUN D EA 15 MIN CHIROPRAC 64116 SMITHA PAIZ, TIC 0 CHIROPRAC NELSON P MANIPULAT TIC [place] CENTER SPINAL 3-4 REGIONS APPLICATI 56040 SMITHA PAIZ, ON 0 CHIROPRAC NELSON P MODALITY TIC 1/> AREAS CENTER HOT/COLD PACKS THERAPEUT 21281 SMITHA PAIZ, IC PX 1/> 0 CHIROPRAC NELSON P AREAS TIC EACH 15 CENTER MIN EXERCISES APPL 62141 SMITHA PAIZ, MODALITY 0 CHIROPRAC NELSON P 1/> AREAS TIC ELEC CENTER STIMJ UNATTENDE D IADNA [address] BILLIE 9 [place] ILANA SPECIES DIRECT MEDICALCE MEDICALCE PROBE TQ NTER NTER IADNA 37673 [facility] NEISSERIA 9 IL[place] ILANA GONORRHOE MEDICALCE MEDICALCE AE NTER NTER AMPLIFIED PROBE TQ IADNA 62173 [facility] TRICHOMON 9 [place] ILANA VAGINALIS MEDICALCE MEDICALCE DIRECT NTER NTER PROBE TQ IADNA 72459 [facility] CHLAMYDIA 9 [facility] TRACHOMAT MEDICALCE MEDICALCE IS NTER NTER AMPLIFIED PROBE TQ IADNA 03512 [facility] STREPTOCO 9 [facility] CCUS GROUP B MEDICALCE MEDICALCE AMPLIFIED NTER NTER PROBE TQ IADNA 42960 [facility] GARDNEREL 9 ILANA ILANA LA VAGINALIS MEDICALCE MEDICALCE DIRECT NTER NTER PROBE TQ SMR PRIM 30531 [facility] SRC 9 ILANA ILANA GRAM/GIEM SA STAIN MEDICALCE MEDICALCE BCT NTER NTER FUNGI/CUATE L RENAL 31974 [facility] FUNCTION 9 [facility] PANEL MEDICALCE MEDICALCE NTER NTER CUL BACT 11387 [facility] XCPT 9 [facility] URINE BLOOD/STO MEDICALCE MEDICALCE OL NTER NTER AEROBIC ISOL RADEX 84702 RADIOLOG[facility] EISEMAN, ABDOMEN 9 [facility] ASSOCIATE W/DCBTS&/ S PSC ERC VIEWS URINE 27375 [facility] OTREMBIAK 9 SUSIE [place] K TEST PEDIATRIC VISUAL COLOR CMPRSN METHS CYTP C/V 82979 [facility] AUTO THIN 9 [facility] LYR PREPJ SCR MEDICALCE MEDICALCE MNL NTER NTER RESCR PHYS IADNA 04319 [facility] CHLAMYDIA 9 [facility] TRACH[facility]AT MEDICALCE MEDICALCE IS NTER NTER AMPLIFIED PROBE TQ IADNA 01660 [facility] NEISSERIA 9 [facility] GONORRHOE MEDICALCE MEDICALCE AE NTER NTER AMPLIFIED PROBE TQ URNLS DIP 86737 [place], 9 [place] K STICK/TAB PEDIATRIC LET RGNT NON-AUTO W/O MICRSCP CT PELVIS 55310 RAD[facility] KIZZY 9 III, W/CONTRAS [place] [address] [facility] CERVICAL 9 III, SPINE W/O ASSOCIATE [place] [address] [facility] ABDOMEN 9 III, W/CONTRAS [place] [address] [facility] HEAD/BRAI 9 III, N W/O ASSOCIATE [place] CONTRAST S PSC MATERIAL AMBULANCE A0429 [facility] SERVICE 9 KAILASH KAILASH BLS [facility] TRANSPORT RADIOLOGI 96891 RADIOLOGY NEILS, C EXAM 9 MANDA W CHEST 2 ASSOCIATE VIEWS S PSC FRONTAL&L ATERAL GROUND A0425 [facility] MILEAGE 9 KAILASH KAILASH PER FIRE [facility] MILE PHARMACOL 42792 [facility] OGIC MGMT 9 [place] MR [place] MR MIN BD INC BD INC MEDICAL PSYCHOTHE RAPY INDIV 19447 [facility] PSYCTX 9 [place] MR [place] MR OFFICE/OU BD INC BD INC TPATIENT 20-30 MIN INDIV 69572 [facility] PSYCTX 9 [place] MH MR [place] MH MR OFFICE/OU BD INC BD [place] TPATIENT 20-30 [place] [address] SMITHA PAIZ, 1/> AREAS 9 [facility] NELSON P EACH 15 TIC MINUTES CENTER MASSAGE THERAPEUT 30926 [place] CHENCHO, IC PX 1/> 9 [facility] [place]ELSON P AREAS TIC EACH 15 CENTER MIN EXERCISES CHIROPRAC 89845 [place], TIC 9 [facility] [place] P MANIPULAT TIC [place] SPINAL 3-4 REGIONS THERAPEUT 12437 GAELUTH CHENCHO, IC PX 1/> 9 [facility] [place]ELSON P AREAS TIC EACH 15 CENTER MIN EXERCISES CHIROPRAC 49212 [place], TIC 9 [facility] [place] P MANIPULAT TIC [place] SPINAL 3-[place] [address] SMITHA PAIZ, 1/> AREAS 9 [facility] [place]ELSON P EACH 15 TIC MINUTES CENTER MASSAGE PHARMACOL 17028 [facility] OGIC MGMT 9 [place] MH MR BUCK MH MR MIN BD INC BD INC MEDICAL PSYCHOTHE RAPY INDIV 32361 [facility] PSYCTX 9 [place] MH MR BUCK MH MR OFFICE/OU BD INC BD INC TPATIENT 20-30 MIN INDIV 92271 [facility] PSYCTX 9 [place] MH MR BUCK MH MR OFFICE/OU BD INC BD INC TPATIENT 20-30 MIN CYTP C/V [address] AUTO THIN 9 ILANA ILANA LYR PREPJ SCR MEDICALCE MEDICALCE MNL NTER NTER RESCR APPLICATION TECHNICAL DESIGNER 64411 [facility] PROPH/DX [address] [place] [address] NJX IV [facility] PUSH SINGLE/1S T SBST/DRUG PHARMACOL 32484 [facility] OGIC MGMT 9 [place] MH MR BUCK MH MR MIN BD INC BD INC MEDICAL PSYCHOTHE RAPY URNLS DIP 45179 [facility] ST [address] STICK/TAB [facility] LET RGNT AUTO W/O MICROSCOP Y BILIRUBIN 29097 [facility] DIRECT [address] [place] [address] [place] [address] [facility] LIPASE [address] [place] [address] COMPREHEN 87655 [facility] SIVE [address] [place] [place] [address] [facility] PANEL GONADOTRO 62350 [facility] PIN [address] [place] [address] [facility] QUALITATI VE BLOOD 33043 [facility] COUNT [address] [place] [address] [facility] AUTO&[place] [address] [facility] INFUSION [address] [place] [address] [facility] [place] [address] [facility] AMYLASE [address] [place] [address] INDIV 11086 [facility] PSYCTX 9 [place] MH MR BUCK LIZ MR OFFICE/OU BD INC BD INC TPATIENT 20-30 MIN RADIOLOGI 17273 [facility] C EXAM 9 HOSPITAL HOSPITAL CHEST 2 EAST EAST VIEWS FRONTAL&L ATERAL PHARMACOL 76791 [facility] OGIC MGMT 9 [place] MH MR BUCK LIZ MR MIN BD INC BD INC MEDICAL PSYCHOTHE RAPY INTERPJ/E 80365 [facility] XPLNAJ 9 [place] MH MR BUCK LIZ MR RESULTS BD INC BD INC PSYCHIATR IC EXAM FAMILY FAMILY 09204 [facility] PSYCHOTHE 9 [place] MH MR BUCK MH MR WELLS BD INC BD INC W/PATIENT PRESENT 50 MINS INTERPJ/E 76491 [facility] XPLNAJ 9 [place] MH MR JANE MH MR RESULTS BD INC BD INC PSYCHIATR IC EXAM FAMILY PHARMACOL 89786 [facility] OGIC MGMT 9 [place] MH MR BUKC LIZ MR MIN BD INC BD INC MEDICAL PSYCHOTHE RAPY INDIV 17692 [facility] PSYCTX 9 [place] MH MR BUCK LIZ MR OFFICE/OU BD INC BD INC TPATIENT 20-30 MIN URINLS 70149 [place], DIP 9 [place] RE[place]Y K STICK/TAB PEDIATRIC LET REAGNT NON-AUTO MICRSCPY INDIV 61091 [facility] PSYCTX 9 [place] MH MR BUCK LIZ MR OFFICE/OU BD INC BD INC TPATIENT 20-30 MIN FAMILY 25212 [facility] PSYCHOTHE 9 [place] MH MR BUCK WELLS BD INC BD INC W/PATIENT PRESENT 50 MINS ANESTHESI 33526 Marjan FERRIS 9 NT ARETHA M INTRAORAL ANESTHESI WITH OLOGIST BIOPSY NOS ADENOIDEC 18313 HEAD & THANG, YESY 9 NECK NOREEN J PRIMARY SURGERY AGE 12/> ASSOC [place] [address] CENTER CENTER YESY & 9 FOR FOR ADENOIDEC SURGICAL SURGICAL YESY AGE CARE CARE 12/> PHARMACOL 44796 [facility] MGMT 9 [place] MH MR BUCK LIZ MR MIN BD INC BD INC MEDICAL PSYCHOTHE RAPY RADEX 22881 [facility] GRUNKEMEY FINGR 9 LTH ER, MINIMUM 2 ORTHOPAED OTILIA S VIEWS IC CTR PSC IAADIADOO 80576 [place], 9 [place] RE[place] K [facility] A CLTX DSTL 12-26-200 53359 MANUEL DASH PHLNGL 8 LTH ER, FX ORTHOPAED OTILIA S FNGR/THMB IC CTR W/O MANJ PSC EA RADEX 93544 RADIOLOGY MIRIAMAMANDAR 8 FRAN H MINIMUM 2 ASSOCIATE VIEWS S PSC APPLICATI 9354 [facility] ON OF [address] [place] [address] CYTP C/V 87806 [facility] AUTO THIN 8 [place]IO INC OHIO INC LYR PREPJ SCR MNL RESCR PHYS IMMUNOASS 26785 [facility] AY NFCT 8 HOLLY SUSIE Bellamy AGT ANTB PEDIATRIC QUAL/SEMI DEISY 1 STEP PHARMACOL 60246 [facility] MGMT 8 [place] MR BUCK LIZ MR MIN BD INC BD INC MEDICAL PSYCHOTHE RAPY INDIV 85291 [facility] PSYCTX 8 [place] MR BUCK LIZ MR OFFICE/OU BD INC BD INC TPATIENT 20-30 MIN INDIV 94950 [facility] 8 [place] MH MR BUCK MH MR OFFICE/OU BD INC BD INC TPATIENT 20-30 MIN INDIV 55457 [facility] PS[facility] 8 [place] MH MR BUCK MH MR OFFICE/OU BD INC BD INC TPATIENT 20-30 MIN PHARMACOL 23597 [facility] MGMT 8 [place] MH MR BUCK MH MR MIN BD INC BD INC MEDICAL PSYCHOTHE RAPY FAMILY 94677 [facility] PSYCHOTHE 8 [place] MH MR BUCK MH MR RAPY BD INC BD INC W/PATIENT PRESENT 50 MINS PSYCHIATR 92077 [facility] IC 8 [place] MH MR BUCK MH MR DIAGNOSTI BD INC BD INC C INTERVIEW EXAMINATI ON INDIV 54632 [facility] PSYCTX 8 [place] MH MR BUCK MH MR OFFICE/OU BD INC BD INC TPATIENT 20-30 MIN FAMILY 68825 [facility] PSYCHOTHE 8 [place] MR BUCK MH MR WELLS BD INC BD INC W/PATIENT PRESENT [address] [facility] DUMONT, Y CERVIX 8 [facility] BX CERVIX & PHYSICIAN ENDOCRV S FOR CURRETAGE WOMEN IAADIADOO 29114 [place], 8 [place] REILLY K [facility] A BUPRENORP J0570 [place], MUSA [address] [place] [address] REILLY K IMPLANT [place]ATR[place] 74.[address] [place] [address] [place] [address] RADIOLOGY Keagan SHAVER NONOBSTET ASSOCIATE H OSCAR S PSC REAL-TIME IMAGE COMPLETE CYTP C/V 42479 [facility] AUTO THIN 8 [facility] LYR PREPJ SCR MNL RESCR PHYS IADNA 75483 [facility] [place] 8 [facility] VIRUS HUMAN AMPLIFIED PROBE TQ IADNA 28492 [facility] BILL[place] 8 [facility] SPECIES DIRECT PROBE TQ IADNA 30595 [facility] [place] 8 [facility] VAGINALIS DIRECT PROBE TQ CYTP 98282 NO, NO, CERVICAL/ 8 ERIK Sundeep Urbano VAGINAL REQ INTERP PHYSICIAN IADNA 55134 [facility] [place] 8 [facility] GONORRHOE AE AMPLIFIED PROBE TQ IADNA 18469 [facility] GARDNEREL 8 [facility] LA VAGINALIS DIRECT PROBE TQ CUL BACT 31776 [facility] XCPT 8 [facility] URINE BLOOD/STO OL AEROBIC ISOL IADNA 50288 [facility] CHLAMYDIA 8 [facility] TRACHOMAT IS AMPLIFIED PROBE TQ CULTURE 31593 [facility] TYPING 8 [facility] IMMUNOLOG IC OTH/THN IMMUNOFLU ORES IAADIADOO 74258 [place], 8 [place] REILLY K [facility] A BUPRENORP J0570 [place], MUSA 8 [place] REILLY K IMPLANT PEDIATRIC 74.2 MG HETEROPHI [address] [place] [address] [facility] MAGNESIUM [address] [place] [address] CUL BACT 45987 [facility] XCPT [address] [place] [address] URINE BLOOD/STO OL AEROBIC ISOL BLOOD 66344 [facility] COUNT [address] [place] [address] COMPLETE AUTO&AUTO DIFRNTL WBC IAADIADOO 55308 [facility] SUSIE BARRERA [facility] A RADIOLOGI 80016 CHILDRENS JERONIMO, C EXAM 8 HOSP MED JR., CHEST 2 CTR BRISA J VIEWS FRONTAL&L ATERAL FLUORESCE 46632 [facility] NT [address] [place] [address] NONNFCT AGT ANTB TITER EA ANTIBODY COMPREHEN 46769 [facility] SIVE [address] [place] [address] METABOLIC PANEL COLLECTIO 17856 [facility] N VENOUS [address] [place] [address] BLOOD VENIPUNCT URE ANTIBODY 54706 [facility] RICHARD-B [address] [place] [address] ARR EB VIRUS NUCLEAR AG EBNA ANTIBODY 43279 [facility] RICHARD-B [address] [place] [address] ARR [place] [address] [facility] GLUTAMYLT [address] [place] [address] RASE GAMMA BILIRUBIN 73057 [facility] [address] [place] [address] [place] [address] [facility] PHOSPHORU [address] [place] [address] S INORGANIC IAADIADOO 05416 [facility] [address] [place] [address] REILLY K [facility] A GONADOTRO 24255 [facility] PIN [address] [place] [address] SUSIE [facility] QUALITATI VE RADEX 38919 CHILDRENS DEFOOR JR ABDOMEN [address] [place] [address] ANTEROPOS C TERIOR VIEW Encounters Encounter Start End Date Code Location Performer Type Date OFFICE 29386 FAMILY DENNY OUTPATIEN 7 7 CARE T VISIT ASSOCIATE 25 S MINUTES OFFICE 83540 FAMILY REY OUTPATIEN 6 6 CARE T VISIT ASSOCIATE 15 S MINUTES OFFICE 39588 [facility] OUTPATIEN 6 6 PHYSICIAN T VISIT S GROUP 25 MINUTES OFFICE 63471 [facility] OUTPATIEN 6 6 PHYSICIAN JESUSITA T VISIT S GROUP 15 MINUTES [facility] 6 6 [facility] INPATIENT [facility] - 6 6 [facility] OUTPATIEN INC T OFFICE 68311 [facility] OUTPATIEN 6 6 PHYSICIAN JESUSITA T VISIT S GROUP 15 MINUTES OFFICE 34032 [facility] OUTPATIEN 6 6 PHYSICIAN JESUSITA T VISIT S GROUP 10 MINUTES EMERGENCY 87702 [facility] 6 6 [facility] DEPARTMEN INC T VISIT HIGH/URGE NT SEVERITY [facility] - 6 6 [facility] OUT[facility]IEN [facility] T OFFICE 22061 [facility] OUTPATIEN 6 6 PHYSICIAN JESUSITA T VISIT S GROUP 15 MINUTES HOSP[facility] - 6 6 [facility] OUTPATIEN [facility] T EMERGENCY 32403 [facility] YUN 6 6 EMERGENCY DEPARTMEN T VISIT PHYSICIAN MODERATE S SEVERITY OFFICE 74058 [facility] GRUNK[facility] OUTPATIEN 6 6 [facility] ER MAT T NEW 30 ORTHOPAED MINUTES [facility] EM[facility] 26547 [facility] GEERS RYA 6 6 EMERGENCY DEPARTMEN T VISIT PHYSICIAN HIGH/URGE S NT SEVERITY OFFICE 25879 [facility] OUTPATIEN 6 6 PHYSICIAN JESUSITA T VISIT S GROUP 15 MINUTES OFFICE 53701 FAMILY REY OUTPATIEN 6 6 CARE JITENDRA T VISIT ASSOCIATE 25 S MINUTES PERIODIC 33527 FAMILY REY PREVENTIV 6 6 CARE JITENDRA E MED EST ASSOCIATE PATIENT S 18-39 YRS HOSPITAL [facility] - 6 6 [facility] H[facility]PITAL [facility] - 6 6 [facility] OUTPATIEN [facility] T OFFICE 32470 [facility] OUTPATIEN 6 6 VINCE PALMA JESUSITA T VISIT 15 MINUTES HOSPITAL [facility] - 6 6 [facility] OUTPATIEN INC T EMERGENCY 96485 MELVIN BONNER 6 6 PHYSICIAN U TAMMY DEPARTMEN S, [facility] T VISIT MODERATE SEVERITY EMERGENCY 66160 [facility] 6 6 [facility] DEPARTMEN INC T VISIT LOW/MODER SEVERITY EMERGENCY 51473 [facility] GANIM JITENDRA 6 6 EMERGENCY DEPARTMEN T VISIT PHYSICIAN HIGH/URGE S NT SEVERITY [facility]OS[facility] - 6 6 [facility] OUTPATIEN INC T OFFICE 66924 [facility] VINCE OUTPATIEN 6 6 PHYSICIAN JESUSITA T VISIT S GROUP 15 MINUTES OFFICE 36091 [facility] MCGOVERNPATIEN 6 6 VINCE MC T VISIT 25 MINUTES [facility]OSPITAL [facility] - 6 6 [facility] OUTPATIEN INC T OFFICE 99465 [facility] OUTPATIEN 6 6 VINCE MC T VISIT 25 MINUTES OFFICE 01880 FAMILY CROWDY OUTPATIEN 6 6 CARE CRI T VISIT ASSOCIATE 15 S MINUTES OFFICE 13020 [facility] OUTPATIEN 5 5 Y OF M LAR T [address] EMERGENCY 37838 GÓMEZ YUN 5 5 EMERGENCY RONEN DEPARTMEN T VISIT PHYSICIAN HIGH/URGE S NT SEVERITY [facility]OSP[facility] - 5 5 [facility] OUTPATIEN INC T OFFICE 92748 PENDELETO PENDELETO OUTPATIEN 5 5 N CO N CO T VISIT 5 [facility] OFFICE 87704 PENDELETO PENDELETO OUTPATIEN 5 5 N [place] N [place] T VISIT [address] MINUTES OFFICE 36985 FAMILY KEAGLE OUTPATIEN 5 5 CARE RIT T VISIT ASSOCIATE 15 S MINUTES EMERGENCY 03387 [facility] GREVER DEPT 5 5 EMERGENCY MAR VISIT HIGH PHYSICIAN SEVERITY& S THREAT [facility] - 5 5 [facility] OUTPATIEN INC [facility] - 5 5 [facility] OUTPATIEN INC [facility] - 5 5 [facility] OUTPATIEN INC T OFFICE 27898 [facility] SCHULSTAD OUTPATIEN 5 5 PHYSICIAN CAM T NEW 30 S GROUP MINUTES EMERGENCY 43856 [facility] 5 5 [facility] T VISIT MODERATE SEVERITY EMERGENCY 87725 [facility] CAMPOS 5 5 [facility] T VISIT P LOW/MODER SEVERITY [facility]PITAL [facility] - 5 5 [facility] OUTPATIEN [facility] OFFICE 13061 FAMILY KEAGLE OUTPATIEN 5 5 CARE RIT T VISIT ASSOCIATE 15 S MINUTES EMERGENCY 36212 [facility] YUN 5 5 EMERGENCY [facility]ONEN [facility] T VISIT PHYSICIAN HIGH/URGE S NT SEVERITY EMERGENCY 16708 [facility] CALIN DEPT 5 5 EMERGENCY EDW VISIT HIGH PHYSICIAN SEVERITY& S THREAT [facility] OFFICE 58449 FAMILY KEAGLE OUTPATIEN 5 5 CARE RIT T VISIT ASSOCIATE 15 S MINUTES OFFICE 25583 FAMILY KEAGLE OUTPATIEN 5 5 CARE RIT T VISIT ASSOCIATE 15 S MINUTES [facility]OSP[facility] - 5 5 [facility] OUTPATIEN INC T INITIAL 53310 [facility] PREVENTIV 4 4 VINCE PALMA [facility] NEW PT AGE 18-39YRS [facility]D - 4 4 [facility] OUTPATIEN INC T OFFICE 29033 FAMILY KEAGLE OUTPATIEN 4 4 CARE RIT T VISIT ASSOCIATE 25 S MINUTES EMERGENCY 54554 [facility] 4 4 ILANA TAMMY [facility] MED CTR T VISIT HIGH/URGE NT SEVERITY OFFICE 99633 FAMILY ALCON OUTPATIEN 4 4 CARE R H T VISIT ASSOCIATE 15 S MINUTES EMERGENCY 69587 [facility] RY 4 4 ILANA [facility] MED CTR T VISIT HIGH/URGE NT SEVERITY OFFICE 11773 [facility] OUTPATIEN 4 4 SWAPNA SWAPNA T VISIT 10 MINUTES OFFICE 60393 FAMILY KEAGLE OUTPATIEN 4 4 CARE RIT T VISIT ASSOCIATE 15 S MINUTES OFFICE 10663 FAMILY OUTPATIEN 4 4 CARE T VISIT ASSOCIATE 15 S MINUTES OFFICE 56026 GRAVES GRAVES OUTPATIEN 4 4 LES LES T VISIT 25 MINUTES OFFICE 40520 KEAGLE KEAGLE OUTPATIEN 4 4 RIT RIT T VISIT [address] - 4 4 ILANA OUTPATIEN MED CTR T HE[facility] IN[facility] ST OFFICE 39939 GRAVES GRAVES OUTPATIEN 4 4 LES LES T VISIT [address] - 4 4 ILANA OUTPATIEN MED CTR T [facility] OFFICE 63096 KEAGLE KEAGLE OUTPATIEN 4 4 RIT RIT T VISIT 15 MINUTES EMERGENCY 44280 CARLO MATOS 4 4 MAR MAR DEPARTMEN T VISIT MODERATE SEVERITY OFFICE 20387 REY LE J OUTPATIEN 4 4 G G T VISIT 15 MINUTES OFFICE 34505 GRAVES GRAVES OUTPATIEN 4 4 LES LES T VISIT 25 MINUTES OFFICE 20662 CHONG HARDWICK OUTPATIEN 3 3 T VISIT 15 MINUTES OFFICE 39778 FAMILY ALCON OUTPATIEN 3 3 CARE R H T VISIT ASSOCIATE 15 S MINUTES OFFICE 31032 ALEXANDRU HORVATH OUTPATIEN 3 3 ZACK ZACK T NEW 30 MINUTES OFFICE 33877 FAMILY ALCON OUTPATIEN 3 3 CARE R H T VISIT ASSOCIATE 15 S MINUTES OFFICE 13772 FAMILY ALCON OUTPATIEN 3 3 CARE R H T VISIT ASSOCIATE 15 S [address]ES OFF[address] OUTPATIEN 3 3 ILANA T VISIT 5 MEDICAL [facility] ST - 3 [facility] 3 3 ILANA INPATIENT MED CTR HE[facility] INSTALLER OFFICE [address]406 ST OUTPATIEN 3 3 ILANA T VISIT MED CTR 40 [facility] ST - 3 3 [facility] ST - 3 3 [facility] 07116 MELODY MELODY OUTPATIEN 3 3 CEDRIC CEDRIC T VISIT 15 MINUTES OFFICE 43921 GRAVES GRAVES CONSULTAT 3 3 LES LES ION NEW/ESTAB PATIENT [address] OUTPATIEN 3 3 ILANA T VISIT MEDICAL [address] [place] [address] ST - 3 3 [facility] ST - 3 3 [facility] - 3 3 [facility] OFFICE 80862 CHONG HARDWICK OUTPATIEN 3 3 T VISIT 15 MINUTES OFFICE 93829 HEMANT II HEMANT II OUTPATIEN 3 3 [place] T VISIT [address] - 3 3 [facility] T CENTER OFFICE [address] OUTPATIEN 3 3 ILANA T VISIT MEDICAL [address] [place] [address] MINUTES OFFICE 15890 HEMANT II HEMANT II OUTPATIEN 3 3 [place] T VISIT [address] - 3 3 [facility] OFF[facility] 72666 ALCON ALCON OUTPATIEN 3 3 R H R H T VISIT 15 MINUTES OFFICE 55044 ARANA ARANA CONSULTAT 3 3 AND AND ION NEW/ESTAB PATIENT [address] - 3 3 [facility] CENTER OFFICE 78929 HEMANT II HEMANT II OUTPATIEN 3 3 [place] T VISIT [address] - [facility] 16824 [facility] 3 T VISIT [address] - 3 3 [facility] ST - 3 3 [facility] ST. - 3 3 [facility] T OFFICE 36908 [facility] 3 3 LEIF LEIF T VISIT [address] - 3 3 [facility] ST - 3 3 [facility] CENTER OFFICE [address] [facility] 3 3 ILANA T VISIT 15 PHYSICIAN MINUTES S OFFICE [address] [facility] 3 ILANA T NEW 45 MINUTES PHYSICIAN S OFFICE 45040 ALCON ALCON OUTPATIEN 3 3 R H R H T VISIT 15 MINUTES OFFICE 64090 ALCON ALCON OUTPATIEN 3 3 R H R H T VISIT 15 MINUTES OFFICE 53930 PENDELETO PENDELETO OUTPATIEN 3 3 N CO N CO T VISIT [facility] 10 CENTER CENTER MINUTES OFFICE 36829 [facility] 0 CHIROPRAC NELSON P T VISIT TIC 15 CENTER MINUTES PERIODIC 29338 [place], PREVENTIV 9 9 [place] RE[place] Bellamy E MED EST PEDIATRIC PATIENT 18-[address] 9 9 [facility] OFFICE 31793 [facility] 9 9 SUSIE BARRERA VISIT PEDIATRIC [address] [facility] - [address] [facility] PERIODIC 98975 [facility] PREVENTIV 9 9 SUSIE BARRERA E MED EST PEDIATRIC PATIENT 18-39 YRS HOSPITAL [facility] 9 9 [facility] CHILDRENS 9 9 [facility] OFFICE 22700 [facility]DRENS [facility] 9 9 HOSP [facility] NEW 20 CTR MINUTES PERIODIC 08666 [facility] PREVENTIV 9 9 SUSIE BARRERA E MED EST PEDIATRIC PATIENT 18-39 YRS PERIODIC 76181 [facility] PREVENTIV 9 9 SUSIE BARRERA E MED EST PEDIATRIC PATIENT 18-39 YRS OFFICE 75747 [facility]TA [facility] 9 9 CHIROPRAC NELSON P T NEW 30 TIC MINUTES CENTER OFFICE 78054 [facility] 9 9 [facility] VISIT MED CTR 15 MINUTES HOSPITAL - 9 9 [facility] [place] [address] [facility] EMERGENCY 77594 EMERGENCY EMERY, 9 9 [facility] VISIT [facility] H[place]/URGE [place] NT [facility] [place] [address] [facility] PERIODIC 30851 [place], PREVENTIV 9 9 [place] RE[place] K E MED EST PEDIATRIC PATIENT 12-17YRS PERIODIC 71741 [facility] PREVENTIV 9 9 SUSIE BARRERA E MED EST PEDIATRIC PATIENT 12-17YRS PERIODIC 06526 [place], PREVENTIV 9 9 [place] RE[place] K E MED EST PEDIATRIC PATIENT 12-17YRS OFFICE 92275 HEAD & THANG, CONSULTAT 9 9 NECK NOREEN J ION SURGERY NEW/ESTAB ASSOC PATIENT 60 MIN PERIODIC 67368 [place], PREVENTIV 9 9 [place] RE[place] K E MED EST PEDIATRIC PATIENT 12-17YRS EMERGENCY [address] VISIT MODERATE SEVERITY [facility] [address] [facility] OFFICE [address] VISIT 10 PHYSICIAN MINUTES S FOR WOMEN PERIODIC 99742 [facility] PREVENTIV 8 8 SUSIE BARRERA E MED EST PEDIATRIC PATIENT 12-17YRS PERIODIC 79569 [facility] PREVENTIV 8 8 SUSIE BARRERA E MED EST PEDIATRIC PATIENT 12-17YRS PERIODIC 80252 [place], PREVENTIV 8 8 [place] K E MED EST PEDIATRIC PATIENT 12-[address] [facility] 8 8 [facility] VISIT 15 PHYSICIAN MINUTES S [facility] [address] [facility] OFFICE [address] [facility] 8 8 [facility] VISIT 15 PHYSICIAN MINUTES S FOR WOMEN PERIODIC 71505 [facility] PREVENTIV 8 8 [place] SUSIE E MED EST PEDIATRIC PATIENT 12-17YRS PERIODIC 39957 [place], PREVENTIV 8 8 [place] Bellamy E MED EST PEDIATRIC PATIENT 12-17YRS HOSPITAL [place] [address] 8 [facility] OFFICE 65062 [facility] 8 8 SUSIE BARRERA VISIT PEDIATRIC 15 MINUTES PERIODIC 38800 [facility] PREVENTIV 8 8 SUSIE BARRERA MED EST PEDIATRIC PATIENT 12-17YRS PERIODIC 01579 [place], PREVENTIV 8 8 [place] Bellamy E MED EST PEDIATRIC PATIENT 12-17YRS PERIODIC 26088 [place], PREVENTIV 8 8 [place] Bellamy E MED EST PEDIATRIC PATIENT 12-17YRS OFFICE 75289 [facility] 8 8 SUSIE BARRERA VISIT PEDIATRIC 15 MINUTES PERIODIC 61016 [facility] PREVENTIV 8 8 SUSIE BARRERA E MED EST PEDIATRIC PATIENT 12-17YRS OFFICE 45479 [facility] 7 7 [facility] VISIT MEDICAL 15 C MINUTES
[2016-10-03 11:54] LABS: LYMPH % 27.3 % (10-50.0)
[2016-10-03 11:59] LABS: HEMOGLOBIN 14.4 g/dL (12.2-16.2)
--- OUTSIDE RECORDS SUMMARY | 2016-10-03 12:05 | External Medical Summary Rpt ---
Author Author , Organization [employer] Address Unknown Phone Unavailable Care Team Providers Care Director Clinical Applications Name Role Phone [employer] Unavailable Unavailable INC, [employer] Unavailable Unavailable INC, [employer] ALEXANDRU ZACK, Unavailable Unavailable ALEXANDRU ZACK ALEXANDRU ZACK, Unavailable Unavailable ALEXANDRU ZACK JR. DECKER HENRY J, Unavailable Unavailable JR. DECKER HENRY J BEINEKE, BEINEKE Unavailable Unavailable BEINEKE TAMMY BEARTI Unavailable Unavailable TAMMY DURAND IIILEONA, Unavailable Unavailable KIZZY IIILEONA NAHUM ALEXIS, NAHUM ESPINOZA Unavailable Unavailable IGLESIA MCGILL Unavailable Unavailable TAMMY GONZALEZ DON, GONZALEZ DON Unavailable [facility]available [facility], Unavailable Unavailable [facility] Unavailable Unavailable MEDICAL C, [facility] Unavailable Unavailable [facility], [facility] Unavailable Unavailable [facility], [facility] Unavailable Unavailable PHYSICIANS, [facility] REY LE Unavailable Unavailable REY Solares, REY Martinez Unavailable Unavailable G REY JACKSON Unavailable Unavailable JITENDRA CATIE SWAPNA, Unavailable Unavailable CATIE SWAPNA CROWDY CRI, CROWDY Unavailable Unavailable CRI BORIS, BORIS Unavailable Unavailable BORIS MARINA, Unavailable Unavailable BORIS MARINA COLON LAR, Unavailable Unavailable COLON LAR [id number], Unavailable Unavailable [id number], Unavailable Unavailable [id number] DEFOOR JR ALEXIS, DEFOOR Unavailable Unavailable JR ALEXIS DESCH TAMMY, DESCH TAMMY Unavailable Unavailable MELODY CEDRIC, MELODY Unavailable Unavailable [facility] Unavailable [facility]available [facility], [facility] FAUGHN OVALLES, FAUGHN Unavailable Unavailable OVALLES GANIM JITENDRA, GANIM JITENDRA Unavailable Unavailable GANSHIRT RICARDO, [...] REILLY K, Unavailable Unavailable GULTEKIN, REILLY K HARPEL, HARPEL Unavailable Unavailable HARPEL JESUSITA, HARPEL Unavailable Unavailable JESUSITA [facility] Unavailable Unavailable INC, [facility] Unavailable Unavailable HOSPITAL P, [facility] P CHENCHO, NELSON P, Unavailable Unavailable CHENCHO, NELSON P ARANA AND, ARANA Unavailable Unavailable AND [facility], Unavailable Unavailable [facility] LACHELLE WILL R, Unavailable Unavailable LACHELLE WILL R BRENDA DUMONT JONES, Unavailable Unavailable BRENDA KEAGLE RIT, KEAGLE Unavailable Unavailable RIT KEAGLE RIT, KEAGLE Unavailable Unavailable RIT MONICA SHAVER, Unavailable Unavailable SIVAKUMAR, MONICA H [facility] Unavailable Unavailable IM[facility]ING [facility], [facility] FRAN PINEDA, Unavailable Unavailable FRAN PINEDA KLANKE JUS, KLANKE Unavailable Unavailable JUS CHONG RONEN, CHONG RONEN Unavailable Unavailable CHONG RONEN, CHONG RONEN Unavailable Unavailable ADRIEL TUS, ADRIEL Unavailable Unavailable TUS THANG, NOREEN J, THANG, Unavailable Unavailable NOREEN J [facility], [facility] Unavailable Unavailable HOLDINGS, [facility] [employer] [facility], Unavailable Unavailable [facility] [employer] [facility] LAMEIER DILIA, LAMEIER Unavailable Unavailable DILIA LAMEIER DILIA, LAMEIER Unavailable Unavailable DILIA LUBBERS JASS, LUBBERS Unavailable Unavailable JASS LUKING SWAPNA, LUKING Unavailable Unavailable SWAPNA LUKING SWAPNA, LUKING Unavailable Unavailable SAWPNA BERNARDINO ERIC, Unavailable Unavailable BERNARDINO ERIC MASROOR ALA, MASROOR Unavailable Unavailable ALA CALIN EDW, CALIN Unavailable Unavailable EDW JEWELL GINA, JEWELL Unavailable Unavailable BRA ERIK NO, Unavailable Unavailable ERIK NO, HUBERT MUNOZ Unavailable Unavailable ARETHA HARLEY, Unavailable Unavailable ARETHA HARLEY MULBERRY LEIF, Unavailable Unavailable MULBERRY LEIF MULBERRY LEIF, Unavailable Unavailable MULBERRY LEIF NEILS, MANDA W, NEILS, Unavailable Unavailable MANDA W ALCON Grant, Unavailable Unavailable ALCON R H [facility], Unavailable Unavailable [facility] R H [facility] Unavailable Unavailable INC, [facility] KAILASH Unavailable Unavailable [facility], [facility] KAILASH [facility] OSTERHAGE CESAR, Unavailable Unavailable [facility] CESAR [...] [facility] Unavailable Unavailable [facility], [facility] RATTAN AMI, RATTAN Unavailable [...] CAM GIANG NADINE, GIANG NADINE Unavailable Unavailable GIANG NADINE, GIANG NADINE Unavailable Unavailable SATISH DAWSON, SATISH Unavailable Unavailable DAWSON SOTINGEANU TAMMY, Unavailable Unavailable SOTINGEANU TAMMY ALLIE SHE, Unavailable Unavailable ALLIE SHE [facility], Unavailable Unavailable [facility] Unavailable Unavailable FOOD AND BEVERAGE DIRECTOR , [facility] Unavailable Unavailable [place], [facility] Unavailable [facility] Unavailable Unavailable PHYSICIANS, [facility]available Unavailable [facility] Unavailable Unavailable LANE, [facility] TAD CHACKO Unavailable Unavailable MARKO BASHIR ALEXIS, BASHIR ALEXIS Unavailable Unavailable [facility] Unavailable , [facility], [facility] Unavailable Unavailable [facility] Unavailable [place], [facility] [place] VON HOENE AMA, VON Unavailable Unavailable HOENE AMA [facility] [id number], Unavailable Unavailable [facility] # [id number] [id number], Unavailable Unavailable [id number], Unavailable Unavailable [id number] WALKER III DUTCH, Unavailable Unavailable WALKER III DUTCH WELLS SEA, WELLS SEA Unavailable Unavailable MERON ALEXIS, MERON ALEXIS Unavailable Unavailable DENNY, DENNY Unavailable Unavailable Purpose Continuity of Care Document - 10-13-2006 through 2016 Problems Code Diagnosis DOS Provider Status J069 ACUTE UPPER 08-18-2016 [facility] RESPIRATORY INFECTION UNSPECIFIED L259 UNSPECIFIED 08-18-2016 [facility]CT [facility] DERMATITIS UNSPECIFIED CAUSE B20968 PAIN IN 08-18-2016 [facility] RIGHT LEG [facility] [id number] PAIN IN 08-18-2016 [facility] LEFT LEG [facility] N946 DYSMENORRHE 08-18-2016 [facility] A [facility] UNSPECIFIED R300 DYSURIA 08-18-2016 [facility] [id number] CORROSION 08-18-2016 [facility] 1ST DEGREE ASSOCIATES RT UPPER ARM INITIAL ENC J40 BRONCHITIS 04-01-2016 [facility] NOT [facility]OCIATES SPECIFIED ACUTE OR CHRONIC R05 COUGH 04-01-2016 [facility] R102 PELVIC AND 03-25-2016 [facility] PERINEAL PHYSICIANS PAIN GROUP N390 URINARY 03-21-2016 [facility] TRACT PHYSICIANS INFECTION GROUP SITE NOT SPECIFIED H95190 UNSPECIFIED 03-15-2016 [facility] OVARIAN PHYSICIANS CYST RIGHT GROUP SIDE N32804 TORSION OF 03-15-2016 [facility] RIGHT OVARY PHYSICIANS AND GROUP OVARIAN PEDICLE N761 SUBACUTE 03-08-2016 [facility] AND CHRONIC PHYSICIANS VAGINITIS GROUP A06271 ENCOUNTER 03-08-2016 [facility] OTHER [facility] PREPROCEDUR INC AL EXAMINATION R1031 RIGHT LOWER 02-18-2016 [place] [facility] Z720 TOBACCO USE 02-18-2016 [facility] INC N9489 OTH COND 02-16-2016 [facility] ASSOC W/FE PHYSICIANS GEN ORGN & GROUP MENSTRUAL CYCL Z309 ENCOUNTER 02-16-2016 [facility] FOR PHYSICIANS CONTRACEPTI GROUP VE MANAGEMENT UNS M82657 PAIN IN 01-12-2016 [facility] RIGHT ELBOW [facility] [id number] UNSPECIFIED 12-21-2015 [facility] RT FOREARM PHYSICIANS INITIAL ENC [id number] OTHER 11-05-2015 [facility] OF H RIGHT HIP [facility]THOPAEDIC INITIAL CTR ENCOUNTER [id number] SPRAIN 11-05-2015 [facility] OTHER SPEC H PARTS RIGHT ORTHOPAEDIC KNEE CTR INITIAL ENC O69102 EFFUSION 10-24-2015 [facility] RIGHT KNEE ASSOCIATES OF NOT U22208 PAIN IN 10-24-2015 [facility] RIGHT KNEE ASSOCIATES [facility] X5015YP SPRAIN 10-24-2015 [facility] UNSPECIFIED TECHNOLOGIE SITE RT S INC KNEE INITIAL ENCNTR T1490 INJURY 10-24-2015 [facility] UNSPECIFIED ASSOCIATES OF NOT K529 NONINFECTIV 10-06-2015 [facility] E PHYSICIANS GASTROENTER GROUP ITIS & COLITIS UNS F88437 UNS ACUTE 09-18-2015 [facility] NONINFECTIV ASSOCIATES E OTITIS EXTERNA LEFT EAR H6692 OTITIS 09-18-2015 [facility] MEDIA [facility] UNSPECIFIED LEFT EAR M545 LOW BACK 09-18-2015 [facility] PAIN [facility] J19022 PAIN IN 09-18-2015 [facility] RIGHT FOOT ASSOC[facility]ATES Z41898 PAIN IN 09-18-2015 [facility] LEFT FOOT ASSOCIATES Z8739 PERSONAL HX 09-18-2015 [facility] OTH DZ ASSOCIATES MUSCULOSKEL SYS&CONNECT V TISS Z021 ENCOUNTER 08-12-2015 [facility] FOR [facility]IATES PRE-EMPLOYM ENT EXAMINATION N8320 UNSPECIFIED 07-28-2015 [facility] OVARIAN PHYSICIANS CYSTS GROUP I10 ESSENTIAL 07-17-2015 [facility] HYPERTENSIO INC N N8329 [...] MEDIA ASSOCIATES UNSPECIFIED BILATERAL R51 HEADACHE 03-31-2015 [facility] COLLE R109 UNSPECIFIED 02-05-2015 [facility] ABDOMINAL ASSOCIATES PAIN OF NOTH H5203 HYPERMETROP 01-24-2015 [place] DILIA IA BILATERAL 6201 CORPUS 01-01-2015 [facility] LUTEUM CYST VINCE PALMA OR HEMATOMA 6202 OTHER AND 01-01-2015 [facility] UNSPECIFIED [facility] OVARIAN CYST 6205 TORSION 01-01-2015 [facility]ARY [facility] OVARIAN INC PEDICLE OR FALLOPIAN TUBE 6238 OTHER 01-01-2015 [facility] SPECIF[facility] MEDICAL NONINFLAMMA IMAGING ASS TORY DISORDER VAGINA 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 INC 6259 UNSPEC 01-01-2015 [facility] MD ASSOC W/FEMALE GENITAL ORGANS 6262 EXCESSIVE 01-01-2015 [facility] OR FREQUENT VINCE PALMA MENSTRUATIO N 53182 ABDOMINAL 01-01-2015 [place], LEFT MEDICAL LOWER IMAGING ASS QUADRANT V741 SCREENING 12-25-[address] [facility] PULMONARY TUBERCULOSI S 3829 UNSPECIFIED 11-10-2014 [facility] OTITIS [facility]OCIATES MEDIA 4659 ACUTE URIS 11-10-2014 [facility] OF ASSOCIATES UNSPECIFIED SITE 19664 OTHER 09-08-2014 [facility] SPECIFIED ASSOCIATES DISORDER OF OF [facility] PERITONEUM 22182 VOMITING 09-08-2014 [facility] ALONE ASSOCIATES [facility] 54540 ABDOMINAL 09-08-2014 [facility] PAIN, ASSOCIATES UNSPECIFIED OF [facility] SITE 9989 UNSPECIFIED 09-08-2014 [facility] COMPLICATIO PHYSICIANS N OF PROCEDURE NEC 40143 CHOLECYSTIT 09-04-2014 COMMUNITY IS, ANESTH OF UNSPECIFIED THE BLUE 45629 CHRONIC 09-04-2014 [facility], CHOLECYSTIT LLC IS 5758 OTHER 09-04-2014 [facility] SPECIFIED PHYSICIANS DISORDER OF GROUP GALLBLADDER V7283 OTHER 09-02-2014 [facility] SPECIFIED [facility] PRE-OPERATI INC VE EXAMINATION 35743 NAUSEA WITH 08-20-2014 [facility] 93297 ABDOMINAL 08-20-2014 [facility] RIGHT [facility] UPPER INC QUADRANT 7099 UNSPECIFIED 08-05-2014 [facility] DISORDER PHYSICIANS OF GROUP SKIN&SUBCUT ANEOUS TISSUE 73510 NAUSEA 07-29-2014 [place] [facility]ONE [facility] 00886 OPEN WOUND 07-29-2014 [place] [facility] MEDICAL WITHOUT IMAGING ASS MENTION COMPLICATIO N 27741 OPEN WOUND 07-29-2014 [facility] P COMPLICATED 8840 MX&UNSPEC 07-29-2014 [facility] OPEN WOUND ASSOCIATES UPPER LIMB W/O MENTION COMP V9081 RETAINED 07-29-2014 [facility] P 80654 SHEFALI 07-24-2014 [facility] MIGRAINE [facility]ATES NEC W/INTRACT W/STATUS MIGRAINOSUS 7840 HEADACHE 07-19-2014 [facility] 52770 MIGRAINE 07-06-2014 [facility] UNSP W/O EMERGENCY INTRACT W/O PHYSICIANS STATUS MIGRAINOSUS 3688 OTHER 07-06-2014 [facility] SPECIFIED ASSOCIATES VISUAL OF NOT DISTURBANCE S 81100 UNSPECIFIED 06-26-2014 [facility] INFECTIVE [facility]IATES OTITIS EXTERNA 4779 ALLERGIC 06-26-2014 [facility] RHINITIS ASSOCIATES CAUSE UNSPECIFIED 09403 PAIN IN 06-17-2014 [facility] JOINT, ASSOCIATES LOWER LEG 41145 CHEST PAIN 05-13-2014 [place] [facility] U[facility]PECIFIED [facility] V2502 GENERAL 04-21-2014 [facility] MD INITIATION OTH CONTRACEPT MEASURES V2509 OT GENERAL 04-21-2014 [facility] MD CNSL&ADVICE CONTRACEPT MANAGEMENT 6159 UNSPECIFIED 04-04-2014 [facility] MD INFLAMMATOR Y DISEASE OF UTERUS V2512 ENCOUNTER 04-04-2014 [facility] FOR REMOVAL VINCE PALMA IU CONTRACEPT DEVICE V7231 ROUTINE 04-04-2014 [facility] GYNECOLOGIC VINCE PALMA AL EXAMINATION 6200 FOLLICULAR 04-03-2014 [place] [facility]ST OF MEDICAL OVARY IMAGING ASS 7881 DYSURIA 03-26-2014 [facility] 47340 ACUTE 02-22-2014 ST GASTRITIS [facility] WITHOUT MED CTR MENTION OF HEMORRHAGE 99039 ABDOMINAL 02-22-2014 ST PAIN, [facility] EPIGASTRIC MED CTR 7244 THORACIC/SAKINA 02-10-2014 [facility] MBOSACRAL ASSOCIATES NEURITIS/RA DICULITIS UNSPEC 15681 PAIN IN 02-04-2014 [facility] JOINT ASSOCIATES PELVIC OF NOT REGION AND THIGH 7242 LUMBAGO 02-04-2014 ST [...] CHONG HARDWICK IN SITU OF CERVIX UTERI 75533 DYSPLASIA 09-19-2013 HUBERT MUNOZ OF CERVIX UNSPECIFIED 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 V643 PROCEDURE 09-02-2013 ST NOT CARRIED [facility] OUT FOR MED CTR FOOD AND BEVERAGE DIRECTOR OTHER ST REASONS 6953 ROSACEA 08-27-2013 [facility] 6989 UNSPECIFIED 08-27-2013 [facility] PRURITIC DISORDER 4618 OTHER ACUTE 06-16-2013 [facility] SINUSITIS 6250 DYSPAREUNIA 05-16-2013 ROSS CATHY 6253 DYSMENORRHE 05-16-2013 ROSS CATHY A 95123 UNSPEC 05-16-2013 [facility] HARDWICK CONGN ANOMALY CERV VAGINA&EXT FE GENIT V1329 PERSONAL HX 05-16-2013 [facility] HARDWICK OT GENITAL SYSTEM&OBST ETRIC D/O 0780 MOLLUSCUM 05-02-2013 SCAL[facility] LEI CONTAGIOSUM 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 7282 MUSCULAR 03-12-2013 A[facility] WASTING AND ZACK DISUSE ATROPHY NEC 8471 THORACIC 03-12-2013 ALEXANDRU SPRAIN AND ZACK STRAIN V242 ROUTINE 01-20-2013 [place] FOLLOW-UP [facility] 08739 TRANSIENT 01-16-2013 ST HYPERTENSIO [facility] N OF PHYSICIANS ANTEPARTUM 650 NORMAL 01-16-2013 DELIV[facility] PHYSICIANS 2859 UNSPECIFIED 01-15-2013 ST ANEMIA [facility] MED CTR FOOD AND BEVERAGE DIRECTOR ST 41326 TRANSIENT 01-15-2013 ST HYPERTENSIO [facility] N OF MED CTR FOOD AND BEVERAGE DIRECTOR ST W/DELIVERY 96162 MATERNAL 01-15-2013 ST ANEMIA, [facility] WITH MED CTR FOOD AND BEVERAGE DIRECTOR DELIVERY ST [address] OT CURRENT 01-15-2013 ST MATERNAL [facility] CCE MED CTR FOOD AND BEVERAGE DIRECTOR W/DELIVERY ST V270 OUTCOME OF 01-15-2013 [facility] SINGLE MED CTR FOOD AND BEVERAGE DIRECTOR [place] [address] [address]696 UNS 01-10-2013 [facility] ABNORM MGMT MATERNAL MOTH AND ANTPRTM COND/COMP V239 UNSPECIFIED 01-10-2013 [facility] HIGH-RISK MATERNAL AND 71007 OTHER 01-07-2013 THRE[facility]ED [facility] LABOR PHYSICIANS UNSPEC EPISODE CARE 24323 OTHER 01-07-2013 SPECIFED [facility] COMPLICATIO MED CTR FOOD AND BEVERAGE DIRECTOR N ST ANTEPARTUM 7962 ELEVATED BP 01-07-2013 ST READING [facility] WITHOUT DX MED CTR FOOD AND BEVERAGE DIRECTOR HYPERTENSIO ST N V1582 PERS HX 01-07-2013 TOBACCO USE [facility] PRESENTING MED CTR FOOD AND BEVERAGE DIRECTOR HAZARDS ST [facility] V169 FAMILY 01-07-2013 HISTORY OF [facility] UNSPECIFIED MED CTR FOOD AND BEVERAGE DIRECTOR MALIGNANT ST NEOPLASM V220 SUPERVISION 12-31-2012 [facility] 6984 DERMATITIS 12-28-2012 [facility] FACTITIA 7019 UNSPECIFIED 12-28-2012 [facility] HYPERTROPHI C&ATROPHIC CONDITION SKIN V6540 COUNSELING 12-28-2012 [facility] NOS 28812 THREATENED 12-24-2012 PREMATURE [facility] LABOR MEDICAL ANTEPARTUM CENTER 40477 SWELLING OF 12-24-2012 [facility] 7820 DISTURBANCE 12-24-2012 OF SKIN [facility] 76208 OT CURRENT 12-19-2012 PADMAJA MANCILLA CONDSalvador CLASSIFIABL E ELSW ANTPRTM 21822 OT 12-19-2012 KNOWN/SUSPE [facility] CTED MEDICAL ABNORMALITY CENTER -NEC-APC/C V283 ENCOUNTER 12-19-2012 ROUTINE [facility] SCREEN MEDICAL MALFORMATIO CENTER N ULTRASONIC 78281 DECR 12-15-2012 MOVMNTS [facility] MGMT MOTH MEDICAL ANTPRTM CENTER COND/COMP 76396 DECREASED 12-13-2012 [facility] RONEN MOVEMENTS UNSPEC EPISODE CARE 6235 LEUKORRHEA 11-09-2012 NOT [facility] [place] SPECIFIED MEDICAL CENTER INFECTIVE 79344 POLYDACTYLY 11-02-2012 ST. , [facility] UNSPECIFIED LANE DIGITS 29856 PAP SMER 11-02-2012 ST. CERV W/LW [facility] GRADE LANE SQUAMOUS INTRAEPITH LES 65892 LIVER 11-02-2012 ST. INJURY W/O [facility] MENTION OPN LANE WND IN CAV UNS LAC 6929 CONTACT 10-29-2012 [facility] DERMATITIS& H OTHER ECZEMA DUE UNSPEC CAUSE V222 10-29-2012 [facility] STATE, H INCIDENTAL 42932 OTHER 10-17-2012 SPECIFIED [facility] DISORDER OF MEDICAL KIDNEY AND CENTER URETER V141 PERSONAL 09-23-2012 ST HISTORY [facility] ALLERGY MEDICAL OTHER CENTER ANTIBIOTIC AGENT 80459 HORDEOLUM 08-24-2012 [facility] EXTERNUM LEIF 9953 ALLERGY 08-24-2012 [facility] UNSPECIFIED LEIF NOT ELSEWHERE CLASSIFIED V7242 06-12-2012 [facility]AM[facility] OR TEST CENTER POSITIVE RESULT 90439 SPASM OF 06-11-2009 [facility] 94324 ABDOMINAL 03-25-2009 [facility] OTHER [facility]OSPITAL SPECIFIED EAST SITE 14592 POST-TRAUMA 01-19-2009 [facility] MED HEADACHE CTR UNSPECIFIED 28686 CONCUSSION 01-19-2009 [facility] WITH LOC OF HOSP MED 30 MINUTES CTR OR LESS 14870 INJURY OF 01-09-2009 [facility] FACE AND PEDIATRIC NECK OTHER AND UNSPECIFIED V0481 NEED 01-09-2009 [facility] PROPHYLACTI PEDIATRIC C VACCINATION &INOCULATIO N FLU V6759 OTHER 01-09-2009 [facility] FOLLOW-UP PEDIATRIC EXAMINATION OTHER 20071 OTHER CHEST 12-20-2008 [facility] 9598 INJURY 12-20-2008 [facility] OTH&UNSPEC ASSOCIATES OTH SPEC PSC SITES INCL MULTIPLE 9599 INJURY 12-20-2008 [facility] OTHER AND ASSOCIATES UNSPECIFIED PSC UNSPECIFIED SITE 17695 GENERALIZED 11-26-2008 [facility] [place] ANXIETY MH MR BD DISORDER INC 7231 CERVICALGIA 11-13-2008 [facility] V2541 SURVEILLANC 10-16-2008 ST E PREV [facility] PRESCRIBED MED CTR CONTRACEPT PILL V762 SCREENING 10-16-2008 ST FOR [facility] MALIGNANT MEDICALCENT NEOPLASM OF ER THE CERVIX 486 PNEUMONIA, 08-22-2008 [facility] ORGANISM PEDIATRIC UNSPECIFIED 7862 COUGH 08-22-2008 [facility] PSC 91434 CHRONIC 05-06-2008 INDEPENDENT TONSILLITIS ANESTHESIOL OGIST 45903 HYPERTROPHY 05-06-2008 HEAD & NECK OF TONSIL SURGERY WITH ASSOC ADENOIDS 43381 CLOSED 05-01-2008 [facility] FRACTURE H DISTAL ORTHOPAEDIC PHALANX OR CTR PSC PHALANGES HAND 462 ACUTE 04-22-2008 [facility] PHARYNGITIS PEDIATRIC 463 ACUTE 04-22-2008 [facility] TONSILLITIS PEDIATRIC 23897 CLOSED 04-07-2008 [facility] FRACTURE ASSOCIATES UNSPEC PSC PHALANX/PHA LANGES HAND 50074 MODERATE 03-20-2008 [facility] PHYSICIANS FOR WOMEN 93577 PAP SMER 03-20-2008 [facility] INC W/ATYPICAL SQUAMOUS CELLS UNDET 13785 ABNORMAL 12-28-2007 [facility] U SMEAR OF FOR WOMEN CERVIX 0340 STREPTOCOCC 12-21-2007 [facility] AL SORE PEDIATRIC THROAT 68240 INSOMNIA 11-08-2007 [facility] UNSPECIFIED PEDIATRIC 7806 FEVER & OTH 08-17-2007 [facility] PEDIATRIC PHYSIOLOGIC DISTURBANCE S TEMP REG 2893 LYMPHADENIT 07-19-2007 [facility] IS PEDIATRIC UNSPECIFIED EXCEPT MESENTERIC 4871 INFLUENZA 07-06-2007 [facility] WITH OTHER PEDIATRIC RESPIRATORY MANIFESTATI ONS 88437 UNSPECIFIED 06-15-2007 [facility] VAGINITIS PEDIATRIC AND VULVOVAGINI TIS 0091 COLITIS 04-26-2007 [facility] ENTERIT&GAS PEDIATRIC TROENTERIT INF ORIGIN 35705 URINARY 10-13-2006 [facility] MEDICAL C Medications Na ND [...] -0 .0 00 TA ti ZE 10 1- 9- 00 00 L ve PA 24 20 20 95 CA M 00 17 17 01 RE 0. 5 81 5 PH MG AR MA TA CY BL ET #5 AZ 00 05 06 45 30 00 TO [...] ZO MA YL CY GE #5 L AZ 00 04 05 45 30 00 TO [...] MA CY 75 #5 MG TA B AZ 00 03 04 45 30 00 TO [...] MA CY 75 #5 MG TA B AZ 00 02 03 45 30 00 TO [...] AR MA TA CY BL ET #5 AZ 00 12 01 24 12 00 TO [...] 15 6- 0- 00 00 L ve AZ 02 20 20 93 CA ED 20 16 17 58 RE NI 7 78 SO PH LO AR NE MA 4 CY MG #5 DO SE PK HY 00 12 01 [address] 40 -0 -1 .0 00 L- ti OC 60 8- 3- 00 02 MA ve OD 12 20 20 23 RT ON 40 16 17 81 -A 1 60 PH CE AR TA MA IL CY NO PH #5 91 7. 5- 32 5 AZ 00 12 01 10 3 00 TO [...] MA MG CY TA #5 BL ET LO 00 12 01 40 13 00 TO RA 59 -0 -1 .0 00 TA ti ZE 10 8- 3- 00 00 L ve PA 24 20 20 92 CA M 00 16 17 84 RE 0. 5 97 5 PH MG AR MA TA CY BL ET #5 AZ 00 12 01 45 30 00 TO OP 37 -0 -1 .0 00 TA ti RA 80 8- 3- 00 00 L ve NO 18 20 20 92 CA LO 40 16 17 84 RE L 1 98 40 PH AR MG MA CY TA BL #5 ET HY 00 12 01 30 8 [address] [facility] DR 40 -0 -0 .0 00 L- ti OC 60 1- 9- 00 02 MA ve OD 12 20 20 23 RT ON 40 16 17 81 -A 1 06 PH CE AR TA MA IL CY NO PH #5 91 7. 5- 32 5 NI 47 12 01 20 10 00 [facility] TR 78 -0 -0 .0 00 L- ti OF 10 5- 9- 00 07 MA ve UR 30 20 20 45 RT AN 30 16 17 64 TO 1 53 PH IN AR MA MO CY NO -M #5 CR 91 10 0 MG ON 57 12 01 30 8 00 WA Ac DA 23 -0 -0 .0 00 L- ti NS 70 07 MA ve ET 07 20 20 [...] CY EB RU #5 K 43 7 RA 68 02 02 00 60 30 CV 52 Ac NI 46 -0 -1 .0 S 07 LT ti TI 20 2 PH 37 EK ve DI 24 20 20 AR IN NE 80 10 10 MA 5 CY EB 15 RU 0 #5 K MG 43 7 TA BL ET CL 00 09 02 02 30 30 CV 50 Ac ON 37 -2 -1 .0 S 69 LT ti ID 80 5- PH 31 EK ve IN 18 20 20 AR IN E 60 09 10 MA HC 1 CY EB L RU 0. #5 K 2 43 MG 7 TA BL ET AC 00 02 [...] 0 7 MG CA PS UL E FE 00 10 01 03 28 28 CV 50 CROW Ac MC 43 -0 -1 .0 S 86 NE ti ON 00 00 PH 43 S ve 48 20 20 AR JI FE 21 09 10 MA LL 4 CY S TA BL #5 ET 43 7 AM 00 12 12 00 20 10 CV 51 Ac OX 09 -2 -3 .0 S 64 LT ti -C 32 1- - PH 57 EK ve LA 27 20 20 AR IN V 43 09 09 MA 50 4 CY EB 0- RU 12 #5 K 5 43 MG 7 TA BL ET 00 12 12 00 30 15 CV 51 Ac 09 -2 -3 .0 S 64 LT ti 51 1- - PH 55 EK ve 20 20 20 AR IN 00 09 09 MA 6 CY EB RU #5 K 43 7 FE 00 10 12 02 28 28 CV 50 CROW Ac MC 43 -0 -1 .0 S 86 NE ti ON 00 PH 43 S ve 48 20 20 AR JI FE 21 09 09 MA LL 4 CY S TA BL #5 ET 43 7 00 12 12 00 4. 1 WA 11 OT Ac 59 -0 -1 00 LG 34 RE ti 13 9- 7- 0 RE 30 MB ve 97 20 20 EN IA 00 09 09 S K 5 #1 JA 14 ME 95 S J RA 68 09 12 01 60 28 CV 50 Ac NI 46 -2 -1 .0 S 69 LT ti TI 20 5- 7- 00 PH 32 EK ve DI 24 20 20 AR IN NE 80 09 09 MA 5 CY EB 15 RU 0 #5 K MG 43 7 TA BL ET FL 00 12 12 00 1. 1 WA 11 OT Ac UC 17 -0 -1 00 LG 34 RE ti ON 25 9- 7- 0 RE 32 MB ve AZ 41 20 20 EN IA OL 21 09 09 S K E 1 #1 JA 15 14 ME 0 95 S MG J TA BL ET ON 68 12 12 00 6. 15 WA 11 OT Ac DA 46 -0 -1 00 LG 34 RE ti NS 20 9- 7- 0 RE 33 MB ve ET 15 20 20 EN IA RO 71 09 09 S K N 3 #1 JA OD 14 ME T 95 S 4 J MG TA BL ET CL 00 09 12 [...] .0 LG 34 RE ti AM 30 9- 7- 00 RE 27 MB ve IN [...] 00 1. 1 WA 11 OT Ac AZ 25 -0 -1 00 LG 34 RE ti OF 20 9- 7- 0 RE 29 MB ve LO 51 20 20 EN IA XA 50 09 09 S K CI 1 #1 JA N 14 ME HC 95 S L J 50 0 MG TA B FE 00 10 11 01 28 28 [...] .0 S 91 t ti ON 00 5- 2- 00 PH 90 Av ve 48 20 [...] 95 K 10 0 MG TA B CL 00 09 10 00 80 30 [...] K MG 43 7 TA BL ET PAUL 53 09 10 00 20 10 [...] 2 43 MG 7 TA BL ET PE 00 09 09 00 21 7 WA 28 EM Ac NI 09 -0 -2 .0 LG 87 ER ti CI 31 5- 4- 00 RE 78 Y ve LL 17 20 20 EN 6 DA IN 41 09 09 # RY 0 L VK 07 L 34 50 6 0 MG TA BL ET DI 00 09 09 00 20 7 CV 50 OT Ac CY 37 -1 -2 .0 S 60 RE ti CL 81 6- 4- 00 PH 13 MB ve OM 62 20 20 AR IA IN 00 09 09 MA K E 1 CY JA 20 ME #5 S MG 43 J 7 TA BL ET AC 00 09 09 00 20 3 WA 10 OT Ac ET 09 -1 -2 .0 LG 05 RE ti AM 30 0- 4- 00 RE 82 MB ve IN 15 20 20 EN IA OP 01 09 09 S K HE 0 #1 JA N- 14 ME CO 95 S D J #3 TA BL ET FE 00 07 09 03 28 28 CV 49 No Ac MC 43 -0 -2 .0 S 91 t ti ON 00 2- 4- 00 PH 89 Av ve 48 20 20 AR ai FE 21 09 09 MA la 4 CY bl TA e BL #5 ET 43 7 00 09 09 00 12 1 WA 28 EM Ac 60 -0 -2 .0 LG 87 ER ti 35 5- 4- 00 RE 78 Y ve 46 20 20 EN 0 DA 72 09 09 # RY 8 L 07 L 34 6 AM 00 09 09 00 20 10 WA 10 OT Ac OX 78 -1 -2 .0 LG 05 RE ti -C 11 0- 4- 00 RE 81 MB ve LA 83 20 20 EN IA V 12 09 09 S K 50 0 #1 JA 0- 14 ME 12 95 S 5 J MG TA BL ET FE 00 07 [...] 80 30 CV 50 No Ac ON 2 -1 .0 S 14 t ti AZ 30 0- 0- 00 PH 32 Av ve EP 83 20 20 AR ai AM 30 09 09 MA la 1 1 CY bl e MG #5 43 TA 7 BL ET AZ 00 08 08 00 20 3 WA [...] 91 t ti ON 00 2- 3- PH 89 Av ve 48 20 20 [...] MG #5 43 TA 7 BL ET AZ 00 07 07 00 15 5 CV [...] .0 S 69 t ti AZ 30 4 6 PH 27 Av ve EP 83 20 [...] 69 t ti AZ 30 4- 2- PH 27 Av ve EP 83 20 20 AR ai AM 30 09 09 MA la 1 1 CY bl e MG #5 43 TA 7 BL ET AZ 00 07 00 12 3 CV 49 EM Ac OM 78 -1 -0 .0 S 69 ER ti ET 11 PH 28 Y ve NIETO 83 20 [...] NE BL #5 J ET 43 7 PH 65 05 06 00 6. 2 CV 49 SH Ac EN 16 -2 -0 00 S 47 AR ti AZ 20 4- 4- 0 PH 62 P ve OP 52 20 20 AR DA YR 01 09 09 MA ID 0 CY D IN P E #5 20 43 0 7 MG TA B 00 06 00 12 3 CV 49 SH Ac 59 -2 -0 .0 S 47 AR ti 10 4- PH 61 P ve 34 20 20 AR DA 90 09 09 MA 5 CY D P #5 43 7 00 05 05 00 18 5 CV 49 Ac 47 -0 -2 0. S 32 LT ti 21 8- PH 12 EK ve 62 20 20 0 AR IN 81 09 09 MA 6 CY EB RU #5 K 43 7 FE 00 12 05 02 28 28 CV 48 CROW Ac MC 43 -0 -2 .0 S 37 NE ti ON 00 PH 46 S ve 48 20 20 AR JI FE 21 08 09 MA LL 4 CY S TA BL #5 ET 43 7 AZ 59 05 05 00 6. 5 CV 49 Ac IT 76 -0 -2 00 S 32 LT ti HR 23 8- 1- 0 PH 11 EK ve OM 06 20 20 AR IN YC 00 09 09 MA IN 1 CY EB RU 25 #5 K 0 43 MG 7 TA BL ET AZ 00 05 05 00 10 3 CV 49 OT Ac OM 78 -0 -2 .0 S 25 RE ti ET 11 2- 1- 00 PH 62 MB ve NIETO 83 20 20 AR IA ZI 00 09 09 MA K NE 1 CY JA ME 25 #5 S 43 J MG 7 TA BL ET CL 00 04 05 01 80 27 [...] S 37 NE ti ON 00 4- 3- 00 PH 46 S ve 48 20 [...] #5 MG 43 7 TA BL ET SE 00 01 03 01 30 30 CV 48 No Ac RO 31 -1 -1 .0 S 15 t ti QU 00 9- 2- 00 PH 72 Av ve EL 27 20 20 AR ai 11 09 09 MA la 10 0 CY bl 0 e MG #5 43 TA 7 BL ET AZ 00 03 03 00 21 7 CV 48 OT Ac OM 78 -0 -1 .0 S 61 RE ti ET 11 5- 2- 00 PH 45 MB ve NIETO 83 20 20 AR IA ZI 00 09 09 MA K NE 1 CY JA ME 25 #5 S 43 J MG 7 TA BL ET AM 00 03 [...] MG 7 TA BL ET CI 13 01 03 01 15 30 CV 48 No Ac TA 66 -1 -1 .0 S 15 t ti LO 80 9- 2- 00 PH 73 Av ve AZ 01 20 20 AR ai AM 00 [...] 43 J #3 7 TA BL ET 00 02 02 00 18 [...] 0 43 MG 7 TA BL ET AZ 45 01 02 00 8. 2 CV 48 IL Ac OM 80 -2 -1 00 S [...] 43 TA 7 BL ET CI 13 01 01 00 15 30 CV 48 No Ac TA 66 -1 -3 .0 S 15 t ti LO 80 9- 0- 00 PH 73 Av ve AZ 01 20 20 AR ai AM 00 09 09 MA la 5 CY bl HB e R #5 20 43 7 MG TA BL ET AZ 45 01 01 00 4. 2 CV [...] 8 CY N J #5 43 7 AZ 59 01 01 00 6. 5 CV 48 Ac IT 76 -0 -1 00 S 02 LT ti HR 23 6- 5- 0 PH 22 EK ve OM 06 20 20 AR IN YC 00 09 09 MA IN 1 CY EB RU 25 #5 K 0 43 MG 7 TA BL ET 50 01 01 00 18 8 CV 48 Ac 38 -0 -1 0. S 02 LT ti 30 6- 5- 00 PH 23 EK ve 87 20 20 0 AR IN 21 09 09 MA 6 CY EB RU #5 K 43 7 SE 00 11 01 01 30 30 CV 47 No Ac RO 31 -1 -0 .0 S 53 t ti QU 00 7- 1- 00 PH 95 Av ve EL 27 20 20 AR ai 11 08 09 MA la 10 0 CY bl 0 e MG #5 43 TA 7 BL ET 00 12 01 00 15 3 WA 27 No Ac 59 -2 -0 .0 LG 65 t ti 10 2- 1- 00 RE 67 Av ve 38 20 20 EN 1 ai 70 08 09 # la 5 bl 07 e 34 6 CI 13 11 01 01 15 30 CV 47 No Ac TA 66 -1 -0 .0 S 53 t ti LO 80 7- 1- 00 PH 93 Av ve AZ 01 20 20 AR ai AM 00 08 09 MA la 5 CY bl HB e R #5 20 43 7 MG TA BL ET AM 00 12 12 00 20 10 CV 47 OT Ac OX 09 -0 -1 .0 S 69 RE ti -C 32 3- 8- 00 PH 61 MB ve LA 27 20 20 AR IA V 43 08 08 MA K 50 4 CY JA 0- ME 12 #5 S 5 43 J MG 7 TA BL ET AZ 59 11 12 00 6. 5 CV 47 OT Ac IT 76 -2 -1 00 S 65 RE ti HR 23 9- 8- 0 PH 64 MB ve OM 06 20 20 AR IA YC 00 08 08 MA K IN 1 CY JA ME 25 #5 S 0 43 J MG 7 TA BL ET 00 12 12 00 30 30 CV 47 OT Ac 09 -0 -1 .0 S 69 RE ti 51 3- 8- 00 PH 60 MB ve 29 20 20 AR IA 00 08 08 MA K 6 CY JA ME #5 S 43 J 7 CI 13 11 12 00 15 30 CV 47 No Ac TA 66 -1 -0 .0 S 53 t ti LO 80 7- 4- 00 PH 93 Av ve AZ 01 20 20 AR ai AM 00 [...] 0- 7- 00 PH 09 Av ve AZ 01 20 20 AR ai AM 10 [...] MG 43 /5 7 ML PAUL SP AZ 37 08 05 03 28 28 CV 43 Ac IL 00 -1 -2 .0 S 01 LT ti OS 00 1- 2- 00 PH 62 EK ve EC 35 20 20 AR IN 90 07 08 MA OT 6 CY EB C RU 20 #5 K .6 43 7 MG TA BL ET 00 12 05 04 28 28 CV 44 CROW Ac 43 -2 -2 .0 S 57 NE ti 00 0- 2- 00 PH 51 S ve 53 20 20 AR JI 01 07 08 MA LL 4 CY S #5 43 7 AM 00 05 05 00 20 10 [...] la 3 #4 bl 28 e 4 TA 00 03 04 00 10 5 CV 45 No Ac IL 00 -2 -1 .0 S 23 t ti FL 40 1- 7- 00 PH 38 Av ve U 80 20 20 AR ai 75 08 08 08 MA la 5 CY bl MG e #5 CA 43 PS 7 UL E 00 03 04 00 12 5 CV [...] 4 CY bl e #5 43 7 AZ 50 04 04 00 90 18 CV 45 No Ac OM 38 -0 -1 .0 S 37 t ti ET 30 3- 0- 00 PH 51 Av ve NIETO 80 20 20 AR ai ZI 41 08 08 MA la NE 6 CY bl -C e OD #5 EI 43 NE 7 SY RU P 50 04 04 00 18 3 CV 45 No Ac 38 -0 -1 0. S 37 t ti 30 3- 0- 00 PH 53 Av ve 59 20 20 0 AR ai 31 08 08 MA la 6 CY bl e #5 43 7 CE 00 04 04 00 20 10 CV 45 No Ac PH 09 -0 -1 .0 S 37 t ti AL 33 3- 0- 00 PH 52 Av ve EX 14 20 20 AR ai IN 70 08 08 MA la 1 CY bl 50 e 0 #5 MG 43 7 CA PS UL E PAUL 53 02 04 00 20 10 [...] 4 CY bl e #5 43 7 AZ 37 08 03 02 28 28 CV [...] 4 CY bl e #5 43 7 AZ 50 01 03 00 12 6 CV 44 No Ac OM 38 -1 -2 0. S 49 t ti ET 30 0- 4- 00 PH 67 Av ve NIETO 80 20 20 0 AR ai ZI 41 08 08 MA la NE 6 CY bl -C e OD #5 EI 43 NE 7 SY RU P 00 01 03 00 20 10 PH 63 No Ac 52 -0 -2 .0 AR 52 t ti 71 7- 4- 00 MC 08 Av ve 44 20 20 AR ai 30 08 08 E la 5 PH bl AR e MA CY AZ 10 01 03 00 8. 3 PH 63 No Ac OM 70 -0 -2 00 AR 52 t ti ET 20 7- 4- 0 MC 04 Av ve NIETO 00 20 20 AR ai ZI 31 08 08 E la NE 0 PH bl AR e 25 MA CY MG TA BL ET Procedures Procedure DOS Code Location Performer Comment URNLS DIP 29403 FAMILY DENNY 7 CARE STICK/TAB ASSOCIATE LET RGNT S NON-AUTO W/O MICRSCP BLOOD 26401 FAMILY FAMILY COUNT 7 CARE CARE COMPLETE ASSOCIATE ASSOCIATE AUTO&AUTO S S DIFRNTL WBC BLOOD 83902 FAMILY REY COUNT 6 CARE COMPLETE ASSOCIATE AUTO&AUTO S DIFRNTL WBC COLLECTIO 89232 FAMILY REY N 6 CARE CAPILLARY ASSOCIATE BLOOD S SPECIMEN URINLS 68100 [facility] DIP 6 PHYSICIAN STICK/TAB S GROUP LET REAGNT NON-AUTO MICRSCPY URINLS 59599 [facility] DIP 6 PHYSICIAN JESUSITA STICK/TAB S GROUP LET REAGNT NON-AUTO MICRSCPY ANESTHESI 97189 [facility] 6 ANESTH INTRAPERI OF THE TONEAL BLUE LOWER ABD W/LAPS NOS REPOSITIO [id number] [facility] N RIGHT 6 [facility] OVARY INC INC OPEN REPAIR [id number] [facility] RIGHT 6 [facility] OVARY INC INC OPEN OVARIAN 03193 [facility] CYSTECTOM 6 PHYSICIAN Y UNI/BI S GROUP COLLECTIO 26755 [facility] N VENOUS 6 [facility] BLOOD INC INC VENIPUNCT URE URNLS DIP 02150 [facility] 6 [facility] STICK/TAB INC INC LET REAGENT AUTO MICROSCOP Y GONADOTRO 24264 [facility] PIN 6 [facility] CHORIONIC INC INC QUALITATI VE BLOOD 87649 [facility] COUNT 6 [facility] COMPLETE INC INC AUTO&AUTO DIFRNTL WBC SMR PRIM 75028 [facility] W[facility] 6 PHYSICIAN JESUSITA [facility]OUNT S GROUP NFCT AGT CULTURE 53324 [facility] BACTERIAL 6 [facility] INC INC QUANTTATI VE COLONY COUNT URINE URNLS DIP 58143 [facility] 6 [facility] STICK/TAB INC [place] [address] [facility]JA[facility] TRANSVAGI 6 [place] [address] [facility] [place] TRANSVAG[facility] 6 MEDICAL NAL IMAGING ASS MRI ANY 37369 RADIOLOGY PAULETTE SCO JT UPPER 6 EXTREMITY ASSOCIATE W/O S OF NOTH CONTRAST MATRL KNEE L1810 [facility] ORTHOSIS 6 LTH ER MAT ELASTIC ORTHOPAED JOINTS IC CTR PREFAB CUSTOM FIT RADEX HIP 19590 [facility] 6 LTH ER MAT UNILATERA ORTHOPAED L WITH IC CTR PELVIS 2-3 VIEWS CRTCHS E0114 [facility] UNDARM 6 TECHNOLOG TECHNOLOG OTH THAN IES INC IES INC WOOD PAIR PAD TIP&HNDGR IP RADIOLOGI 92192 RADIOLOGY RATTAN C EXAM 6 AMI KNEE ASSOCIATE COMPLETE S OF NOTH 4/MORE VIEWS COLLECTIO 07376 FAMILY REY N 6 CARE [facility] CAPILLARY ASSOCIATE BLOOD S SPECIMEN BLOOD 91815 FAMILY REY COUNT 6 [facility] COMPLETE ASSOCIATE AUTO&AUTO S DIFRNTL WBC BLOOD 65385 [facility] COUNT 6 [facility] HEMOGLOBI INC INC N BLOOD 08284 [facility] COUNT 6 [facility] HEMATOCRI INC INC T LAPS SURG 11990 [facility] W/ASPIR 6 [facility] CAVITY/CY INC INC ST SINGLE/MU LTIPLE INJECTION J2405 [facility] 6 [facility] ONDANSETR INC INC ON HCL PER 1 MG COLLECTIO 23475 [facility] N VENOUS 6 [facility] BLOOD INC INC VENIPUNCT URE ANESTHESI 52711 COUNT INCLUDES THE [facility] TAD A 6 ANESTH MARKO INTRAPERI OF THE TONEAL BLUE LOWER ABD W/LAPS NOS INJECTION J2710 [facility] 6 [facility] NEOSTIGMI INC INC NE METHYLSUL FATE UP TO 0.5 MG UNCLASSIF J3490 [facility] IED DRUGS 6 [facility] INC INC COLLECTIO 71576 [facility] N VENOUS 6 [facility] BLOOD INC INC VENIPUNCT URE IMMUNOASS 18880 [facility] AY TUMOR 6 [facility] ANTIGEN INC INC QUANTITAT SARA URNLS DIP 38887 [facility] 6 [facility] STICK/TAB INC INC LET REAGENT AUTO MICROSCOP Y GONADOTRO 16515 [facility] PIN 6 [facility] CHORIONIC INC INC QUALITATI VE BLOOD 98747 [facility] COUNT 6 [facility] COMPLETE INC INC AUTO&AUTO DIFRNTL WBC SMR PRIM 27210 [facility] SRC WET 6 VINCE MC MOUNT NFCT AGT URINE 75080 [facility] 6 [facility] TEST INC INC VISUAL COLOR CMPRSN PEREZS URNLS DIP 99357 [facility] 6 [facility] STICK/TAB INC [place] [address] YAJAIRA [facility] TRANSVAGI 6 [place] [address] RADIOLOGY NERI TRANSVAGI 6 KAMI NAL ASSOCIATE S OF [facility] US PELVIC 40879 RADIOLOGY NERI 6 KAMI NONOBSTET ASSOCIATE OSCAR S OF [facility] [place] [address] [facility] TRANSVAGI 6 [facility] NAL INC INC THERAPEUT 79114 [facility] IC 6 VINCE MC PROPHYLAC TIC/DX INJECTION SUBQ/IM INJECTION J2675 [facility] 6 VINCE MC PROGESTER ONE [place] 50 [place] [address] [facility] TRANSVAGI 6 [facility] [place] [address] RADIOLOGY LUBBERS ABDOMEN & 5 JASS PELVIS ASSOCIATE W/CONTRAS S OF [facility] T MATERIAL OPHTH 12484 [facility] 5 DILIA DLIIA XM&EVAL COMPRE NEW PT 1/> [facility] G0378 [facility] OBSERVATI 5 [facility] ON INC INC SERVICE PER HOUR BLOOD 41408 [facility] COUNT 5 [facility] HEMOGLOBI INC INC N BLOOD 74328 [facility] COUNT 5 [facility] COMPLETE INC INC AUTO&[place] [address] [facility] 5 [facility] ERIC PATHOLOGY GROSS&CATHY ROSCOPIC EXAM ANESTHESI 97311 COUNT INCLUDES THE [facility] TAD Phillip 5 ANESTH MARKO INTRAPERI OF THE TONEAL BLUE LOWER ABD W/LAPS NOS COLLECTIO 39549 [facility] N VENOUS 5 [facility] BLOOD INC INC VENIPUNCT URE BLOOD 29397 [facility] COUNT 5 [facility] HEMATOCRI INC INC T LAPAROSCO 78317 [facility] PY W/RMVL 5 [facility] ADNEXAL INC INC [facility] G0378 [facility] OBSERVATI 5 [facility] ON INC INC SERVICE PER HOUR HGB 13776 [facility] LUGO R QUANTITAT 5 VINCE CLAR[facility] MD SARA TRANSCUTA NEOUS INJECTION J2710 [facility]D 5 [facility] NEOSTIGMI INC INC NE METHYLSUL FATE UP TO 0.5 MG GONADOTRO 38961 [facility] PIN 5 [facility] [place] [address] [facility] TRANSVAGI 5 [facility] NAL INC INC SKIN TEST 42097 PENDELETO PENDELETO 5 N [facility] N [facility] INTRADER[facility] AL RADIOLOGI 93979 RADIOLOGY ROEBKER C EXAM 5 JAM CHEST 2 ASSOCIATE VIEWS S OF [facility] FRONTAL&[place] [address] RADIOLOGY ROEBKER ABDOMEN & 5 JAM PELVIS ASSOCIATE W/CONTRAS S OF [facility] T MATERIAL LAPAROSCO 87175 [facility] PY SURG 5 [facility] CHOLECYST INC INC ECTOMY ANES 43933 [facility] INTRAPERI 5 ANESTH SHE TONEAL OF THE UPPER BLUE ABDOMEN W/LAPS NOS LEVEL III 43146 [facility] SURG [address] [facility] ERIC PATHOLOGY GROSS&CATHY ROSCOPIC EXAM INJECTION J2710 [facility] 5 [facility] NEOSTIGMI INC INC NE METHYLSUL FATE UP TO 0.5 MG BASIC 66211 [facility] METABOLIC 5 [facility] PANEL INC INC CALCIUM TOTAL COLLECTIO 10297 [facility] N VENOUS 5 [facility] BLOOD INC INC VENIPUNCT URE GONADOTRO 21601 [facility] PIN 5 [facility] CHORIONIC INC INC QUALITATI VE BLOOD 71837 [facility] COUNT 5 [facility] COMPLETE INC INC AUTO&AUTO DIFRNTL WBC TECHNETIU A9537 [facility] M TC-99M 5 [facility] MEBROFENI INC INC N DX UP TO 15 MCI INJECTION J2805 [facility] 5 [facility] SINCALIDE INC INC 5 MICROGRAM S HEPATOBIL 41713 [place] ALEXIS SYST 5 MEDICAL IMAG INC IMAGING [place] [address] [place] ABDOMINAL 5 MEDICAL TAMMY REAL IMAGING TIME ASS W/IMAGE LIMITED RADEX 59612 [place] FOREARM 2 5 MEDICAL MARINA VIEWS IMAGING ASS SMPL 45220 FAMILY REY REPAIR 5 CARE JITENDRA SCALP/NEC ASSOCIATE K/AX/NIRU S T/TRUNK 2.6-7.5CM BLOOD 55714 FAMILY FAMILY COUNT 5 CARE CARE COMPLETE ASSOCIATE ASSOCIATE AUTO&[place] [address] RADIOLOGY [facility] HEAD/BRAI 5 N W/O ASSOCIATE CONTRAST S OF NOTH MATERIAL ECHO 00141 [place] TTHRC R-T 5 MEDICAL DAWSON 2D SERV W/WOM-MOD FOUNDATIO E COMPL N SPEC&COLR D ETONOGEST J7307 [facility] REL 5 VINCE MC CNTRACPT IMPL SYS INCL IMPL & SPL INSJ 85490 [facility] NON-BIODE 5 VINCE MC GRADABLE DRUG DELIVERY IMPLANT URINE 37155 [facility] 5 VINCE MC TEST VISUAL COLOR CMPRSN METHS URINLS 89926 [facility] DIP 4 VINCE MC STICK/TAB LET REAGNT NON-AUTO MICRSCPY IADNA 18313 [facility] HERPES 4 VINCE MC SIMPLX VIRUS DIRECT PROBE TQ REMOVAL 22714 [facility] INTRAUTER 4 VINCE MC INE DEVICE IUD IAADIADOO 75311 [facility] MD TRICHOMON VAGINALIS URINE 21909 [facility] 4 VINCE PALMA JESUSITA TEST VISUAL COLOR CMPRSN METHS CULTURE 16864 [facility] CHLAMYDIA 4 VINCE PALMA JESUSITA ANY SOURCE IADNA 46419 [facility] NEISSERIA 4 VINCE [place] [address] [place] TRANSVAGI 4 MEDICAL MARINA NAL IMAGING ASS CHIROPRAC 88629 [place] TIC 4 SWAPNA SWAPNA MANIPLTV TX EXTRASPIN AL 1/> REGION RADEX HIP 18254 RADIOLOGY CATIE 4 SWAPNA UNILATERA ASSOCIATE L S OF NOTH COMPLETE MINIMUM 2 VIEWS RADEX 86593 RADIOLOGY ADRIEL SPINE 4 TUS LUMBOSACR ASSOCIATE AL 2/3 S OF NOTH VIEWS CHIROPRAC 45732 [place] LUK[place] TIC 4 SWAPNA SWAPNA MANIPULAT [place] SPINAL 3-4 [place] [address] LUKING LUKING 1/> AREAS 4 SWAPNA SWAPNA EACH 15 MINUTES MASSAGE THERAPEUT 43996 [place]UK[place] IC PX 1/> 4 SWAPNA SWAPNA AREAS EACH 15 MIN EXERCISES APPL 29150 [place] MODALITY 4 SWANPA SWAPNA 1/> AREAS ELEC STIMJ UNATTENDE D CHIROPRAC 84384 [place] TIC 4 SWAPNA SWAPNA MANIPULAT [place] SPINAL 3-4 [place] [address] LUKING LUKING 1/> AREAS 4 SWAPNA SWAPNA EACH 15 MINUTES MASSAGE CHIROPRAC 63748 [place]UK[place] TIC 4 SWAPNA SWAPNA MANIPULAT [place] SPINAL 3-[place] [address] LUKING LUKING 1/> AREAS 4 SWAPNA SWAPNA EACH 15 MINUTES MASSAGE CHIROPRAC 26630 [place] TIC 4 SWAPNA SWAPNA MANIPLTV TX EXTRASPIN AL 1/> REGION THERAPEUT 27310 LUKING LUKING IC PX 1/> 4 SWAPNA SWAPNA AREAS EACH 15 MIN EXERCISES THERAPEUT 69679 LUKING LUKING IC PX 1/> 4 SWAPNA SWAPNA AREAS EACH 15 MIN EXERCISES CHIROPRAC 16534 L[place] LUKING TIC 4 SWAPNA SWAPNA MANIPLTV TX EXTRASPIN AL 1/> REGION SELF-CARE 61653 LUKING LUKING /HOME 4 SWAPNA SWAPNA MGMT TRAINING EACH 15 MINUTES CHIROPRAC 89912 [place]UK[place] TIC 4 SWAPNA SWAPNA MANIPULAT [place] SPINAL 3-4 [place] [address] LUKING LUKING 1/> AREAS 4 SWAPNA SWAPNA EACH 15 MINUTES MASSAGE BLOOD 54215 FAMILY FAMILY COUNT 4 CARE CARE COMPLETE ASSOCIATE ASSOCIATE AUTO&[place] [address] [facility] UREA 4 DIAGNOSTI DIAGNOSTI NITROGEN [facility] QUANTITAT SARA CREATININ 19250 [facility] QUEST E BLOOD 4 DIAGNOSTI DIAGNOSTI [facility] BLOOD 85430 [place] KE[place]LE COUNT 4 RIT RIT COMPLETE AUTO&AUTO DIFRNTL WBC CONIZATIO 70965 CHONG Mccartney CERVIX 4 W/WO D&C RPR ELTRD EXC ANESTHESI 45080 NRUYS NUNO A VAGINAL 4 JUS JUS PROCEDURE W/BIOPSY [place] I 68499 OSTERHAGE OSTERHAGE SURG 4 CESAR CESAR PATHOLOGY [place] [address] [facility] SURG 4 [facility] MED CTR FOOD AND BEVERAGE DIRECTOR ST FOOD AND BEVERAGE DIRECTOR ST GROSS&CATHY ROSCOPIC EXAM COLPOSCOP 07405 CHONG HARDWICK Y CERVIX 4 BX CERVIX & ENDOCRV CURRETAGE URINE 54545 CHONG HARDWICK 4 TEST VISUAL COLOR CMPRSN METHS CYTP C/V 48028 [facility] AUTO THIN 4 [facility] LYR MED CTR MED CTR PREPJ SCR FOOD AND BEVERAGE DIRECTOR ST FOOD AND BEVERAGE DIRECTOR ST MNL RESCR PHYS CYTP 37366 GONZALEZ DON GONZALEZ DON CERVICAL/ 4 VAGINAL REQ INTERP PHYSICIAN IADNA [address] NEISSERIA 4 [facility] CTR MED CTR GONORRHOE FOOD AND BEVERAGE DIRECTOR ST FOOD AND BEVERAGE DIRECTOR ST AE AMPLIFIED PROBE TQ IADNA [address] CHLAMYDIA 4 [facility] CTR MED CTR TRACHOMAT FOOD AND BEVERAGE DIRECTOR ST FOOD AND BEVERAGE DIRECTOR ST IS AMPLIFIED PROBE TQ BLOOD 51358 MAVIS LEALAGLMakenzie COUNT 4 RIT RIT COMPLETE AUTO&AUTO DIFRNTL WBC LEVONORGE J7302 CHONG HARDWICK STREL-RLS 4 E INTRAUTER N CNTRACPT 52 MG PRTL 70462 CHONG HARDWICK HYMENECTO 4 MY/REVJ HYMENAL RING INSERTION 89048 CHONG HARDWICK 4 INTRAUTER INE DEVICE IUD LEVEL III 24642 ROSS CATHY ROSS CATHY SURG 4 PATHOLOGY GROSS&CATHY ROSCOPIC EXAM ANESTHESI 41389 DESCH TAMMY DESCH TAMMY A VAGINAL 4 PROCEDURE W/[place] [address] SCALF LEI SCALF LEI SURG 4 PATHOLOGY GROSS&CATHY ROSCOPIC EXAM BX SKIN 24783 GRAVES GRAVES SUBCUTANE 4 LES LES OUS&/MUCO US MEMBRANE 1 LESION THERAPEUT 40451 ALEXANDRU HORVATH IC PX 1/> 3 ZACK ZACK AREAS EACH 15 MIN EXERCISES CHIROPRAC 76447 ALEXANDRU HORVATH TIC 3 ZACK ZACK MANIPULAT [place] SPINAL 3-4 [place] [address] ALEXANDRU HORVTAH 1/> AREAS 3 ZACK ZACK EACH 15 MINUTES MASSAGE APPL 88192 ALEXANDRU HORVATH MODALITY 3 ZACK ZACK 1/> AREAS ULTRASOUN D EA 15 MIN APPLICATI 22677 ALEXANDRU HORVATH ON 3 ZACK ZACK MODALITY 1/> AREAS HOT/COLD PACKS APPL 96007 ALEXANDRU HORVATH MODALITY 3 ZACK ZACK 1/> AREAS ELEC STIMJ UNATTENDE D THERAPEUT 62529 ALEXANDRU HORVATH IC PX 1/> 3 ZACK ZACK AREAS EACH 15 MIN EXERCISES APPL 02491 ALEXANDRU HORVATH MODALITY 3 ZACK ZACK 1/> AREAS TRACTION MECHANICA L APPL 50922 [facility] HORVATH MODALITY 3 ZACK ZACK 1/> AREAS ELEC STIMJ UNATTENDE D CHIROPRAC 00027 ALEX[facility]DRU HORVATH TIC 3 ZACK ZACK MANIPULAT [place] SPINAL 3-[place] [address] ALEXANDRU HORVATH 1/> AREAS 3 ZACK ZACK EACH 15 MINUTES MASSAGE APPLICATI 72287 ALEXANDRU HORVATH ON 3 ZACK ZACK MODALITY 1/> AREAS HOT/COLD PACKS BLOOD 16847 FAMILY FAMILY COUNT 3 CARE CARE COMPLETE ASSOCIATE ASSOCIATE AUTO&[place] [address] A[facility]U HORVATH 1/> AREAS 3 ZACK ZACK EACH 15 MINUTES MASSAGE THERAPEUT 34322 ALEX[facility]DRU HORVATH IC PX 1/> 3 ZACK ZACK AREAS EACH 15 MIN EXERCISES APPL 42768 ALEX[facility]DRU HORVATH MODALITY 3 ZACK ZACK 1/> AREAS TRACTION MECHANICA L APPL 27093 [facility] HORVATH MODALITY 3 ZACK ZACK 1/> AREAS ELEC STIMJ UNATTENDE D CHIROPRAC 81920 ALEXANDRU HORVATH TIC 3 ZACK ZACK MANIPULAT SARA [place] SPINAL 3-4 REGIONS APPLICATI 08017 ALEXANDRU HORVATH ON 3 ZACK ZACK MODALITY 1/> AREAS HOT/COLD PACKS CULTURE 06530 LAB RUPESH LAB RUPESH BACTERIAL 3 [facility] [employer] QUANTTATI VE COLONY COUNT URINE URNLS DIP 43421 FAMILY ALCON 3 CARE R H STICK/TAB ASSOCIATE LET RGNT S NON-AUTO W/O MICRSCP EPISIOTOM [address] Y 3 [facility] FOOD AND BEVERAGE DIRECTOR ST FOOD AND BEVERAGE DIRECTOR ST OTHER [address] MANUALLY 3 [facility] ASSISTED [facility] MED CTR DELIVERY FOOD AND BEVERAGE DIRECTOR ST FOOD AND BEVERAGE DIRECTOR ST VAGINAL [address] ST GAN[facility] DELIVERY 3 ILANA LOW W/POSTPAR PHYSICIAN RICA CARE S NEURAXIAL 40597 [facility] LABOR 3 ALA ALA ANALG/ANE S PLND VAGINAL DELIVERY OTHER [address] GENITOURI 3 [facility]SY [facility] INSTILLAT FOOD AND BEVERAGE DIRECTOR ST FOOD AND BEVERAGE DIRECTOR ST ION HEPATIC [address] FUNCTION 3 [facility] PANEL [facility] FOOD AND BEVERAGE DIRECTOR ST FOOD AND BEVERAGE DIRECTOR ST [address]LO[address] COUNT 3 [facility] COMPLETE [facility] AUTO&AUTO FOOD AND BEVERAGE DIRECTOR ST FOOD AND BEVERAGE DIRECTOR ST DIFRNTL WBC US PREG 12249 [facility] ALEXIS UTERUS 3 MATERNAL REAL TIME AND F/U TRNSABDL PER FETUS THROMBOPL [address] ASTIN 3 [facility] TIME [facility] PARTIAL FOOD AND BEVERAGE DIRECTOR ST FOOD AND BEVERAGE DIRECTOR ST PLASMA/[place] [address] BLOOD/URI 3 ILANA ILANA C ACID [facility] FOOD AND BEVERAGE DIRECTOR ST FOOD AND BEVERAGE DIRECTOR ST BLOOD [address] COUNT 3 [facility] PLATELET [facility] AUTOMATED FOOD AND BEVERAGE DIRECTOR ST FOOD AND BEVERAGE DIRECTOR ST BASIC [address] METABOLIC 3 IL[facility] PANEL [facility] CALCIUM FOOD AND BEVERAGE DIRECTOR ST FOOD AND BEVERAGE DIRECTOR ST TOTAL PROTEIN [address] TOTAL 3 ILANA ILANA XCPT [facility] REFRACTOM FOOD AND BEVERAGE DIRECTOR ST FOOD AND BEVERAGE DIRECTOR ST ETRY URINE PROTHROMB [address] IN TIME 3 [facility] FOOD AND BEVERAGE DIRECTOR ST FOOD AND BEVERAGE DIRECTOR ST [address] NONSTRESS 3 ILANA ILANA TEST MED [facility] MED [facility] FOOD AND BEVERAGE DIRECTOR ST FOOD [place] [address] [place]ON [place] VON [place] NONSTRESS 3 AMA AMA TEST HEPATIC [address] FUNCTION 3 [facility] PANEL [facility] FOOD AND BEVERAGE DIRECTOR ST FO[place] [address] INFUSION 3 [facility] HYDRATION [facility] EACH FOOD AND BEVERAGE DIRECTOR ST FOOD AND BEVERAGE [place] [address] BLOOD/URI 3 [facility] ILANA C ACID [facility] FOOD AND BEVERAGE DIRECTOR ST FOOD AND BEVERAGE DIRECTOR ST THER [address] PROPH/DX 3 [facility] ILANA NJX EA MED [facility] SEQL IV FOOD AND BEVERAGE DIRECTOR ST FOOD AND BEVERAGE DIRECTOR ST PUSH SBST/DRUG FAC BASIC [address] METABOLIC 3 [facility] PANEL [facility] CALCIUM FOOD AND BEVERAGE DIRECTOR ST FOOD AND BEVERAGE DIRECTOR ST TOTAL THER [address] PROPH/DX 3 [facility] ILANA NJX IV MED CTR MED CTR PUSH FOOD AND BEVERAGE DIRECTOR ST FOOD AND BEVERAGE DIRECTOR ST SINGLE/1S T SBST/DRUG PROTHROMB [address] IN TIME 3 [facility] FOOD AND BEVERAGE DIRECTOR ST FOOD AND BEVERAGE DIRECTOR ST INJECTION J2405 ST ST 3 [facility] ONDANSETR [facility] ON HCL FOOD AND BEVERAGE DIRECTOR ST FOOD AND BEVERAGE DIRECTOR ST PER [address] ASTIN 3 [facility] IL[facility] TIME MED [facility] PARTIAL FOOD AND BEVERAGE DIRECTOR ST FOOD AND BEVERAGE DIRECTOR ST PLASMA/WH OLE BLOOD INITIAL 26865 [facility] 3 AMA AMA CARE/DAY 30 MINUTES URNLS DIP [address] 3 [facility] ILANA STICK/TAB MED CTR MED [facility] LET RGNT FOOD AND BEVERAGE DIRECTOR ST FOOD AND BEVERAGE DIRECTOR ST AUTO W/[facility] G037[facility] ST ST OBSERVATI 3 [facility] ON [facility] SERVICE FOOD AND BEVERAGE DIRECTOR ST FOOD AND BEVERAGE DIRECTOR ST PER HOUR BLOOD [address] COUNT 3 [facility] COMPLETE [facility] AUTOMATED FOOD AND BEVERAGE DIRECTOR ST FOOD AND BEVER[place] DIRECTOR ST [address] NONSTRESS 3 [facility] TEST PHYSICIAN PHYSICIAN S S URNLS DIP [address] 3 IL[facility] ILANA STICK/TAB MED CTR MED [facility] LET RGNT FOOD AND BEVERAGE DIRECTOR ST FOOD AND BEVERAGE DIRECTOR ST AUTO W/O MICROSCOP Y IADNA [address] STREPTOCO 3 [facility] CENTER AMPLIFIED PROBE TQ IADNA [address] CHLAMYDIA 3 [facility] C[facility] IS AMPLIFIED PROBE TQ IADNA [address] NE[place]ER[place] 3 [facility] [place] [address] BASHIR ALEXIS BASHIR ALEXIS NONSTRESS [address] IN[address] 3 [facility] [facility] CENTER SULFATE UP TO [address] D[address] 3 [facility] STICK/TAB MEDICAL MEDICAL LET CENTER CENTER REAGENT AUTO MICROSCOP Y INITIAL 56848 BASHIR ESPINOZA OBSERVATI 3 ON CARE/DAY 30 MINUTES US PREG 02345 PADMAJA GIANG NADINE UTERUS 3 REAL TIME F/U TRNSABDL PER FETUS [address] NONSTRESS 3 [facility] TEST [facility] MEDICAL [place] CENTER 95588 CHONG RONEN CHONG RONEN NONSTRESS 3 TEST OBSERVATI 56877 HEMANT II HEMANT II ON/INPATI 3 [facility] 40 MINUTES URNLS DIP 04490 HEMANT II HEMANT II 3 [facility] STICK/TAB LET RGNT NON-AUTO W/O MICRSCP COLLECTIO [address] N VENOUS [address] VENIPUNCT URE GLUCOSE [address] [facility] [address] [facility] DO[facility] B[facility]OD [address] COUNT [address] L[address] L[address] AUTO&[place] PREG [address] UTERUS 3 [facility] REAL TIME MEDICAL MEDICAL F/U CENTER CENTER TRNSABDL PER FETUS URNLS DIP 82588 HEMANT II HEMANT II 3 [facility] STICK/TAB LET [place] [address] JEWELL JEWELL ABDOMINAL 3 BRA BRA REAL TIME W/IMAGE LIMITED URNLS DIP 37721 BASHIR ESPINOZA 3 STICK/TAB LET RGNT NON-AUTO W/O MICRSCP OBSERVATI 79181 WALKER WALKER ON/INPATI 3 III [facility] [address] BACTERIAL 3 [facility] QUANTTATI CENTER CENTER VE COLONY COUNT URINE CULTURE 04595 ST BCT 3 [facility] ISOL&[facility] PTV ID CENTER CENTER ISOLATE EA URINE CULTURE [address] TYPING 3 [facility] IMMUNOLOG [facility] MEDICAL IC CENTER CENTER OTH/THN IMMUNOFLU ORES URNLS DIP [address] 3 [place] ILANA STICK/TAB MEDICAL MEDICAL LET CENTER CENTER REAGENT [place] [address] UTERUS 3 [facility] W/DETAIL [facility]ICAL MEDICAL CENTER CENTER DENYS [address] [address] ESTRIOL 3 [facility] [address] PIN [address] L[address] QUANTITAT SARA COLLECTIO [address] N VENOUS 3 [place] ILANA BLOOD [facility] VENIPUNCT URE ALPHA-FET [address] OPROTEIN 3 [facility] SERUM [facility] [place] [address] 3 [facility] LANE BLOOD 87970 MULBERRY MULBERRY COUNT 3 LEIF LEIF COMPLETE AUTO&AUTO DIFRNTL WBC COLPOSCOP 31889 ST BASHIR ALEXIS Y VULVA 3 ILANA PHYSICIAN S URNLS DIP 11611 ST BASHIR ALEXIS 3 ILANA STICK/TAB LET RGNT PHYSICIAN NON-AUTO S W/O MICRSCP COLPOSCOP 76196 ST BASHIR ALEXIS Y CERVIX 3 ILANA UPPER/ADJ ACENT PHYSICIAN VAGINA S INSJ 48563 ST BASHIR ALEXIS NON-NDWEL 3 ILANA LG BLADDER PHYSICIAN CATHETER S CULTURE [address] BACTERIAL 3 [facility] QUANTTATI CENTER CENTER VE COLONY COUNT URINE CULTURE [address] BACTERIAL 3 [facility] VE COLONY COUNT URINE CULTURE [address] BCT 3 [facility] ILANA ISOL&[facility] ID CENTER CENTER ISOLATE EA URINE IADNA [address] CHLAMYDIA 3 [facility] TRACHOMAT CENTER CENTER IS AMPLIFIED PROBE TQ IADNA [address] NEISSERIA 3 [facility] GONORRHOE CENTER CENTER AE AMPLIFIED PROBE TQ CYTP C/V [address] AUTO THIN 3 [facility] LYR [facility] MEDICAL PREPJ SCR CENTER CENTER MNL RESCR PHYS URINE 53362 [facility] ALEXIS 3 [place] TEST VISUAL PHYSICIAN COLOR S CMPRSN METHS CYTP 65166 [facility] CATHY CERVICAL/ 3 [place] VAGINAL REQ PHYSICIAN INTERP S PHYSICIAN BLOOD 78122 ALCON ALCON COUNT 3 R H R H COMPLETE AUTO&AUTO DIFRNTL WBC BLOOD 91728 ALCON ALCON COUNT 3 R H R H COMPLETE AUTO&AUTO DIFRNTL WBC URINE 28313 [place] PENDELETO 3 [facility] V[facility]UAL CENTER CENTER COLOR CMPRSN METHS THERAPEUT 87971 SMITHA PAIZ IC PX 1/> 0 CHIROPR[facility] NELSON P AREAS TIC EACH 15 [place] [address] SMITHA PAIZ, 1/> AREAS 0 [facility] NELSON P EACH 15 TIC MINUTES CENTER MASSAGE APPLICATI 58189 SMITHA PAIZ, ON 0 [facility] NELSON P MODALITY TIC 1/> AREAS CENTER HOT/COLD PACKS APPL 72816 SMITHA PAIZ, MODALITY 0 [facility] NELSON P 1/> AREAS TIC ELEC CENTER STIMJ UNATTENDE D APPL 91027 SMITHA PAIZ, MODALITY 0 [facility] NELSON P 1/> AREAS TIC TRACTION CENTER MECHANICA L CHIROPRAC 42754 SMITHA PAIZ, TIC 0 [facility] [place]ELSON P MANIPULAT TIC [place] CENTER SPINAL 3-4 REGIONS APPL 49239 SMITHA PAIZ, MODALITY 0 [facility]IROP[facility] NELSON P 1/> AREAS TIC CENTER ULTRASOUN D [place] 15 [place] [address] SMITHA PAIZ, 1/> AREAS 0 [facility] NELSON P EACH 15 TIC MINUTES CENTER MASSAGE APPL 10959 SMITHA PAIZ, MODALITY 0 [facility]OPR[facility] NELSON P 1/> AREAS TIC CENTER ULTRASOUN D EA 15 MIN THERAPEUT 40931 SMITHA PAIZ, IC PX 1/> 0 [facility]IROPR[facility] NELSON P AREAS TIC EACH 15 CENTER MIN EXERCISES APPL 72645 SMITHA PAIZ, MODALITY 0 [facility]IROPRAC NELSON P 1/> AREAS TIC TRACTION CENTER MECHANICA L APPL 08834 SMITHA PAIZ, MODALITY 0 [facility]IROPRAC NELSON P 1/> AREAS TIC ELEC CENTER STIMJ UNATTENDE D CHIROPRAC 05246 SMITHA PAIZ, TIC 0 CHIROPRAC NELSON P MANIPULAT TIC [place] CENTER SPINAL 3-4 REGIONS APPLICATI 19765 SMITHA PAIZ, ON 0 CHIROPRAC NELSON P MODALITY TIC 1/> AREAS CENTER HOT/COLD PACKS APPL 28112 SMITHA PAIZ, MODALITY 0 CHIROPRAC NELSON P 1/> AREAS TIC CENTER ULTRASOUN D EA 15 MIN CHIROPRAC 16167 SMITHA PAIZ, TIC 0 [facility]IROPRAC NELSON P MANIPULAT TIC [place] CENTER SPINAL 3-4 REGIONS APPL 12650 SMITHA PAIZ, MODALITY 0 CHIROPRAC NELSON P 1/> AREAS TIC ELEC CENTER STIMJ UNATTENDE D THERAPEUT 29113 SMITHA PAIZ, IC PX 1/> 0 CHIROPRAC NELSON P AREAS TIC EACH 15 CENTER MIN EXERCISES APPLICATI 06149 SMITHA PAIZ, ON 0 CHIROPRAC NELSON P MODALITY TIC 1/> AREAS CENTER H[place] [address] SMITHA PAIZ, 1/> AREAS 0 CHIROPRAC NELSON P EACH 15 TIC MINUTES CENTER MASSAGE IADNA 63470 [facility] 9 ILANA PRECIADO VAGINALIS MEDICALCE MEDICALCE DIRECT NTER NTER PROBE TQ IADNA 89572 [facility] STREPTOCO 9 [facility] B MEDICALCE MEDICALCE AMPLIFIED NTER NTER PROBE TQ IADNA 94615 [facility] NEISSERIA 9 [place] ILANA GONORRHOE MEDICALCE MEDICALCE AE NTER NTER AMPLIFIED PROBE TQ IADNA 80940 [facility] BILLIE 9 [facility] SPECIES DIRECT MEDICALCE MEDICALCE PROBE TQ NTER NTER CUL BACT 48218 [facility] XCPT 9 [facility] URINE BLO[facility]/STO MEDICALCE MEDICALCE OL NTER NTER AEROBIC ISOL IADNA 14855 [facility] CHLAMYDIA 9 [facility] TRACHOMAT MEDICALCE MEDICALCE IS NTER NTER AMPLIFIED PROBE TQ RENAL 09453 [facility] FUNCTION 9 [facility] PANEL MEDICALCE MEDICALCE NTER NTER SMR PRIM 36932 [facility] SRC 9 [facility] GRAM/GIEM SA STAIN MEDICALCE MEDICALCE BCT NTER NTER FUNGI/CUATE L IADNA 39024 [facility] GARDNEREL 9 [facility] LA VAGINALIS MEDICALCE MEDICALCE DIRECT NTER NTER PROBE TQ URINE 00871 [facility] OTREMBIAK 9 SUSIE BARRERA TEST PEDIATRIC VISUAL COLOR CMPRSN METHS RADEX 65[address] [facility] LU ABDOMEN 9 [facility] W/DCBTS&/ ERC VIEWS IADNA 63041 [facility] CHLAMYDIA 9 [facility] TRACHOMAT MEDICALCE MEDICALCE IS NTER NTER AMPLIFIED PROBE TQ IADNA 96463 [facility] NEISSERIA 9 [facility] GONORRHOE MEDICALCE MEDICALCE AE NTER NTER AMPLIFIED PROBE TQ CYTP C/V 76990 [facility] AUTO THIN 9 [facility] LYR PREPJ SCR MEDICALCE MEDICALCE MNL NTER NTER RESCR PHYS URNLS DIP 64923 [place], 9 GUSTINE REILLY K STICK/TAB PEDIATRIC LET RGNT NON-AUTO W/O MICRSCP AMBULANCE A0429 [facility] SERVICE 9 KAILASH KAILASH BLS FIRE FIRE EMERGENCY [facility] TRANSPORT GROUND A0425 [facility] MILEAGE 9 KAILASH KAILASH PER FIRE FIRE STATUTE [facility] [place] [address] RADIOLOGY KIZZY CERVICAL 9 III, SPINE W/O ASSOCIATE LEONA CONTRAST S PSC MATERIAL CT PELVIS 89388 RADIOLOGY KIZZY 9 III, W/CONTRAS [place] [address] RADIOLOGY KIZZY ABDOMEN 9 III, W/CONTRAS [place] [address] RADIOLOGY KIZZY HEAD/BRAI 9 III, N W/O ASSOCIATE LEONA CONTRAST S PSC MATERIAL RADIOLOGI 94250 RADIOLOGY NEILS, C EXAM 9 MANDA W CHEST 2 ASSOCIATE VIEWS S PSC FRONTAL&L ATERAL PHARMACOL 30692 [facility] OGIC MGMT 9 [place] MR [place] MH MR MIN BD INC BD INC MEDICAL PSYCHOTHE RAPY INDIV 08768 [facility] PSYCTX 9 [place] MR [place] MH MR OFFICE/OU BD INC BD INC TPATIENT 20-30 MIN INDIV 43574 [facility] PSYCTX 9 [place] MH MR [place] MH MR OFFICE/OU BD INC BD INC TPATIENT 20-30 [place] [address] SMITHA PAIZ, 1/> AREAS 9 [facility]OPR[facility] NELSON P EACH 15 TIC MINUTES CENTER MASSAGE CHIROPRAC 52919 SMITHA PAIZ, TIC 9 [facility]ELSON P MANIPULAT TIC [place] CENTER SPINAL 3-4 REGIONS THERAPEUT 43357 SMITHA PAIZ, IC PX 1/> 9 [facility]IROPRAC NELSON P AREAS TIC EACH 15 CENTER MIN EXERCISES THERAPEUT 86453 SMITHA PAIZ, IC PX 1/> 9 CHIROPRAC NELSON P AREAS TIC EACH [place] [address] SMITHA PAIZ, 1/> AREAS 9 CHIROPRAC NELSON P EACH 15 TIC MINUTES CENTER MASSAGE CHIROPRAC 38413 SMITHA PAIZ, TIC 9 [facility]OPRAC NELSON P MANIPULAT TIC [place] CENTER SPINAL 3-4 REGIONS PHARMACOL 04969 [facility] OGIC MGMT 9 [place] MH MR BUCK MH MR MIN BD INC BD INC MEDICAL PSYCHOTHE RAPY INDIV 02027 [facility] PSYCTX 9 [place] MH MR BUCK MH MR OFFICE/OU BD INC BD INC TPATIENT 20-30 MIN INDIV 25659 [facility] PSYCTX 9 [place] MH MR BUCK MH MR OFFICE/OU BD INC BD INC TPATIENT 20-30 MIN CYTP C/V 48925 [facility] AUTO THIN 9 ILANA ILANA LYR PREPJ SCR MEDICALCE MEDICALCE MNL NTER NTER RESCR BIOMEDICAL REPAIR TECHNICIAN 75561 [facility] PROPH/DX [address] [place] [address] NJX IV [facility] PUSH SINGLE/1S T SBST/[place] [address] [facility] LIPASE [address] [place] [address] [facility] [address] [place] [address] PHARMACOL 57656 [facility] OGIC MGMT 9 [place] MH MR [place] MH MR MIN BD INC BD INC MEDICAL PSYCHOTHE RAPY BLOOD [address] [facility] COUNT [address] [place] [address] AUTO&AUTO DIFRNTL WBC GONADOTRO 89556 [facility] PIN [address] [place] [address] QUALITATI VE COMPREHEN 26632 [facility] SIVE [address] [place] [address] METABOLIC [facility] [place] [address] [facility] AMYLASE [address] [place] [address] IV [address] [facility] INFUSION [address] [place] [address] HYDRATION [facility] EACH ADDITIONA L HOUR URNLS DIP [address] STICK/TAB [facility] LET RGNT AUTO W/O MICROSCOP Y INDIV 98828 [facility] PSYCTX 9 [place] MH MR BUCK MH MR OFFICE/OU BD INC BD INC TPATIENT 20-30 MIN RADIOLOGI 91560 [facility] C EXAM [address] [place] [address] CHEST 2 [facility] VIEWS FRONTAL&L ATERAL PHARMACOL 36462 [facility] OGIC MGMT 9 [place] MH MR BUCK LIZ MR MIN BD INC BD INC MEDICAL PSYCHOTHE RAPY FAMILY 63380 [facility] PSYCHOTHE 9 [place] MH MR BUCK MH MR WELLS BD INC BD INC W/PATIENT PRESENT 50 MINS INTERPJ/E 29930 [facility] XPLNAJ 9 [place] MH MR BUCK MH MR RESULTS BD INC BD INC PSYCHIATR IC EXAM FAMILY INTERPJ/E 36290 [facility] XPLNAJ 9 [place] MH MR BUCK MH MR RESULTS BD INC BD INC PSYCHIATR IC EXAM FAMILY PHARMACOL 94612 [facility] OGIC MGMT 9 [place] MH MR BUCK MH MR MIN BD INC BD INC MEDICAL PSYCHOTHE RAPY INDIV 76559 [facility] PSYCTX 9 [place] MH MR BUCK MH MR OFFICE/OU BD INC BD INC TPATIENT 20-30 MIN URINLS 40202 [place], DIP 9 [place] REILLY K STICK/TAB PEDIATRIC LET REAGNT NON-AUTO MICRSCPY INDIV 09144 [facility] PSYCTX 9 [place] MH MR BUCK MH MR OFFICE/OU BD INC BD INC TPATIENT 20-30 MIN FAMILY 66281 [facility] PSYCHOTHE 9 [place] MH MR BUCK WELLS BD INC BD INC W/PATIENT PRESENT 50 MINS ADENOIDEC 95396 HEAD & THANG, YESY 9 NECK NOREEN J PRIMARY SURGERY AGE 12/> ASSOC ANESTHESI 01130 Marjan FERRIS 9 NT ARETHA M INTRAORAL ANESTHESI WITH OLOGIST BIOPSY NOS TONSILLEC 54710 CENTER [facility] YESY & 9 FOR FOR ADENOIDEC SURGICAL SURGICAL YESY AGE CARE CARE 12/> PHARMACOL 73968 [facility] MGMT 9 [place] MH MR BUCK MH MR MIN BD INC BD INC MEDICAL PSYCHOTHE RAPY RADEX 70252 [facility] GR[facility] FINGR 9 LTH ER, MINIMUM 2 ORTHOPAED OTILIA S VIEWS IC CTR PSC IAADIADOO 91293 [place], 9 [place] REILLY K [facility]PT[facility] P[facility] CCUS GROUP A CLTX DSTL 97078 [facility] PHLNGL 8 [facility] ER, FX ORTHOPAED OTILIA S FNGR/THMB IC CTR W/O MANJ PSC EA RADEX 25317 [facility] FINGR [address] [place] [address] MINIMUM 2 [facility] VIEWS APPLICATI 9354 [facility] ON OF [address] [place] [address] SPLINT [facility] CYTP C/V 23738 [facility] AUTO THIN 8 [place] INC [place] INC LYR PREPJ SCR MNL RESCR PHYS IMMUNOASS 66348 [facility] OTREMBIAK AY NFCT 8 GUSTINE SUSIE AGT ANTB PEDIATRIC QUAL/SEMI DEISY 1 STEP INDIV 64785 [facility] PSYCTX 8 [place] MR BUCK MH MR OFFICE/OU BD INC BD INC TPATIENT 20-30 MIN PHARMACOL 29477 [facility] MGMT 8 [place] MR BUCK MH MR MIN BD INC BD INC MEDICAL PSYCHOTHE RAPY INDIV 13401 [facility] PSYCTX 8 [place] MH MR OFFICE/OU BD INC BD INC TPATIENT 20-30 MIN INDIV 64682 [facility] PSYCTX 8 [place] MR [place] MH MR OFFICE/OU BD INC BD INC TPATIENT 20-30 MIN PHARMACOL 01989 [facility] MGMT 8 [place] MR [place] MH MR MIN BD INC BD INC MEDICAL PSYCHOTHE RAPY PSYCHIATR 98372 [facility] IC 8 [place] MR [place] MH MR DIAGNOSTI BD INC BD INC C INTERVIEW EXAMINATI ON FAMILY 15947 [facility] PSYCHOTHE 8 [place] MR [place] MH MR RAPY BD INC BD INC W/PATIENT PRESENT 50 MINS FAMILY 98416 [facility] PSYCHOTHE 8 [place] MH MR RAPY BD INC BD INC W/PATIENT PRESENT 50 MINS INDIV 31530 [facility] PSYCTX 8 [place] MR BUCK MH MR OFFICE/OU BD INC BD INC TPATIENT 20-[address] [facility], Y CERVIX [address] [place] [address] BRENDA BX CERVIX & PHYSICIAN ENDOCRV S FOR CURRETAGE WOMEN IAADIADOO 12768 [place], [address] [place] [address] REILLY K [facility] CCUS GROUP A BUPRENORP J0570 [place], MUSA 8 GUSTINE REILLY K IMPL[place] 74[place] [address] RADIOLOGY SIVAKUMAR, TRANSVAGI 8 MONICA NAL ASSOCIATE S PSC US PELVIC 81195 RADIOLOGY SIVAKUMAR, 8 MONICA NONOBSTET ASSOCIATE [facility] S PSC REAL-TIME IMAGE COMPLETE IADNA 96947 [facility] GARDNEREL 8 [facility] LA VAGINALIS DIRECT PROBE TQ IADNA 32362 [facility] TRICHOMON 8 [facility] VAGINALIS DIRECT PROBE TQ IADNA 06302 [facility] PAPILLOMA 8 [facility] VIRUS HUMAN AMPLIFIED PROBE TQ CYTP 55513 NO, NO, CERVICAL/ 8 ERIK Urbano VAGINAL REQ INTERP PHYSICIAN IADNA 47399 [facility] BILLIE 8 [facility] SPECIES DIRECT PROBE TQ CYTP C/V 35620 [facility] AUTO THIN 8 [facility] LYR PREPJ SCR MNL RESCR PHYS CULTURE 56203 [facility] TYPING 8 [facility] IMMUNOLOG IC OTH/THN IMMUNOFLU ORES IADNA 29937 [facility] CHLAMYDIA 8 [facility] TRACHOMAT IS AMPLIFIED PROBE TQ CUL BACT 23637 [facility] XCPT 8 [facility] URINE BLOOD/STO OL AEROBIC ISOL IADNA 28624 [facility] NEISSERIA 8 [facility] GONORRHOE AE AMPLIFIED PROBE TQ IAADIADOO 49244 [place], 8 GUSTINE REILLY K [facility] P[facility]IC CCUS GROUP A BUPRENORP J0570 [place], MUSA 8 GUSTINE REILLY K IMPLANT PEDIATRIC 74.2 MG BILIRUBIN 20062 [facility] CHILDRENS DIRECT [address] [place] [address] [place] [address] [facility] MAGNESIUM [address] [place] [address] [place] [address] [facility] PHOSPHORU [address] [place] [address] S INORGANIC HETEROPHI 12026 [facility] LE [address] [place] [address] ANTIBODIE S SCREEN CUL BACT 16992 [facility] XCPT [address] [place] [address] URINE BLOOD/[place] [address] [facility] GLUTAMYLT [address] [place] [address] RASE GAMMA ANTIBODY 05724 [facility] RICHARD-B [address] [place] [address] ARR EB VIRUS EARLY ANTIGEN EA ANTIBODY 73686 [facility] RICHARD-B [address] [place] [address] ARR EB VIRUS NUCLEAR AG EBNA COLLECTIO 11015 [facility] N VENOUS [address] [place] [address] BLOOD VENIPUNCT URE COMPREHEN 16577 [facility] SIVE [address] [place] [address] METABOLIC PANEL FLUORESCE 09547 [facility] NT [address] [place] [address] NONNFCT AGT ANTB TITER EA ANTIBODY IAADIADOO 67655 [facility] OTREMBIAK SUSIE BARRERA [facility] GROUP A BLOOD 52644 [facility] COUNT [address] [place] [address] COMPLETE AUTO&AUTO DIFRNTL WBC RADIOLOGI 91864 [facility] JERONIMO, C EXAM 8 HOSP MED JR., CHEST 2 CTR BRISA J VIEWS FRONTAL&L ATERAL IAADIADOO 51722 MOTT [place]UL[place], [address] [place] [address] ERILLY K STREPT[facility] PED[facility]AT[facility]IC CCUS GROUP A GONADOTRO 63104 MOTT OTREMBIAK PIN SUSIE BARRERA CHORIONIC PEDIATRIC QUALITATI VE RADEX 49235 [facility] ABDOMEN [address] [place] [address] ANTEROPOS C TERIOR VIEW Encounters Encounter Start End Date Code Location Performer Type Date OFFICE 40517 [facility] OUTPATIEN 7 7 CARE T VISIT ASSOCIATE 25 S MINUTES OFFICE 59454 [facility] OUTPATIEN 6 6 CARE T VISIT ASSOCIATE 15 S MINUTES OFFICE 02004 [facility] OUTPATI[facility] 6 6 PHYSICIAN T VISIT S GROUP 25 MINUTES OFFICE 33104 [facility] OUTPATI[facility] 6 6 PHYSICIAN JESUSITA T VISIT S GROUP 15 MINUTES [facility]IENT [facility] 6 6 [facility] OUTPATI[facility] INC T OFFICE 40231 [facility] OUTPATI[facility] 6 6 PHYSICIAN JESUSITA T VISIT S GROUP 15 MINUTES OFFICE 79958 [facility] OUTPATI[facility] 6 6 PHYSICIAN JESUSITA T VISIT S GROUP 10 MINUTES EMERGENCY 07195 MELVIN BONNER 6 6 PHYSICIAN U TAMMY DEPARTMEN S, PLLC T VISIT HIGH/URGE NT SEVERITY [facility] - 6 6 [facility]EN [facility] OFFICE 75109 [facility] OUTPATI[facility] 6 6 PHYSICIAN JESUSITA T VISIT S GROUP 15 MINUTES [facility] 6 6 [facility] OUTPATI[facility] INC T EMERGENCY 14673 [facility] 6 6 EMERGENCY DEPARTMEN T VISIT PHYSICIAN MODERATE S SEVERITY OFFICE 56911 [facility] OUTPATIEN 6 6 [facility] ER MAT T NEW 30 ORTHOPAED MINUTES [facility] EMERGENCY 40017 [facility] RYA 6 6 EMERGENCY DEPARTMEN T VISIT PHYSICIAN HIGH/URGE S NT SEVERITY OFFICE 03299 [facility] OUTPATI[facility] 6 6 PHYSICIAN EJSUSITA T VISIT S GROUP 15 MINUTES OFFICE 98154 FAMILY REY OUTPATIEN 6 6 CARE JITENDRA T VISIT ASSOCIATE 25 S MINUTES PERIODIC 57555 FAMILY REY PREVENTIV 6 6 CARE JITENDRA E MED EST ASSOCIATE PATIENT S 18-39 YRS [facility] - 6 6 [facility] OUTPATI[facility] INC T OFFICE 82459 [facility] 6 6 VINCE MC T VISIT 15 MINUTES [facility] - 6 6 [facility] OUTPATIEN INC T EMERGENCY 80629 [facility] 6 6 [facility] DEPARTMEN INC T VISIT LOW/MODER SEVERITY [facility] - 6 6 [facility] OUTPATIEN INC T EMERGENCY 57933 MELVIN BONNER 6 6 PHYSICIAN U TAMMY DEPARTMEN S, PLLC T VISIT MODERATE SEVERITY EMERGENCY 17241 [facility] GANIM JITENDRA 6 6 EMERGENCY DEPARTMEN T VISIT PHYSICIAN HIGH/URGE S NT SEVERITY OFFICE 88346 [facility] OUTPATIEN 6 6 PHYSICIAN JESUSITA T VISIT S GROUP 15 MINUTES [facility] 6 6 [facility] OUTPATI[facility] INC T OFFICE 26155 [facility] 6 6 VINCE MC T VISIT 25 MINUTES [facility] T OFFICE 78018 [facility] 6 6 VINCE PALMA JESUSITA T VISIT 25 MINUTES OFFICE 21213 [facility]OWDY OUTPATIEN 6 6 CARE CRI T VISIT ASSOCIATE 15 S MINUTES OFFICE 88648 [facility] Y OF M LAR T [address] MINUTES [facility] EMERGENCY 74496 [facility] 5 5 EMERGENCY RONEN DEPARTMEN T VISIT PHYSICIAN HIGH/URGE S NT SEVERITY [facility] T OFFICE 71099 [facility] OUT[facility] 5 5 N CO N CO T VISIT 5 [facility] OFFICE 48376 [facility] OUTPATIEN 5 5 N [place] N [place] T VISIT [address] MINUTES OFFICE 58199 [facility] OUTPATIEN 5 5 CARE RIT T VISIT ASSOCIATE 15 S MINUTES EMERGENCY 57012 [facility] 5 5 EMERGENCY MAR VISIT HIGH PHYSICIAN SEVERITY& S THREAT [facility] - 5 5 [facility] 5 [facility] 5 5 [facility] T OFFICE 90478 [facility] GABYSTAD OUTPATIEN 5 5 PHYSICIAN CAM T NEW 30 S GROUP MINUTES [facility] - 5 5 [facility] EMERGENCY 75875 [facility] 5 5 [facility] T VISIT P LOW/MODER SEVERITY EMERGENCY 51678 [facility] 5 5 [facility] T VISIT MODERATE SEVERITY OFFICE 97203 [facility] OUTPATIEN 5 5 CARE RIT T VISIT ASSOCIATE 15 S MINUTES EMERGENCY 74408 [facility] 5 5 EMERGENCY [facility] T VISIT PHYSICIAN HIGH/URGE S NT SEVERITY EMERGENCY 48316 [facility] DEPT 5 5 EMERGENCY [facility]W VISIT HIGH PHYSICIAN SEVERITY& S THREAT [facility] OFFICE 34648 [facility] OUTPATIEN 5 5 CARE RIT T VISIT ASSOCIATE 15 S MINUTES OFFICE 06896 [facility] OUTPATIEN 5 5 CARE RIT T VISIT ASSOCIATE 15 S MINUTES [facility] - 5 5 [facility] T INITIAL 07949 [facility] 4 4 VINCE Banegas [facility] NEW PT AGE [id number] [facility] - 4 4 [facility] INC T OFFICE 65553 [facility] OUTPATIEN 4 4 CARE RIT T VISIT ASSOCIATE 25 S MINUTES EMERGENCY 41742 [facility] 4 4 ILANA MUNOZ DEPARTMEN MED CTR T VISIT HIGH/URGE NT SEVERITY OFFICE 66891 [facility] OUTPATIEN 4 4 CARE R H T VISIT ASSOCIATE 15 S MIN[address] EMERGENCY [address] [facility]/URGE NT SEVERITY OFFICE 51252 [facility] 4 4 SWAPNA SWAPNA T VISIT 10 MINUTES OFFICE 20585 [facility] 4 4 SWAPNA SWAPNA T VISIT 15 MINUTES OFFICE 50762 [facility] OUTPATIEN 4 4 CARE T VISIT ASSOCIATE 15 S MINUTES OFFICE 12107 [facility] OUT[facility] 4 4 LES LES T VISIT 25 MINUTES OFFICE 63338 [facility] OUTPATIEN 4 4 RIT RIT T VISIT [address] - 4 4 [facility] OUTPATIEN [facility] T [facility] AND [employer]EVER[employer] DIRECTOR ST OFFICE 78670 [facility] 4 4 LES LES T VISIT [address] - 4 4 [facility] OUTPATIEN [facility] T [facility] AND BEVER[facility] DIRECTOR ST OFFICE 20168 [facility] OUTPATIEN 4 4 RIT RIT T VISIT 15 MINUTES EMERGENCY 26968 CARLO MATOS 4 4 MAR MAR DEPARTMEN T VISIT MODERATE SEVERITY OFFICE 64746 REY LE J OUTPATIEN 4 4 G G T VISIT 15 MINUTES OFFICE 51444 [facility] OUTPATI[facility] 4 4 LES LES T VISIT 25 MINUTES OFFICE 21524 [facility] OUT[facility] 3 3 T VISIT 15 MINUTES OFFICE 03219 [facility] OUTPATIEN 3 3 CARE R H T VISIT ASSOCIATE 15 S MINUTES OFFICE 21297 [facility] OUTPATIEN 3 3 ZACK ZACK T NEW 30 MINUTES OFFICE 98733 [facility] OUTPATIEN 3 3 CARE R H T VISIT ASSOCIATE 15 S MINUTES OFFICE 75889 [facility] OUTPATIEN 3 3 CARE R H T VISIT ASSOCIATE [address] [facility] [address] [facility] OUTPATIEN 3 3 ILANA T VISIT 5 [facility] - 3 3 [facility] INPATIENT MED CTR [facility]EVER[facility] DIRECTOR OFFICE 19840 ST OUTPATIEN 3 3 ILANA T VISIT MED CTR 40 FOOD AND BEVERAGE DIRECTOR [facility] - 3 3 [facility] ST - 3 3 [facility] 41834 MELODY MELODY OUTPATIEN 3 3 CEDRIC CEDRIC T VISIT 15 MINUTES OFFICE 19331 GRAVES GRAVES CONSULTAT 3 3 LES LES ION NEW/ESTAB PATIENT 40 MIN [facility] ST - 3 3 [facility] T CENTER OFFICE 54976 ST OUTPATIEN 3 3 ILANA T VISIT MEDICAL [address] [facility] - 3 3 [facility] 54939 CHONG RONEN CHONG RONEN OUTPATIEN 3 3 T VISIT 15 MINUTES OFFICE 19052 HEMANT II HEMANT II OUTPATIEN 3 3 [place] VISIT [address]ES [address] OUTPATIEN 3 3 ILANA T VISIT MEDICAL 40 [facility] - 3 3 [facility] 28132 HEMANT II HEMANT II OUTPATIEN 3 3 [place] VISIT [address] - 3 3 [facility] 39717 [facility] 3 R H R H T VISIT [address] - 3 3 [facility] 38916 [facility] CONS[facility]AT 3 3 AND AND ION NEW/ESTAB PATIENT 15 MIN OFFICE 34710 HEMANT II HEMANT II OUTPATIEN 3 3 [place] VISIT [address] - 3 3 [facility] OFFICE 53765 [facility] 3 T VISIT [address] - 3 3 [facility] 3 3 [facility] - 3 3 [facility] 48625 MULBERRY [facility]Y [facility] 3 3 LEIF LEIF T VISIT [address] - 3 3 [facility] OFF[facility] [address] [facility] 3 3 ILANA T VISIT 15 PHYSICIAN MINUTES S OFFICE 14523 [facility] ILANA T NEW 45 MINUTES PHYSICIAN S [facility] - 3 3 [facility] 81169 ALCON ALCON OUTPATIEN 3 3 R H R H T VISIT 15 MINUTES OFFICE 00168 [facility]CON [facility]CON OUTPATIEN 3 3 R H R H T VISIT 15 MINUTES OFFICE 48201 P[place] PENDELETO OUTPATIEN 3 3 N CO N CO T [facility] 10 CENTER CENTER MINUTES OFFICE 18472 [facility] 0 0 CHIROPRAC NELSON P T VISIT TIC 15 CENTER MINUTES PERIODIC 82400 [place], PREVENTIV 9 9 GUSTINE REILLY Bellamy E MED EST PEDIATRIC PATIENT 18-[address] 9 9 [facility] OFFICE 34248 [facility] 9 9 SUSIE BARRERA VISIT PEDIATRIC 25 MINUTES HOSPITAL [place] [address] 9 [facility] PERIODIC 17920 [facility] PREVENTIV 9 9 SUSIE BARRERA MED EST PEDIATRIC PATIENT 18-[address] [facility] 9 9 [facility] CHILDREN - 9 9 [facility] OFFICE 14862 [facility] 9 HOSPITAL T NEW 20 MINUTES PERIODIC 75784 [facility] PREVENTIV 9 9 SUSIE BARRERA E MED EST PEDIATRIC PATIENT 18-39 YRS PERIODIC 28215 [facility] PREVENTIV 9 9 SUSIE BARRERA E MED EST PEDIATRIC PATIENT 18-39 YRS OFFICE 12315 [facility] 9 9 CHIROPRAC NELSON P T NEW 30 TIC MINUTES [facility] 9 [facility] OFFICE 77353 [facility] 9 [facility] CTR 15 MINUTES [facility] [place] [address] 9 [facility] EMERGENC[facility] [address] VISIT HIGH/URGE NT SEVERITY [facility] [place] [address] 9 [facility] PERIODIC 57633 [place], PREVENTIV 9 9 GUSTINE REILLY K E MED EST PEDIATRIC PATIENT 12-17YRS PERIODIC 49754 [facility] PRE[facility]IV 9 9 SUSIE BARRERA E MED EST PEDIATRIC PATIENT 12-17YRS PERIODIC 77821 [place], PREVENTIV 9 9 GUSTINE REILLY K E MED EST PEDIATRIC PATIENT 12-17YRS OFFICE 66106 [facility]ANG, CONSULTAT 9 9 NECK NOREEN Juan ION SURGERY NEW/ESTAB ASSOC PATIENT 60 MIN PERIODIC 58462 [place], PREVENTIV 9 9 GUSTINE REILLY K E MED EST PEDIATRIC PATIENT 12-17YRS EMERGENCY [address] [place] [address] 8 [facility] VISIT MODERATE SEVERITY [facility] [place] [address] 8 [facility] OFFICE [address] VISIT 10 PHYSICIAN MINUTES S FOR WOMEN PERIODIC 67643 [facility] PRE[facility] 8 8 SUSIE BARRERA E MED EST PEDIATRIC PATIENT 12-17YRS PERIODIC 15448 [facility] 8 8 SUSIE BARRERA E MED EST PEDIATRIC PATIENT 12-17YRS PERIODIC 38790 [place], PREVENTIV 8 8 GUSTINE REILLY K E MED EST PEDIATRIC PATIENT 12-17YRS OFFICE 08915 [facility] 8 8 [facility] VISIT 15 PHYSICIAN MINUTES [facility] 8 8 [facility] PERIODIC 68881 [facility] 8 8 GUSTINE SUSIE E MED EST PEDIATRIC PATIENT 12-17YRS OFFICE 33665 [facility] 8 8 [facility] VISIT 15 PHYSICIAN MINUTES S FOR WOMEN PERIODIC 47622 [place], PREVENTIV 8 8 GUSTINE REILLY K E MED EST PEDIATRIC PATIENT 12[facility]17YRS [facility] OFFICE 45820 [facility] 8 8 SUSIE BARRERA VISIT PEDIATRIC 15 MINUTES PERIODIC 63808 [facility] 8 8 GUSTINE SUSIE E MED EST PEDIATRIC PATIENT 12-17YRS PERIODIC 24959 [place], PREVENTIV 8 8 GUSTINE REILLY Bellamy E MED EST PEDIATRIC PATIENT 12-17YRS PERIODIC 37744 [place], PREVENTIV 8 8 GUSTINE REILLY K E MED EST PEDIATRIC PATIENT 12-17YRS OFFICE 90035 [facility] 8 8 SUSIE BARRERA VISIT PEDIATRIC 15 MINUTES PERIODIC 20608 [facility] 8 8 SUSIE BARRERA E MED EST PEDIATRIC PATIENT 12-17YRS OFFICE 23745 [facility] [address] [place] [address] VISIT MEDICAL 15 C MINUTES
--- OUTSIDE RECORDS SUMMARY | 2016-10-03 12:05 | External Medical Summary Rpt ---
Author Author , Organization [employer] Address Unknown Phone Unavailable Care Team Providers Care Applications Project Manager Name Role Phone [employer] Unavailable Unavailable [...] Unavailable Unavailable CARE, [facility], Unavailable Unavailable [facility] Unavailable Unavailable MEDICAL C, [facility] Unavailable [facility]available [facility] Unavailable [...] Unavailable Unavailable COLON LAR [id number], Unavailable Unavailable [id number], Unavailable Unavailable [facility] [...] Unavailable HARPEL JESUSITA, HARPEL Unavailable Unavailable JESUSITA [facility] Unavailable Unavailable INC, [facility] Unavailable Unavailable HOSPITAL P, [facility] CHENCHO, NELSON P, Unavailable Unavailable CHENCHO, NELSON P ARANA AND, ARANA Unavailable Unavailable AND [facility], Unavailable Unavailable [facility] LACHELLE WILL R, Unavailable Unavailable LACHELLE WILL R BRENDA DUMONT JONES, Unavailable Unavailable BRENDA KEAGLE RIT, KEAGLE Unavailable Unavailable RIT KEAGLE RIT, KEAGLE Unavailable Unavailable RIT MONICA SHAVER, Unavailable Unavailable SIVAKUMAR, MONICA H [facility] Unavailable Unavailable IM[facility]ING [facility], [facility] FRAN PINEDA, Unavailable Unavailable FRAN PINEDA KLANKE JUS, KLANKE Unavailable Unavailable JUS CHONG RONEN, CHONG RONEN Unavailable Unavailable CHONG RONEN, CHONG RONEN Unavailable Unavailable ADRIEL TUS, ADRIEL Unavailable Unavailable TUS THANG, NOREEN J, THANG, Unavailable Unavailable NOREEN J [facility] Un[facility], [facility] Unavailable Unavailable HOLDINGS, [facility] [email or web address] [facility], Unavailable Unavailable [facility] [email or web address] LAMEIER DILIA, LAMEIER Unavailable Unavailable DILIA LAMEIER DILIA, LAMEIER Unavailable Unavailable DILIA LUBBERS JASS, LUBBERS Unavailable Unavailable JASS LUKING SWAPNA, LUKING Unavailable Unavailable SWAPNA LUKING SWAPNA, LUKING Unavailable Unavailable SWAPNA BERNARDINO ERIC, Unavailable Unavailable BENRARDINO ERIC MASROOR ALA, MASROOR Unavailable Unavailable ALA [...] R H, Unavailable Unavailable ALCON R H [facility] Unavailable Unavailable INC, [facility] RANDALLIA KAILASH Unavailable Unavailable [facility], [facility]AND[facility] KAILASH [facility] OSTERHAGE CESAR, Unavailable Unavailable [facility] [...] [facility] Unavailable Unavailable [facility], [facility] RATTAN AMI, RATTAN Unavailable Unavailable AMI NERI [...] TAMMY ALLIE SHE, Unavailable Unavailable ALLIE SHE [facility], Unavailable Unavailable [facility] Unavailable Unavailable VISUAL DESIGNER , [facility] Unavailable Unavailable HURST, [facility] Un[facility] Unavailable [facility]available PHYSICIANS, [facility] Unavailable Unavailable [facility] Unavailable Unavailable LANE, [facility] TAD CHACKO Unavailable Unavailable MARKO BASHIR ALEXIS, BASHIR ALEXIS Unavailable Unavailable [facility] Un[facility] Unavailable , [facility], [facility] Unavailable Unavailable [facility] Unavailable [place], [facility] VON HOENE AMA, VON Unavailable Unavailable [facility] [id number], Unavailable Unavailable [facility] # [id number] [id number], Unavailable Unavailable [id number], Unavailable Unavailable [id number] WALKER III DUTCH, Unavailable Unavailable WALK[facility] III DUTCH [facility], [facility] SE[facility] Unavailable Unavailable MERON ALEXIS, MERON ALEXIS Unavailable Unavailable DENNY, DENNY Unavailable Unavailable Purpose Continuity of Care Document - 10-13-2006 through 2016 Problems Code Diagnosis DOS Provider Status J069 ACUTE UPPER 08-18-2016 [facility] RESPIRATORY INFECTION UNSPECIFIED L259 UNSPECIFIED 08-18-2016 [facility]TACT [facility] DERMATITIS UNSPECIFIED CAUSE S60431 PAIN IN 08-18-2016 [facility] RIGHT LEG [facility] R81965 PAIN IN 08-18-2016 [facility] LEFT [facility]G [facility] N946 DYSMENORRHE 08-18-2016 [facility] A [facility] UNSPECIFIED R300 DYSURIA 08-18-2016 [facility] [id number] CORROSION 08-18-2016 [facility] 1ST DEGREE ASSOCIATES RT UPPER ARM INITIAL ENC J40 BRONCHITIS 04-01-2016 [facility] NOT [facility]OCIATES SPECIFIED ACUTE OR CHRONIC R05 COUGH 04-01-2016 [facility] R102 PELVIC AND 03-25-2016 [facility] PERINEAL PHYSICIANS PAIN GROUP N390 URINARY 03-21-2016 [facility] TRACT PHYSICIANS INFECTION GROUP SITE NOT SPECIFIED V12692 UNSPECIFIED 03-15-2016 [facility] OVARIAN PHYSICIANS CYST RIGHT GROUP SIDE Y55043 TORSION OF 03-15-2016 [facility] RIGHT OVARY PHYSICIANS AND GROUP OVARIAN PEDICLE N761 SUBACUTE 03-08-2016 [facility] AND CHRONIC PHYSICIANS VAGINITIS GROUP U16762 ENCOUNTER 03-08-2016 [facility] OTHER [facility] PREPROCEDUR INC AL EXAMINATION R1031 RIGHT LOWER 02-18-2016 [facility] Z720 TOBACCO USE 02-18-2016 [facility] INC N9489 OTH COND 02-16-2016 [facility] ASSOC W/FE PHYSICIANS GEN ORGN & GROUP MENSTRUAL CYCL Z309 ENCOUNTER 02-16-2016 [facility] FOR PHYSICIANS CONTRACEPTI GROUP VE MANAGEMENT UNS I29157 PAIN IN 01-12-2016 [facility] RIGHT ELBOW [facility] [id number] UNSPECIFIED 12-21-2015 [facility] WOUND [facility]ERGENCY RT FOREARM PHYSICIANS INITIAL ENC [id number] OTHER 11-05-2015 [facility] SPR[facility] OF H RIGHT HIP [facility]TH[facility]EDIC INITIAL CTR ENCOUNTER [id number] SPRAIN 11-05-2015 [facility] OTHER SPEC H PARTS RIGHT ORTHOPAEDIC KNEE CTR INITIAL ENC H84340 EFFUSION 10-24-2015 [facility] RIGHT KNEE ASSOCIATES OF NOT R73983 PAIN IN 10-24-2015 [facility] RIGHT KNEE ASSOCIATES OF [facility] [id number] SPRAIN 10-24-2015 [facility] UNSPECIFIED TECHNOLOGIE SITE RT S INC KNEE INITIAL ENCNTR T1490 INJURY 10-24-2015 [facility] UNSPECIFIED ASSOCIATES OF NOT K529 NONINFECTIV 10-06-2015 [facility] E PHYSICIANS GASTROENTER GROUP ITIS & COLITIS UNS C50338 UNS ACUTE 09-18-2015 [facility] NONINFECTIV ASSOCIATES E OTITIS EXTERNA LEFT EAR H6692 OTITIS 09-18-2015 [facility] MEDIA [facility] UNSPECIFIED LEFT EAR M545 LOW BACK 09-18-2015 [facility] PAIN [facility] E57805 PAIN IN 09-18-2015 [facility] FOOT [facility] Z26392 PAIN IN 09-18-2015 [facility] LEFT FOOT ASSOCIATES Z8739 PERSONAL HX 09-18-2015 [facility] OTH DZ ASSOCIATES MUSCULOSKEL SYS&CONNECT V TISS Z021 ENCOUNTER 08-12-2015 [facility] FOR [facility]OCIATES PRE-EMPLOYM ENT EXAMINATION N8320 UNSPECIFIED 07-28-2015 [facility] OVARIAN PHYSICIANS CYSTS GROUP I10 ESSENTIAL 07-17-2015 [facility] HYPERTENSIO INC N N8329 [...] MEDIA ASSOCIATES UNSPECIFIED BILATERAL R51 HEADACHE 03-31-2015 [facility] COLLE R109 UNSPECIFIED 02-05-2015 [facility] ABDOMINAL ASSOCIATES PAIN OF NOTH H5203 HYPERMETROP 01-24-2015 [facility] DILIA IA BILATERAL 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 CORPUS 01-01-2015 [facility] LUTEUM CYST VINCE PALMA OR HEMATOMA 6202 OTHER AND 01-01-2015 [facility] UNSPECIFIED LLC OVARIAN CYST 6205 TORSION 01-01-2015 [facility] OVARIAN INC PEDICLE OR FALLOPIAN TUBE 6238 OTHER 01-01-2015 [facility] SPECIFIED MEDICAL NONINFLAMMA IMAGING ASS TORY DISORDER VAGINA 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 PERITONEUM 76185 VOMITING 09-08-2014 [facility] ALONE ASSOCIATES OF [facility] 61471 ABDOMINAL 09-08-2014 [facility] PAIN, ASSOCIATES UNSPECIFIED OF [facility] SITE 9989 UNSPECIFIED 09-08-2014 [facility] COMPLICATIO PHYSICIANS N OF PROCEDURE NEC 99933 CHOLECYSTIT 09-04-2014 COMMUNITY IS, ANESTH OF UNSPECIFIED THE BLUE 21750 CHRONIC 09-04-2014 [facility], CHOLECYSTIT LLC IS 5758 OTHER 09-04-2014 [facility] SPECIFIED PHYSICIANS DISORDER OF GROUP GALLBLADDER V7283 OTHER 09-02-2014 [facility] SPECIFIED [facility] PRE-OPERATI INC VE EXAMINATION 46260 NAUSEA WITH 08-20-2014 [facility] 89619 ABDOMINAL 08-20-2014 [facility] PA[facility] RIGHT [facility] UPPER INC QUADRANT 7099 UNSPECIFIED 08-05-2014 [facility] DISORDER PHYSICIANS OF GROUP SKIN&SUBCUT ANEOUS TISSUE 15001 NAUSEA 07-29-2014 [place] [facility]ONE [facility] 19896 OPEN WOUND 07-29-2014 [place] WITHOUT IMAGING ASS MENTION COMPLICATIO N 01761 OPEN WOUND 07-29-2014 [facility] P COMPLICATED 8840 MX&UNSPEC 07-29-2014 [facility] OPEN WOUND ASSOCIATES UPPER LIMB W/O MENTION COMP V9081 RETAINED 07-29-2014 [facility] P 33956 SHEFALI 07-24-2014 [facility] MIGRAINE ASSOCIATES NEC W/INTRACT W/STATUS MIGRAINOSUS 7840 HEADACHE 07-19-2014 [facility] 65229 MIGRAINE 07-06-2014 [facility] UNSP W/O EMERGENCY INTRACT W/O PHYSICIANS STATUS MIGRAINOSUS 3688 OTHER 07-06-2014 [facility] SPECIFIED ASSOCIATES VISUAL OF NOT DISTURBANCE S 64800 UNSPECIFIED 06-26-2014 [facility] INFECTIVE [facility]OCIATES OTITIS EXTERNA 4779 ALLERGIC 06-26-2014 [facility] RHINITIS ASSOCIATES CAUSE UNSPECIFIED 21161 PAIN IN 06-17-2014 [facility] JOINT, ASSOCIATES LOWER LEG 47525 CHEST PAIN 05-13-2014 [place] [facility] UNSPECIFIED SERV [...] ASS 7881 DYSURIA 03-26-2014 [facility] 46063 ACUTE 02-22-2014 ST GASTRITIS [facility] WITHOUT MED CTR MENTION OF HEMORRHAGE 66074 ABDOMINAL 02-22-2014 ST PAIN, [facility] EPIGASTRIC MED CTR 7244 THORACIC/SAKINA 02-10-2014 [facility] MBOSACRAL [facility]OCIATES NEURITIS/RA DICULITIS UNSPEC 96284 PAIN IN 02-04-2014 [facility] JOINT ASSOCIATES PELVIC [...] CHONG HARDWICK IN SITU OF CERVIX UTERI 30622 DYSPLASIA 09-19-2013 HUBERT MUNOZ OF CERVIX UNSPECIFIED 45501 PAP SMER 09-02-2013 [facility] HARDWICK CERV W/HI GRADE SQUAMOUS INTRAEPITH LES V643 PROCEDURE 09-02-2013 ST NOT CARRIED [facility] OUT FOR MED CTR VISUAL DESIGNER OTHER ST REASONS 6953 ROSACEA 08-27-2013 [facility] 6989 UNSPECIFIED 08-27-2013 [facility] PRURITIC DISORDER 4618 OTHER ACUTE 06-16-2013 GRE[facility] MAR SINUSITIS 6250 DYSPAREUNIA 05-16-2013 ROSS CATHY 6253 DYSMENORRHE 05-16-2013 ROSS CATHY A 54226 UNSPEC 05-16-2013 [facility] HARDWICK CONGN ANOMALY CERV VAGINA&EXT FE GENIT V1329 PERSONAL HX 05-16-2013 CHONG HARDWICK OT GENITAL SYSTEM&OBST ETRIC D/O 0780 MOLLUSCUM 05-02-2013 SCALF LEI CONTAGIOSUM 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 7282 MUSCULAR 03-12-2013 ALEX[facility] WASTING AND ZACK DISUSE ATROPHY NEC 8471 THORACIC 03-12-2013 ALEX[facility]U SPRAIN AND ZACK STRAIN V242 ROUTINE 01-20-2013 [facility] FOLLOW-UP [facility] 31929 TRANSIENT 01-16-2013 ST HYPERTENSIO [facility] N OF PHYSICIANS ANTEPARTUM 650 NORMAL 01-16-2013 DELIV[facility] PHYSICIANS 2859 UNSPECIFIED 01-15-2013 ST ANEMIA [facility] MED CTR VISUAL [place]ER ST 48951 TRANSIENT 01-15-2013 ST HYPERTENSIO [facility] N OF MED CTR VISUAL DESIGNER ST W/DELIVERY 77570 MATERNAL 01-15-2013 ST ANEMIA, [facility] WITH MED CTR VISUAL DESIGNER [place] [address] [address] OT CURRENT 01-15-2013 ST MATERNAL [facility] CCE MED CTR VISUAL DESIGNER W/DELIVERY ST V270 OUTCOME OF 01-15-2013 [facility] SINGLE MED CTR VISUAL DESIGNER [place] [address] 71936 UNS 01-10-2013 [facility] ABNORM MGMT MATERNAL MOTH AND ANTPRTM COND/COMP V239 UNSPECIFIED 01-10-2013 [facility] HIGH-RISK MATERNAL AND 61110 OTHER 01-07-2013 THREATENED [facility] LABOR PHYSICIANS UNSPEC EPISODE CARE 70870 OTHER 01-07-2013 SPECIFED [facility] COMPLICATIO MED CTR VISUAL DESIGNER N ST ANTEPARTUM 7962 ELEVATED BP 01-07-2013 ST READING [facility] WITHOUT DX MED CTR VISUAL DESIGNER HYPERTENSIO ST N V1582 PERS HX 01-07-2013 TOBACCO USE [facility] PRESENTING MED CTR VISUAL DESIGNER HAZARDS ST [facility] V169 FAMILY 01-07-2013 HISTORY OF [facility] UNSPECIFIED MED CTR VISUAL DESIGNER MALIGNANT ST NEOPLASM V220 SUPERVISION 12-31-2012 OF NORMAL [facility] 6984 DERMATITIS 12-28-2012 [facility] FACTITIA 7019 UNSPECIFIED 12-28-2012 [facility] HYPERTROPHI C&ATROPHIC CONDITION SKIN V6540 COUNSELING 12-28-2012 [facility] NOS 80022 THREATENED 12-24-2012 PREMATURE [facility] LABOR [facility] ANTEPARTUM CENTER 22240 SWELLING OF 12-24-2012 [facility] 7820 DISTURBANCE 12-24-2012 OF SKIN [facility] 79954 OT CURRENT 12-19-2012 PADMAJA MANCILLA CONDSalvador CLASSIFIABL E ELSW ANTPRTM 75872 OT 12-19-2012 KNOWN/SUSPE [facility] CTED MEDICAL ABNORMALITY CENTER -NEC-APC/C V283 ENCOUNTER 12-19-2012 ROUTINE [facility] SCREEN MEDICAL MALFORMATIO CENTER N ULTRASONIC 27277 DECR 12-15-2012 MOVMNTS [facility] MGMT MOTH MEDICAL ANTPRTM CENTER COND/COMP 68519 DECREASED 12-13-2012 [facility] RONEN MOVEMENTS UNSPEC EPISODE CARE 6235 LEUKORRHEA 11-09-2012 NOT [facility] SPECIFIED MEDICAL CENTER INFECTIVE 14788 POLYDACTYLY 11-02-2012 ST. , [facility] UNSPECIFIED LANE DIGITS 50720 PAP SMER 11-02-2012 ST. CERV W/LW [facility] GRADE LANE SQUAMOUS INTRAEPITH LES 27729 LIVER 11-02-2012 ST. INJURY W/O [facility] MENTION OPN LANE WND IN CAV UNS LAC 6929 CONTACT 10-29-2012 [facility] DERMATITIS& H OTHER ECZEMA DUE UNSPEC CAUSE V222 10-29-2012 [facility] STATE, H INCIDENTAL 73228 OTHER 10-17-2012 SPECIFIED [facility] DISORDER OF MEDICAL KIDNEY AND CENTER URETER V141 PERSONAL 09-23-2012 ST HISTORY [facility] ALLERGY MEDICAL OTHER CENTER ANTIBIOTIC AGENT 01492 HORDEOLUM 08-24-2012 [facility] EXTERNUM LEIF 9953 ALLERGY 08-24-2012 [facility] UNSPECIFIED LEIF NOT ELSEWHERE CLASSIFIED V7242 06-12-2012 [facility] EXAMINATION [facility] OR TEST CENTER POSITIVE RESULT 97823 SPASM OF 06-11-2009 [facility] 60730 ABDOMINAL 03-25-2009 [facility] OTHER HOSPITAL SPECIFIED EAST SITE 18026 POST-TRAUMA 01-19-2009 [facility] MED HEADACHE CTR UNSPECIFIED 49493 CONCUSSION 01-19-2009 [facility] WITH LOC OF HOSP MED 30 MINUTES CTR OR LESS 82952 INJURY OF 01-09-2009 [facility] FACE AND PEDIATRIC NECK OTHER AND UNSPECIFIED V0481 NEED 01-09-2009 [facility] PROPHYLACTI PEDIATRIC C VACCINATION &INOCULATIO N FLU V6759 OTHER 01-09-2009 [facility] FOLLOW-UP PEDIATRIC EXAMINATION OTHER 63046 OTHER CHEST 12-20-2008 [facility] 9598 INJURY 12-20-2008 [facility] OTH&UNSPEC ASSOCIATES OTH SPEC PSC SITES INCL MULTIPLE 9599 INJURY 12-20-2008 [facility] OTHER AND ASSOCIATES UNSPECIFIED PSC UNSPECIFIED SITE 47814 GENERALIZED 11-26-2008 [facility] [place] ANXIETY MH MR BD DISORDER INC 7231 CERVICALGIA 11-13-2008 [facility] V2541 SURVEILLANC 10-16-2008 ST E PREV [facility] PRESCRIBED MED CTR CONTRACEPT PILL V762 SCREENING 10-16-2008 ST FOR [facility] MALIGNANT MEDICALCENT NEOPLASM OF ER THE CERVIX 486 PNEUMONIA, 08-22-2008 [facility] ORGANISM PEDIATRIC UNSPECIFIED 7862 COUGH 08-22-2008 [facility] PSC 21100 CHRONIC 05-06-2008 INDEPENDENT TONSILLITIS ANESTHESIOL OGIST 89162 HYPERTROPHY 05-06-2008 HEAD & NECK OF TONSIL SURGERY WITH ASSOC ADENOIDS 32355 CLOSED 05-01-2008 [facility] FRACTURE H DISTAL [facility]THOPAEDIC PHALANX OR CTR PSC PHALANGES HAND 462 ACUTE 04-22-2008 [facility] PHARYNGITIS PEDIATRIC 463 ACUTE 04-22-2008 [facility] TONSILLITIS PEDIATRIC 05731 CLOSED 04-07-2008 [facility] FRACTURE ASSOCIATES UNSPEC PSC PHALANX/PHA LANGES HAND 30367 MODERATE 03-20-2008 [facility] FOR WOMEN 85489 PAP SMER 03-20-2008 [facility] INC W/ATYPICAL SQUAMOUS CELLS UNDET 01705 ABNORMAL 12-28-2007 [facility] U SMEAR OF FOR WOMEN CERVIX 0340 STREPTOCOCC 12-21-2007 [facility] AL SORE PEDIATRIC THROAT 01173 INSOMNIA 11-08-2007 [facility] UNSPECIFIED PEDIATRIC 7806 FEVER & OTH 08-17-2007 [facility] PEDIATRIC PHYSIOLOGIC DISTURBANCE S TEMP REG 2893 LYMPHADENIT 07-19-2007 [facility] IS PEDIATRIC UNSPECIFIED EXCEPT MESENTERIC 4871 INFLUENZA 07-06-2007 [facility] WITH OTHER PEDIATRIC RESPIRATORY MANIFESTATI ONS 14272 UNSPECIFIED 06-15-2007 [facility] VAGINITIS PEDIATRIC AND VULVOVAGINI TIS 0091 COLITIS 04-26-2007 [facility] ENTERIT&GAS PEDIATRIC TROENTERIT INF ORIGIN 80098 URINARY 10-13-2006 [facility] C Medications Na ND Rx [...] AR MA TA CY BL ET #5 SD 00 05 06 45 30 00 TO [...] ZO MA YL CY GE #5 L SD 00 04 05 45 30 00 TO [...] MA CY 75 #5 MG TA B SD 00 03 04 45 30 00 TO [...] MA CY 75 #5 MG TA B SD 00 02 03 45 30 00 TO [...] AR MA TA CY BL ET #5 SD 00 12 01 24 12 00 TO [...] 15 6- 0- 00 00 L ve SD 02 20 20 93 CA ED 20 [...] 1 60 PH CE AR TA MA RI CY NO PH #5 91 7. 5- 32 5 SD 00 12 01 10 3 00 TO [...] AR MA TA CY BL ET #5 SD 00 12 01 45 30 00 TO OP 37 -0 -1 .0 00 TA ti RA 80 8- 3- 00 00 L ve NO 18 20 20 92 CA LO 40 16 17 84 RE L 1 98 40 PH AR MG MA CY TA BL #5 ET HY 00 12 01 [address] [facility] [address] 40 -0 -0 .0 00 L- ti OC 60 1- 9- 00 02 MA ve OD 12 20 20 23 RT ON 40 16 17 81 -A 1 06 PH CE AR TA MA RI CY NO PH #5 91 7. 5- 32 5 NI 47 12 01 20 10 00 [facility] TR 78 -0 -0 .0 00 [...] 00 1. 1 WA 11 OT Ac SD 25 -0 -1 00 LG 34 RE [...] MG #5 43 TA 7 BL ET SD 00 08 08 00 20 3 WA [...] MG #5 43 TA 7 BL ET SD 00 07 07 00 15 5 CV [...] MG #5 43 TA 7 BL ET SD 00 07 00 12 3 CV 49 [...] 0 43 MG 7 TA BL ET SD 00 05 05 00 10 3 CV [...] MG #5 43 TA 7 BL ET SD 00 03 03 00 21 7 CV [...] 9- 2- 00 PH 73 Av ve SD 01 20 20 AR ai AM 00 [...] 0 43 MG 7 TA BL ET SD 45 01 02 00 8. 2 CV 48 RI Ac OM 80 -2 -1 00 S [...] 9- 0- 00 PH 73 Av ve SD 01 20 20 AR ai AM 00 09 09 MA la 5 CY bl HB e R #5 20 43 7 MG TA BL ET SD 45 01 01 00 4. 2 CV [...] 7- 1- 00 PH 93 Av ve SD 01 20 20 AR ai AM 00 [...] 7- 4- 00 PH 93 Av ve SD 01 20 20 AR ai AM 00 [...] 0- 7- 00 PH 09 Av ve SD 01 20 20 AR ai AM 10 [...] MG 43 /5 7 ML PAUL SP SD 37 08 05 03 28 28 CV [...] 00 10 5 CV 45 No Ac RI 00 -2 -1 .0 S 23 t [...] 4 CY bl e #5 43 7 SD 50 04 04 00 90 18 CV [...] 4 CY bl e #5 43 7 SD 37 08 03 02 28 28 CV [...] 4 CY bl e #5 43 7 SD 50 01 03 00 12 6 CV [...] 5 PH bl AR e MA CY SD 10 01 03 00 8. 3 PH 63 No Ac OM 70 -0 -2 00 AR 52 t ti ET 20 7- 4- 0 MC 04 Av ve NIETO 00 20 20 AR ai ZI 31 08 08 E la NE 0 PH bl AR e 25 MA CY MG TA BL ET Procedures Procedure DOS Code Location Performer Comment URNLS DIP 03014 FAMILY DENNY 7 CARE STICK/TAB ASSOCIATE LET RGNT S NON-AUTO W/O MICRSCP BLOOD 60360 FAMILY FAMILY COUNT 7 CARE CARE COMPLETE ASSOCIATE ASSOCIATE AUTO&AUTO S S DIFRNTL WBC BLOOD 90512 FAMILY REY COUNT 6 CARE COMPLETE ASSOCIATE AUTO&AUTO S DIFRNTL WBC COLLECTIO 46562 FAMILY REY N 6 CARE CAPILLARY ASSOCIATE BLOOD S SPECIMEN URINLS 80551 [facility] DIP 6 PHYSICIAN STICK/TAB S GROUP LET REAGNT NON-AUTO MICRSCPY URINLS 09387 [facility] DIP 6 PHYSICIAN JESUSITA STICK/TAB S GROUP LET REAGNT NON-AUTO MICRSCPY ANESTHESI 53193 [facility] 6 ANESTH INTRAPERI OF THE TONEAL BLUE LOWER ABD W/LAPS NOS REPOSITIO [id number] [facility] N RIGHT 6 [facility]OS[facility] OVARY INC INC OPEN REPAIR [id number] [facility] RIGHT 6 [facility] OVARY INC INC OPEN OVARIAN 14903 [facility] CYSTECTOM 6 PHYSICIAN Y UNI/BI S GROUP COLLECTIO 18457 [facility] N VENOUS 6 [facility] BLOOD INC INC VENIPUNCT URE URNLS DIP 21499 [facility] 6 [facility] STICK/TAB INC INC LET REAGENT AUTO MICROSCOP Y GONADOTRO 76543 [facility] PIN 6 [facility] CHORIONIC INC INC QUALITATI VE BLOOD 68143 [facility] COUNT 6 [facility]OS[facility] COMPLETE INC INC AUTO&AUTO DIFRNTL WBC SMR PRIM 61125 [facility] 6 PHYSICIAN JES[place] GROUP NFCT AGT CULTURE 64961 [facility] BACTERIAL 6 [facility] HOS[facility]OS[facility] INC INC QUANTTATI VE COLONY COUNT URINE URNLS DIP 51115 [facility] 6 [facility] STICK/TAB [place] [address] [facility] TRANSVAGI [address] [place] [address] [id number] TRANSVAGI 6 MEDICAL NAL IMAGING [place] MRI ANY 46590 RADIOLOGY PAULETTE SCO JT UPPER 6 EXTREMITY ASSOCIATE W/O S OF NOTH CONTRAST MATRL KNEE L1810 [facility] ORTHOSIS 6 LTH ER MAT ELASTIC ORTHOPAED JOINTS IC CTR PREFAB CUSTOM FIT RADEX HIP 93331 [facility] 6 LTH ER MAT UNILATERA ORTHOPAED L WITH IC CTR PELVIS 2-3 VIEWS CRTCHS E0114 [facility]ED ADVANCED UNDARM 6 TECHNOLOG TECHNOLOG OTH THAN IES INC IES INC WOOD PAIR PAD TIP&HNDGR IP RADIOLOGI 68220 RADIOLOGY RATTAN C EXAM 6 AMI KNEE ASSOCIATE COMPLETE S OF NOTH 4/MORE VIEWS COLLECTIO 78107 FAMILY REY N 6 [facility] CAPILLARY ASSOCIATE BLOOD S SPECIMEN BLOOD 93225 FAMILY REY COUNT 6 [facility] COMPLETE ASSOCIATE AUTO&AUTO S DIFRNTL WBC BLOOD 94187 [facility] COUNT 6 [facility] HEMOGLOBI INC INC N BLOOD 40997 [facility] COUNT 6 [facility] HEMATOCRI INC INC T LAPS SURG 95438 [facility] W/ASPIR 6 [facility] CAVITY/CY INC INC ST SINGLE/MU LTIPLE INJECTION J2405 [facility] 6 [facility] ONDANSETR INC INC ON HCL PER 1 MG COLLECTIO 96588 [facility] N VENOUS 6 [facility] BLOOD INC INC VENIPUNCT URE ANESTHESI 16128 [facility] TAD A 6 ANESTH MARKO INTRAPERI OF THE TONEAL BLUE LOWER ABD W/LAPS NOS INJECTION J2710 [facility] 6 [facility] NEOSTIGMI INC INC NE METHYLSUL FATE UP TO 0.5 MG UNCLASSIF J3490 [facility] IED DRUGS 6 [facility] INC INC COLLECTIO 70191 [facility] N VENOUS 6 [facility] BLOOD INC INC VENIPUNCT URE IMMUNOASS 57344 [facility] AY TUMOR 6 [facility] ANTIGEN INC INC QUANTITAT SARA URNLS DIP 13824 [facility] 6 [facility] STICK/TAB INC INC LET REAGENT AUTO MICROSCOP Y GONADOTRO 76799 [facility] PIN 6 [facility] CHORIONIC INC INC QUALITATI VE BLOOD 49983 [facility] COUNT 6 [facility] COMPLETE INC INC AUTO&AUTO DIFRNTL WBC SMR PRIM 43987 [facility] WET 6 [facility] NFCT AGT URINE 64384 [facility] 6 [facility] TEST INC INC VISUAL COLOR CMPRSN PEREZS URNLS DIP 74066 [facility] 6 [facility] STICK/TAB INC [place] [address] YAJAIRA BORIS TRANSVAGI 6 [place] [address] RADIOLOGY NERI TRANSVAGI 6 [facility] S OF [facility] US PELVIC 75131 RADIOLOGY NERI 6 [facility] NONOBSTET ASSOCIATE OSCAR S OF [facility] [address] [facility] LEAHY TRANSVAGI 6 [facility] NAL INC INC THERAPEUT 52537 [facility] IC 6 VINCE MC PROPHYLAC TIC/DX INJECTION SUBQ/IM INJECTION J2675 [facility] CL[facility]KE 6 VINCE MC PROGESTER ONE [place] 50 [place] [address] ARMOND LEAHY TRANSVAGI 6 [facility] [place] [address] RADIOLOGY LUBBERS ABDOMEN & 5 JASS PELVIS ASSOCIATE W/CONTRAS S OF [facility] T MATERIAL OPHTH 14400 [facility] 5 DILIA DILIA XM&EVAL COMPRE NEW PT 1/> [facility] G0378 ARMOND LEAHY OBSERVATI 5 [facility] ON INC INC SERVICE PER HOUR BLOOD 96193 [facility] LEAH[facility] COUNT 5 [facility] HEMOGLOBI INC INC N BLOOD 34479 [facility] LEAH[facility] COUNT 5 [facility] COMPLETE INC INC AUTO&[place] [address] P&C LABS, [facility]ARD[facility] SURG 5 LLC ERIC PATHOLOGY GROSS&CATHY ROSCOPIC EXAM ANESTHESI 45804 [facility] TAD Phillip 5 ANESTH MARKO INTRAPERI OF THE TONEAL BLUE LOWER ABD W/LAPS NOS COLLECTIO 76247 ARMOND LEAHY N VENOUS 5 [facility] BLOOD INC INC VENIPUNCT URE BLOOD 63004 ARMOND ARMOND COUNT 5 [facility] HEMATOCRI INC INC T LAPAROSCO 46881 ARMOND LEAHY PY W/RMVL 5 [facility] ADNEXAL INC INC [facility] G0378 [facility] LEAHY OBSERVATI 5 [facility] ON INC INC SERVICE PER HOUR HGB 47573 PARISH LUGO R QUANTITAT 5 VINCE CLARKE MD SARA TRANSCUTA NEOUS INJECTION J2710 ARMOND ARMOND 5 [facility] NEOSTIGMI INC INC NE METHYLSUL FATE UP TO 0.5 MG GONADOTRO 11197 AR[facility] LEAHY PIN 5 [facility] [place] [address] AR[facility] LEAHY TRANSVAGI 5 [facility] NAL INC INC SKIN TEST 03045 PENDELETO PENDELETO 5 N CO N [facility] INTRADERM AL RADIOLOGI 93296 RADIOLOGY ROEBKER C EXAM 5 JAM CHEST 2 ASSOCIATE VIEWS S OF [facility] FRONTAL&[place] [address] RADIOLOGY ROEBKER ABDOMEN & 5 JAM PELVIS ASSOCIATE W/CONTRAS S OF [facility] T MATERIAL LAPAROSCO 39910 ARMON[facility] LEAHY PY SURG 5 [facility] CHOLECYST INC INC ECTOMY ANES 15012 [facility] INTRAPERI 5 ANESTH SHE TONEAL OF THE UPPER BLUE ABDOMEN W/LAPS NOS LEVEL III 81729 P&[facility], BERNARDINO SURG 5 [facility] ERIC PATHOLOGY GROSS&CATHY ROSCOPIC EXAM INJECTION J2710 [facility] LEAHY 5 [facility] NEOSTIGMI INC INC NE METHYLSUL FATE UP TO 0.5 MG BASIC 48710 ARMOND LEAHY METABOLIC 5 [facility] PANEL INC INC CALCIUM TOTAL COLLECTIO 28153 AR[facility]D LEAHY N VENOUS 5 [facility] BLOOD INC INC VENIPUNCT URE GONADOTRO 21795 [facility] LEAHY PIN 5 [facility] CHORIONIC INC INC QUALITATI VE BLOOD 82140 [facility] LEAHY COUNT 5 [facility] COMPLETE INC INC AUTO&AUTO DIFRNTL WBC TECHNETIU A9537 [facility] LEAHY M TC-99M 5 [facility] MEBROFENI INC INC N DX UP TO 15 MCI INJECTION J2805 [facility] LE[facility] 5 [facility] SINCALIDE INC INC 5 MICROGRAM S HEPATOBIL 27812 [place] M[place] ALEX[place] SYST 5 MEDICAL IMAG INC IMAGING [place] [address] [place] BEINEKE ABDOMINAL 5 MEDICAL TAMMY REAL IMAGING TIME ASS W/IMAGE LIMITED RADEX 90619 [place] BORIS FOREARM 2 5 MEDICAL MARINA VIEWS IMAGING ASS SMPL 85613 FAMILY REY REPAIR 5 CARE JITENDRA SCALP/NEC ASSOCIATE K/AX/NIRU S T/TRUNK 2.6-7.5CM BLOOD 29801 FAMILY FAMILY COUNT 5 CARE CARE COMPLETE ASSOCIATE ASSOCIATE AUTO&[place] [address] RADIOLOGY [facility] HEAD/BRAI 5 N W/O ASSOCIATE CONTRAST S OF NOTH MATERIAL ECHO 23529 [place] SATISH TTHRC R-T 5 MEDICAL DAWSON 2D SERV W/WOM-MOD FOUNDATIO E COMPL N SPEC&COLR D ETONOGEST J7307 PARIHS CLARKE REL 5 VINCE MC CNTRACPT IMPL SYS INCL IMPL & SPL INSJ 40622 [facility] NON-BIODE 5 VINCE MC GRADABLE DRUG DELIVERY IMPLANT URINE 86519 [facility] CL[facility]KE 5 VINCE MC TEST VISUAL COLOR CMPRSN METHS URINLS 68367 [facility] DIP 4 VINCE MC STICK/TAB LET REAGNT NON-AUTO MICRSCPY IADNA 77474 [facility] HERPES 4 VINCE MC SIMPLX VIRUS DIRECT PROBE TQ REMOVAL 31686 [facility] INTRAUTER 4 VINCE MC INE DEVICE IUD IAADIADOO 21387 [facility] CLARKE MD TRICHOMON VAGINALIS URINE 17890 [facility] CLARKE 4 VINCE PALMA JESUSITA TEST VISUAL COLOR CMPRSN METHS CULTURE 12166 [facility] CLARKE CHLAMYDIA 4 VINCE PALMA JESUSITA ANY SOURCE IADNA 88590 [facility] CLARKE NEISSERIA 4 VINCE [place] [address] [place] TRANSVAGI 4 MEDICAL MARINA NAL IMAGING ASS CHIROPRAC 63909 LUKING LUKING TIC 4 SWAPNA SWAPNA MANIPLTV TX EXTRASPIN AL 1/> REGION RADEX HIP 87150 RADIOLOGY CATIE 4 SWAPNA UNILATERA ASSOCIATE L S OF NOTH COMPLETE MINIMUM 2 VIEWS RADEX 46927 RADIOLOGY ADRIEL SPINE 4 TUS LUMBOSACR ASSOCIATE AL 2/3 S OF NOTH VIEWS CHIROPRAC 09436 LUKING LUKING TIC 4 SWAPNA SWAPNA MANIPULAT [place] SPINAL 3-4 [place] [address] LUKING LUKING 1/> AREAS 4 SWAPNA SWAPNA EACH 15 MINUTES MASSAGE THERAPEUT 69451 LUKING LUKING IC PX 1/> 4 SWAPNA SWAPNA AREAS EACH 15 MIN EXERCISES APPL 21439 LUKING LUKING MODALITY 4 SWAPNA SWAPNA 1/> AREAS ELEC STIMJ UNATTENDE D CHIROPRAC 83378 LUKING LUKING TIC 4 SWAPNA SWAPNA MANIPULAT [place] SPINAL 3-4 [place] [address] LUKING LUKING 1/> AREAS 4 SWAPNA SWAPNA EACH 15 MINUTES MASSAGE CHIROPRAC 65395 LUKING LUKING TIC 4 SWAPNA SWAPNA MANIPULAT [place] SPINAL 3-4 [place] [address] LUKING LUKING 1/> AREAS 4 SWAPNA SWAPNA EACH 15 MINUTES MASSAGE CHIROPRAC 32350 LUKING LUKING TIC 4 SWAPNA SWAPNA MANIPLTV TX EXTRASPIN AL 1/> REGION THERAPEUT 33058 LUKING LUKING IC PX 1/> 4 SWAPNA SWAPNA AREAS EACH 15 MIN EXERCISES THERAPEUT 94953 LUKING LUKING IC PX 1/> 4 SWAPNA SWAPNA AREAS EACH 15 MIN EXERCISES CHIROPRAC 74601 LUKING LUKING TIC 4 SWAPNA SWAPNA MANIPLTV TX EXTRASPIN AL 1/> REGION SELF-CARE 99720 LUKING LUKING /HOME 4 SWAPNA SWAPNA MGMT TRAINING EACH 15 MINUTES CHIROPRAC 61107 LUKING LUKING TIC 4 SWAPNA SWAPNA MANIPULAT [place] SPINAL 3-4 [place] [address] LUKING LUKING 1/> AREAS 4 SWAPNA SWAPNA EACH 15 MINUTES MASSAGE BLOOD 60944 FAMILY FAMILY COUNT 4 CARE CARE COMPLETE ASSOCIATE ASSOCIATE AUTO&[place] [address] [facility] UREA 4 DIAGNOSTI DIAGNOSTI NITROGEN [facility] QUANTITAT SARA CREATININ 15278 [facility] E BLOOD 4 DIAGNOSTI DIAGNOSTI [facility] BLOOD 80671 KEAGLE KEAGLE COUNT 4 RIT RIT COMPLETE AUTO&AUTO DIFRNTL WBC CONIZATIO 23684 CHONG Mccartney CERVIX 4 W/WO D&C RPR ELTRD EXC ANESTHESI 33601 NURYS NUNO A VAGINAL 4 JUS JUS PROCEDURE W/[place] [address] OSTERHAGE OSTERHAGE SURG 4 CESAR CESAR PATHOLOGY [place] [address] [facility] SURG 4 [facility] PATHOLOGY MED CTR MED CTR VISUAL DESIGNER ST VISUAL DESIGNER ST GROSS&CATHY ROSCOPIC EXAM COLPOSCOP 02208 CHONG HARDWICK Y CERVIX 4 BX CERVIX & ENDOCRV CURRETAGE URINE 07565 CHONG HARDWICK 4 TEST VISUAL COLOR CMPRSN METHS CYTP C/V 51683 [facility] AUTO THIN 4 [facility] LYR MED CTR MED CTR PREPJ SCR VISUAL DESIGNER ST VISUAL DESIGNER ST MNL RESCR PHYS CYTP 28815 GONZALEZ DON GONZALEZ DON CERVICAL/ 4 VAGINAL REQ INTERP PHYSICIAN IADNA [address] NEISSERIA 4 [facility] CTR MED CTR GONORRHOE VISUAL DESIGNER ST VISUAL DESIGNER ST AE AMPLIFIED PROBE TQ IADNA 59232 ST ST CHLAMYDIA 4 [facility] CTR MED CTR TRACHOMAT VISUAL DESIGNER ST VISUAL DESIGNER ST IS AMPLIFIED PROBE TQ BLOOD 10555 MAVIS LEALAGLMakenzie COUNT 4 RIT RIT COMPLETE AUTO&AUTO DIFRNTL WBC LEVONORGE J7302 CHONG HARDWICK STREL-RLS 4 E INTRAUTER N CNTRACPT 52 MG PRTL 07783 CHONG HARDWICK HYMENECTO 4 MY/REVJ HYMENAL RING INSERTION 36426 CHONG HARDWICK 4 INTRAUTER INE DEVICE IUD LEVEL III 98226 ROSS CATHY ROSS CATHY SURG 4 PATHOLOGY GROSS&CATHY ROSCOPIC EXAM ANESTHESI 86994 DESCH TAMMY DESCH TAMMY A VAGINAL 4 PROCEDURE W/[place] [address] SCALF LEI SCALF LEI SURG 4 PATHOLOGY GROSS&CATHY ROSCOPIC EXAM BX SKIN 69351 GRAVES GRAVES SUBCUTANE 4 LES LES OUS&/MUCO US MEMBRANE 1 LESION THERAPEUT 67964 ALEXANDRU HORVATH IC PX 1/> 3 ZACK ZACK AREAS EACH 15 MIN EXERCISES CHIROPRAC 75724 ALEXANDRU HORVATH TIC 3 ZACK ZACK MANIPULAT [place] SPINAL 3-4 [place] [address] ALEXANDRU HORVATH 1/> AREAS 3 ZACK ZACK EACH 15 MINUTES MASSAGE APPL 65040 ALEXANDRU HORVATH MODALITY 3 ZACK ZACK 1/> AREAS ULTRASOUN D EA 15 MIN APPLICATI 98432 ALEXANDRU HORVATH ON 3 ZACK ZACK MODALITY 1/> AREAS HOT/COLD PACKS APPL 11589 ALEXANDRU HORVATH MODALITY 3 ZACK ZACK 1/> AREAS ELEC STIMJ UNATTENDE D THERAPEUT 06513 ALEXANDRU HORVATH IC PX 1/> 3 ZACK ZACK AREAS EACH 15 MIN EXERCISES APPL 41379 ALEXANDRU HORVATH MODALITY 3 ZACK ZACK 1/> AREAS TRACTION MECHANICA L APPL 39780 ALEXANDRU HORVATH MODALITY 3 ZACK ZACK 1/> AREAS ELEC STIMJ UNATTENDE D CHIROPRAC 53726 ALEXANDRU HORVATH TIC 3 ZACK ZACK MANIPULAT [place] SPINAL 3-[place] [address] ALEXANDRU HORVATH 1/> AREAS 3 ZACK ZACK EACH 15 MINUTES MASSAGE APPLICATI 18315 ALEXANDRU HORVATH ON 3 ZACK ZACK MODALITY 1/> AREAS HOT/COLD PACKS BLOOD 21127 FAMILY FAMILY COUNT 3 CARE CARE COMPLETE ASSOCIATE ASSOCIATE AUTO&[place] [address] ALEXANDRU HORVATH 1/> AREAS 3 ZACK ZACK EACH 15 MINUTES MASSAGE THERAPEUT 90017 ALEXANDRU HORVATH IC PX 1/> 3 ZACK ZACK AREAS EACH 15 MIN EXERCISES APPL 93948 ALEXANDRU HORVATH MODALITY 3 ZACK ZACK 1/> AREAS TRACTION MECHANICA L APPL 80716 ALEXANDRU HORVATH MODALITY 3 ZACK ZACK 1/> AREAS ELEC STIMJ UNATTENDE D CHIROPRAC 53694 ALEXANDRU HORVATH TIC 3 ZACK ZACK MANIPULAT [place] SPINAL 3-4 REGIONS APPLICATI 42891 ALEXANDRU HORVATH ON 3 ZACK ZACK MODALITY 1/> AREAS HOT/COLD PACKS CULTURE 83045 LAB RUPESH LAB RUPESH BACTERIAL 3 [facility]A [facility] [employer] QUANTTATI VE COLONY COUNT URINE URNLS DIP 87334 FAMILY ALCON 3 CARE R H STICK/TAB ASSOCIATE LET RGNT S NON-AUTO W/O MICRSCP EPISIOTOM [address] Y 3 [facility] PRECIADO MED CTR MED CTR VISUAL DESIGNER ST VISUAL DESIGNER ST OTHER [address] MANUALLY 3 IL[facility] PRECIADO ASSISTED MED CTR MED CTR DELIVERY VISUAL DESIGNER ST VISUAL DESIGNER ST VAGINAL 18887 ST GANSHIRT DELIVERY 3 ILANA LOW W/POSTPAR PHYSICIAN RICA CARE S NEURAXIAL 05576 MASROOR MASROOR LABOR 3 ALA ALA ANALG/ANE S PLND VAGINAL DELIVERY OTHER [address] GENITOURI 3 ILANA LYONSY MED CTR MED CTR INSTILLAT VISUAL DESIGNER ST VISUAL DESIGNER ST ION HEPATIC [address] FUNCTION 3 ILANA PRECIADO PANEL MED CTR MED CTR VISUAL DESIGNER ST VISUAL DESIGN[address] ST BLOOD [address] COUNT 3 ILANA ILANA COMPLETE MED CTR MED CTR AUTO&AUTO VISUAL DESIGNER ST VISUAL DESIGNER ST DIFRNTL WBC US PREG 95692 [facility] ALEXIS UTERUS 3 MATERNAL REAL TIME AND F/U TRNSABDL PER FETUS THROMBOPL [address] ASTIN 3 ILANA ILANA TIME MED CTR MED CTR PARTIAL VISUAL DESIGNER ST VISUAL DESIGNER ST PLASMA/[place] [address] BLOOD/URI 3 ILANA ILANA C ACID MED CTR MED CTR VISUAL DESIGNER ST VISUAL DESIGNER ST BLOOD [address] COUNT 3 ILANA ILANA PLATELET MED CTR MED CTR AUTOMATED VISUAL DESIGNER ST VISUAL DESIGNER ST BASIC [address] METABOLIC 3 ILANA ILNAA PANEL MED CTR MED CTR CALCIUM VISUAL DESIGNER ST VISUAL DESIGNER ST TOTAL PROTEIN [address] TOTAL 3 ILANA ILANA XCPT MED CTR MED CTR REFRACTOM VISUAL DESIGNER ST VISUAL DESIGNER ST ETRY URINE PROTHROMB [address] IN TIME 3 ILANA ILANA MED CTR MED CTR VISUAL DESIGNER ST VISUAL [place] ST [address] NONSTRESS 3 ILANA ILANA TEST MED CTR MED CTR VISUAL DESIGNER ST [place] [address] [place] NONSTRESS 3 AMA AMA TEST HEPATIC 90467 ST ST FUNCTION 3 ILANA ILANA PANEL MED CTR MED CTR VISUAL [place] [address] INFUSION 3 ILANA ILANA HYDRATION MED CTR MED CTR EACH VISUAL DESIGNER ST VISUAL [place] [address] BLOOD/URI 3 ILANA ILANA C ACID MED CTR MED CTR VISUAL DESIGNER ST VISUAL DESIGNER ST THER [address] PROPH/DX 3 ILANA ILANA NJX EA MED CTR MED CTR SEQL IV VISUAL DESIGNER ST VISUAL DESIGNER ST PUSH SBST/DRUG FAC BASIC [address] METABOLIC 3 ILANA ILANA PANEL MED CTR MED CTR CALCIUM VISUAL DESIGNER ST VISUAL DESIGNER ST TOTAL THER [address] PROPH/DX 3 ILANA ILANA NJX IV MED CTR MED CTR PUSH VISUAL DESIGNER ST VISUAL DESIGNER ST SINGLE/1S T SBST/DRUG PROTHROMB [address] IN TIME 3 ILANA ILANA MED CTR MED CTR VISUAL DESIGNER ST VISUAL DESIGNER ST INJECTION J24[address] ST 3 ILANA ILANA ONDANSETR MED CTR MED CTR ON HCL VISUAL DESIGNER ST VISUAL DESIGNER ST PER [address] ASTIN 3 ILANA ILANA TIME MED CTR MED CTR PARTIAL VISUAL DESIGNER ST VISUAL DESIGNER ST PLASMA/WH OLE BLOOD INITIAL 53489 [facility] 3 AMA AMA CARE/DAY 30 MINUT[address] URNLS DIP [address] 3 ILANA ILANA STICK/TAB MED CTR MED CTR LET RGNT VISUAL DESIGNER ST VISUAL DESIGNER ST AUTO W/O MICROSCOP [facility] G0378 ST ST OBSERVATI 3 ILANA ILANA ON MED CTR MED CTR SERVICE VISUAL DESIGNER ST VISUAL DESIGNER ST PER HOUR BLOOD [address] COUNT 3 ILANA ILANA COMPLETE MED CTR MED CTR AUTOMATED VISUAL DESIGNER ST VISUAL [place] [address] NONSTRESS 3 [facility] TEST PHYSICIAN PHYSICIAN S S URNLS DIP [address] 3 ILANA ILANA STICK/TAB MED CTR MED CTR LET RGNT VISUAL DESIGNER ST VISUAL DESIGNER ST AUTO W/O MICROSCOP Y IADNA [address] STREPTOCO 3 [facility] B CENTER CENTER AMPLIFIED PROBE TQ IADNA [address] CHLAMYDIA 3 [facility] CENTER IS AMPLIFIED PROBE TQ IADNA [address] NEISSERIA 3 [facility] GONORRHOE CENTER [place] [address] BASHIR ALEXIS BASHIR ALEXIS NONSTRESS [address] 3 [facility] NE CENTER CENTER SULFATE UP TO [address] D[address] 3 [facility] STICK/TAB MEDICAL MEDICAL LET CENTER CENTER REAGENT AUTO MICROSCOP Y INITIAL 83821 BASHIR ESPINOZA OBSERVATI 3 ON CARE/DAY 30 MINUTES US PREG 68345 PADMAJA GIANG NADINE UTERUS 3 REAL TIME F/U TRNSABDL PER FETUS [address] NONSTRESS 3 [facility] TEST [facility] 29961 CHONG RONEN CHONG RONEN NONSTRESS 3 TEST OBSERVATI 01923 HEMANT II HEMANT II ON/INPATI 3 [facility] 40 MINUTES URNLS DIP 79326 HEMANT II HEMANT II 3 [facility] STICK/TAB LET RGNT NON-AUTO W/O MICRSCP COLLECTIO [address] N VENOUS [address]OD [address] L[address] VENIPUNCT URE GLUCOSE [address] [facility] 3 [facility] DOSE BLOOD [address] COUNT [address] [place] L[address] L[address] AUTO&AUTO DIFRNTL WBC [place] PREG [address] UTERUS 3 [facility] REAL TIME MEDICAL MEDICAL F/U CENTER CENTER TRNSABDL PER FETUS URNLS DIP 31323 HEMANT II HEMANT II 3 [facility] STICK/TAB LET RG[place] [address] JEWELL JEWELL ABDOMINAL 3 BRA BRA REAL TIME W/IMAGE LIMITED URNLS DIP 03646 BASHIR ESPINOZA 3 STICK/TAB LET RGNT NON-AUTO W/O MICRSCP OBSERVATI 38271 WALKER WALKER ON/INPATI 3 III DUTCH III [facility] C[facility] [address] BACTERIAL 3 [facility] C[facility] CENTER VE COLONY COUNT URINE CULTURE 75535 ST BCT 3 [facility] ISOL&[facility] PTV ID CENTER CENTER ISOLATE EA URINE CULTURE [address] ST ST TYPING 3 [facility] IMMUNOLOG [facility] CENTER OTH/THN IMMUNOFLU ORES URNLS DIP [address] 3 ILANA ILANA STICK/TAB MEDICAL MEDICAL LET CENTER CENTER REAGENT AUTO [place]CROSCOP [place] PREG [address] UTERUS 3 [facility] W/DETAIL MEDICAL MEDICAL CENTER CENTER DENYS [address] [place] [address] ESTRIOL 3 [facility] [address] PIN [address] QUANTITAT SARA COLLECTIO [address] N VENOUS 3 [place] ILANA BLOOD [facility] VENIPUNCT URE ALPHA-FET [address] OPROTEIN 3 [facility] SERUM [facility] [place] [address] 3 [facility] L[facility] BLOOD 87133 MULBERRY MULBERRY COUNT 3 LEIF LEIF COMPLETE AUTO&AUTO DIFRNTL WBC COLPOSCOP 34954 ST BASHIR ALEXIS Y VULVA 3 ILANA PHYSICIAN S URNLS DIP 10501 ST BASHIR ALEXIS 3 ILANA STICK/TAB LET RGNT PHYSICIAN NON-AUTO S W/O MICRSCP COLPOSCOP 12163 ST BASHIR ALEXIS Y CERVIX 3 ILANA UPPER/ADJ ACENT PHYSICIAN VAGINA S INSJ 20257 ST BASHIR ALEXIS NON-NDWEL 3 ILANA LG BLADDER PHYSICIAN CATHETER S CULTURE [address] BACTERIAL 3 [facility] QU[facility] CENTER CENTER VE COLONY COUNT URINE CULTURE [address] BACTERIAL 3 [facility] COLONY COUNT URINE CULTURE [address] BCT 3 IL[place] ILANA ISOL&PRSM MEDICAL MEDICAL PTV ID CENTER CENTER ISOLATE EA URINE IADNA [address] ST ST CHLAMYDIA 3 [facility] CENTER IS AMPLIFIED PROBE TQ IADNA [address] NEISSERIA 3 [facility] CENTER AE AMPLIFIED PROBE TQ CYTP C/V [address] AUTO THIN 3 [facility] LYR [facility] CENTER MNL RESCR PHYS URINE 90749 [facility] ALEXIS 3 [place] TEST VISUAL PHYSICIAN COLOR S CMPRSN METHS CYTP 13179 [facility] CATHY CERVICAL/ 3 [place] VAGINAL REQ PHYSICIAN INTERP S PHYSICIAN BLOOD 56942 ALCON ALCON COUNT 3 R H R H COMPLETE AUTO&AUTO DIFRNTL WBC BLOOD 46661 ALCON ALCON COUNT 3 R H R H COMPLETE AUTO&AUTO DIFRNTL WBC URINE 34884 PENDELETO PENDELETO 3 N CO N CO TEST [facility] CENTER CENTER COLOR CMPRSN METHS THERAPEUT 34537 SMITHA PIAZ IC PX 1/> 0 CHIROPRAC NELSON P AREAS TIC EACH 15 [place] [address] SMITHA PAIZ, 1/> AREAS 0 CHIROPRAC NELSON P EACH 15 TIC MINUTES CENTER MASSAGE APPLICATI 01219 SMITHA PAIZ, ON 0 CHIROPRAC NELSON P MODALITY TIC 1/> AREAS CENTER HOT/COLD PACKS APPL 12372 SMITHA PAIZ, MODALITY 0 CHIROPRAC NELSON P 1/> AREAS TIC ELEC CENTER STIMJ UNATTENDE D APPL 66436 SMITHA PAIZ, MODALITY 0 CHIROPRAC NELSON P 1/> AREAS TIC TRACTION CENTER MECHANICA L CHIROPRAC 40268 SMITHA PAIZ, TIC 0 CHIROPRAC NELSON P MANIPULAT TIC [place] CENTER SPINAL 3-4 REGIONS APPL 43206 SMITHA PAIZ, MODALITY 0 CHIROPRAC NELSON P 1/> AREAS TIC CENTER ULTRASOUN D [place] 15 [place] [address] SMTIHA PAIZ, 1/> AREAS 0 CHIROPRAC NELSON P EACH 15 TIC MINUTES CENTER MASSAGE APPL 04559 SMITHA PAIZ, MODALITY 0 CHIROPRAC NELSON P 1/> AREAS TIC CENTER ULTRASOUN D EA 15 MIN THERAPEUT 24770 SMITHA PAIZ, IC PX 1/> 0 CHIROPRAC NELSON P AREAS TIC EACH 15 CENTER MIN EXERCISES APPL 06502 SMITHA PAIZ, MODALITY 0 CHIROPRAC NELSON P 1/> AREAS TIC TRACTION CENTER MECHANICA L APPL 98603 SMITHA PAIZ, MODALITY 0 CHIROPRAC NELSON P 1/> AREAS TIC ELEC CENTER STIMJ UNATTENDE D CHIROPRAC 48214 SMITHA PAIZ, TIC 0 CHIROPRAC NELSON P MANIPULAT TIC [place] CENTER SPINAL 3-4 REGIONS APPLICATI 67870 SMITHA PAIZ, ON 0 CHIROPRAC NELSON P MODALITY TIC 1/> AREAS CENTER HOT/COLD PACKS APPL 25036 SMITHA PAIZ, MODALITY 0 CHIROPRAC NELSON P 1/> AREAS TIC CENTER ULTRASOUN D EA 15 MIN CHIROPRAC 32489 SMITHA PAIZ, TIC 0 CHIROPRAC NELSON P MANIPULAT TIC [place] CENTER SPINAL 3-4 REGIONS APPL 48749 SMITHA PAIZ, MODALITY 0 CHIROPRAC NELSON P 1/> AREAS TIC ELEC CENTER STIMJ UNATTENDE D THERAPEUT 76932 SMITHA PAIZ, IC PX 1/> 0 CHIROPRAC NELSON P AREAS TIC EACH 15 CENTER MIN EXERCISES APPLICATI 24440 SMITHA PAIZ, ON 0 CHIROPRAC NELSON P MODALITY TIC 1/> AREAS CENTER H[place] [address] SMITHA PAIZ, 1/> AREAS 0 CHIROPRAC NELSON P EACH 15 TIC MINUTES CENTER MASSAGE IADNA 56515 [facility] 9 ILANA PRECIADO VAGINALIS MEDICALCE MEDICALCE DIRECT NTER NTER PROBE TQ IADNA 74118 [facility] STREPTOCO 9 [facility] GROUP B MEDICALCE MEDICALCE AMPLIFIED NTER NTER PROBE TQ IADNA 86463 [facility] NEISSERIA 9 ILANA ILANA GONORRHOE MEDICALCE MEDICALCE AE NTER NTER AMPLIFIED PROBE TQ IADNA 43573 [facility] BILLIE 9 [facility] SPECIES DIRECT MEDICALCE MEDICALCE PROBE TQ NTER NTER CUL BACT 76397 [facility] XCPT 9 [facility] URINE BLOOD/STO MEDICALCE MEDICALCE OL NTER NTER AEROBIC ISOL IADNA 78675 [facility] CHLAMYDIA 9 [facility] TRACHOMAT MEDICALCE MEDICALCE IS NTER NTER AMPLIFIED PROBE TQ RENAL 06613 [facility] FUNCTION 9 [facility] PANEL MEDICALCE MEDICALCE NTER NTER SMR PRIM 42661 [facility] SRC 9 [facility] GRAM/GIEM SA STAIN MEDICALCE MEDICALCE BCT NTER NTER FUNGI/CUATE L IADNA 40337 [facility] GARDNEREL 9 [facility] LA VAGINALIS MEDICALCE MEDICALCE DIRECT NTER NTER PROBE TQ URINE 60286 [facility] OTREMBIAK 9 [facility] [place] TEST PEDIATRIC VISUAL COLOR CMPRSN METHS RADEX 23168 [facility] ST LU ABDOMEN 9 [facility] W/DCBTS&/ ERC VIEWS IADNA 87656 [facility] CHLAMYDIA 9 [facility] TRACHOMAT MEDICALCE MEDICALCE IS NTER NTER AMPLIFIED PROBE TQ IADNA 46001 [facility] NEISSERIA 9 [facility] GONORRHOE MEDICALCE MEDICALCE AE NTER NTER AMPLIFIED PROBE TQ CYTP C/V 34658 [facility] AUTO THIN 9 [facility] LYR PREPJ SCR MEDICALCE MEDICALCE MNL NTER NTER RESCR PHYS URNLS DIP 15193 [place], 9 HUBBARD REILLY K STICK/TAB PEDIATRIC LET RGNT NON-AUTO W/O MICRSCP AMBULANCE A0429 [facility] SERVICE 9 KAILASH KAILASH BLS FIRE FIRE EMERGENCY [facility] TRANSPORT GROUND A0425 [facility] MILEAGE 9 KAILASH KAILASH PER FIRE FIRE STATUTE [facility] [place] [address] RADIOLOGY KIZZY CERVICAL 9 III, SPINE W/O ASSOCIATE LEONA CONTRAST S PSC [place]ERIAL [facility] PELVIS 54826 RADIOLOGY KIZZY 9 III, W/CONTRAS [place] [address] RADIOLOGY [facility] ABDOMEN 9 III, W/CONTRAS [place] [address] RADIOLOGY [facility] HEAD/BRAI 9 III, N W/O ASSOCIATE LEONA CONTRAST S PSC MATERIAL RADIOLOGI 59924 RADIOLOGY NEILS, C EXAM 9 MANDA W CHEST 2 ASSOCIATE VIEWS S PSC FRONTAL&L ATERAL PHARMACOL 01405 [facility] OGIC MGMT 9 [place] MIN BD INC BD INC MEDICAL PSYCHOTHE RAPY INDIV 96104 [facility] PSYCTX 9 [place] OFFICE/OU BD INC BD INC TPATIENT 20-30 MIN INDIV 47967 [facility] PSYCTX 9 [place] MR [place] MH MR OFFICE/OU BD INC BD INC TPATIENT 20-30 [place] [address] SMITHA PAIZ, 1/> AREAS 9 [facility] [place]EL[facility] P EACH 15 TIC MINUTES CENTER MASSAGE CHIROPRAC 56628 SMITHA PAIZ, TIC 9 [facility] [place] P MANIPULAT TIC [place] CENTER SPINAL 3-4 REGIONS THERAPEUT 84525 SMITHA PAIZ, IC PX 1/> 9 [facility] [place] P AREAS TIC EACH 15 CENTER MIN EXERCISES THERAPEUT 53213 SMITHA PAIZ, IC PX 1/> 9 [facility] [place] P AREAS TIC EACH 15 [place] [address] SMITHA PAIZ, 1/> AREAS 9 [facility]IROPRAC [place]EL[place] P EACH 15 TIC MINUTES CENTER MASSAGE CHIROPRAC 57192 SMITHA PAIZ, TIC 9 [facility] [place] P MANIPULAT TIC [place] [facility] SPINAL 3-4 REGIONS PHARMACOL 17513 [facility] MGMT 9 [place] MH MR BUCK MH MR MIN BD INC BD INC MEDICAL PSYCHOTHE RAPY INDIV 22706 [facility] PSYCTX 9 [place] MH MR BUCK MH MR OFFICE/OU BD INC BD INC TPATIENT 20-30 MIN INDIV 17550 [facility] PSY[facility] 9 [place] MH MR BUCK MH MR OFFICE/OU BD INC BD INC TPATIENT 20-30 MIN CYTP C/V 88637 [facility] AUTO THIN 9 ILANA ILANA LYR PREPJ SCR MEDICALCE MEDICALCE MNL NTER NTER RESCR REHABILITATION ATTENDANT 01169 [facility] PROPH/DX [address] [place] [address] NJX IV [facility] PUSH SINGLE/1S T SBST/[place] [address] [facility] LIPASE [address] [place] [address] [facility] ST [place] DIRECT [address] [place] [address] PHARMACOL [address] [facility] [facility] MGMT 9 [place] MH MR [place] MH MR MIN BD INC BD INC MEDICAL PSYCHOTHE RAPY BLOOD 54612 [facility] ST [place] COUNT [address] [place] [address] AUTO&AUTO DIFRNTL WBC GONADOTRO 66348 [facility] PIN [address] [place] [address] QUALITATI VE COMPREHEN 69517 [facility] SIVE [address] [place] [address] METABOLIC [facility] [place] [address] [facility] AMYLASE [address] [place] [address] IV [address] [facility] INFUSION [address] [place] [address] HYDRATION [facility] EACH ADDITIONA L HOUR URNLS DIP [address] STICK/TAB [facility] LET RGNT AUTO W/O MICROSCOP Y INDIV 36438 [facility] PSYCTX 9 [place] MH MR BUCK MH MR OFFICE/OU BD INC BD INC TPATIENT 20-30 MIN RADIOLOGI 52908 [facility] C EXAM [address] [place] [address] CHEST 2 [facility] VIEWS FRONTAL&L ATERAL PHARMACOL 74370 [facility] MG[facility] 9 [place] MH MR BUCK LIZ MR MIN BD INC BD INC MEDICAL PSYCHOTHE RAPY FAMILY 06585 [facility] PSYCHOTHE 9 [place] MH MR BUCK MH MR WELLS BD INC BD INC W/PATIENT PRESENT 50 MINS INTERPJ/E 36471 [facility] XPLNAJ 9 [place] MH MR BUCK MH MR RESULTS BD INC BD INC PSYCHIATR IC EXAM FAMILY INTERPJ/E 65412 [facility] XPL[facility]J 9 [place] MH MR BUCK MH MR RESULTS BD INC BD INC PSYCHIATR IC EXAM FAMILY PHARMACOL 19601 [facility] MGMT 9 [place] MH MR BUCK MH MR MIN BD INC BD INC MEDICAL PSYCHOTHE RAPY INDIV 55459 [facility] 9 [place] MH MR BUCK MH MR OFFICE/OU BD INC BD INC TPATIENT 20-30 MIN URINLS 68149 [place], DIP 9 [place] REILLY K STICK/TAB PEDIATRIC LET REAGNT NON-AUTO MICRSCPY INDIV 18727 [facility] 9 [place] MR BUCK MH MR OFFICE/OU BD INC BD INC TPATIENT 20-30 MIN FAMILY 71408 [facility] PSYCHOTHE 9 [place] MH MR BUCK WELLS BD INC BD INC W/PATIENT PRESENT 50 MINS ADENOIDEC 83194 HEAD & THANG, YESY 9 NECK NOREEN J PRIMARY SURGERY AGE 12/> ASSOC ANESTHESI 13470 Marjan FERRIS 9 NT ARETHA M INTRAORAL ANESTHESI WITH OLOGIST BIOPSY NOS TONSILLEC 33034 CENTER HURST YESY & 9 FOR FOR ADENOIDEC SURGICAL SURGICAL YESY AGE CARE CARE 12/> PHARMACOL 52732 [facility] MGMT 9 [place] MH MR BUCK MH MR MIN BD INC BD INC MEDICAL PSYCHOTHE RAPY RADEX 59880 [facility] FINGR 9 LTH ER, MINIMUM 2 ORTHOPAED OTILIA S VIEWS IC CTR PSC IAADIADOO 35972 [place], 9 [place] REILLY K [facility] A CLTX DSTL 50826 [facility] PHLNGL 8 [facility] ER, FX ORTHOPAED OTILIA S FNGR/THMB IC CTR W/O MANJ PSC EA RADEX 70513 [facility] FINGR [address] [place] [address] MINIMUM 2 [facility] VIEWS APPLICATI 9354 [facility] ON OF [address] [place] [address] SPLINT [facility] CYTP C/V 01133 [facility] AUTO THIN 8 [place] INC [place] INC LYR PREPJ SCR MNL RESCR PHYS IMMUNOASS 59868 [facility] OTREMBIAK AY NFCT 8 HUBBARD SUSIE AGT ANTB PEDIATRIC QUAL/SEMI DEISY 1 STEP INDIV 28319 [facility] 8 [place] MR BUCK MH MR OFFICE/OU BD INC BD INC TPATIENT 20-30 MIN PHARMACOL 13254 [facility] MGMT 8 [place] MR BUCK MH MR MIN BD INC BD INC MEDICAL PSYCHOTHE RAPY INDIV 96110 [facility] 8 [place] MR [place] MH MR OFFICE/OU BD INC BD INC TPATIENT 20-30 MIN INDIV 93620 [facility] 8 [place] MR [place] MH MR OFFICE/OU BD INC BD INC TPATIENT 20-30 MIN PHARMACOL 97988 [facility] MGMT 8 [place] MR [place] MH MR MIN BD INC BD INC MEDICAL PSYCHOTHE RAPY PSYCHIATR 52730 [facility] IC 8 [place] MR [place] MH MR DIAGNOSTI BD INC BD INC C INTERVIEW EXAMINATI ON FAMILY 93562 [facility] PSY[facility] 8 [place] MH MR [place] MH MR RAPY BD INC BD INC W/PATIENT PRESENT 50 MINS FAMILY 61592 [facility] PSYCHOT[facility] 8 [place] MR [place] MH MR RAPY BD INC BD INC W/PATIENT PRESENT 50 MINS INDIV 65934 [facility] 8 [place] MR BUCK MH MR OFFICE/OU BD INC BD INC TPATIENT 20-[address] [facility] DUMONT, Y CERVIX [address] [place] [address] BRENDA BX CERVIX & PHYSICIAN ENDOCRV S FOR CURRETAGE WOMEN IAADIADOO 82996 [place], [address] [place] [address] REILLY K [facility] A BUPRENORP J0570 [place], MUSA 8 HUBBARD REILLY K [place] [address] RADIOLOGY SIVAKUMAR, TRANSVAGI 8 MONICA NAL ASSOCIATE S PSC US PELVIC 04877 RADIOLOGY SIVAKUMAR, 8 MONICA NONOBSTET ASSOCIATE [facility] [place] [facility] S PSC REAL-TIME IMAGE COMPLETE IADNA 91359 [facility] GARDNEREL 8 [facility] LA VAGINALIS DIRECT PROBE TQ IADNA 49411 [facility] TRICHOMON 8 [facility] VAGINALIS DIRECT PROBE TQ IADNA 95255 [facility] PAPILLOMA 8 [facility] VIRUS HUMAN AMPLIFIED PROBE TQ CYTP 12316 NO, NO, CERVICAL/ 8 ERIK Urbano VAGINAL REQ INTERP PHYSICIAN IADNA 05791 [facility] BILLIE 8 [facility] SPECIES DIRECT PROBE TQ CYTP C/V 93310 [facility] AUTO THIN 8 [facility] LYR PREPJ SCR MNL RESCR PHYS CULTURE 38823 [facility] TYPING 8 [facility] IMMUNOLOG IC OTH/THN IMMUNOFLU ORES IADNA 19943 [facility] CHLAMYDIA 8 [facility] TRACHOMAT IS AMPLIFIED PROBE TQ CUL BACT 21302 [facility] XCPT 8 [facility] URINE BLOOD/STO OL AEROBIC ISOL IADNA 26355 [facility] NEISSERIA 8 [facility] GONORRHOE AE AMPLIFIED PROBE TQ IAADIADOO 41049 [place], 8 HUBBARD REILLY K [facility] A BUPRENORP J0570 [place], MUSA 8 HUBBARD REILLY K IMPLANT PEDIATRIC 74.2 MG BILIRUBIN 39793 [facility] CHILDRENS DIRECT [address] [place] [address] [place] [address] [facility] MAGNESIUM [address] [place] [address] [place] [address] CHILDRENS CHILDRENS PHOSPHORU [address] [place] [address] S INORGANIC HETEROPHI 26330 [facility] LE [address] [place] [address] ANTIBODIE S SCREEN CUL BACT 37591 [facility] XCPT [address] [place] [address] URINE BLOOD/[place] [address] [facility] GLUTAMYLT [address] [place] [address] RASE GAMMA ANTIBODY 86955 [facility] RICHARD-B [address] [place] [address] ARR EB VIRUS EARLY ANTIGEN EA ANTIBODY 29989 [facility] RICHARD-B [address] [place] [address] ARR EB VIRUS NUCLEAR AG EBNA COLLECTIO 41466 [facility] N VENOUS [address] [place] [address] BLOOD VENIPUNCT URE COMPREHEN 91641 [facility] SIVE [address] [place] [address] METABOLIC PANEL FLUORESCE 13248 [facility] NT [address] [place] [address] NONNFCT AGT ANTB TITER EA ANTIBODY IAADIADOO 94727 [facility] SUSIE BARRERA [facility] A BLOOD 29122 [facility] COUNT [address] [place] [address] COMPLETE AUTO&AUTO DIFRNTL WBC RADIOLOGI 49487 [facility] JERONIMO, C EXAM 8 HOSP MED JR., CHEST 2 CTR BRISA J VIEWS FRONTAL&L ATERAL IAADIADOO 01386 [place], [address] [place] [address] REILLY K [facility] A GONADOTRO 84665 [place] [facility] PIN SUSIE BARRERA CHORIONIC PEDIATRIC QUALITATI VE RADEX 25557 [facility] ABDOMEN [address] [place] [address] ANTEROPOS C TERIOR VIEW Encounters Encounter Start End Date Code Location Performer Type Date OFFICE 05039 [facility]NY OUTPATIEN 7 7 CARE T VISIT ASSOCIATE 25 S MINUTES OFFICE 03574 [facility] REY OUTPATIEN 6 6 CARE T VISIT ASSOCIATE 15 S MINUTES OFFICE 33014 [facility] OUTPATIEN 6 6 PHYSICIAN T VISIT S GROUP 25 MINUTES OFFICE 90547 [facility] OUTPATIEN 6 6 PHYSICIAN JESUSITA T VISIT S GROUP 15 MINUTES [facility] INPATIENT [facility] 6 6 [facility] OUTPATIEN INC T OFFICE 64977 [facility] OUTPATIEN 6 6 PHYSICIAN JESUSITA T VISIT S GROUP 15 MINUTES OFFICE 29468 [facility] OUTPATIEN 6 6 PHYSICIAN JESUSITA T VISIT S GROUP 10 MINUTES EMERGENCY 04007 MELVIN BONNER 6 6 PHYSICIAN U TAMMY DEPARTMEN S, PLLC T VISIT HIGH/URGE NT SEVERITY [facility] 6 [facility]EN [facility] OFF[facility] 57446 [facility] OUTPATIEN 6 6 PHYSICIAN JESUSITA T VISIT S GROUP 15 MINUTES [facility] 6 6 [facility] OUTPATIEN INC T EMERGENCY 23033 [facility] 6 6 EMERGENCY DEPARTMEN T VISIT PHYSICIAN MODERATE S SEVERITY OFFICE 35152 [facility] OUTPATIEN 6 6 [facility] ER MAT T NEW 30 ORTHOPAED MINUTES [facility] EMERGENCY 25786 [facility] GEERS RYA 6 6 EMERGENCY DEPARTMEN T VISIT PHYSICIAN HIGH/URGE S NT SEVERITY OFFICE 28474 [facility] OUTPATIEN 6 6 PHYSICIAN JESUSITA T VISIT S GROUP 15 MINUTES OFFICE 10086 FAMILY REY OUTPATIEN 6 6 CARE JITENDRA T VISIT ASSOCIATE 25 S MINUTES PERIODIC 42529 FAMILY REY PREVENTIV 6 6 CARE JITENDRA E MED EST ASSOCIATE PATIENT S 18-39 YRS [facility] - 6 6 [facility] OUTPATIEN INC T OFFICE 98936 [facility] 6 6 VINCE MC T VISIT 15 MINUTES [facility] - 6 6 [facility] OUTPATIEN INC T EMERGENCY 57374 [facility] 6 6 [facility] DEPARTMEN INC T VISIT LOW/MODER SEVERITY [facility] 6 6 [facility] OUTPATIEN INC T EMERGENCY 75167 MELVIN BONNER 6 6 PHYSICIAN U TAMMY DEPARTMEN S, PLLC T VISIT MODERATE SEVERITY EMERGENCY 10294 [facility] GANIM JITENDRA 6 6 EMERGENCY DEPARTMEN T VISIT PHYSICIAN HIGH/URGE S NT SEVERITY OFFICE 24875 [facility] VINCE OUTPATIEN 6 6 PHYSICIAN JESUSITA T VISIT S GROUP 15 MINUTES [facility] 6 6 [facility] OUTPATIEN INC T OFFICE 02929 [facility] OUTPATIEN 6 6 VINCE MC T VISIT 25 MINUTES [facility] 6 6 [facility] OUTPATIEN INC T OFFICE 96101 [facility] OUTPATIEN 6 6 VINCE PALMA JESUSITA T VISIT 25 MINUTES OFFICE 46180 FAMILY CROWDY OUTPATIEN 6 6 CARE CRI T VISIT ASSOCIATE 15 S MINUTES OFFICE 76366 [facility] 5 5 Y OF M LAR T [address] MINUTES [facility] EMERGENCY 84572 [facility] YUN 5 5 EMERGENCY RONEN DEPARTMEN T VISIT PHYSICIAN HIGH/URGE S NT SEVERITY [facility] - 5 5 [facility] OUTPATIEN INC T OFFICE 32939 [facility] PENDELETO OUTPATIEN 5 5 N CO N CO T VISIT 5 [facility] CENTER OFFICE 70462 [facility] PEN[facility] OUTPATIEN 5 5 N [place] T VISIT [address] MINUTES OFFICE 50433 FAMILY KEAGLE OUTPATIEN 5 5 CARE RIT T VISIT ASSOCIATE 15 S MINUTES EMERGENCY 26142 [facility] GREVER DEPT 5 5 EMERGENCY MAR VISIT HIGH PHYSICIAN SEVERITY& S THREAT [facility] - 5 5 [facility] OUTPATIEN INC T [facility] 5 5 [facility] OUTPATIEN INC T [facility] 5 5 [facility] OUTPATIEN INC T OFFICE 96580 [facility] GABYSTAD OUTPATIEN 5 5 PHYSICIAN CAM T NEW 30 S GROUP MINUTES [facility]OS[facility] - 5 5 [facility] OUTPATIEN INC EMERGENCY 58631 [facility] 5 5 [facility] T VISIT P LOW/MODER SEVERITY EMERGENCY 51313 [facility] 5 5 [facility] T VISIT MODERATE SEVERITY OFFICE 98712 FAMILY KEAGLE OUTPATIEN 5 5 CARE RIT T VISIT ASSOCIATE 15 S MINUTES EMERGENCY 64860 [facility] YUN 5 5 EMERGENCY [facility] T VISIT PHYSICIAN HIGH/URGE S NT SEVERITY EMERGENCY 83032 [facility] DEPT 5 5 EMERGENCY EDW VISIT HIGH PHYSICIAN SEVERITY& S THREAT [facility] OFFICE 41900 FAMILY KEAGLE OUTPATIEN 5 5 CARE RIT T VISIT ASSOCIATE 15 S MINUTES OFFICE 28108 FAMILY KE[facility]LE OUTPATIEN 5 5 CARE RIT T VISIT ASSOCIATE 15 S MINUTES [facility] 5 5 [facility] OUTPATIEN INC T INITIAL 92286 [facility] PREVENTIV [address] [facility] NEW PT AGE 18-39YRS [facility] - 4 4 [facility] OUTPATIEN INC T OFFICE 39563 FAMILY KEAGLE OUTPATIEN 4 4 CARE RIT T VISIT ASSOCIATE 25 S MINUTES EMERGENCY 29463 [facility] 4 4 ILANA MUNOZ DEPARTMEN MED CTR T VISIT HIGH/URGE NT SEVERITY OFFICE 03059 FAMILY ALCON OUTPATIEN 4 4 CARE R H T VISIT ASSOCIATE 15 S [address]ERGENCY [address] [facility] RY [address] T VISIT HIGH/URGE NT SEVERITY OFFICE 80447 [facility] OUTPATIEN 4 4 SWAPNA SWAPNA T VISIT 10 MINUTES OFFICE 03285 [facility] OUTPATIEN 4 4 SWAPNA SWAPNA T VISIT 15 MINUTES OFFICE 71770 [facility]ILY OUTPATIEN 4 4 CARE T VISIT ASSOCIATE 15 S MINUTES OFFICE 63847 [facility] GRAVES OUTPATIEN 4 4 LES LES T VISIT 25 MINUTES OFFICE 54004 KE[facility] KEAGLE OUTPATIEN 4 4 RIT RIT T VISIT [address] - 4 4 ILANA OUTPATIEN MED CTR T VISUAL DESIGNER ST OFFICE 45865 GRAVES GRAVES OUTPATIEN 4 4 LES LES T VISIT [address] - 4 4 ILANA OUTPATIEN MED CTR T VISUAL DESIGNER ST OFFICE 29998 KE[facility] KEAGLE OUTPATIEN 4 4 RIT RIT T VISIT 15 MINUTES EMERGENCY 88498 CARLO MATOS 4 4 MAR MAR DEPARTMEN T VISIT MODERATE SEVERITY OFFICE 55008 REY LE J OUTPATIEN 4 4 G G T VISIT 15 MINUTES OFFICE 54963 GRAVES GRAVES OUTPATIEN 4 4 LES LES T VISIT 25 MINUTES OFFICE 89097 [facility] OUTPATIEN 3 3 T VISIT 15 MINUTES OFFICE 23061 FAMILY ALCON OUTPATIEN 3 3 CARE R H T VISIT ASSOCIATE 15 S MINUTES OFFICE 11953 [facility] OUTPATIEN 3 3 ZACK ZACK T NEW 30 MINUTES OFFICE 09149 FAMILY ALCON OUTPATIEN 3 3 CARE R H T VISIT ASSOCIATE 15 S MINUTES OFFICE 37072 FAMILY ALCON OUTPATIEN 3 3 CARE R H T VISIT ASSOCIATE [address] [facility] 3 3 [facility] OFF[facility] 45662 ST OUTPATIEN 3 3 ILANA T VISIT 5 [facility]ICAL [facility] ST - 3 3 ILANA INPATIENT MED CTR VISUAL DESIGNER OFFICE 55981 ST OUTPATIEN 3 3 ILANA T VISIT MED CTR 40 VISUAL DESIGNER [facility] ST - 3 3 [facility] - 3 3 [facility] CENTER OFFICE 08585 MELODY MELODY OUTPATIEN 3 3 CEDRIC CEDRIC T VISIT 15 MINUTES OFFICE 72853 GRAVES GRAVES CONSULTAT 3 3 LES LES ION NEW/ESTAB PATIENT 40 [address] [facility] - 3 3 [facility] T CENTER OFFICE [address]0004 ST OUTPATIEN 3 3 ILANA T VISIT MEDICAL 40 [facility] ST - 3 [address] [facility] 94449 CHONG RONEN CHONG RONEN OUTPATIEN 3 3 T VISIT 15 MINUTES OFFICE 28489 HEMANT II HEMANT II OUTPATIEN 3 3 [place] T VISIT [address]ES [address] OUTPATIEN 3 3 ILANA T VISIT MEDICAL 40 CENTER [facility] ST - 3 3 [facility] 32255 HEMANT II HEMANT II OUTPATIEN 3 3 [place] T VISIT [address] - 3 3 ILANA [facility] 66647 [facility] R H R H T VISIT [address] - 3 3 [facility] 94193 [facility] CONSULTAT 3 3 AND AND ION NEW/ESTAB PATIENT 15 MIN OFFICE 27764 HEMANT II HEMANT II OUTPATIEN 3 3 [place] T VISIT [address] - 3 3 [facility] OFF[facility] 81196 [facility] 3 T VISIT [address] - 3 [facility] [address] [facility] 16071 MULBERRY MULBERRY [facility] 3 3 LEIF LEIF T VISIT [address] - 3 3 [facility] OFF[facility] [address]236 [facility] 3 3 ILANA T VISIT 15 PHYSICIAN MINUTES S OFFICE 26747 [facility] 3 ILANA T NEW 45 MINUTES PHYSICIAN S [facility] - 3 3 [facility] OFFICE 82339 ALCON ALCON OUTPATIEN 3 3 R H R H T VISIT 15 MINUTES OFFICE 87664 ALCON ALCON OUTPATIEN 3 3 R H R H T VISIT 15 MINUTES OFFICE 60589 PENDE[facility] PENDELETO OUTPATIEN 3 3 N CO N CO T [facility]IT [facility] 10 CENTER CENTER MINUTES OFFICE 79344 [facility] 0 0 CHIROPRAC NELSON P T VISIT TIC 15 CENTER MINUTES PERIODIC 60981 [place], PREVENTIV 9 9 HUBBARD REILLY Bellamy E MED EST PEDIATRIC PATIENT 18-[address] 9 9 [facility] OFFICE 12563 R[facility] OT[facility]IA[facility] 9 9 SUSIE BARRERA VISIT PEDIATRIC 25 MINUTES HOSP[place] [address] 9 [facility] PERIODIC 64787 [facility] PREVENTIV 9 9 SUSIE BARRERA MED EST PEDIATRIC PATIENT 18-[address] [facility] 9 9 [facility] CHILDREN - 9 9 [facility] OFFICE 32961 [facility] 9 HOSPITAL T NEW 20 MINUTES PERIODIC 47092 [facility] PREVENTIV 9 9 SUSIE BARRERA E MED EST PEDIATRIC PATIENT 18-39 YRS PERIODIC 03283 [facility] PREVENTIV 9 9 SUSIE BARRERA E MED EST PEDIATRIC PATIENT 18-39 YRS OFFICE 69145 [facility] DE[facility] 9 9 CHIROPRAC NELSON P T NEW 30 TIC MINUTES [facility] 9 [facility] OFFICE 47913 [facility] 9 9 [facility] 15 MINUTES [facility] [place] [address] 9 [facility] EMERGENCY [address] VISIT HIGH/URGE NT SEVERITY [facility] [place] [address] 9 [facility] PERIODIC 03312 [place], PREVENTIV 9 9 HUBBARD REILLY K E MED EST PEDIATRIC PATIENT 12-17YRS PERIODIC 18002 [facility] PREVENTIV 9 9 SUSIE BARRERA E MED EST PEDIATRIC PATIENT 12-17YRS PERIODIC 59641 [place], PREVENTIV 9 9 HUBBARD REILLY K E MED EST PEDIATRIC PATIENT 12-17YRS OFFICE 80426 [facility] THANG, CONSULTAT 9 9 NECK NOREEN Juan ION SURGERY NEW/ESTAB ASSOC PATIENT 60 MIN PERIODIC 25964 [place], PREVENTIV 9 9 HUBBARD REILLY K E MED EST PEDIATRIC PATIENT 12-17YRS EMERGENCY [address]00 [place] [address] 8 [facility] VISIT MODERATE SEVERITY [facility] [place] [address] 8 [facility] OFFICE [address] VISIT 10 PHYSICIAN MINUTES S FOR WOMEN PERIODIC 25477 [facility] PREVENTIV 8 8 SUSIE BARRERA E MED EST PEDIATRIC PATIENT 12-17YRS PERIODIC 18723 [facility] PREVENTIV 8 8 SUSIE BARRERA E MED EST PEDIATRIC PATIENT 12-17YRS PERIODIC 70447 [place], PREVENTIV 8 8 HUBBARD REILLY K E MED EST PEDIATRIC PATIENT 12-[address] [facility] 8 8 [facility] VISIT 15 PHYSICIAN MINUTES S [facility] 8 8 [facility] PERIODIC 83473 [facility] PREVENTIV 8 8 HUBBARD SUSIE E MED EST PEDIATRIC PATIENT 12-[address] [facility] 8 8 [facility] VISIT 15 PHYSICIAN MINUTES S FOR WOMEN PERIODIC 41676 [place], PREVENTIV 8 8 HUBBARD REILLY K E MED EST PEDIATRIC PATIENT 12-17YRS [facility] 8 8 [facility] OFFICE 49469 [facility] 8 8 SUSIE BARRERA VISIT PEDIATRIC 15 MINUTES PERIODIC 16127 [facility] PREVENTIV 8 8 HUBBARD SUSIE E MED EST PEDIATRIC PATIENT 12-17YRS PERIODIC 51942 [place], PREVENTIV 8 8 HUBBARD REILLY Bellamy E MED EST PEDIATRIC PATIENT 12-17YRS PERIODIC 29230 [place], PREVENTIV 8 8 HUBBARD REILLY K E MED EST PEDIATRIC PATIENT 12-17YRS OFFICE 81613 [facility] 8 8 SUSIE BARRERA VISIT PEDIATRIC 15 MINUTES PERIODIC 58602 [facility] PREVENTIV 8 8 SUSIE BARRERA E MED EST PEDIATRIC PATIENT 12-17YRS OFFICE 22961 [facility] [address] [place] [address] VISIT MEDICAL 15 C MINUTES
--- OUTSIDE RECORDS SUMMARY | 2016-10-03 12:08 | External Medical Summary Rpt ---
Author Author ARLETTE Orourke, ARLETTE Orourke Organization [employer] Address Unknown Phone Unavailable
--- OUTSIDE RECORDS SUMMARY | 2016-10-03 12:08 | External Medical Summary Rpt ---
Author Author , Organization [employer] Address Unknown Phone Unavailable Purpose Continuity of Care Document - 09-28-2010 through 2016 Immunization Name Date Route CVX Reacti Commen Provid Is Given on t er Refuse d HPV4 Histor H196 No (Garda 2011 ical kelsie) Inform ation - Source Unspec ified HPV4 Histor H196 No (Garda 2010 ical kelsie) Inform ation - Source Unspec ified
--- NOTE | 2016-10-03 12:11 | Emergency Room Report ---
History of Present Illness Time Seen by [email or web address] Presenting Problem in Triage Pt arrived:Walked Presenting Problem:PT REPORTS R SIDED PELVIC PAIN. PT STATES PAIN HAS BEEN GOING ON FOR APPROX 1 MONTH, STATES HAD AN OVARIAN CYST RUPTURE. PT REPORTS PAIN HAS GRADUALLY GOTTEN WORSE SINCE MONDAY. Onset of symptoms date/time:/ or onset unknown for:MEDICAL HX UNKNOWN Treatment Prior to Arrival: WEEKEND CAREGIVER Provided by: Sepsis Risk Assessment: Temp: 98.1 B/P: 131/67 MAP: 88 Pulse: 103 Resp: 18 Recent fever? N Clinical Suspician of Infection? N Mental Status: 1 - Regular (Normal Baseline) Sepsis Risk:Low Sepsis Risk Have you (or family members/close friends) recently traveled outside the [place]? N If Yes, where/when: Have you had exposure to infectious disease within the past month? N TB? Other? Specify: A0 with LMP 07/31-09/24/16 needing Provera to stop bleeding, patient of Dr. Jones, hx of ruptured ovarian cyst with L oophorectomy. States RLQ pain, localized, four days, now worse, pain similar to prior ruptured cysts. No fever or vomiting, reports brief episode of dark discharge four days ago, none now. ALLERGIES Coded Allergies: cefprozil (I-ITCHING/HIVES 03/15/16) cephalexin (From KEFLEX) (03/15/16) Home Medications Reported Medications Lorazepam (Ativan) 0.5 MG PO TID PRN ANXIETY Risperidone 3 MG PO DAILY #60 Propranolol Hcl (Inderal 40MG. Tablet (Generic)) 40 MG PO DAILY #45 History Medical History General CAD? No Angina: No [place]: No Hypertension? No Hyperlipidemia? No CHF? No DVT? No PE? No COPD? No Asthma? No Anemia? No GERD? No Gastric ulcers? No GI Bleed? No Hernia? No Thyroid Problems? No Hypothyroidism? No CVA? No Seizures? No Diabetes? No Renal Insuffiency? No End Stage Renal Disease? No UTI? No Stones? No BPH? No GB Disease: Yes Nephritic Syndrome? No Asplenia? No Hepatitis? No Sickle Cell Disease? No Arthritis? No Migraines? Yes Cataracts? No Glaucoma? No MRSA? No HIV? No TB? No Anxiety? Yes Depression? No Cancer? No More? Yes Additional hx: OVARIAN CYSTS, LEFT OVARIAN TORSION Immunization Hx DT/Tetanus Unknown Flu Refused Pneumonia Refuses Surgical Hx Previous Surgery?Y EXC 5TH FINGER APPENDAGE T&A LEEP PROCEDURE HYMEN REPAIR CHOLEYCYSTECTOMY LEFT OVARY REMOVED CYST DRAINAGE FROM R OVAR R OVARY "TACKED UP" LEFT FALLOPIAN TUBE REMOV REGISTERED PUBLIC SURVEYOR Hx LMP 2 Weeks Ago Family History Family Hx Diabetes No CAD No Hypertension Yes Hyperlipidemia No Cancer No TB No Social History Smoking Hx Smoker: Current Every Day Smoker Tobacco: Yes Type Cigarettes Packs/day < 1 Pack Alcohol Alcohol: No Review of Systems All Other Systems Reviewed and Negative Genitourinary see HPI. Physical Exam Vital Signs Vital Signs Date Time Temp Pulse Resp B/P Pulse O2 O2 Flow FiO2 Ox Delivery Rate 10/03 1224 88 18 131/77 99 10/03 1219 18 10/03 1126 98.1 103 18 131/67 99 General Appearance normal appearance, WD/WN, no apparent distress Eye Exam - bilateral eye normal exam, bilateral eye PERRL, bilateral eye EOMI Neck normal inspection, non-tender, supple, full range of motion Respiratory Status Yes: trachea midline, chest symmetrical, non tender chest. No: respiratory distress, tender on palpation, use of accessory muscles, pain on inspiration, pain on expiration, productive cough, non productive cough. Lung Sounds bilateral: normal breath sounds, lungs clear. Cardiovascular normal exam, regular rate/rhythm, no peripheral edema, no gallop, no JVD, no murmur, no rub, normal peripheral pulses Gastrointestinal normal bowel sounds, soft, no organomegaly, no guarding, no rebound, tenderness (RLQ very tender to light palp) Extremities normal range of motion, normal inspection Pelvic normal external exam, normal internal exam, no cerv. motion tender, no masses, no left ovary; R ovary somewhat tender to palpation w/o mass; uterus normal; no CMT; no lesions or d/c. Neurologic alert, normal exam, no motor/sensory deficits Medical Decision Making LABS/Meds/Orders Pt receiving controlled substance in ED? Yes Mickey was queried for this patient? Yes Reference #: [id number] Risks/benefits of using a controlled substance for treatment were discussed w/pt by me Results/Orders Laboratory Tests 10/03/16 1228: Ur Chlamydia DNA (PCR) Cancelled, Urine GC DNA Probe Cancelled 10/03/16 1228: C.trachomatis DNA (RAHUL) Pending, N.gonorrhoeae RNA Pending, Urine Color YELLOW, Urine Appearance CLEAR, Urine pH 7.5, Ur Specific [place] 1.010, Urine Protein NEGATIVE, Urine Ketones NEGATIVE, Urine Blood NEGATIVE, Urine Nitrate NEGATIVE, Urine Bilirubin NEGATIVE, Urine Urobilinogen 0.2, Ur Leukocyte Esterase NEGATIVE , Urine WBC OCC, Ur Squamous Epith Cells 3-5, Urine Bacteria 2+, Urine Glucose NEGATIVE 10/03/16 1145: Sodium 142, Potassium 4.1, Chloride 107, Carbon Dioxide 24, BUN 15, Creatinine 0.7, Estimated Creat Clear 113, Estimated GFR (MDRD) 102, Glucose 72 L, Calcium 9.2, Total Bilirubin 0.5, AST 11 L, ALT 23, Alkaline Phosphatase 82, Total Protein 7.2, Albumin 4.0, Globulin 3.2, Albumin/Globulin Ratio 1.3, WBC 7.2, RBC 4.62, Hgb 14.4, Hct 44.1, MCV 95.5, RDW 13.5, Plt Count 221, MPV 8.7, Gran % 64.3, Gran # 4.6, Lymphocytes % 27.3, Monocytes % 5.7, Eosinophils % 2.3, Basophils % 0.4, Lymphocytes # 2.0, Monocytes # 0.4, Eosinophils # 0.2, Basophils # 0.0, PUBS MCHC 32.7, MCH 31.2 Current Medication Orders Sig/[place] Start time Last Medication Dose Route Stop Time Status Admin Ondansetron HCl 4 MG ONCE ONE 10/03 1230 DC 10/03 IV 10/03 1231 1219 Ondansetron HCl 0 .STK-MED ONE 10/03 1219 DC .ROUTE Morphine Sulfate 0 .STK-MED ONE 10/03 1218 DC .ROUTE Morphine Sulfate 4 MG ONCE ONE 10/03 1215 DC 10/03 IV 10/03 1216 1219 Sodium Chloride 10 ML PRN PRN 10/03 1145 AC IV 10/04 1136 Orders Procedure Date/time Status CULTURE, URINE 10/03 1228 Active CHLAMYDIA/GC 10/03 1228 Active GEN NSG/PT REQ (NOT FOR MEDS!) 10/03 1206 Active WET PREP 10/03 1206 Complete LOU PREP 10/03 1206 Complete US PELVIS-TRANSVAGINAL ONLY 10/03 1204 Active IV SALINE LOCK 10/03 1136 Active URINALYSIS/COMPLETE 10/03 1136 Complete URINE 10/03 1136 Complete CBC WITH AUTO DIFF 10/03 1136 Complete CHEM 12 PROFILE 10/03 1136 Complete XRAY/CT/US XRAY/CT/US Ultrasound pelvis US Interpretation by reviewed by me (d/w tech) US results neg fluid, good flow, absent L ovary, R ovary two cysts Departure Departure Time of Disposition 1403 Disposition DC Home or Self Care(routine) Clinical Impression Primary Impression: Right ovarian cyst Condition STABLE Referrals Robert PALMA,Anthony Simon MD,Kailee Wiley (Family) Patient Instructions DI for Ovarian Cyst Additional Instructions See Dr. Jones for follow up; Rx Lortab; recommend Ibuprofen and heat as well. Discharge Counseling Counseled pt/family regarding diagnosis, test results, medications/RX, home care, follow up needs Prescriptions Current Visit Scripts HYDROCODONE/ACETAMINOPHEN (LORTAB 5-325 (generic)) 1 TAB PO Q6HP PRN PAIN #10 TAB ED Critical Care Critical Care No at 140
[2016-10-03 12:35] LABS: URINE BILIRUBIN - DIPSTICK NEGATIVE (NEG); URINE BLOOD NEGATIVE (NEG)
[2016-10-03] MEDS ORDERED: HYDROCODONE/APA1 TA8 PO (14:04)
[2016-10-03 14:24] VITALS: BP 122/69
--- NOTE | 2016-10-04 15:07 | RADIOLOGY REPORT PS360 ---
US PELVIS-TRANSVAGINAL ONLY COMPARISON: Ultrasound pelvis 09/17/2016 HISTORY: Follow-up ovarian cyst TECHNIQUE: Endovaginal ultrasound FINDINGS: The uterus is normal in size and is retroverted and somewhat retroflexed. Endometrial echo appears normal. The left ovary has been removed. There are 2 prominent cyst in the right ovary with possible slight interval enlargement of both cysts since the previous exam. There is no cul-de-sac fluid. IMPRESSION: Prominent right ovarian cysts
[2016-10-04 16:41] LABS: Neisseria gonorrhoeae, NAA Negative (Negative)
== END 2016-10-03 14:25 | disposition home or self-care (01) ==
LOC: ER 11:21
PROVIDERS: Emergency Medicine
DX: N83.201 Unspecified ovarian cyst, right side (principal)
CPT/HCPCS: J2405